=== PATIENT | female | born 1960 | race Caucasian/White ===

== ENCOUNTER → 2020-08-09 | Outpatient (CLI) | payer OTHER, SELFPAY ==
[2020-08-09 16:59] VITALS: BMI 39.0
[2020-08-09 22:14] LABS: Absolute Lymphocyte Count 2.55 X10^3/uL (0.83-4.51); Absolute Neutrophil Count 4.2 X10^3/uL (2.0-7.7); Basophil# 0.03 X10^3/uL; Basophil% 0.4 % (0-1); Eosinophil# 0.11 X10^3/uL; Eosinophils% 1.5 % (0-5); Hematocrit 41.3 % (37-47); Hemoglobin 13.3 g/dL (12.0-15.0); Lymphocyte # 2.55 X10^3/ul (0.83-4.51); Lymphocyte % 34.4 % (19-41); Mean Corp Hgb Conc 32.2 g/dL (32-36); Mean Corpuscular Hgb 30.4 pg (27.0-32.0); Mean Corpuscular Volume 94.5 fL (81-99); Mean Platelet Vol. 11.4 fl (6.2-12.0); Monocyte# 0.49 X10^3/uL; Monocyte% 6.6 % (0-10); NRBC Flagged by Analyzer 0 % (0-5); Neutrophil # 4.22 X10^3/uL (2.7-7.7); Neutrophil % 56.8 % (47-70); Platelet Count 290 K/mm3 (150-450); RBC Distribution Width CV 12.7 % (11.6-14.6); Red Blood Count 4.37 M/mm3 (4.2-5.4); White Blood Count 7.4 K/mm3 (4.4-11.0)
[2020-08-09 22:31] LABS: AST(SGOT) 18 U/L (15-37); Alanine Aminotransfer ALT/SGPT 32 U/L (13-56); Alkaline Phosphatase 65 U/L (45-117); Anion Gap 11 (5-15); BUN 22 mg/dL (7-18); BUN/Creat Ratio 20.8 RATIO (10-20); Calcium,Total 9.2 mg/dL (8.5-10.1); Chloride 106 mmol/L (98-107); Cholesterol 236 mg/dL (200); Creatinine, Serum 1.06 mg/dL (0.55-1.02); EST Glomerular Filtration Rate 56 mL/min (>60); Est Glom Filt Rate - Afr Amer 68 mL/min (>60); Globulin 4.1 g/dL (2.2-4.2); Glucose 115 mg/dL (74-106); High Density Lipoprotein 67 mg/dL; Potassium 3.8 mmol/L (3.5-5.1); Protein, Total 8.1 g/dL (6.4-8.2); Sodium Level 140 mmol/L (136-145); Triglycerides 244 mg/dL; Very Low Density Lipoprotein 49 mg/dL (5-40)
== END | disposition home or self-care (01) ==
PROVIDERS: PCP Nurse Practitioner; Referring Provider Nurse Practitioner; Visit Provider Nurse Practitioner
DX: R06.02 Shortness of breath (principal); R07.89 Other chest pain
CPT/HCPCS: 80053; 80061; 84484; 85025; 86141

== ENCOUNTER → 2022-09-27 | Outpatient (CLI) | payer OTHER, SELFPAY ==
[2022-09-27 22:03] LABS: Absolute Lymphocyte Count 2.55 X10^3/uL (0.83-4.51); Absolute Neutrophil Count 4.2 X10^3/uL (2.0-7.7); Basophil# 0.03 X10^3/uL; Basophil% 0.4 % (0-1); Eosinophil# 0.07 X10^3/uL; Eosinophils% 0.9 % (0-5); Hematocrit 43.1 % (37-47); Hemoglobin 14.3 g/dL (12.0-15.0); Lymphocyte # 2.55 X10^3/ul (0.83-4.51); Lymphocyte % 34.3 % (19-41); Mean Corp Hgb Conc 33.2 g/dL (32-36); Mean Corpuscular Hgb 31.4 pg (27.0-32.0); Mean Corpuscular Volume 94.7 fL (81-99); Mean Platelet Vol. 11.2 fl (6.2-12.0); Monocyte# 0.62 X10^3/uL; Monocyte% 8.3 % (0-10); NRBC Flagged by Analyzer 0 % (0-5); Neutrophil # 4.15 X10^3/uL (2.7-7.7); Neutrophil % 55.8 % (47-70); Platelet Count 274 K/mm3 (150-450); RBC Distribution Width CV 13.2 % (11.6-14.6); RBC Distribution Width SD 45.9 fl (35.1-43.9); Red Blood Count 4.55 M/mm3 (4.2-5.4); White Blood Count 7.4 K/mm3 (4.4-11.0)
[2022-09-27 22:21] LABS: Vitamin B12 604 pg/mL (211-911)
[2022-09-27 22:29] LABS: AST(SGOT) 20 U/L (15-37); Alanine Aminotransfer ALT/SGPT 29 U/L (13-56); Albumin, Serum 4.1 g/dL (3.2-5.0); Alkaline Phosphatase 70 U/L (45-117); Anion Gap 8 (5-15); BUN 15 mg/dL (7-18); BUN/Creat Ratio 17.4 RATIO (10-20); Calcium,Total 9.5 mg/dL (8.5-10.1); Chloride 106 mmol/L (98-107); Cholesterol 234 mg/dL (200); Creatinine, Serum 0.86 mg/dL (0.55-1.02); EST Glomerular Filtration Rate 71 mL/min (>60); Est Glom Filt Rate - Afr Amer 85 mL/min (>60); Globulin 4.2 g/dL (2.2-4.2); Glucose 93 mg/dL (74-106); High Density Lipoprotein 80 mg/dL; Potassium 4.1 mmol/L (3.5-5.1); Protein, Total 8.3 g/dL (6.4-8.2); Sodium Level 139 mmol/L (136-145); Thyroid Stim Hormone (TSH) 1.37 uIU/mL (0.358-3.74); Triglycerides 153 mg/dL; Very Low Density Lipoprotein 31 mg/dL (5-40)
== END | disposition home or self-care (01) ==
PROVIDERS: PCP Nurse Practitioner; Visit Provider Nurse Practitioner
DX: Z00.00 Encounter for general adult medical examination without abnormal findings (principal)
CPT/HCPCS: 80053; 80061; 82607; 84443; 85025

== ENCOUNTER → 2024-01-15 | Outpatient (CLI) | payer MEDICARE, SELFPAY | END | disposition home or self-care (01) | PROVIDERS: PCP Nurse Practitioner; Referring Provider Nurse Practitioner; Visit Provider Nurse Practitioner | DX: N30.90 Cystitis, unspecified without hematuria (principal) | CPT/HCPCS: 87086; 87088 ==

== ENCOUNTER → 2024-10-30 | Outpatient (CLI) | payer MEDICARE, SELFPAY ==
--- OUTSIDE RECORDS SUMMARY | 2024-10-30 22:44 | XMS RPT_ITS | CCD ---
Author Organization [facility] Care Team Providers Care Catheter Builder Name Role Phone Austin INSTRUCTIONAL SUPPORT ASSISTANT.MANAGER DATA CENTER, Margarita L Primary Care Provide r Nick Martinez MD Primary Care Provider NICK Ramos Primary Care Unavailable NICK MARTINEZ Primary Care Unavailable Austin INSTRUCTIONAL SUPPORT ASSISTANT.MANAGER DATA CENTER, Margarita L Primary Care Provide r Austin GIMP TACKER, Margarita Referring Unavailable Austin GIMP TACKER, Margarita Attending Unavailable Ausitn GIMP TACKER, Margarita Primary Care Unavailable NILTON GLASER Admitting Unavailable NILTON GLASER Attending Unavailable AVILA, MARGARITA L Primary Care Unavailable PROVIDER, UNKNOWN Referring Unavailable AVILA, MARGARITA L Primary Care Unavailable AVILA, MARGARITA L Primary Care Unavailable NILTON GLASER Referring Unavailable AVILA, MARGARITA L Primary Care Unavailable NILTON GLASER Referring Unavailable NILTON GLASER Attending Unavailable AVILA, MARGARITA L Primary Care Unavailable AVILA, MARGARITA L Primary Care Unavailable NILTON GLASER Attending Unavailable NILTON GLASER Referring Unavailable AVILA, MARGARITA L Primary Care Unavailable AVILA, MARGARITA L Primary Care Unavailable SELF Referring Unavailable NILTON GLASER Attending Unavailable AVILA, MARGARITA L Primary Care Unavailable NILTON GLASER Referring Unavailable NILTON GLASER Attending Unavailable GI MIRANDA Attending Unavaila ble AVILA, MARGARITA L Primary Care Unavailable SELF Referring Unavailable AVILA, MARGARITA L Primary Care Unavailable NILTON GLASER Attending Unavailable AVILA, MARGARITA L Primary Care Unavailable NILTON GLASER Attending Unavailable AVILA, MARGARITA L Primary Care Unavailable NILTON GLASER Referring Unavailable AVILA, MARGARITA L Primary Care Unavailable NILTON GLASER Referring Unavailable AVILA, MARGARITA L Primary Care Unavailable JAILYN NILTON Referring Unavailable AVILA, MARGARITA L Primary Care Unavailable NILTON GLASER Referring Unavailable AVILA, MARGARITA L Primary Care Unavailable JAILYN, NILTON Referring Unavailable AVILA, MARGARITA L Primary Care Unavailable NILTON GLASER Referring Unavailable AVILA, MARGARITA L Primary Care Unavailable JAILYN, NILTON Referring Unavailable AVILA, MARGARITA L Primary Care Unavailable JAILYN, NILTON Referring Unavailable AVILA, MARGARITA L Primary Care Unavailable JAILYN, NILTON Referring Unavailable AVILA, MARGARITA L Primary Care Unavailable JAILYN, NILTON Referring Unavailable AVILA, MARGARITA L Primary Care Unavailable JAILYN, NILTON Referring Unavailable AVILA, MARGARITA L Primary Care Unavailable NILTON GLASER Referring Unavailable AVILA, MARGARITA L Primary Care Unavailable JAILYN, NILTON Referring Unavailable AVILA, MARGARITA L Primary Care Unavailable JAILYN, NILTON Referring Unavailable AVILA, MARGARITA L Primary Care Unavailable JAILYN, NILTON Referring Unavailable AVILA, MARGARITA L Primary Care Unavailable JAILYN, NILTON Referring Unavailable AVILA, MARGARITA L Primary Care Unavailable JAILYN, NILTON Referring Unavailable AVILA, MARGARITA L Primary Care Unavailable JAILYN, NILTON Referring Unavailable AVILA, MARGARITA L Primary Care Unavailable JAILYN, NILTON Referring Unavailable AVILA, MARGARITA L Primary Care Unavailable NILTON GLASER Referring Unavailable TAISHA GUTIERREZ Attending Unavailable AVILA, MARGARITA L Primary Care Unavailable AVILA, MARGARITA L Primary Care Unavailable NILTON GLASER Referring Unavailable AVILA, MARGARITA L Primary Care Unavailable JAILYN, NILTON Referring Unavailable Allergies Allergy Classification Reported Allergen(s) Allergy Type Date of Onset Reaction(s) Facility Sulfonamides (antibiotic) (1 source) Sulfonamides (Antibiotic) Drug Allergy 6 [facility] (20 sources) Sulfonamides (Antibiotic); Translations: [SULFA (SULFONAMIDE ANTIBIOTICS)] Drug Allergy 6 [facility] (1 source) Sulfonamides (Antibiotic) Allergy to substance 9 [facility] (1 source) Sulfonamides (Antibiotic) Drug allergy (disorder) 9 [facility] Rep[facility] Medications Current Medications Medication Drug Class(es) Dates Sig (Normalized) Sig (Original) [id number] 200 actuat albuterol 0.09 mg/actuat metered dose inhaler (20 sources) beta2-Adrenergic Agonist Start: 10-25-2022 albuterol HFA (PROVENTIL HFA, VENTOLIN HFA) 90 mcg/actuation inhaler 10/25/2022 Active Start: 02-06-2019 End: 09-27-2022 take 1 puff(s) by inhalation every six hours Albuterol Sulfate (Proair Hfa) 90 mcg/actuation HFA aerosol inhaler Active 2 PUFF INHALATION EVERY 6 HOURS 20.1 September 27, 2022 3:44pm aspirin 81 mg delayed release oral tablet (20 sources) Platelet Aggregation Inhibitor, Nonsteroidal Anti-inflammatory Drug Start: 05-27-2024 take 1 tablet by mouth twice daily in the evening aspirin, enteric coated (ECOTRIN LOW STRENGTH) 81 mg EC tablet Take 1 tablet by mouth two times a day for 14 days. 28 tablet 05/27/2024 1:11 PM EDT 05/27/2024 Active azelaic acid 0.15 mg/mg topical gel (20 sources) Start: 10-24-2022 Azelaic Acid 15 % gel 10/24/2022 Active betamethasone 0.5 mg/ml / clotrimazole 10 mg/ml topical cream (2 sources) Azole Antifungal, Corticosteroid Start: 09-02-2018 End: 08-09-2020 Clotrimazole-Bet amethasone Active 1 APPLIC TOPICAL TWICE A DAY August 09, 2020 5:19pm calcium carbonate 800 mg / famotidine 10 mg / magnesium hydroxide 165 mg chewable tablet (1 source) Histamine-2 Receptor Antagonist Start: 09-02-2018 take 1 tablet by mouth once daily Famotidine-Ca Carb-Mag Hydrox (Pepcid Complete) 10-800-165 mg tablet,chewable Active 1 TABLET PO DAILY September 02, 2018 12:00am cetirizine hydrochloride 10 mg oral tablet (20 sources) Histamine-1 Receptor Antagonist Start: 09-02-2018 take 1 tablet by mouth once daily cetirizine (ZYRTEC) 10 mg tablet Take 1 tablet by mouth once daily. 09/17/2019 Active Comment on above: Take 1 tablet by daniella th once daily. collagen, bovine, 100 % pwpk (20 sources) collagen, bovine, 100 % pwpk Take 1 Package by mouth once daily. Puts in coffee Active esomeprazole 40 mg delayed release oral capsule (20 sources) Proton Pump Inhibitor Start: 09-17-2019 End: 09-22-2021 take 1 capsule by mouth once daily before breakfast esomeprazole (NEXIUM) 20 mg capsule Take 1 capsule by mouth daily before breakfast. 0 09/17/2019 09/22/2021 Discontinued (Patient chooses alternative therapy) Start: 09-02-2018 End: 09-27-2022 esomeprazole (NEXIUM) 40 mg capsule 09/27/2022 Active Comment on above: Take 1 capsule by mo uth daily before breakfast. Famotidine (20 sources) Histamine-2 Receptor Antagonist famotidine (PEPCID AC ORAL) Take by mouth. Active take 1 tablet by mouth once nik y famotidine (Pepcid) 20 MG tablet Take 20 mg by mouth daily. 0 Active fluticasone propionate 0.05 mg/actuat metered dose nasal spray (2 sources) Corticosteroid Start: 09-02-2018 End: 08-09-2020 take 1 spray(s) nasal route once daily Fluticasone Propionate Active 1 SPRAY INTRANASAL DAILY 47.4 August 09, 2020 5:19pm administer into each nostril GLUCOSAMINE-CONDROI TIN-[id number] ORAL (20 sources) GLUCOSAMINE-COND RO ITIN-[id number] ORAL Take by mouth. Active GLUCOSAMINE-COND ROITIN-SVFY365 ORAL Take by mouth. 0 Active Comment on above: Take by mouth. KRILL OIL ORAL (20 sources) KRILL OIL ORAL T geri by mouth. Active KRILL OIL ORAL T geri by mouth. 0 Active Comment on above: Take by mouth. metroNIDAZOLE 0.0075 mg/mg topical gel (20 sources) Nitroimidazole Antimicrobial Start: 10-02-2022 metroNIDAZOLE (METROGEL) 0.75 % Topical Gel 10/02/2022 Active MULTIVITAMIN ORAL (20 sources) MULTIVITAMIN ORA L Take by mouth. Active MULTIVITAMIN ORA L Take by mouth. 0 Active Comment on above: Take by mouth. MUSHROOM (20 sources) MUSHROOM Active OTC NUTRITIONAL SUPPLEMENT (20 sources) take 1 capsule by mouth once daily OTC NUTRITIONAL SUPPLEMENT Take 1 capsule by mouth once daily. Active Turmeric extract (20 sources) TURMERIC ORAL Ta ke by mouth. Active Completed/Discontinued Medications Medication Drug Class(es) Dates Sig (Normalized) Sig (Original) amoxicillin 875 mg / clavulanate 125 mg oral tablet (3 sources) Penicillin-class Antibacterial Start: 07-11-2021 End: 09-27-2022 take 1 tablet by mouth twice daily Amoxicillin-Pot Clavulanate Discontinued 1 TABLET PO TWICE A DAY December 19, 2021 7:38pm September 27, 2022 3:43pm Start: 12-02-2020 End: 02-11-2021 take 1 tablet by mouth twice daily Amoxicillin-Pot Clavulanate Discontinued 1 TABLET PO TWICE A DAY December 02, 2020 12:00am February 11, 2021 8:02pm benzonatate 200 mg oral capsule (3 sources) Non-narcotic Antitussive Start: 07-11-2021 End: 09-27-2022 take 200 mg by mouth three times daily Benzonatate Discontinued 200 MG PO THREE TIMES A DAY 60 December 19, 2021 7:38pm September 27, 2022 3:43pm Start: 02-06-2019 End: 08-09-2020 take 200 mg by mouth three times daily Benzonatate Discontinued 200 MG PO THREE TIMES A DAY 60 February 06, 2019 1:00am August 09, 2020 5:17pm calcium chloride 0.0014 meq/ml / potassium chloride 0.004 meq/ml / sodium chloride 0.103 meq/ml / sodium lactate 0.028 meq/ml injectable solution (1 source) Start: 01-31-2023 End: 02-01-2023 lactated Ringer's (LR) infusion ciprofloxacin 500 mg oral tablet (1 source) Quinolone Antimicrobial Start: 02-11-2021 End: 07-11-2021 take 1 tablet by mouth twice daily Ciprofloxacin Hcl (Cipro) 500 mg tablet Discontinued 500 MG PO TWICE A DAY February 11, 2021 1:00am July 11, 2021 4:28pm cyclopentolate hydrochloride 10 mg/ml ophthalmic solution (3 sources) Start: 01-31-2023 End: 02-01-2023 cyclopentolate (Cyclogyl) 1 % ophthalmic solution 1 drop Start: 01-10-2023 End: 01-10-2023 cyclopentolate (Cyclogyl) 1 % ophthalmic solution 1 drop 1 ml HYDROmorphone hydrochloride 2 mg/ml cartridge (1 source) Opioid Agonist Start: 01-10-2023 End: 01-10-2023 HYDROmorphone (Dilaudid) injection ketorolac tromethamine 5 mg/ml ophthalmic solution (3 sources) Nonsteroidal Anti-inflammatory Drug, Cyclooxygenase Inhibitor Start: 01-31-2023 End: 02-01-2023 ketorolac (Acular) 0.5 % ophthalmic solution 1 drop Start: 01-10-2023 End: 01-10-2023 ketorolac (Acular) 0.5 % oph thalmic solution 1 drop levoFLOXacin 500 mg oral tablet (1 source) Quinolone Antimicrobial Start: 02-06-2019 End: 08-09-2020 take 1 tablet by mouth once daily Levofloxacin (Levaquin) 500 mg tablet Discontinued 500 MG PO DAILY February 06, 2019 1:00am August 09, 2020 5:18pm 2 ml midazolam 1 mg/ml injection (1 source) Benzodiazepine Start: 01-10-2023 End: 01-10-2023 midazolam (Versed) injection ofloxacin 3 mg/ml ophthalmic solution (2 sources) Quinolone Antimicrobial Start: 01-10-2023 End: 01-10-2023 ofloxacin (Ocuflox) 0.3 % ophthalmic solution 1 drop phenazopyridine hydrochloride 200 mg oral tablet (1 source) Start: 02-11-2021 End: 07-11-2021 take 1 tablet by mouth three times daily Phenazopyridine (Pyridium) 200 mg tablet Discontinued 200 MG PO THREE TIMES A DAY February 11, 2021 1:00am July 11, 2021 4:28pm phenylephrine hydrochloride 100 mg/ml ophthalmic solution (3 sources) alpha-1 Adrenergic Agonist Start: 01-31-2023 End: 02-01-2023 phenylephrine (Juvencio-Synephrine) 10 % ophthalmic solution 1 drop Start: 01-10-2023 End: 01-10-2023 phenylephrine (Juvencio-Synephrin e) 10 % ophthalmic solution 1 drop polymyxin b [id number] unt/ml / trimethoprim 1 mg/ml ophthalmic solution (1 source) Dihydrofolate Reductase Inhibitor Antibacterial, Polymyxin-class Antibacterial Start: 09-02-2018 End: 02-06-2019 Polymyxin B Sulf-Trimethoprim (Polytrim) 10,000 unit- 1 mg/mL drops Discontinued 2 DRP OPHTHALMIC Q4H September 02, 2018 12:00am February 06, 2019 6:28pm while awake R eye; do not exceed 6 doses in 24 hours prednisoLONE acetate 10 mg/ml ophthalmic suspension (3 sources) Corticosteroid Start: 01-31-2023 End: 02-01-2023 prednisoLONE acetate (Pred-Forte) 1 % ophthalmic suspension 1 drop Start: 01-10-2023 End: 01-10-2023 prednisoLONE acetate (Pred-F orte) 1 % ophthalmic suspension 1 drop predniSONE 20 mg oral tablet (2 sources) Start: 07-11-2021 End: 12-19-2021 take 40 mg by mouth once daily Prednisone Discontinued 40 MG PO DAILY July 11, 2021 12:00am December 19, 2021 7:38pm Start: 09-30-2018 End: 10-07-2018 take 30 mg by mouth once daily Prednisone Discontinued 30 MG PO DAILY 15 09September 30, 2018 12:00am October 07, 2018 12:07am proparacaine hydrochloride 5 mg/ml ophthalmic solution (3 sources) Local Anesthetic Start: 01-31-2023 End: 01-31-2023 proparacaine (Alcaine) 0.5 % ophthalmic solution 1 drop Start: 01-10-2023 End: 01-10-2023 proparacaine (Alcaine) 0.5 % ophthalmic solution 1 drop 20 ml propofol 10 mg/ml injection (1 source) General Anesthetic Start: 01-10-2023 End: 01-10-2023 Propofol (Diprivan) injection tropicamide 10 mg/ml ophthalmic solution (3 sources) Anticholinergic Start: 01-31-2023 End: 02-01-2023 tropicamide (Mydriacyl) 1 % ophthalmic solution 1 drop Start: 01-10-2023 End: 01-10-2023 tropicamide (Mydriacyl) 1 % ophthalmic solution 1 drop valACYclovir 1000 mg oral tablet (1 source) Herpesvirus Nucleoside Analog DNA Polymerase Inhibitor, Herpes Simplex Virus Nucleoside Analog DNA Polymerase Inhibitor, Herpes Zoster Virus Nucleoside Analog DNA Polymerase Inhibitor Start: 09-30-2018 End: 10-07-2018 take 1000 mg by mouth three times daily Valacyclovir Discontinued 1000 MG PO THREE TIMES A DAY 15 09September 30, 2018 12:00am October 07, 2018 12:07am Problems Active Problems Problem Classification Problem Date Documented Date Episodic/Chronic Abdominal pain (1 source) Flank pain; Translations: [Unspecified abdominal pain] 09-30-2018 Episodic Cataract (4 sources) Age-related nuclear cataract, left eye; Translations: [Age-related nuclear cataract, right eye] Onset: 01-10-2023 Chronic Chronic obstructive pulmonary disease and bronchiectasis (2 sources) Bronchitis; Translations: [Bronchitis, not specified as acute or chronic] 02-06-2019 Episodic Disorders of lipid metabolism (20 sources) Hyperlipidemia; Translations: [Hyperlipidemia, unspecified] Onset: 05-08-2024 05-08-2024 Chronic Esophageal disorders (20 sources) Gastroesophageal reflux disease; Translations: [Gastro-esophageal reflux disease without esophagitis] Onset: 05-08-2024 09-02-2018 Chronic Genitourinary symptoms and ill-defined conditions (1 source) Dysuria; Translations: [Dysuria] 02-11-2021 Episodic Malaise and fatigue (1 source) Fatigue; Translations: [Other fatigue] 12-02-2020 Episodic Nonmalignant breast conditions (2 sources) Mammographic calcification of left breast; Translations: [Mammographic calcification found on diagnostic imaging of breast] 10-27-2022 Episodic Nonspecific chest pain (1 source) Tight chest; Translations: [Other chest pain] 08-09-2020 Episodic Other and unspecified benign neoplasm (1 source) Polyp of colon; Translations: [Polyp of colon] 09-27-2022 Episodic Other connective tissue disease (20 sources) Shoulder girdle weakness; Translations: [Other symptoms and signs involving the musculoskeletal system] Onset: 07-28-2024 07-28-2024 Episodic Other connective tissue disease (1 source) Other symptoms and signs involving the musculoskeletal system; Translations: [Weakness of right shoulder] Onset: 07-28-2024 Episodic Other injuries and conditions due to external causes (6 sources) Injury of axillary nerve, right arm, subsequent encounter; Translations: [Other specified aftercare] Onset: 09-04-2024 05-06-2024 Episodic Other lower respiratory disease (1 source) Dyspnea; Translations: [Shortness of breath] 08-09-2020 Episodic Other non-traumatic joint disorders (1 source) Pain in right shoulder; Translations: [Right shoulder pain] 09-02-2018 Episodic Other non-traumatic joint disorders (20 sources) Decreased range of shoulder movement; Translations: [Stiffness of right shoulder, not elsewhere classified] Onset: 07-28-2024 07-07-2024 Episodic Other non-traumatic joint disorders (1 source) Stiffness of right shoulder, not elsewhere classified; Translations: [Decreased range of motion of right shoulder] Onset: 07-28-2024 Episodic Other nutritional; endocrine; and metabolic disorders (20 sources) Body mass index 30+ - obesity; Translations: [Obesity, unspecified] Onset: 05-08-2024 05-08-2024 Chronic Other screening for suspected conditions (not mental disorders or infectious disease) (8 sources) Patient encounter status; Translations: [Encounter for other screening for malignant neoplasm of breast] Onset: 07-17-2024 Episodic Other upper respiratory disease (1 source) Seasonal allergy; Translations: [Other seasonal allergic rhinitis] 09-02-2018 Chronic Other upper respiratory infections (1 source) Maxillary sinusitis; Translations: [Chronic maxillary sinusitis] 02-06-2019 Chronic Residual codes; unclassified (20 sources) Family history of malignant neoplasm of breast in first degree relative; Translations: [Family history of malignant neoplasm of breast] 09-11-2012 Episodic Residual codes; unclassified (2 sources) Family history of breast cancer; Translations: [Family history of malignant neoplasm of breast] 10-10-2022 Episodic Residual codes; unclassified (2 sources) Other specified postprocedural states; Translations: [S/P right rotator cuff repair] Onset: 07-28-2024 Episodic Spondylosis; intervertebral disc disorders; other back problems (1 source) Chronic low back pain; Translations: [Chronic low back pain] 09-02-2018 Episodic Urinary tract infections (2 sources) Cystitis; Translations: [Cystitis, unspecified without hematuria] Onset: 02-12-2024 02-11-2021 Episodic Viral infection (1 source) 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; 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] 09-30-2018 Episodic Past or Other Problems Problem Classification Problem Date Documented Date Episodic/Chronic E Codes: Fall (1 source) Unspecified fall, initial encounter; Translations: [Fall, initial encounter] Onset: 02-07-2024 Episodic Joint disorders and dislocations; trauma-related (1 source) Unspecified dislocation of right shoulder joint, initial encounter; Translations: [Shoulder dislocation, right, initial encounter] Onset: 02-07-2024 Episodic Other and unspecified benign neoplasm (20 sources) Leiomyoma; Translations: [Benign neoplasm of connective and other soft tissue, unspecified] Onset: 10-06-2010 02-21-2021 Episodic Other nutritional; endocrine; and metabolic disorders (20 sources) Obese class II; Translations: [Obesity, unspecified] Onset: 08-18-2020 Resolved: 05-08-2024 08-18-2020 Chronic Screening and history of mental health and substance abuse codes (20 sources) Ex-smoker; Translations: [Personal history of nicotine dependence] Onset: 05-08-2024 05-08-2024 Episodic Sprains and strains (7 sources) Strain of muscle(s) and tendon(s) of the rotator cuff of right shoulder, initial encounter; Translations: [Rotator cuff (capsule) sprain] Onset: 02-15-2024 02-14-2024 Episodic Superficial injury; contusion (2 sources) Abrasion of cornea of right eye; Translations: [Injury of conjunctiva and corneal abrasion without foreign body, right eye, initial encounter] Onset: 02-07-2024 09-02-2018 Episodic Unclassified (1 source) ORAL SURGERY BENIGN TUMOR 09-14-2021 Unclassified (1 source) Preprocedural examination done 05-08-2024 Unclassified (1 source) Injury of right axillary nerve, subsequent encounter 06-12-2024 Results Test Name Value Interpretation Reference Range Facility [facility] 10-21-2024 [facility] OT/PT/Speech Visit (LDPT) ADAM GUAJARDO ([id number]) 1960 F Date Time Provider Department 10/21/24 10:00 AM RAIMUNDO ACEVES Date Time Provider Department Center 10/21/2024 10:00 AM [id number] [facility] Reason for Visit: Physical Therapy [503] Primary Visit Diagnosis:S/P right rotator cuff repair [Z98.890] Allergies As of Date: 10/21/2024 Noted Allergy Reaction SULFA (SULFONAMIDE ANTIBIOTICS) 10/17/2005 2 - Rash Date Reviewed: 09/04/2024 Reviewed by: [place], Kraissa, MANAGER STRATEGIC DEVELOPMENT - Fully Assessed Prescriptions as of 10/21/2024 - aspirin, enteric coated (ECOTRIN LOW STRENGTH) 81 mg EC tablet Take 1 tablet by mouth two times a day for 14 days. - collagen, bovine, 100 % pwpk Take 1 Package by mouth once daily. Puts in coffee - MUSHROOM - OTC NUTRITIONAL SUPPLEMENT Take 1 capsule by mouth once daily. - famotidine (PEPCID AC ORAL) Take by mouth. - TURMERIC ORAL Take by mouth. - albuterol HFA (PROVENTIL HFA, VENTOLIN HFA) 90 mcg/actuation inhaler - Azelaic Acid 15 % gel - esomeprazole (NEXIUM) 40 mg capsule - metroNIDAZOLE (METROGEL) 0.75 % Topical Gel - MULTIVITAMIN ORAL Take by mouth. - KRILL OIL ORAL Take by mouth. - GLUCOSAMINE-CONDROITI [id number] ORAL Take by mouth. - cetirizine (ZYRTEC) 10 mg tablet Take 1 tablet by mouth once daily. [facility] 10-16-2024 CNTHERAPY OT/PT/Speech Visit (LDPT) ADAM GUAJARDO ([id number]) 1960 F Date Time Provider Department 10/16/24 1:30 PM KELSEA FAJARDO LDRANJANA Date Time Provider Department Center 10/16/2024 1:30 PM [id number], CARLA LDPT [facility] Reason for Visit: Physical Therapy [503] Primary Visit Diagnosis:S/P right rotator cuff repair [Z98.890] Other Visit Diagnoses:Decreased range of motion of right shoulder [M25.611] Weakness of right shoulder [R29.898] Allergies As of Date: 10/16/2024 Noted Allergy Reaction SULFA (SULFONAMIDE ANTIBIOTICS) 10/17/2005 2 - Rash Date Reviewed: 09/04/2024 Reviewed by: Elias Seo LPN - Fully Assessed Prescriptions as of 10/16/2024 - aspirin, enteric coated (ECOTRIN LOW STRENGTH) 81 mg EC tablet Take 1 tablet by mouth two times a day for 14 days. - collagen, bovine, 100 % pwpk Take 1 Package by mouth once daily. Puts in coffee - MUSHROOM - OTC NUTRITIONAL SUPPLEMENT Take 1 capsule by mouth once daily. - famotidine (PEPCID AC ORAL) Take by mouth. - TURMERIC ORAL Take by mouth. - albuterol HFA (PROVENTIL HFA, VENTOLIN HFA) 90 mcg/actuation inhaler - Azelaic Acid 15 % gel - esomeprazole (NEXIUM) 40 mg capsule - metroNIDAZOLE (METROGEL) 0.75 % Topical Gel - MULTIVITAMIN ORAL Take by mouth. - KRILL OIL ORAL Take by mouth. - GLUCOSAMINE-CONDROITI [id number] ORAL Take by mouth. - cetirizine (ZYRTEC) 10 mg tablet Take 1 tablet by mouth once daily. [facility] [id number] 10-14-2024 [id number] HNO ID: [id number] Author: KELSEA FAJARDO PT Service: ? Author Type: Physical Therapist Type: [id number] Filed: 10/14/2024 15:39 Note Text: [facility] Physical Therapy Plan of Care Certification Patient Name: Adam Guajardo : 1960 CC #: [id number] Date: 10/14/2024 To: Nilton Glaser MD From Therapist: Kelsea Fajardo PT RE: Patient Certification/ Recertification Your review, approval and electronic signature are required in order to comply with Payor: [employer] / Plan: [employer] PPO / Product Type: PPO / regulations. The identified Physical Therapy PLAN OF CARE for the patient is as follows: Z98.890 S/P right rotator cuff repair (primary encounter diagnosis) M25.611 Decreased range of motion of right shoulder R29.898 Weakness of right shoulder PLAN OF CARE UPDATE: Assessment: Adam Guajardo demonstrates improvements in lifting, physical activities, reaching behind back, reaching overhead, use hand with arm at shoulder level, and grooming. The patient has progressed toward goals. Patient continues to present with impairments in ADL's, joint mobility, overall function, range of motion, and strength that interfere with reaching overhead, reaching behind back, lifting, recreational activities . Current prognosis is Good due to: current objective clinical presentation, good overall health status, acuteness of condition, within-session changes, good support system/ coping skills Fair due to: clinical presentation, chronic nature of impairments . She presents 4 months s/p R RCR doing well with minimal pain but remains limited by weakness AND tightness. The patient will benefit from continued skilled therapy services to meet the updated goals for this plan of care as noted below. Goals for Episode of Care: established 07/07/24 Patient reported outcome of physical function and self-efficacy will increase T-score by a minimum 5 points. [place] in home exercise program. Patient will decrease pain to 0/10 with functional activities to allow patient to improve ADLs. Patient will increase active ROM of R shoulder to wnl, symmetrical AND painfree to allow pt to to improve postural alignment and to improve performance of ADLs. Patient will demonstrate increase in R UE/shoulder strength to 5/5 during manual muscle testing in order to improve function for basic self-care tasks, home management tasks, leisure / recreation skills, and prior functional tasks. Patient Goals: full use of R UE Time Frame for Goals and Treatment : 12/13/24 Planned Interventions, Frequency, and Duration: 1x/week, 8 weeks Patient to be seen for Therapeutic exercise (32148), Manual therapy (46920), Self-half-way management (54696), Therapeutic activities (78525), Patient/Family/Caregi froilan Education PLAN FOR NEXT VISIT: continue to progress R shoulder ROM AND strength For further details regarding this patient refer to the Physical Therapy electronically documented visit dated 10/14/2024. Provider Attestation I have reviewed the treatment plan for Adam Hunter Casandra, [facility]# [id number] for the period of 10/14/24 -- 12/13/24, established on 10/14/2024. Signature certifies the need for therapy services. [facility] CNTHERAPYon 10-14-2024 CNTHERAPY OT/PT/Speech Visit (LDPT) ADAM GUAJARDO ([id number]) 1960 F Date Time Provider Department 10/14/24 1:30 PM KELSEA FAJARDO Date Time Provider Department Center 10/14/2024 1:30 PM [id number], CARLA LDPT [facility] Reason for Visit: PT Progress Note [2336] Primary Visit Diagnosis:S/P right rotator cuff repair [Z98.890] Other Visit Diagnoses:Decreased range of motion of right shoulder [M25.611] Weakness of right shoulder [R29.898] Allergies As of Date: 10/14/2024 Noted Allergy Reaction SULFA (SULFONAMIDE ANTIBIOTICS) 10/17/2005 2 - Rash Date Reviewed: 09/04/2024 Reviewed by: Elias Seo LPN - Fully Assessed Prescriptions as of 10/14/2024 - aspirin, enteric coated (ECOTRIN LOW STRENGTH) 81 mg EC tablet Take 1 tablet by mouth two times a day for 14 days. - collagen, bovine, 100 % pwpk Take 1 Package by mouth once daily. Puts in coffee - MUSHROOM - OTC NUTRITIONAL SUPPLEMENT Take 1 capsule by mouth once daily. - famotidine (PEPCID AC ORAL) Take by mouth. - TURMERIC ORAL Take by mouth. - albuterol HFA (PROVENTIL HFA, VENTOLIN HFA) 90 mcg/actuation inhaler - Azelaic Acid 15 % gel - esomeprazole (NEXIUM) 40 mg capsule - metroNIDAZOLE (METROGEL) 0.75 % Topical Gel - MULTIVITAMIN ORAL Take by mouth. - KRILL OIL ORAL Take by mouth. - GLUCOSAMINE-CONDROITI [id number] ORAL Take by mouth. - cetirizine (ZYRTEC) 10 mg tablet Take 1 tablet by mouth once daily. [facility] CNTHERAPYon 10-09-2024 CNTHERAPY OT/PT/Speech Visit (LDPT) ADAM GUAJARDO ([id number]) 1960 F Date Time Provider Department 10/09/24 10:45 AM RAIMUNDO ACEVES Date Time Provider Department Center 10/09/2024 10:45 AM [id number] ACEVES [facility] Reason for Visit: Physical Therapy [503] Primary Visit Diagnosis:S/P right rotator cuff repair [Z98.890] Allergies As of Date: 10/09/2024 Noted Allergy Reaction SULFA (SULFONAMIDE ANTIBIOTICS) 10/17/2005 2 - Rash Date Reviewed: 09/04/2024 Reviewed by: Elias Seo LPN - Fully Assessed Prescriptions as of 10/09/2024 - aspirin, enteric coated (ECOTRIN LOW STRENGTH) 81 mg EC tablet Take 1 tablet by mouth two times a day for 14 days. - collagen, bovine, 100 % pwpk Take 1 Package by mouth once daily. Puts in coffee - MUSHROOM - OTC NUTRITIONAL SUPPLEMENT Take 1 capsule by mouth once daily. - famotidine (PEPCID AC ORAL) Take by mouth. - TURMERIC ORAL Take by mouth. - albuterol HFA (PROVENTIL HFA, VENTOLIN HFA) 90 mcg/actuation inhaler - Azelaic Acid 15 % gel - esomeprazole (NEXIUM) 40 mg capsule - metroNIDAZOLE (METROGEL) 0.75 % Topical Gel - MULTIVITAMIN ORAL Take by mouth. - KRILL OIL ORAL Take by mouth. - GLUCOSAMINE-CONDROITI [id number] ORAL Take by mouth. - cetirizine (ZYRTEC) 10 mg tablet Take 1 tablet by mouth once daily. [facility] CNTHERAPYon 09-25-2024 CNTHERAPY OT/PT/Speech Visit (LDPT) ADAM GUAJARDO ([id number]) 1960 F Date Time Provider Department 09/25/24 10:00 AM KELSEA FAJARDO Date Time Provider Department Center 09/25/2024 10:00 AM [id number] FAJARDO [facility] Reason for Visit: Physical Therapy [503] Primary Visit Diagnosis:S/P right rotator cuff repair [Z98.890] Other Visit Diagnoses:Decreased range of motion of right shoulder [M25.611] Weakness of right shoulder [R29.898] Allergies As of Date: 09/25/2024 Noted Allergy Reaction SULFA (SULFONAMIDE ANTIBIOTICS) 10/17/2005 2 - Rash Date Reviewed: 09/04/2024 Reviewed by: Elias Seo LPN - Fully Assessed Prescriptions as of 09/25/2024 - aspirin, enteric coated (ECOTRIN LOW STRENGTH) 81 mg EC tablet Take 1 tablet by mouth two times a day for 14 days. - collagen, bovine, 100 % pwpk Take 1 Package by mouth once daily. Puts in coffee - MUSHROOM - OTC NUTRITIONAL SUPPLEMENT Take 1 capsule by mouth once daily. - famotidine (PEPCID AC ORAL) Take by mouth. - TURMERIC ORAL Take by mouth. - albuterol HFA (PROVENTIL HFA, VENTOLIN HFA) 90 mcg/actuation inhaler - Azelaic Acid 15 % gel - esomeprazole (NEXIUM) 40 mg capsule - metroNIDAZOLE (METROGEL) 0.75 % Topical Gel - MULTIVITAMIN ORAL Take by mouth. - KRILL OIL ORAL Take by mouth. - GLUCOSAMINE-CONDROITI [id number] ORAL Take by mouth. - cetirizine (ZYRTEC) 10 mg tablet Take 1 tablet by mouth once daily. [facility] CNTHERAPYon 09-23-2024 CNTHERAPY OT/PT/Speech Visit (LDPT) ADAM GUAJARDO ([id number]) 1960 F Date Time Provider Department 09/23/24 9:15 AM RAIMUNDO ACEVES Date Time Provider Department Center 09/23/2024 9:15 AM [id number] ACEVES [facility] Reason for Visit: Physical Therapy [503] Primary Visit Diagnosis:S/P right rotator cuff repair [Z98.890] Allergies As of Date: 09/23/2024 Noted Allergy Reaction SULFA (SULFONAMIDE ANTIBIOTICS) 10/17/2005 2 - Rash Date Reviewed: 09/04/2024 Reviewed by: Elias Seo LPN - Fully Assessed Prescriptions as of 09/25/2024 - aspirin, enteric coated (ECOTRIN LOW STRENGTH) 81 mg EC tablet Take 1 tablet by mouth two times a day for 14 days. - collagen, bovine, 100 % pwpk Take 1 Package by mouth once daily. Puts in coffee - MUSHROOM - OTC NUTRITIONAL SUPPLEMENT Take 1 capsule by mouth once daily. - famotidine (PEPCID AC ORAL) Take by mouth. - TURMERIC ORAL Take by mouth. - albuterol HFA (PROVENTIL HFA, VENTOLIN HFA) 90 mcg/actuation inhaler - Azelaic Acid 15 % gel - esomeprazole (NEXIUM) 40 mg capsule - metroNIDAZOLE (METROGEL) 0.75 % Topical Gel - MULTIVITAMIN ORAL Take by mouth. - KRILL OIL ORAL Take by mouth. - GLUCOSAMINE-CONDROITI [id number] ORAL Take by mouth. - cetirizine (ZYRTEC) 10 mg tablet Take 1 tablet by mouth once daily. [facility] CNTHERAPYon 09-16-2024 CNTHERAPY OT/PT/Speech Visit (LDPT) ADAM GUAJARDO ([id number]) 1960 F Date Time Provider Department 09/16/24 9:15 AM RAIMUNDO ACEVES Date Time Provider Department Center 09/16/2024 9:15 AM [id number] ACEVES [facility] Reason for Visit: Physical Therapy [503] Primary Visit Diagnosis:S/P right rotator cuff repair [Z98.890] Allergies As of Date: 09/16/2024 Noted Allergy Reaction SULFA (SULFONAMIDE ANTIBIOTICS) 10/17/2005 2 - Rash Date Reviewed: 09/04/2024 Reviewed by: Elias Seo LPN - Fully Assessed Prescriptions as of 09/16/2024 - aspirin, enteric coated (ECOTRIN LOW STRENGTH) 81 mg EC tablet Take 1 tablet by mouth two times a day for 14 days. - collagen, bovine, 100 % pwpk Take 1 Package by mouth once daily. Puts in coffee - MUSHROOM - OTC NUTRITIONAL SUPPLEMENT Take 1 capsule by mouth once daily. - famotidine (PEPCID AC ORAL) Take by mouth. - TURMERIC ORAL Take by mouth. - albuterol HFA (PROVENTIL HFA, VENTOLIN HFA) 90 mcg/actuation inhaler - Azelaic Acid 15 % gel - esomeprazole (NEXIUM) 40 mg capsule - metroNIDAZOLE (METROGEL) 0.75 % Topical Gel - MULTIVITAMIN ORAL Take by mouth. - KRILL OIL ORAL Take by mouth. - GLUCOSAMINE-CONDROITI [id number] ORAL Take by mouth. - cetirizine (ZYRTEC) 10 mg tablet Take 1 tablet by mouth once daily. [facility] CNTHERAPYon 09-11-2024 CNTHERAPY OT/PT/Speech Visit (LDPT) ADAM GUAJARDO ([id number]) 1960 F Date Time Provider Department 09/11/24 10:00 AM RENU CLINE LDPT Date Time Provider Department Center 09/11/2024 10:00 AM [id number], SARAH LDPT [facility] Reason for Visit: Physical Therapy [503] Primary Visit Diagnosis:S/P right rotator cuff repair [Z98.890] Other Visit Diagnoses:Decreased range of motion of right shoulder [M25.611] Weakness of right shoulder [R29.898] Allergies As of Date: 09/11/2024 Noted Allergy Reaction SULFA (SULFONAMIDE ANTIBIOTICS) 10/17/2005 2 - Rash Date Reviewed: 09/04/2024 Reviewed by: Elias Seo LPN - Fully Assessed Prescriptions as of 09/11/2024 - aspirin, enteric coated (ECOTRIN LOW STRENGTH) 81 mg EC tablet Take 1 tablet by mouth two times a day for 14 days. - collagen, bovine, 100 % pwpk Take 1 Package by mouth once daily. Puts in coffee - MUSHROOM - OTC NUTRITIONAL SUPPLEMENT Take 1 capsule by mouth once daily. - famotidine (PEPCID AC ORAL) Take by mouth. - TURMERIC ORAL Take by mouth. - albuterol HFA (PROVENTIL HFA, VENTOLIN HFA) 90 mcg/actuation inhaler - Azelaic Acid 15 % gel - esomeprazole (NEXIUM) 40 mg capsule - metroNIDAZOLE (METROGEL) 0.75 % Topical Gel - MULTIVITAMIN ORAL Take by mouth. - KRILL OIL ORAL Take by mouth. - GLUCOSAMINE-CONDROITI [id number] ORAL Take by mouth. - cetirizine (ZYRTEC) 10 mg tablet Take 1 tablet by mouth once daily. [facility] CNTHERAPYon 09-09-2024 CNTHERAPY OT/PT/Speech Visit (LDPT) ADAM GUAJARDO ([id number]) 1960 F Date Time Provider Department 09/09/24 10:45 AM KELSEA FAJARDO LDPT Date Time Provider Department Center 09/09/2024 10:45 AM [id number] [facility] Reason for Visit: PT Progress Note [2466] Primary Visit Diagnosis:S/P right rotator cuff repair [Z98.890] Other Visit Diagnoses:Decreased range of motion of right shoulder [M25.611] Weakness of right shoulder [R29.898] Allergies As of Date: 09/09/2024 Noted Allergy Reaction SULFA (SULFONAMIDE ANTIBIOTICS) 10/17/2005 2 - Rash Date Reviewed: 09/04/2024 Reviewed by: Elias Seo LPN - Fully Assessed Prescriptions as of 09/09/2024 - aspirin, enteric coated (ECOTRIN LOW STRENGTH) 81 mg EC tablet Take 1 tablet by mouth two times a day for 14 days. - collagen, bovine, 100 % pwpk Take 1 Package by mouth once daily. Puts in coffee - MUSHROOM - OTC NUTRITIONAL SUPPLEMENT Take 1 capsule by mouth once daily. - famotidine (PEPCID AC ORAL) Take by mouth. - TURMERIC ORAL Take by mouth. - albuterol HFA (PROVENTIL HFA, VENTOLIN HFA) 90 mcg/actuation inhaler - Azelaic Acid 15 % gel - esomeprazole (NEXIUM) 40 mg capsule - metroNIDAZOLE (METROGEL) 0.75 % Topical Gel - MULTIVITAMIN ORAL Take by mouth. - KRILL OIL ORAL Take by mouth. - GLUCOSAMINE-CONDROITI [id number] ORAL Take by mouth. - cetirizine (ZYRTEC) 10 mg tablet Take 1 tablet by mouth once daily. [facility] CNOVon 09-04-2024 CNOV Office Visit (EVA ) ADAM GUAJARDO ([id number]) 1960 F Date Time Provider Department 09/04/24 10:45 AM NILTON GLASER During your visit today, we recorded the following information about you: Nilton Glaser MD 09/04/2024 11:40 AM Signed [facility] NOTE Department of Orthopaedics NAME: Adam Guajardo CLINIC NO.: [id number] DATE: 09/04/2024 SURGERY/PROCEDURE(S): * Right arthroscopic rotator cuff repair Right anterior labral debridement Date: 05/27/2024 Interval Hx: Adam Guajardo is back for 3 months follow up after above mentioned procedure. 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 she denies any new injury or trauma. she is not using pain medication. she is doing physical therapy and improving, particularly in regard to her axillary nerve function. she is satisfied with her results so far. Does still have some pain at mid flexion PHYSICAL EXAMINATION: Incision appears well-healed. Forward elevation is passively to 150 ? and actively to 90 ? External rotation is passively to 45 ? and actively to 45 ? Abduction is actively to 90 ? Internal rotation is actively to sacrum IR strength 5/5 ER strength 5/5 Abduction strength 4+/5 Firing deltoid, all three No axillary neuropraxia Belly press test is negative Fires m/r/uln/ax SILT m/r/uln/ax RADIOGRAPHIC STUDIES: no new imaging ASSESSMENT: Encounter Diagnosis ICD-10-CM 1. 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 S/P right rotator cuff repair Z98.890 PLAN: I told Adam Guajardo that she is doing well for her post-operative status. We should continue stretching exercises and now start phase 1 strengthening, with an introduction into phase 2 strengthening as appropriate. As long as symptoms are well controlled and rehab is going well, follow up with my clinic will be in 3 months. If any questions or concerns arise, she should not hesitate to call. Her axillary nerve is recovering well. Do not need to get EMG We talked about pain management around the time of rehab. We discussed the pros and cons of prescription NSAIDs and the avoidance of opioids. Adam is doing well and at this time she prefers to continue with OTC NSAIDs PRN Regular rehab 0-6 weeks: ultrasling, elbow/wrist/ hand exercises, no passive or active use of the arm 6-12 weeks: sling off, pendulum, supine passive assisted exercises until ROM gets normal (Phase 1 stretching; okay to start phase 2 stretching once full ROM with phase 1), lift < 2lb, ok to drive after 6 weeks 3-6 months: continue stretching, resistance bands, isometric exercises (phase 1 strengthening, followed by phase 2 strengthening), lift < 10lb 6+ months: no restrictions Return to work with limited duty at 2-6 months, full duty 6 months, Contact sports >4 months Nilton Glaser MD Shoulder and Elbow Surgeon Orthopaedic Surgery Department Referring Provider: NILTON GLASER [[id number]] Allergies As of Date: 09/04/2024 Noted Allergy Reaction SULFA (SULFONAMIDE ANTIBIOTICS) 10/17/2005 2 - Rash Date Reviewed: 09/04/2024 Reviewed by: Elias Seo LPN - Fully Assessed Reason for Visit: Follow Up [171] Primary Visit Diagnosis:Injury of right axillary nerve, subsequent encounter [S44.31XD] Other Visit Diagnosis:S/P right rotator cuff repair [Z98.890] Prescriptions as of 09/04/2024 - aspirin, enteric coated (ECOTRIN LOW STRENGTH) 81 mg EC tablet Take 1 tablet by mouth two times a day for 14 days. - collagen, bovine, 100 % pwpk Take 1 Package by mouth once daily. Puts in coffee - MUSHROOM - OTC NUTRITIONAL SUPPLEMENT Take 1 capsule by mouth once daily. - famotidine (PEPCID AC ORAL) Take by mouth. - TURMERIC ORAL Take by mouth. - albuterol HFA (PROVENTIL HFA, VENTOLIN HFA) 90 mcg/actuation inhaler - Azelaic Acid 15 % gel - esomeprazole (NEXIUM) 40 mg capsule - metroNIDAZOLE (METROGEL) 0.75 % Topical Gel - MULTIVITAMIN ORAL Take by mouth. - KRILL OIL ORAL Take by mouth. - GLUCOSAMINE-CONDROITI [id number] ORAL Take by mouth. - cetirizine (ZYRTEC) 10 mg tablet Take 1 tablet by mouth once daily. Problem List As Of Date 09/04/2024 Noted Resolved Fibroid [D21.9] 10/06/2010 Family history of breast cancer in mother [Z80.* Obesity, Class II, BMI 35-39.9 [E66.812] 08/18/2020 05/08/2024 GERD (gastroesophageal reflux disease) [K21.9] 05/08/2024 Former smoker [Z87.891] 05/08/2024 Obesity (BMI 30-39.9) [E66.9] 05/08/2024 HLD (hyperlipidemia) [E78.5] 05/08/2024 S/P right rotator cuff repair [Z98.890] 07/28/2024 Decreased range of motion of right shoulder [M2*07/28/2024 Weakness of right shoulder [R29.898] 07/28/2024 Level of Service: OFFICE/OUTPATIENT ESTABLISHED LOW [facility] 20 MIN [12467] Additional E/M codes: VISIT CPLX INHERENT EANDM ASSO (more content not included)... [facility] CNTHERAPYon 09-04-2024 CNTHERAPY OT/PT/Speech Visit (LDPT) ADAM GUAJARDO ([id number]) 1960 F Date Time Provider Department 09/04/24 8:30 AM RAIMUNDO ACEVES LDPT Date Time Provider Department Center 09/04/2024 8:30 AM [id number], PATRICK LDPT [facility] Reason for Visit: Physical Therapy [503] Primary Visit Diagnosis:S/P right rotator cuff repair [Z98.890] Allergies As of Date: 09/04/2024 Noted Allergy Reaction SULFA (SULFONAMIDE ANTIBIOTICS) 10/17/2005 2 - Rash Date Reviewed: 09/04/2024 Reviewed by: Elias Seo LPN - Fully Assessed Prescriptions as of 09/04/2024 - aspirin, enteric coated (ECOTRIN LOW STRENGTH) 81 mg EC tablet Take 1 tablet by mouth two times a day for 14 days. - collagen, bovine, 100 % pwpk Take 1 Package by mouth once daily. Puts in coffee - MUSHROOM - OTC NUTRITIONAL SUPPLEMENT Take 1 capsule by mouth once daily. - famotidine (PEPCID AC ORAL) Take by mouth. - TURMERIC ORAL Take by mouth. - albuterol HFA (PROVENTIL HFA, VENTOLIN HFA) 90 mcg/actuation inhaler - Azelaic Acid 15 % gel - esomeprazole (NEXIUM) 40 mg capsule - metroNIDAZOLE (METROGEL) 0.75 % Topical Gel - MULTIVITAMIN ORAL Take by mouth. - KRILL OIL ORAL Take by mouth. - GLUCOSAMINE-CONDROITI [id number] ORAL Take by mouth. - cetirizine (ZYRTEC) 10 mg tablet Take 1 tablet by mouth once daily. [facility] [id number] 08-26-2024 [id number] HNO ID: [id number] Author: KELSEA FAJARDO PT Service: ? Author Type: Physical Therapist Type: [id number] Filed: 08/26/2024 07:23 Note Text: [facility] Physical Therapy Plan of Care Certification Patient Name: Adam Guajardo : 1960 [facility] #: [id number] Date: 07/07/2024 To: Nilton Glaser MD From Therapist: Kelsea Fajardo PT RE: Patient Certification/ Recertification Your review, approval and electronic signature are required in order to comply with Payor: [employer] / Plan: [employer] POS / Product Type: POS / regulations. The identified Physical Therapy PLAN OF CARE for the patient is as follows: M25.611 Decreased range of motion of right shoulder (primary encounter diagnosis) Z98.890 S/P right rotator cuff repair PLAN OF CARE: Assessment: Adam Guajardo presents with diagnosis of s/p R RCR with post-op deficits that interferes with lifting, physical activities, recreational activities, reaching behind back, reaching overhead, use hand with arm at shoulder level, dressing, grooming . The patient presents with impairments in ADL's, independence in exercise, joint mobility, overall function, range of motion, strength, and symptom management. PROMIS? (Patient-Reported Outcomes Measurement Information System) scores were reviewed and identified as a rehabilitation concern. Prognosis for therapy is Good due to: current objective clinical presentation, good overall health status, acuteness of condition, within-session changes, good support system/ coping skills . She presents 6 weeks s/p RCR doing well with minimal pain but limited by ROM deficits. The patient will benefit from skilled therapy services to meet the goals established for this plan of care as noted below. Goals for Episode of Care: established 07/07/24 Patient reported outcome of physical function and self-efficacy will increase T-score by a minimum 5 points. [place] in home exercise program. Patient will decrease pain to 0/10 with functional activities to allow patient to improve ADLs. Patient will increase active ROM of R shoulder to wnl, symmetrical AND painfree to allow pt to to improve postural alignment and to improve performance of ADLs. Patient will demonstrate increase in R UE/shoulder strength to 5/5 during manual muscle testing in order to improve function for basic self-care tasks, home management tasks, leisure / recreation skills, and prior functional tasks. Patient Goals: full use of R UE Time Frame for Goals and Treatment : 10/05/24 Planned Interventions, Frequency, and Duration: Current Frequency: 2x/week (1-2x/wk) Duration: 12 weeks Total Number of Visits Planned: 20 Planned Treatment Interventions: Therapeutic exercise (78909), Manual therapy (00127), Self-half-way management (92177), Therapeutic activities (93930), Patient/Family/Caregi froilan Education PLAN FOR NEXT VISIT: progress R shoulder PROM/AAROM. address neck ROM/tightness prn Patient demonstrates good understanding of plan of care and treatment. The above goals and plan of care were discussed and agreed upon by patient/family. For further details regarding this patient refer to the Physical Therapy electronically documented visit dated 07/07/2024. Provider Attestation I have reviewed the treatment plan for Adam Guajardo, [facility]# [id number] for the period of 07/07/24 -- 10/05/24, established on 07/07/2024. Signature certifies the need for therapy services. [facility] CNTHERAPYon 08-26-2024 CNTHERAPY OT/PT/Speech Visit (LDPT) ADAM GUAJARDO ([id number]) 1960 F Date Time Provider Department 08/26/24 1:30 PM RAIMUNDO ACEVES Date Time Provider Department Center 08/26/2024 1:30 PM [id number] ACEVES [facility] Reason for Visit: Physical Therapy [503] Primary Visit Diagnosis:S/P right rotator cuff repair [Z98.890] Allergies As of Date: 08/26/2024 Noted Allergy Reaction SULFA (SULFONAMIDE ANTIBIOTICS) 10/17/2005 2 - Rash Date Reviewed: 07/17/2024 Reviewed by: Kristina Thomas MA - Fully Assessed Prescriptions as of 08/26/2024 - aspirin, enteric coated (ECOTRIN LOW STRENGTH) 81 mg EC tablet Take 1 tablet by mouth two times a day for 14 days. - collagen, bovine, 100 % pwpk Take 1 Package by mouth once daily. Puts in coffee - MUSHROOM - OTC NUTRITIONAL SUPPLEMENT Take 1 capsule by mouth once daily. - famotidine (PEPCID AC ORAL) Take by mouth. - TURMERIC ORAL Take by mouth. - albuterol HFA (PROVENTIL HFA, VENTOLIN HFA) 90 mcg/actuation inhaler - Azelaic Acid 15 % gel - esomeprazole (NEXIUM) 40 mg capsule - metroNIDAZOLE (METROGEL) 0.75 % Topical Gel - MULTIVITAMIN ORAL Take by mouth. - KRILL OIL ORAL Take by mouth. - GLUCOSAMINE-CONDROITI [id number] ORAL Take by mouth. - cetirizine (ZYRTEC) 10 mg tablet Take 1 tablet by mouth once daily. [facility] CNTHERAPYon 08-19-2024 CNTHERAPY OT/PT/Speech Visit (LDPT) ADAM GUAJARDO ([id number]) 1960 F Date Time Provider Department 08/19/24 9:15 AM RAIMUNDO ACEVES Date Time Provider Department Center 08/19/2024 9:15 AM [id number] ACEVES [facility] Reason for Visit: Physical Therapy [503] Primary Visit Diagnosis:S/P right rotator cuff repair [Z98.890] Allergies As of Date: 08/19/2024 Noted Allergy Reaction SULFA (SULFONAMIDE ANTIBIOTICS) 10/17/2005 2 - Rash Date Reviewed: 07/17/2024 Reviewed by: Kristina Thomas MA - Fully Assessed Prescriptions as of 08/19/2024 - aspirin, enteric coated (ECOTRIN LOW STRENGTH) 81 mg EC tablet Take 1 tablet by mouth two times a day for 14 days. - collagen, bovine, 100 % pwpk Take 1 Package by mouth once daily. Puts in coffee - MUSHROOM - OTC NUTRITIONAL SUPPLEMENT Take 1 capsule by mouth once daily. - famotidine (PEPCID AC ORAL) Take by mouth. - TURMERIC ORAL Take by mouth. - albuterol HFA (PROVENTIL HFA, VENTOLIN HFA) 90 mcg/actuation inhaler - Azelaic Acid 15 % gel - esomeprazole (NEXIUM) 40 mg capsule - metroNIDAZOLE (METROGEL) 0.75 % Topical Gel - MULTIVITAMIN ORAL Take by mouth. - KRILL OIL ORAL Take by mouth. - GLUCOSAMINE-CONDROITI [id number] ORAL Take by mouth. - cetirizine (ZYRTEC) 10 mg tablet Take 1 tablet by mouth once daily. [facility] CNTHERAPYon 08-14-2024 CNTHERAPY OT/PT/Speech Visit (LDPT) ADAM GUAJARDO ([id number]) 1960 F Date Time Provider Department 08/14/24 9:15 AM RAIMUNDO ACEVES Date Time Provider Department Center 08/14/2024 9:15 AM [id number], RAIMUNDO LDPT [facility] Reason for Visit: Physical Therapy [503] Primary Visit Diagnosis:S/P right rotator cuff repair [Z98.890] Allergies As of Date: 08/14/2024 Noted Allergy Reaction SULFA (SULFONAMIDE ANTIBIOTICS) 10/17/2005 2 - Rash Date Reviewed: 07/17/2024 Reviewed by: Kristina Thomas MA - Fully Assessed Prescriptions as of 08/14/2024 - aspirin, enteric coated (ECOTRIN LOW STRENGTH) 81 mg EC tablet Take 1 tablet by mouth two times a day for 14 days. - collagen, bovine, 100 % pwpk Take 1 Package by mouth once daily. Puts in coffee - MUSHROOM - OTC NUTRITIONAL SUPPLEMENT Take 1 capsule by mouth once daily. - famotidine (PEPCID AC ORAL) Take by mouth. - TURMERIC ORAL Take by mouth. - albuterol HFA (PROVENTIL HFA, VENTOLIN HFA) 90 mcg/actuation inhaler - Azelaic Acid 15 % gel - esomeprazole (NEXIUM) 40 mg capsule - metroNIDAZOLE (METROGEL) 0.75 % Topical Gel - MULTIVITAMIN ORAL Take by mouth. - KRILL OIL ORAL Take by mouth. - GLUCOSAMINE-CONDROITI [id number] ORAL Take by mouth. - cetirizine (ZYRTEC) 10 mg tablet Take 1 tablet by mouth once daily. [facility] CNTHERAPYon 08-12-2024 CNTHERAPY OT/PT/Speech Visit (LDPT) ADAM GUAJARDO ([id number]) 1960 F Date Time Provider Department 08/12/24 2:15 PM KELSEA FAJARDO LDPT Date Time Provider Department Center 08/12/2024 2:15 PM [id number], CARLA LDPT [facility] Reason for Visit: PT Progress Note [1596] Primary Visit Diagnosis:S/P right rotator cuff repair [Z98.890] Other Visit Diagnoses:Decreased range of motion of right shoulder [M25.611] Weakness of right shoulder [R29.898] Allergies As of Date: 08/12/2024 Noted Allergy Reaction SULFA (SULFONAMIDE ANTIBIOTICS) 10/17/2005 2 - Rash Date Reviewed: 07/17/2024 Reviewed by: Kristina Thomas MA - Fully Assessed Prescriptions as of 08/12/2024 - aspirin, enteric coated (ECOTRIN LOW STRENGTH) 81 mg EC tablet Take 1 tablet by mouth two times a day for 14 days. - collagen, bovine, 100 % pwpk Take 1 Package by mouth once daily. Puts in coffee - MUSHROOM - OTC NUTRITIONAL SUPPLEMENT Take 1 capsule by mouth once daily. - famotidine (PEPCID AC ORAL) Take by mouth. - TURMERIC ORAL Take by mouth. - albuterol HFA (PROVENTIL HFA, VENTOLIN HFA) 90 mcg/actuation inhaler - Azelaic Acid 15 % gel - esomeprazole (NEXIUM) 40 mg capsule - metroNIDAZOLE (METROGEL) 0.75 % Topical Gel - MULTIVITAMIN ORAL Take by mouth. - KRILL OIL ORAL Take by mouth. - GLUCOSAMINE-CONDROITI [id number] ORAL Take by mouth. - cetirizine (ZYRTEC) 10 mg tablet Take 1 tablet by mouth once daily. [facility] CNTHERAPYon 08-05-2024 CNTHERAPY OT/PT/Speech Visit (LDPT) ADAM GUAJARDO ([id number]) 1960 F Date Time Provider Department 08/05/24 9:15 AM RAIMUNDO ACEVES LDPT Date Time Provider Department Center 08/05/2024 9:15 AM [id number], PATRICK LDPT [facility] Reason for Visit: Physical Therapy [503] Primary Visit Diagnosis:S/P right rotator cuff repair [Z98.890] Allergies As of Date: 08/05/2024 Noted Allergy Reaction SULFA (SULFONAMIDE ANTIBIOTICS) 10/17/2005 2 - Rash Date Reviewed: 07/17/2024 Reviewed by: Kristina Thomas MA - Fully Assessed Prescriptions as of 08/05/2024 - aspirin, enteric coated (ECOTRIN LOW STRENGTH) 81 mg EC tablet Take 1 tablet by mouth two times a day for 14 days. - collagen, bovine, 100 % pwpk Take 1 Package by mouth once daily. Puts in coffee - MUSHROOM - OTC NUTRITIONAL SUPPLEMENT Take 1 capsule by mouth once daily. - famotidine (PEPCID AC ORAL) Take by mouth. - TURMERIC ORAL Take by mouth. - albuterol HFA (PROVENTIL HFA, VENTOLIN HFA) 90 mcg/actuation inhaler - Azelaic Acid 15 % gel - esomeprazole (NEXIUM) 40 mg capsule - metroNIDAZOLE (METROGEL) 0.75 % Topical Gel - MULTIVITAMIN ORAL Take by mouth. - KRILL OIL ORAL Take by mouth. - GLUCOSAMINE-CONDROITI [id number] ORAL Take by mouth. - cetirizine (ZYRTEC) 10 mg tablet Take 1 tablet by mouth once daily. Supervisory It Specialist: Addendum Therapy (PT/OT/Speech/Resp) ID: [id number] 08/05/2024 10:02 AM Author: RAIMUNDO ACEVES Signed by RAIMUNDO ACEVES TRAVEL PTA on 08/05/2024 at 10:02 AM * * * This document replaces document [id number] * * * Document text: Program_ID:[id number] Access Code: [email or web address] URL: [email or web address] Date: 08-05-2024 Prepared By: Tayler Aceves Program Notes Exercises - Standing shoulder flexion wall slides - 1-2 x daily - 5 x weekly - 2-3 sets - 10 reps - Standing Bicep Curls Supinated with Dumbbells - 1-2 x daily - 5 x weekly - 2-3 sets - 10 reps - Scapular Retraction with Resistance - 1-2 x daily - 5 x weekly - 2-3 sets - 10 reps - Shoulder extension with resistance - Neutral - 1-2 x daily - 5 x weekly - 2-3 sets - 10 reps - Standing Isometric Shoulder Flexion with Doorway - Arm Bent - 1-2 x daily - 5 x weekly - 2-3 sets - 10 reps - Standing Isometric Shoulder Abduction with Doorway - Arm Bent - 1-2 x daily - 5 x weekly - 2-3 sets - 10 reps - Isometric Shoulder External Rotation with Ball at Wall - 1-2 x daily - 5 x weekly - 2-3 sets - 10 reps ----- [facility] THERAPY NTon 08-05-2024 THERAPY NT HNO ID: [id number] Author: RAIMUNDO ACEVES PTA Service: ? Author Type: Napkin Machine Operator Type: Therapy (PT/OT/Speech/Resp) Filed: 08/05/2024 10:02 Note Text: Program_ID:[id number] Access Code: [email or web address] URL: [email or web address]/ Date: 08-05-2024 Prepared By: Tayler Aceves Program Notes Exercises - Standing shoulder flexion wall slides - 1-2 x daily - 5 x weekly - 2-3 sets - 10 reps - Standing Bicep Curls Supinated with Dumbbells - 1-2 x daily - 5 x weekly - 2-3 sets - 10 reps - Scapular Retraction with Resistance - 1-2 x daily - 5 x weekly - 2-3 sets - 10 reps - Shoulder extension with resistance - Neutral - 1-2 x daily - 5 x weekly - 2-3 sets - 10 reps - Standing Isometric Shoulder Flexion with Doorway - Arm Bent - 1-2 x daily - 5 x weekly - 2-3 sets - 10 reps - Standing Isometric Shoulder Abduction with Doorway - Arm Bent - 1-2 x daily - 5 x weekly - 2-3 sets - 10 reps - Isometric Shoulder External Rotation with Ball at Wall - 1-2 x daily - 5 x weekly - 2-3 sets - 10 reps [facility] CNTHERAPYon 07-30-2024 CNTHERAPY OT/PT/Speech Visit (LDPT) ADAM GUAJARDO ([id number]) 1960 F Date Time Provider Department 07/30/24 9:15 AM RAIMUNDO ACEVES LDPT Date Time Provider Department Center 07/30/2024 9:15 AM [id number], PATRICK LDPT [facility] Reason for Visit: Physical Therapy [503] Primary Visit Diagnosis:S/P right rotator cuff repair [Z98.890] Allergies As of Date: 07/30/2024 Noted Allergy Reaction SULFA (SULFONAMIDE ANTIBIOTICS) 10/17/2005 2 - Rash Date Reviewed: 07/17/2024 Reviewed by: Kristina Thomas MA - Fully Assessed Prescriptions as of 07/30/2024 - aspirin, enteric coated (ECOTRIN LOW STRENGTH) 81 mg EC tablet Take 1 tablet by mouth two times a day for 14 days. - collagen, bovine, 100 % pwpk Take 1 Package by mouth once daily. Puts in coffee - MUSHROOM - OTC NUTRITIONAL SUPPLEMENT Take 1 capsule by mouth once daily. - famotidine (PEPCID AC ORAL) Take by mouth. - TURMERIC ORAL Take by mouth. - albuterol HFA (PROVENTIL HFA, VENTOLIN HFA) 90 mcg/actuation inhaler - Azelaic Acid 15 % gel - esomeprazole (NEXIUM) 40 mg capsule - metroNIDAZOLE (METROGEL) 0.75 % Topical Gel - MULTIVITAMIN ORAL Take by mouth. - KRILL OIL ORAL Take by mouth. - GLUCOSAMINE-CONDROITI [id number] ORAL Take by mouth. - cetirizine (ZYRTEC) 10 mg tablet Take 1 tablet by mouth once daily. [facility] CNTHERAPYon 07-28-2024 CNTHERAPY OT/PT/Speech Visit (LDPT) ADAM GUAJARDO ([id number]) 1960 F Date Time Provider Department 07/28/24 8:30 AM KELSEA FAJARDO LDPT Date Time Provider Department Center 07/28/2024 8:30 AM [id number], CARLA LDPT [facility] Reason for Visit: Physical Therapy [503] Primary Visit Diagnosis:S/P right rotator cuff repair [Z98.890] Other Visit Diagnoses:Decreased range of motion of right shoulder [M25.611] Weakness of right shoulder [R29.898] Allergies As of Date: 07/28/2024 Noted Allergy Reaction SULFA (SULFONAMIDE ANTIBIOTICS) 10/17/2005 2 - Rash Date Reviewed: 07/17/2024 Reviewed by: Kristina Thomas MA - Fully Assessed Prescriptions as of 07/28/2024 - aspirin, enteric coated (ECOTRIN LOW STRENGTH) 81 mg EC tablet Take 1 tablet by mouth two times a day for 14 days. - collagen, bovine, 100 % pwpk Take 1 Package by mouth once daily. Puts in coffee - MUSHROOM - OTC NUTRITIONAL SUPPLEMENT Take 1 capsule by mouth once daily. - famotidine (PEPCID AC ORAL) Take by mouth. - TURMERIC ORAL Take by mouth. - albuterol HFA (PROVENTIL HFA, VENTOLIN HFA) 90 mcg/actuation inhaler - Azelaic Acid 15 % gel - esomeprazole (NEXIUM) 40 mg capsule - metroNIDAZOLE (METROGEL) 0.75 % Topical Gel - MULTIVITAMIN ORAL Take by mouth. - KRILL OIL ORAL Take by mouth. - GLUCOSAMINE-CONDROITI [id number] ORAL Take by mouth. - cetirizine (ZYRTEC) 10 mg tablet Take 1 tablet by mouth once daily. [facility] CNTHERAPYon 07-22-2024 CNTHERAPY OT/PT/Speech Visit (LDPT) ADAM GUAJARDO ([id number]) 1960 F Date Time Provider Department 07/22/24 9:15 AM RAIMUNDO ACEVES LDPT Date Time Provider Department [place] 07/22/2024 9:15 AM [id number], PATRICK LDPT [facility] Reason for Visit: Physical Therapy [503] Primary Visit Diagnosis:S/P right rotator cuff repair [Z98.890] Allergies As of Date: 07/22/2024 Noted Allergy Reaction SULFA (SULFONAMIDE ANTIBIOTICS) 10/17/2005 2 - Rash Date Reviewed: 07/17/2024 Reviewed by: Kristina Thomas MA - Fully Assessed Prescriptions as of 07/22/2024 - aspirin, enteric coated (ECOTRIN LOW STRENGTH) 81 mg EC tablet Take 1 tablet by mouth two times a day for 14 days. - collagen, bovine, 100 % pwpk Take 1 Package by mouth once daily. Puts in coffee - MUSHROOM - OTC NUTRITIONAL SUPPLEMENT Take 1 capsule by mouth once daily. - famotidine (PEPCID AC ORAL) Take by mouth. - TURMERIC ORAL Take by mouth. - albuterol HFA (PROVENTIL HFA, VENTOLIN HFA) 90 mcg/actuation inhaler - Azelaic Acid 15 % gel - esomeprazole (NEXIUM) 40 mg capsule - metroNIDAZOLE (METROGEL) 0.75 % Topical Gel - MULTIVITAMIN ORAL Take by mouth. - KRILL OIL ORAL Take by mouth. - GLUCOSAMINE-CONDROITI [id number] ORAL Take by mouth. - cetirizine (ZYRTEC) 10 mg tablet Take 1 tablet by mouth once daily. Supervisory It Specialist: Therapy (PT/OT/Speech/Resp) ID: [id number] 07/22/2024 9:58 AM Author: RAIMUNDO ACEVES Signed by RAIMUNDO ACEVES TRAVEL PTA on 07/22/2024 at 9:58 AM Document text: Program_ID:[id number] Access Code: [email or web address] URL: [email or web address] Date: 07-22-2024 Prepared By: Tayler Aceves Program Notes Exercises - Standing shoulder flexion wall slides - 1-2 x daily - 5 x weekly - 2-3 sets - 10 reps - Standing Bicep Curls Supinated with Dumbbells - 1-2 x daily - 5 x weekly - 2-3 sets - 10 reps ----- [facility] THERAPY NTon 07-22-2024 THERAPY NT HNO ID: [id number] Author: RAIMUNDO ACEVES PTA Service: ? Author Type: Napkin Machine Operator Type: Therapy (PT/OT/Speech/Resp) Filed: 07/22/2024 09:58 Note Text: Program_ID:[id number] Access Code: [email or web address] URL: [email or web address] Date: 07-22-2024 Prepared By: Tayler Aceves Program Notes Exercises - Standing shoulder flexion wall slides - 1-2 x daily - 5 x weekly - 2-3 sets - 10 reps - Standing Bicep Curls Supinated with Dumbbells - 1-2 x daily - 5 x weekly - 2-3 sets - 10 reps [facility] CNOVon 07-17-2024 CNOV Office Visit (OBGMEM ) ADAM GUAJARDO ([id number]) 1960 F Date Time Provider Department 07/17/24 11:00 AM GI MIRANDA OBJORGE During your visit today, we recorded the following information about you: Blood pressure Weight 126/82 98.2 kg Gi Miranda MD 07/17/2024 11:34 AM Signed Adam is a 63 year old who presents for an annual gynecologic exam without complaints. Postmenopausal: Yes since age 51 HRT use: No. Still get period: No Last pap smear: 2020 - discussed that this may be her last pap as she will be 64 in July and if normal/neg today she will have had two with negative HPV in the prior 10 yrs to exiting screening History of abnormal pap: No, all prior PAP smears have been normal Bothersome pelvic pain: No Last mammogram: today History of abnormal mammogram: Yes - prior benign biopsy Patient concerns for STD exposure: No. 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 History LMP: 12/13/2011, Postmenopausal Age at Menarche: 12 Age at First : Age at Menopause: Scrap Shear Operator History Comments: Sexual Activity: Not Currently; Male; not interested in sex with currently Contraception: Vasectomy PAST MEDICAL HISTORY Diagnosis Date Acute medial meniscus tear 08/17/2021 Arthritis Family history of breast cancer in mother sister also Uterine fibroid 2010 U/S notede multiple, largest ~3.3cm PAST SURGICAL HISTORY Procedure Laterality Date KNEE SURGERY HX Left 2021 SHOULDER RT Right rotator cuff repair FAMILY HISTORY Problem Relation Age of Onset Arthritis Mother Asthma Mother Breast Cancer Mother diagnosed age 52 Diabetes Mother Heart disease Mother age 83 Stroke Father Heart Father age 82 DVT Father Breast Cancer Sister 66 DVT Sister Cancer Maternal Grandfather brain Diabetes Paternal Grandfather Hypertension Daughter Cervical Cancer Maternal Aunt Colon Cancer No Family History Ovarian cancer No Family History Prostate Cancer No Family History No Family History No Family History Pancreatic CA Uterine Cancer No Family History SOCIAL HISTORY Social History Tobacco Use Smoking status: Former Current packs/day: 0.00 Average packs/day: 0.5 packs/day for 10.0 years (5.0 ttl pk-yrs) Types: Cigarettes Start date: 10/25/1979 Quit date: 10/24/1989 Years since quittin.7 Smokeless tobacco: Never Vaping Use Vaping status: Never Used Substance Use Topics Alcohol use: Yes Comment: 1/month Drug use: Not Currently REVIEW OF SYSTEMS Abdomen: No abdominal pain, nausea, vomiting, diarrhea, or constipation. No bloating, early satiety, indigestion, or increased flatulence. Bladder: No dysuria, gross hematuria, urinary frequency, urinary urgency, or incontinence Breast: No breast lumps, nipple d/c, overlying skin changes, redness or skin retraction Allergies and current medication updated:Yes SENSITIVE EXAM: The sensitive examination was discussed with the Patient or Patient's Authorized Learning Technologist. As applicable, any other physician, advance practice provider, medical student, or other health professional student that will be observing or involved in the sensitive examination for educational or training purposes was discussed with the Patient or Authorized Learning Technologist. The Patient or Authorized Learning Technologist has agreed to proceed with the sensitive examination. (Sensitive examination includes inspection and/or palpation of the breasts, pelvis, prostate and anorectal regions). Warehouse Lead offered: Patient declines. EXAM: BP 126/82 Wt 216 lb 7.9 oz (98.2kg) LMP 12/13/2011 GENERAL: pleasant, female in no apparent distress HEENT: Normocephalic, atraumatic, mucus membranes moist, and no lesions NECK: Supple, full range of motion, no adenopathy, and thyroid normal DERMATOLOGY: Normal, without lesions, non-icteric, and non-hirsute BREAST: soft, non-tender, symmetric, no dominant mass, normal nipple-areolar complex, no lymphadenopathy, and no nipple discharge CHEST: Normal inspiratory effort ABDOMEN: soft, non-tender, and no masses PELVIC: external genitalia normal, normal Bartholin's glands, urethra, [place]'s glands, no vulvar lesions, no cervical lesions, good vaginal support, physiologic discharge present, normal appearing perineal body and perianal region BIMANUAL: uterus normal size, shape and consistency, no adnexal masses, non-tender, and limited exam due to body habitus RECTOVAGINAL: deferred. NEURO: alert and oriented x3,exam grossly non-focal EXTREMITIES: normal ASSESSMENT/PLAN: 1) Health maintenance: Pap done with HPV. Mammogram ordered Colon cancer screening: up to date with screening DXA - ordered 2) Follow up one year or sooner as needed Gi Miranda MD (more content not included)... [facility] CNTHERAPYon 07-17-2024 CNTHERAPY OT/PT/Speech Visit (LDPT) ADAM GUAJARDO ([id number]) 1960 F Date Time Provider Department 07/17/24 3:45 PM RAIMUNDO ACEVES LDRANJANA Date Time Provider Department Center 07/17/2024 3:45 PM [id number], PATRICK LDPT [facility] Reason for Visit: Physical Therapy [503] Primary Visit Diagnosis:S/P right rotator cuff repair [Z98.890] Allergies As of Date: 07/17/2024 Noted Allergy Reaction SULFA (SULFONAMIDE ANTIBIOTICS) 10/17/2005 2 - Rash Date Reviewed: 07/17/2024 Reviewed by: Kristina Thomas MA - Fully Assessed Prescriptions as of 07/17/2024 - aspirin, enteric coated (ECOTRIN LOW STRENGTH) 81 mg EC tablet Take 1 tablet by mouth two times a day for 14 days. - collagen, bovine, 100 % pwpk Take 1 Package by mouth once daily. Puts in coffee - MUSHROOM - OTC NUTRITIONAL SUPPLEMENT Take 1 capsule by mouth once daily. - famotidine (PEPCID AC ORAL) Take by mouth. - TURMERIC ORAL Take by mouth. - albuterol HFA (PROVENTIL HFA, VENTOLIN HFA) 90 mcg/actuation inhaler - Azelaic Acid 15 % gel - esomeprazole (NEXIUM) 40 mg capsule - metroNIDAZOLE (METROGEL) 0.75 % Topical Gel - MULTIVITAMIN ORAL Take by mouth. - KRILL OIL ORAL Take by mouth. - GLUCOSAMINE-CONDROITI [id number] ORAL Take by mouth. - cetirizine (ZYRTEC) 10 mg tablet Take 1 tablet by mouth once daily. [facility] HIGH RISK HUMAN PAPILLOMA BARBARA (HPV), PCR FOR DETECTION AND GENOTYPINGon 07-17-2024 HPV 16 Ag Ql (Unsp spec) Not detected Normal Not detected [facility] Comment on above: Order Comment: Speci men Type: FLUID SPECIMENOrdering Facility: [facility] Address: [address] [place] [address] Performed By: #### H PVHRT ####[facility] LABCLIA [id number] [place] [address] [place] HPV 18 Ag Ql (Unsp spec) Not detected Normal Not detected [facility] Comment on above: Order Comment: Speci men Type: FLUID SPECIMENOrdering Facility: [facility] Address: [address] [place] [address] Performed By: #### H PVHRT ####[facility] LABIA [id number] [place] [address] [place] HPV 31+33+35+39+45+51+52+56 +58+59+66+68 DNA NICHOLAS+probe Ql (Cvx) Not detected Normal Not detected [facility] Comment on above: Order Comment: Speci men Type: FLUID SPECIMENOrdering Facility: [facility] Address: [address] [place] [address] Result Comment: High Risk HPV Other Type includes HPV types 31, 33, 35, 39, 45, 51, 52, 56, 58, 59, 66 and 68. Performed By: #### H PVHRT ####[facility] LABIA [id number] [place] [address] [place] ЮЛИЯ SCREENING W TOMOon 07-17 ЮЛИЯ SCREENING W ROMEO * * *Final Report* * * DATE OF EXAM: Jul 17 2024 10:15AM DAVID [id number] - ЮЛИЯ SCREENING W ROMEO / PROCEDURE REASON: Z12.39-Breast screening * * * * Physician Interpretation * * * * [facility] [address] [place] [address] #[id number] - ЮЛИЯ SCREENING W ROMEO HISTORY: 63 year-old patient seen for screening. No current complaints. Patient states no personal history of breast cancer. The patient has a family history of breast cancer. COMPARISON STUDIES: The present examination has been compared to prior imaging studies dated 08/18/2020 (mammogram), 09/22/2021 (mammogram), 10/10/2022 (mammogram), 10/25/2022 (mammogram) and 07/11/2023 (mammogram). MAMMOGRAM TECHNIQUE: The study was acquired using full field digital technology and interpreted from soft copy. Digital Breast Tomosynthesis (DBT) images were obtained and used to assist in the interpretation of this examination. MAMMOGRAM FINDINGS: The breasts are heterogeneously dense, which may obscure small masses. There is a biopsy marker in the left breast. There are no significant interval changes. No suspicious masses, calcifications or other abnormalities are seen in either breast. IMPRESSION: There is no mammographic evidence of malignancy. Routine screening mammogram is recommended. Annual mammogram will be due in 1 year. BI-RADS Category 2: Benign RISK: Based on the Tyrer-Cuzick (TC) risk assessment model, this patient has a 19.1% lifetime risk of developing breast cancer, meaning they are at average risk for developing breast cancer. However, this is only an estimate based on available history provided on the patient's questionnaire. We encourage all patients to talk with their providers about these results, further recommendations for managing breast health, and appropriate supplemental screening options if the patient has dense breast tissue. Interpreting Radiologist: Tiffany Ling M.D. Electronically signed on: 07/17/2024 Cement Finisher Helper: EVANGELIST Transcribe Date/Time: Jul 17 2024 10:01A Dictated by : TIFFANY LING MD This examination was interpreted and the report reviewed and electronically signed by: TIFFANY LING MD on Jul 17 2024 6:51PM EST [id number] Normal [facility] PAP TESTon 07-17-2024 ADEQUACY Normal [facility] Comment on above: Order Comment: Speci men Type: FLUID SPECIMENOrdering Facility: [facility] Address: [address] [place] [address] Result Comment: Sati sfactory for interpretation. Transformation zone present Performed By: #### L [id number] ####[facility] LABCLIA [id number] [place] [address] [place] CASE REPORT Normal [facility] Comment on above: Order Comment: Speci men Type: FLUID SPECIMENOrdering Facility: [facility] Address: [address] [place] [address] Result Comment: Gyne cologic Cytology Report Case: [id number] Authorizing Provider: Gi Miranda, Collected: 07/17/2024 11:48 AM Ordering Location: Obstetrics/Gynecology Received: 07/18/2024 07:47 AM First Screen: Zhorova, [place], CT, ASCP Specimen: Pap Test, ThinPrep, Cervix Performed By: #### L [id number] ####[facility] LABCLIA [id number] [place] [address] [place] CLINICAL HISTORY, CYTOLOGY, ARC TRIMMER Routine Exam Normal [facility] Comment on above: Order Comment: Speci men Type: FLUID SPECIMENOrdering Facility: [facility] Address: [address] [place] [address] Performed By: #### L [id number] ####[facility] LABCLIA [id number] [place] [address] [place] FINAL PERFORMING LAB Normal [facility] Comment on above: Order Comment: Speci men Type: FLUID SPECIMENOrdering Facility: [facility] Address: [address] [place] [address] Result Comment: Tech nical component, aircraft structural fitter screening performed at: [facility], [address] [place] [address] [place] [address] CLIA: [id number] Diagnostic interpretation performed at: [facility], [address] [place] [address] CLIA# [id number] Chorus Dancer: Rayray Dutton MD Performed By: #### L [id number] ####[facility] LABCLIA [id number] [address] [address] [place] INTERPRETATION, CYTOLOGY, ARC TRIMMER Normal [facility] Comment on above: Order Comment: Speci men Type: FLUID SPECIMENOrdering Facility: [facility] Address: [address] [place] [address] Result Comment: Nega tive for intraepithelial lesion or malignancy. at 1355 EDT Performed By: #### L [id number] ####[facility] LABCLIA [id number] [address] [place] [address] [place] LMP 03/27/2019 Normal [facility] Comment on above: Order Comment: Speci men Type: FLUID SPECIMENOrdering Facility: [facility] Address: [address] [place] [address] Performed By: #### L [id number] ####[facility] LABCLIA [id number] [address], [facility] [place] PAP DISCLAIMER COMMENT The Pap Smear is a screening test for cervical cancer. False negative results occur with all screening tests, emphasizing the need for rescreening at recommended intervals, and clinical correlation. Normal [facility] Comment on above: Order Comment: Speci men Type: FLUID SPECIMENOrdering Facility: [facility] Address: [address] [place] [address] Performed By: #### L [id number] ####[facility] LABCLIA [id number] [address] [address] [place] PAP CERTIFICATION TECHNICIAN COMMENT This specimen has been analyzed by the FDA-approved [employer] System, which uses digital imaging and an enhanced artificial intelligence image analysis algorithm to identify milton of interest on the microscopic slide, to assist the service electrician and pathologist in evaluating cells on ThinPrep Pap tests. Following analysis, milton of interest on the microscopic slide selected by the algorithm are reviewed by a service electrician. If a sample requires hierarchical review, the pathologist will review the same milton of interest selected by the algorithm prior to final interpretation. [facility] Comment on above: Order Comment: Speci men Type: FLUID SPECIMENOrdering Facility: [facility] Address: [address] [place] [address] Performed By: #### L [id number] ####[facility] LABCLIA [id number] JOSEPH [address]ON [id number] [place] [address] [place] CNTHERAPYon 07-14-2024 CNTHERAPY OT/PT/Speech Visit (LDPT) ADAM GUAJARDO ([id number]) 1960 F Date Time Provider Department 07/14/24 9:15 AM BO SOLIS LDRANJANA Date Time Provider Department Center 07/14/2024 9:15 AM [id number] SOLISLDRANJANA [facility] Reason for Visit: Physical Therapy [503] Primary Visit Diagnosis:S/P right rotator cuff repair [Z98.890] Other Visit Diagnosis:Decreased range of motion of right shoulder [M25.611] Allergies As of Date: 07/14/2024 Noted Allergy Reaction SULFA (SULFONAMIDE ANTIBIOTICS) 10/17/2005 2 - Rash Date Reviewed: 07/10/2024 Reviewed by: Ct Stapleton MA - Fully Assessed Prescriptions as of 07/14/2024 - aspirin, enteric coated (ECOTRIN LOW STRENGTH) 81 mg EC tablet Take 1 tablet by mouth two times a day for 14 days. - collagen, bovine, 100 % pwpk Take 1 Package by mouth once daily. Puts in coffee - MUSHROOM - OTC NUTRITIONAL SUPPLEMENT Take 1 capsule by mouth once daily. - famotidine (PEPCID AC ORAL) Take by mouth. - TURMERIC ORAL Take by mouth. - albuterol HFA (PROVENTIL HFA, VENTOLIN HFA) 90 mcg/actuation inhaler - Azelaic Acid 15 % gel - esomeprazole (NEXIUM) 40 mg capsule - metroNIDAZOLE (METROGEL) 0.75 % Topical Gel - MULTIVITAMIN ORAL Take by mouth. - KRILL OIL ORAL Take by mouth. - GLUCOSAMINE-CONDROITI [id number] ORAL Take by mouth. - cetirizine (ZYRTEC) 10 mg tablet Take 1 tablet by mouth once daily. [facility] CNOVon 07-10-2024 CNOV Office Visit (ORTHST ) ADAM GUAJARDO ([id number]) 1960 F Date Time Provider Department 07/10/24 10:15 AM NILTON GLASER During your visit today, we recorded the following information about you: Nilton Glaser MD 07/10/2024 10:25 AM Signed [facility] NOTE Department of Orthopaedics NAME: Adam Guajardo CLINIC NO.: [id number] DATE: 07/10/2024 Surgery: SURGERY/PROCEDURE(S): * Right arthroscopic rotator cuff repair Right anterior labral debridement Date: 05/27/2024 Interval Hx:Adam Guajardo is back for 6 weeks follow up after above mentioned procedure. 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 she is not using pain medication. she has just started doing physical therapy, too soon to notice any major improvements. She does notice that her pain feels better and she is having less numbness over the lateral shoulder PHYSICAL EXAMINATION: Incision appears well-healed. Forward elevation is passively to 90 ? and actively to 30 ?. Firing anterior deltoid External rotation is passively to 20 ? and actively to 20 ? Abduction is actively to 30 ?. Middle and posterior deltoid firing Internal rotation is actively to belt line IR strength 5/5 ER strength 5/5 Abduction strength 4/5 Belly press test is negative Fires m/r/uln/ax, good deltoid tone SILT m/r/uln/ax, some decreased RADIOGRAPHIC STUDIES: no new imaging ASSESSMENT: Encounter Diagnosis ICD-10-CM 1. S/P right rotator cuff repair Z98.890 2. 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 Her active motion is less than most given her axillary nerve injury from the initial dislocation, but she is making recovery. Less numbness and increasing deltoid tone and strength today compared to last visit. We should start phase 1 stretching exercises and add phase 2 stretching as tolerated. She is already in PT and should continue. I'd like to see her in 6 weeks. If any questions or concerns arise, she should not hesitate to call. Regular rehab 0-6 weeks: ultrasling, elbow/wrist/ hand exercises, no passive or active use of the arm 6-12 weeks: sling off, pendulum, supine passive assisted exercises until ROM gets normal (Phase 1 stretching; okay to start phase 2 stretching once full ROM with phase 1), lift < 2lb, ok to drive after 6 weeks 3-6 months: continue stretching, resistance bands, isometric exercises (phase 1 strengthening, followed by phase 2 strengthening), lift < 10lb 6+ months: no restrictions Return to work with limited duty at 2-6 months, full duty 6 months, Contact sports >4 months Nilton Glaser MD Shoulder and Elbow Surgeon Orthopaedic Surgery Department Allergies As of Date: 07/10/2024 Noted Allergy Reaction SULFA (SULFONAMIDE ANTIBIOTICS) 10/17/2005 2 - Rash Date Reviewed: 07/10/2024 Reviewed by: Ct Stapleton MA - Fully Assessed Reason for Visit: Post Op [174] Primary Visit Diagnosis:S/P right rotator cuff repair [Z98.890] Other Visit Diagnosis:Injury of right axillary nerve, subsequent encounter [S44.31XD] Prescriptions as of 07/10/2024 - aspirin, enteric coated (ECOTRIN LOW STRENGTH) 81 mg EC tablet Take 1 tablet by mouth two times a day for 14 days. - collagen, bovine, 100 % pwpk Take 1 Package by mouth once daily. Puts in coffee - MUSHROOM - OTC NUTRITIONAL SUPPLEMENT Take 1 capsule by mouth once daily. - famotidine (PEPCID AC ORAL) Take by mouth. - TURMERIC ORAL Take by mouth. - albuterol HFA (PROVENTIL HFA, VENTOLIN HFA) 90 mcg/actuation inhaler - Azelaic Acid 15 % gel - esomeprazole (NEXIUM) 40 mg capsule - metroNIDAZOLE (METROGEL) 0.75 % Topical Gel - MULTIVITAMIN ORAL Take by mouth. - KRILL OIL ORAL Take by mouth. - GLUCOSAMINE-CONDROITI [id number] ORAL Take by mouth. - cetirizine (ZYRTEC) 10 mg tablet Take 1 tablet by mouth once daily. Problem List As Of Date 07/10/2024 Noted Resolved Fibroid [D21.9] 10/06/2010 Family history of breast cancer in mother [Z80.* Obesity, Class II, BMI 35-39.9 [E66.812] 08/18/2020 05/08/2024 GERD (gastroesophageal reflux disease) [K21.9] 05/08/2024 Former smoker [Z87.891] 05/08/2024 Obesity (BMI 30-39.9) [E66.9] 05/08/2024 HLD (hyperlipidemia) [E78.5] 05/08/2024 Level of Service: POSTOP FOLLOW UP VISIT RELATED TO ORIGINAL PX [94908] Encounter Status:Closed by NILTON GLASER on 07/10/[address] [facility] CNTHERAPYon 07-09-2024 CNTHERAPY OT/PT/Speech Visit (LDPT) ADAM GUAJARDO ([id number]) 1960 F Date Time Provider Department 07/09/24 10:45 AM BO SOLIS LDPT Date Time Provider Department Center 07/09/2024 10:45 AM [id number] [facility]PT [facility] Reason for Visit: Physical Therapy [503] Primary Visit Diagnosis:S/P right rotator cuff repair [Z98.890] Other Visit Diagnosis:Decreased range of motion of right shoulder [M25.611] Allergies As of Date: 07/09/2024 Noted Allergy Reaction SULFA (SULFONAMIDE ANTIBIOTICS) 10/17/2005 2 - Rash Date Reviewed: 06/12/2024 Reviewed by: Ct Stapleton MA - Fully Assessed Prescriptions as of 07/09/2024 - aspirin, enteric coated (ECOTRIN LOW STRENGTH) 81 mg EC tablet Take 1 tablet by mouth two times a day for 14 days. - collagen, bovine, 100 % pwpk Take 1 Package by mouth once daily. Puts in coffee - MUSHROOM - OTC NUTRITIONAL SUPPLEMENT Take 1 capsule by mouth once daily. - famotidine (PEPCID AC ORAL) Take by mouth. - TURMERIC ORAL Take by mouth. - albuterol HFA (PROVENTIL HFA, VENTOLIN HFA) 90 mcg/actuation inhaler - Azelaic Acid 15 % gel - esomeprazole (NEXIUM) 40 mg capsule - metroNIDAZOLE (METROGEL) 0.75 % Topical Gel - MULTIVITAMIN ORAL Take by mouth. - KRILL OIL ORAL Take by mouth. - GLUCOSAMINE-CONDROITI [id number] ORAL Take by mouth. - cetirizine (ZYRTEC) 10 mg tablet Take 1 tablet by mouth once daily. [facility] CNTHERAPYon 07-07-2024 CNTHERAPY OT/PT/Speech Visit (LDPT) ADAM GUAJARDO ([id number]) 1960 F Date Time Provider Department 07/07/24 4:30 PM KELSEA FAJARDO LDPT Date Time Provider Department Center 07/07/2024 4:30 PM [id number], CARLA LDPT [facility] Reason for Visit: PT Eval [747] Primary Visit Diagnosis:Decreased range of motion of right shoulder [M25.611] Other Visit Diagnosis:S/P right rotator cuff repair [Z98.890] Allergies As of Date: 07/07/2024 Noted Allergy Reaction SULFA (SULFONAMIDE ANTIBIOTICS) 10/17/2005 2 - Rash Date Reviewed: 06/12/2024 Reviewed by: Ct Stapleton MA - Fully Assessed Prescriptions as of 08/26/2024 - aspirin, enteric coated (ECOTRIN LOW STRENGTH) 81 mg EC tablet Take 1 tablet by mouth two times a day for 14 days. - collagen, bovine, 100 % pwpk Take 1 Package by mouth once daily. Puts in coffee - MUSHROOM - OTC NUTRITIONAL SUPPLEMENT Take 1 capsule by mouth once daily. - famotidine (PEPCID AC ORAL) Take by mouth. - TURMERIC ORAL Take by mouth. - albuterol HFA (PROVENTIL HFA, VENTOLIN HFA) 90 mcg/actuation inhaler - Azelaic Acid 15 % gel - esomeprazole (NEXIUM) 40 mg capsule - metroNIDAZOLE (METROGEL) 0.75 % Topical Gel - MULTIVITAMIN ORAL Take by mouth. - KRILL OIL ORAL Take by mouth. - GLUCOSAMINE-CONDROITI [id number] ORAL Take by mouth. - cetirizine (ZYRTEC) 10 mg tablet Take 1 tablet by mouth once daily. [facility] CNOVon 06-12-2024 CNOV Office Visit (EVA ) ADAM GUAJARDO ([id number]) 1960 F Date Time Provider Department 06/12/24 11:45 AM NILTON GLASER During your visit today, we recorded the following information about you: Nilton Glaser MD 06/12/2024 1:44 PM Signed [facility] NOTE Department of Orthopaedics NAME: Adam Guajardo CLINIC NO.: [id number] DATE: 06/12/2024 Surgery: Right arthroscopic rotator cuff repair Date: 05/27/2024 Interval Hx: Adam Guajardo is back for 2 weeks follow up after above mentioned procedure. she denies any fever, chills, N/V, SP or SOB or drainage from the incision. she is using prescribed meds for pain control. she is wearing her sling. PHYSICAL EXAMINATION: Incision appears well-healed. Dressing is off and we removed sutures today. There is no erythema, warmth or drainage from the incision. There is no swelling in the upper arm. Patient has passive forward elevation of 60 ? and passive external rotation of 0 ?. Upper extremity has intact sensory and motor function and has good perfusion distally. Axilary nerve distribution still decreased sensation Firing the three heads of the deltoid weakly RADIOGRAPHIC STUDIES: no new imaging ASSESSMENT: Encounter Diagnosis ICD-10-CM 1. 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 S/P right rotator cuff repair Z98.890 PLAN: I told Adam Guajardo that she is doing well for her post-operative status. We will continue hand/wrist/elbow exercises but no overhead motion or stretching at this time. I'd like to see her in 4 weeks. We will plan to start physical therapy at 6 weeks if progressing well. If any questions or concerns arise, she should not hesitate to call. 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 I educated her that this will slow her rehab and recovery but I hope the function will still come back over time. Encouraged that she does have motor function, though minimal. Regular rehab 0-6 weeks: ultrasling, elbow/wrist/ hand exercises, no passive or active use of the arm 6-12 weeks: sling off, pendulum, supine passive assisted exercises until ROM gets normal (Phase 1 stretching; okay to start phase 2 stretching once full ROM with phase 1), lift < 2lb, ok to drive after 6 weeks 3-6 months: continue stretching, resistance bands, isometric exercises (phase 1 strengthening, followed by phase 2 strengthening), lift < 10lb 6+ months: no restrictions Return to work with limited duty at 2-6 months, full duty 6 months, Contact sports >4 months Nilton Glaser MD Shoulder and Elbow Surgeon Orthopaedic Surgery Department Allergies As of Date: 06/12/2024 Noted Allergy Reaction SULFA (SULFONAMIDE ANTIBIOTICS) 10/17/2005 2 - Rash Date Reviewed: 06/12/2024 Reviewed by: Ct Stapleton MA - Fully Assessed Reason for Visit: Post Op [174] Primary Visit Diagnosis:Injury of right axillary nerve, subsequent encounter [S44.31XD] Other Visit Diagnosis:S/P right rotator cuff repair [Z98.890] Order(s):CONSULT TO PHYSICAL THERAPY [9093] Order #: [id number]: 1 FUTURE Prescriptions as of 06/12/2024 - aspirin, enteric coated (ECOTRIN LOW STRENGTH) 81 mg EC tablet Take 1 tablet by mouth two times a day for 14 days. - collagen, bovine, 100 % pwpk Take 1 Package by mouth once daily. Puts in coffee - MUSHROOM - OTC NUTRITIONAL SUPPLEMENT Take 1 capsule by mouth once daily. - famotidine (PEPCID AC ORAL) Take by mouth. - TURMERIC ORAL Take by mouth. - albuterol HFA (PROVENTIL HFA, VENTOLIN HFA) 90 mcg/actuation inhaler - Azelaic Acid 15 % gel - esomeprazole (NEXIUM) 40 mg capsule - metroNIDAZOLE (METROGEL) 0.75 % Topical Gel - MULTIVITAMIN ORAL Take by mouth. - KRILL OIL ORAL Take by mouth. - GLUCOSAMINE-CONDROITI [id number] ORAL Take by mouth. - cetirizine (ZYRTEC) 10 mg tablet Take 1 tablet by mouth once daily. Problem List As Of Date 06/12/2024 Noted Resolved Fibroid [D21.9] 10/06/2010 Family history of breast cancer in mother [Z80.* Obesity, Class II, BMI 35-39.9 [E66.812] 08/18/2020 05/08/2024 GERD (gastroesophageal reflux disease) [K21.9] 05/08/2024 Former smoker [Z87.891] 05/08/2024 Obesity (BMI 30-39.9) [E66.9] 05/08/2024 HLD (hyperlipidemia) [E78.5] 05/08/2024 Level of Service: POSTOP FOLLOW UP VISIT RELATED TO ORIGINAL PX [39137] Encounter Status:Closed by NILTON GLASER on 06/12/[address] [facility] ANES POSTPROC EVALon 025 ANES POSTPROC EVAL HNO ID: [id number] Author: MARIN TORO MD Service: Anesthesiology Author Type: Anesthesiologist Type: Anesthesia Postprocedure Evaluation Filed: 05/27/2024 11:10 Note Text: POST ANESTHESIA EVALUATION NOTE : 1960 Procedure Summary Date: 05/27/24 Room / Location: [place] [address] / OR Anesthesia Start: 732 Anesthesia Stop: 100 Procedure: Right arthroscopic rotator cuff repair, subacromial decompression, possible biceps tenodesis, possible graft augmentation (Right: Shoulder) Diagnosis: Traumatic tear of right rotator cuff, subsequent encounter (Traumatic tear of right rotator cuff, subsequent encounter [S46.011D]) Surgeons: Nilton Glaser MD Responsible Provider: Marin Toro MD Anesthesia Type: general, regional ASA Status: 3 Anesthesia Type: general, regional Airway Type: ETT Last Vitals Vitals Value Taken Time BP 137/71 05/27/24 1100 Temp 36.8 ?C (98.3 ?F) 05/27/24 1000 Pulse 65 05/27/24 1109 Resp 15 05/27/24 1000 SpO2 99 % 05/27/24 1109 Vitals shown include unfiled device data. Post Anesthesia Patient Status Patient Evaluation: PACU. PACU/ICU Patient Condition: stable. Anticipated Disposition: phase 2 then home. Neurological Status: aware and responsive. Pulmonary Status: breathing comfortably on room air Airway Control: returned to baseline unsupported. Cardiovascular Status: stable. Pain Management: clinically adequate - multimodal analgesia pain management approach Postoperative Hydration: acceptable. Intraoperative Events: no significant anesthesia events Recommendation: continue current plan of care. Anesthesia Observations No Documentation SIGNATURE: Marin Toro MD PATIENT NAME: Adam Guajardo DATE: May 27, 2024 TIME: 11:10 AM CSN: [id number] [facility] ANES PRE-OPon 05-27-2024 ANES PRE-OP HNO ID: [id number] Author: MARIN TORO MD Service: Anesthesiology Author Type: Anesthesiologist Type: Anesthesia Preprocedure Evaluation Filed: 05/27/2024 07:13 Note Text: ANESTHESIOLOGY DAY OF SURGERY NOTE : 1960 Procedure Information Date/Time: 05/27/2430 Procedure: Right arthroscopic rotator cuff repair, subacromial decompression, possible biceps tenodesis, possible graft augmentation (Right: Shoulder) - Heller, Arthrosocpy tower Arthrex - Biocorkscrew, SwivelLock, Loop N Geremias Mitek - Espressew *Pain Catheter Location: MM OR01 / MM OR Surgeons: Nilton Glaser MD Estimated body mass index is 36.05 kg/m? as calculated from the following: Height as of 05/08/24: 166.3 cm (5' 5.47). Weight as of 05/08/24: 99.7 kg (219 lb 12.8 oz). Most recent hematocrit and potassium results: Hematocrit 39.3 05/08/2024 Potassium 4.8 05/08/2024 Relevant Problems GI (+) GERD (gastroesophageal reflux disease) I - PHYSICAL EVALUATION AIRWAY Patient intubated: No. Tracheostomy tube not present Mallampati: II. TM distance: >3 FB. Neck ROM: full ROM without neurological symptoms. Mouth opening: adequate. Short neck: no. Thick neck: no DENTAL Dental findings: teeth intact. Additional exam findings: no II - ANESTHESIA PLAN ASA Score: 3 Anesthetic Plan: general and regional Airway type: ETT NPO Status: adequate Beta Krystina Monitoring Plan Monitoring plan: Standard ASA. Post Procedure Analgesic Plan Postoperative analgesic plan: parenteral or oral opioids, peripheral nerve block and multimodal analgesia. Informed Consent Anesthetic risks, benefits, alternatives, personnel and consent discussed: yes. Patient / Responsible Green Party agrees to proceed: yes Patient / Surrogate agrees to blood products: yes DNR status not reviewed with patient and/or family prior to surgery. Significant changes in the patient condition since the History and Physical, not otherwise documented in primary service progress note: no. Potential Anesthesia issues that may suggest increased risk of complications or contraindication to planned procedure: none. Vitals Value Taken Time BP 132/75 05/27/24 0631 Pulse 70 05/27/24 0631 Resp 24 05/27/24 0631 Temp 36.2 ?C (97.1 ?F) 05/27/24 0631 SpO2 100 % 05/27/24630 Facility-Administered Medications as of 05/27/2024 Medication Dose Route Frequency lidocaine (PF) 10 mg/mL (1 %) 1-2 mg injection (XYLOCAINE) 0.1-0.2 mL INTRADERMAL PRN lactated ringers iv infusion 75 mL/hr INTRAVENOUS CONTINUOUS NaCl 0.9% iv flush bag 20 mL INTRAVENOUS PRN ceFAZolin iv piggyback 2 g in D5W (iso-osmotic) 100 mL (ANCEF) 2 g INTRAVENOUS Pre-Op Once midazolam (PF) 4 mg injection (VERSED) 4 mg INTRAVENOUS ONCE Outpatient Medications as of 05/27/2024 Medication Sig albuterol HFA (PROVENTIL HFA, VENTOLIN HFA) 90 mcg/actuation inhaler Azelaic Acid 15 % gel esomeprazole (NEXIUM) 40 mg capsule metroNIDAZOLE (METROGEL) 0.75 % Topical Gel MULTIVITAMIN ORAL Take by mouth. KRILL OIL ORAL Take by mouth. GLUCOSAMINE-CONDROITI [id number] ORAL Take by mouth. cetirizine (ZYRTEC) 10 mg tablet Take 1 tablet by mouth once daily. I have interviewed and examined the patient. I have reviewed the medical record and/or the pre-anesthesia evaluation, pertinent labs, and test results. This contains updated information obtained within 48 hours of Surgery/Procedure. SIGNATURE: Marin Toro MD PATIENT NAME: Adam Guajardo DATE: May 27, 2024 TIME: 7:13 AM CSN: [id number] [facility] BRIEF OP NOTon 05-27-2024 BRIEF OP NOT HNO ID: [id number] Author: NILTON GLASER MD Service: ? Author Type: Physician Type: Brief Op Note Filed: 05/27/2024 09:44 Note Text: BRIEF OP NOTE LOG ID: [id number] Surgery/Procedure Date: 05/27/2024 Incision/Procedure Start Time: 8:03 AM Incision Close/Procedure End Time: Surgeon(s)/Procedural ist(s) and Technical Product Manager(s): Surgeons and Role: * Nilton Glaser MD - Primary Procedure(s): Procedure(s) (LRB): Right arthroscopic rotator cuff repair, subacromial decompression, possible biceps tenodesis, possible graft augmentation (Right) Anesthesia: General Estimated Blood Loss: 5 mls Specimens: * No specimens in log * Complications: None Pre-Op/Pre-Procedure Diagnosis: Right shoulder dislocation with rotator cuff tear Post-Op/Post-Procedur e Diagnosis: Same Post-op Plan: - PACU Imaging: none - Antibiotics: none - DVT prophylaxis: ASA 81mg BID x 2 weeks - Weight Bearing/Activity: NWB operative extremity - Precautions: sling Plan of care discussed with: Provider, RN, Patient. Patient was accompanied to the next level of care by a licensed practitioner from the surgical team pending completion of this brief op note (or operative note) SIGNATURE: Nilton Glaser MD PATIENT NAME: Adam Guajardo DATE: May 27, 2024 TIME: 9:43 AM PAGER/CONTACT #: [phone] [facility] OPERATIVE NOon 05-27-2024 OPERATIVE NO HNO ID: [id number] Author: NILTON GLASER MD Service: ? Author Type: Physician Type: Operative Report Filed: 05/27/2024 14:57 Note Text: OPERATIVE/PROCEDURE REPORT [place] [address] Patient Name: Adam Guajardo : 1960 Surgery/Procedure Date: 05/27/2024 Incision/Procedure Start Time: 8:03 AM Incision Close/Procedure End Time: 9:45 AM SURGEON(S)/PROCEDURAL IST(S) AND RADIO FREQUENCY DESIGN ENGINEER(S): Surgeons and Role: * Nilton Glaser MD - Primary Physician Technical Product Manager: Guy Piedra APRN.CNP I performed the procedure with assistance. I was present during all critical portions and performed the procedure with assistance. Test Facility Engineer, Guy Piedra APRN.CNP, assisted with positioning the patient, draping and prepping, and the closure. There were no qualified residents available to assist with the case. PRE-OP/PRE-PROCEDURE DIAGNOSIS: * Right full-thickness rotator cuff tear supraspinatus with delamination Right partial thickness upper border subscapularis tear Right anterior labral tear Right shoulder dislocation Preoperative right axillary nerve injury POST-OP/POST-PROCEDUR E DIAGNOSIS: * Right full-thickness rotator cuff tear supraspinatus with delamination Right partial thickness upper border subscapularis tear Right anterior labral tear Right shoulder dislocation Preoperative right axillary nerve injury SURGERY/PROCEDURE(S): * Right arthroscopic rotator cuff repair Right anterior labral debridement SURGICAL FINDING(S): There were no degenerative changes in the long head of the biceps tendon. There was a full thickness tear of supraspinatus with retraction to the humeral head and delamination. Subjective tendon quality was good. Subjective bone quality was fair. Overall quality of the repair was good. There were no arthritic changes in the glenoid and no arthritic changes in the humeral head. SURGICAL IMPLANT(S): Medial row anchors: Arthrex BioComposite SwiveLock x1, Arthrex Fibertak RC x1 Lateral row anchors: Arthrex PEEK self-punching SwiveLock x2 OPERATIVE INDICATIONS: Adam Guajardo is a 63 year old year old female who had an acute shoulder dislocation on 02/07/24. When I initially saw her, workup with MRI showed full-thickness rotator cuff tear of the supraspinatus and infraspinatus muscles. She also had an axillary nerve injury from that dislocation. Initially we discussed both operative and nonoperative treatment options and she opted for nonoperative treatment. She returned, however, a few months later to see me in April, and she had continued disability in the arm. Again, we discussed treatment options, and this time she opted for surgery. Discussed management including continuing/ non-operative treatment versus arthroscopic rotator cuff repair. Discussed risks AND benefit of each proced/ure including but not limited to bleeding, infection, DVT, PE, pain, stiffness, dislocation, neurovascular injury, anesthesia complications, and recurrent tear of the rotator cuff. Recurrent tear, in particular, was discussed at length. sheexpressed understanding and wished to proceed with surgical repair of the rotator cuff. We also spent a lot of time discussing her preoperative axillary nerve injury and how this could make her recovery less predictable. Fortunately she has been getting some sensory and motor function back over time. Preoperative optimization including pain control, resuscitation and cardiac clearance was obtained, and she was deemed acceptable risk for a cardiac event. Informed consent was obtained. SURGERY/PROCEDURE DETAILS: The patient was identified and brought into the Operating Room by the anesthesia and nursing team. General was successfully performed. Intravenous antibiotic prophylaxis dosing was confirmed. The patient was then positioned in a beach chair position and all pressure points were checked and padded. The operative limb was then examined and range of motion and restrictions noted. The operative extremity was then prepped and draped in the usual sterile fashion. A surgical time-out was performed immediately preceding the incision with all personnel in the operating room; the patient identity was again confirmed, the surgical site and extremity were identified and confirmed, X-rays were reviewed, and availability of the appropriate surgical equipment was established. Diagnostic Arthroscopy A standard posterior arthroscopic portal was initially established in the Right shoulder. On entering the glenohumeral joint, the long head of the biceps tendon showed evidence of no degenerative changes. The labrum showed evidence of tearing anteriorly, consistent with her dislocation. The humeral head was also inferiorly subluxated in the joint relative to normal. A full thickness tear of the supraspinatus tendon was seen. There was no evidence of significant degenerative changes (more content not included)... Normal [facility] Basic metabolic 2000 panelon 05-08-2024 Anion gap [Moles/Vol] 9 mmol/L Normal 8-15 [facility] Comment on above: Order Comment: Speci men Type: BLOOD SPECIMENOrdering Facility: [facility] Address: [address] [place] [address] Performed By: #### 2 4321-2 ####[facility] LABCLIA [id number] [place] [address] [place] Calcium [Mass/Vol] 9.8 mg/dL Normal 8.5-10.2 [facility] Comment on above: Order Comment: Speci men Type: BLOOD SPECIMENOrdering Facility: [facility] Address: [address] [place] [address] Performed By: #### 2 4321-2 ####[facility] LABCLIA [id number] [place] [address] [place] Chloride [Moles/Vol] 105 mmol/L Normal 98-107 [facility] Comment on above: Order Comment: Speci men Type: BLOOD SPECIMENOrdering Facility: [facility] Address: [address] [place] [address] Performed By: #### 2 4321-2 ####[facility] LABCLIA [id number] [place] [id number] [place] CO2 [Moles/Vol] 25 mmol/L Normal 22-30 [facility] Comment on above: Order Comment: Speci men Type: BLOOD SPECIMENOrdering Facility: [facility] Address: [address] [place] [address] Performed By: #### 2 4321-2 ####[facility] LABCLIA [id number] [place] [address] [place] Creatinine [Mass/Vol] 0.64 mg/dL Normal 0.58-0.96 [facility] Comment on above: Order Comment: Bryan sanders Type: BLOOD SPECIMENOrdering Facility: [facility] Address: [address] [place] [address] Performed By: #### 2 4321-2 ####[facility] LABCLIA [id number] [place] [id number] [place] [facility] [place] Creatinine and Glomerular filtration rate.predicted panel (S/P/Bld) 99 mL/min/1.73m??? Normal >=60 [facility] Comment on above: Order Comment: Bryan sanders Type: BLOOD SPECIMENOrdering Facility: [facility] Address: [address] [place] [address] Result Comment: Irene mated Glomerular Filtration Rate (eGFR) is calculated using the 2020 CKD-EPI creatinine equation. This equation utilizes serum creatinine, sex, and age as parameters. The creatinine assay has traceable calibration to isotope dilution-mass spectrometry. Refer to KDIGO guidelines for clinical interpretation. In patients with unstable renal function, e.g. those with acute kidney injury, the eGFR may not accurately reflect actual GFR. Performed By: #### 2 4321-2 ####[facility] LABCLIA [id number] [place] [id number] [place] Glucose [Mass/Vol] 102 mg/dL High 74-99 [facility] Comment on above: Order Comment: Bryan sanders Type: BLOOD SPECIMENOrdering Facility: [facility] Address: [address] [place] [address] Result Comment: The [place] Diabetes Association (ADA) provides guidance for cutoff values for fasting glucose and random glucose. The ADA defines fasting as no caloric intake for at least 8 hours. Fasting plasma glucose results between 100 to 125 mg/dL indicate increased risk for diabetes (prediabetes). Fasting plasma glucose results greater than or equal to 126 mg/dL meet the criteria for diagnosis of diabetes. In the absence of unequivocal hyperglycemia, results should be confirmed by repeat testing. In a patient with classic symptoms of hyperglycemia or hyperglycemic crisis, random plasma glucose results greater than or equal to 200 mg/dL meet the criteria for diagnosis of diabetes. Reference: Standards of Medical Care in Diabetes 2016, [place] Diabetes Association. Diabetes Care. 2016.39(Suppl 1). Performed By: #### 2 4321-2 ####[facility] LABCLIA [id number] [place] [address] [place] Potassium [Moles/Vol] 4.8 mmol/L Normal 3.7-5.1 [facility] Comment on above: Order Comment: Speci men Type: BLOOD SPECIMENOrdering Facility: [facility] Address: [address] [place] [address] Performed By: #### 2 4321-2 ####[facility] LABCLIA [id number] [place] [address] [place] Sodium [Moles/Vol] 139 mmol/L Normal 136-144 [facility] Comment on above: Order Comment: Speci men Type: BLOOD SPECIMENOrdering Facility: [facility] Address: [address] [place] [address] Performed By: #### 2 4321-2 ####[facility] LABIA [id number] [place] [id number] [place] Urea nitrogen [Mass/Vol] 15 mg/dL Normal 7-21 [facility] Comment on above: Order Comment: Speci men Type: BLOOD SPECIMENOrdering Facility: [facility] Address: [address] [place] [address] Performed By: #### 2 4321-2 ####[facility] LABCLIA [id number] [place] [id number] [place] CBC panel Auto (Bld)on 05-08 Erythrocyte distribution width (RBC) [Ratio] 13.2 % Normal 11.5-15.0 [facility] Comment on above: Order Comment: Speci men Type: BLOOD SPECIMENOrdering Facility: [facility] Address: [address] [place] [address] Performed By: #### 5 8410-2 ####[facility] LABCLIA [id number] [address] [place] Hematocrit (Bld) [Volume fraction] 39.3 % Normal 36.0-46.0 [facility] Comment on above: Order Comment: Speci men Type: BLOOD SPECIMENOrdering Facility: [facility] Address: [address] [place] [address] Performed By: #### 5 8410-2 ####[facility] LABCLIA [id number] [address] [place] Hemoglobin (Bld) [Mass/Vol] 12.8 g/dL Normal 11.5-15.5 [facility] Comment on above: Order Comment: Speci men Type: BLOOD SPECIMENOrdering Facility: [facility] Address: [address] [place] [address] Performed By: #### 5 8410-2 ####[facility] LABIA [id number] [address] MCH (RBC) [Entitic mass] 30.5 pg Normal 26.0-34.0 [facility] Comment on above: Order Comment: Speci men Type: BLOOD SPECIMENOrdering Facility: [facility] Address: [address] [place] [address] Performed By: #### 5 8410-2 ####[facility] LABIA [id number] [place] [address] [place] MCHC (RBC) [Mass/Vol] 32.6 g/dL Normal 30.5-36.0 [facility] Comment on above: Order Comment: Speci men Type: BLOOD SPECIMENOrdering Facility: [facility] Address: [address] [place] [address] Performed By: #### 5 8410-2 ####[facility] LABCLIA [id number] [address] [place] MCV (RBC) [Entitic vol] 93.8 fL Normal 80.0-100.0 [facility] Comment on above: Order Comment: Speci men Type: BLOOD SPECIMENOrdering Facility: [facility] Address: [address] [place] [address] Performed By: #### 5 8410-2 ####[facility] LABCLIA [id number] [place] [address] [place] Nucleated RBC (Bld) [#/Vol] 10*3/uL Normal <0.01 [facility] Comment on above: Order Comment: Speci men Type: BLOOD SPECIMENOrdering Facility: [facility] Address: [address] [place] [address] Performed By: #### 5 8410-2 ####[facility] LABCLIA [id number] [place] [address] [place] Platelet mean volume (Bld) [Entitic vol] 10.3 fL Normal 9.0-12.7 [facility] Comment on above: Order Comment: Speci men Type: BLOOD SPECIMENOrdering Facility: [facility] Address: [address] [place] [address] Performed By: #### 5 8410-2 ####[facility] LABCLIA [id number] [place] [address] [place] Platelets (Bld) [#/Vol] 267 10*3/uL Normal 150-400 [facility] Comment on above: Order Comment: Speci men Type: BLOOD SPECIMENOrdering Facility: [facility] Address: [address] [place] [address] Performed By: #### 5 8410-2 ####[facility] LABCLIA [id number] [place] [address] [place] RBC (Bld) [#/Vol] 4.19 10*6/uL Normal 3.90-5.20 [facility] Comment on above: Order Comment: Speci men Type: BLOOD SPECIMENOrdering Facility: [facility] Address: [address] [place] [address] Performed By: #### 5 8410-2 ####[facility] LABCLIA [id number] [place] [id number] [place] WBC (Bld) [#/Vol] 5.36 10*3/uL Normal 3.70-11.00 [facility] Comment on above: Order Comment: Speci men Type: BLOOD SPECIMENOrdering Facility: [facility] Address: [address] [place] [address] Performed By: #### 5 8410-2 ####[facility] LABCLIA [id number] [place] [id number] [facility] ECG COMPLETEon 05-08-2024 Atrial Rate 50 BPM [facility] Calculated [place] 68 degrees [facility] Calculated [place] 67 degrees [facility] Calculated [place] 68 degrees [facility] P-R Interval 154 ms [facility] QRS Duration 92 ms [facility] QT Interval 420 ms [facility] QTC Calculation (Bazett) 382 ms [facility] Ventricular Rate [address] [facility] SINUS BRADYCARDIA OTHERWISE NORMAL ECG Confirmed by PAULETTE QUINTERO MD ([id number]) on 05/08/2024 9:53:01 [facility] NAME : ADAM GUAJARDO PID : [id number] : 1960 Gender : Female Race : ORD : [id number] Procedure Date : May 08 2024 08:09:06 Edit Date : May 08 2024 09:53:05 Diagnosis: SINUS BRADYCARDIA OTHERWISE NORMAL ECG Confirmed by PAULETTE QUINTERO MD ([id number]) on 05/08/2024 9:53:01 AM Test Reason : Location : 135 : [facility] Overread By : PAULETTE QUINTERO MD Edited By : PAULETTE QUINTERO MD Referred By : NILTON GLASER Acquired by : [facility] ECG COMPLETE Ventricular Rate : 5 0 BPM Atrial Rate : 50 BPM P-R Interval : 154 ms QRS Duration : 92 ms Q-T Interval : 420 ms QTC Calculation(Bazett) : 382 ms Calculated P [place] : 68 degrees Calculated R Tryon : 67 degrees Calculated T Try[place] : 68 degrees SINUS BRADYCARDIA OTHERWISE NORMAL ECG Confirmed by PAULETTE QUINTERO MD ([id number]) on 05/08/2024 9:53:01 AM NAME : ADAM GUAJARDO PID : [id number] : 1960 Gender : Female Race : ORD : [id number] Procedure Date : May 08 2024 08:09:06 Edit Date : May 08 2024 09:53:05 Diagnosis: SINUS BRADYCARDIA OTHERWISE NORMAL ECG Confirmed by PAULETTE QUINTERO MD ([id number]) on 05/08/2024 9:53:01 AM Test Reason : Location : 135 : [facility] Overread By : PAULETTE QUINTERO MD Edited By : PAULETTE QUINTERO MD Referred By : NILTON GLASER Acquired by : Jose GELLER [facility] HISTORY PHYSICALon HISTORY PHYSICAL HNO ID: [id number] Author: SRI PRITCHETT PA-C Service: ? Author Type: Physician Technical Product Manager Type: H&P Filed: 05/08/2024 09:21 Note Text: [facility] HISTORY AND PHYSICAL EXAMINATION SERVICE DATE: 05/08/2024 SERVICE TIME: 8:44 AM PRIMARY CARE PHYSICIAN: Margarita Avila APRN.[employer] REASON FOR VISIT: Adam Guajardo is a 63 year old female who is scheduled for Right - Right arthroscopic rotator cuff repair, subacromial decompression, possible biceps tenodesis, possible graft augmentation at the request of Dr. Nilton Glaser for consultation. My final recommendation will be communicated back to the requesting physician by way of shared medical record or letter. Assessment Patient has the following medical conditions which may affect gumaro-operative course: GERD (gastroesophageal reflux disease) Assessment: symptoms controlled on esomeprazole Former smoker Assessment: 1/2 ppd x 10 years. Quit in 1989 Obesity (BMI 30-39.9) Assessment: BMI 36 I - PHYSICAL EVALUATION AIRWAY Patient intubated: No. Tracheostomy tube not present Mallampati: II. TM distance: >3 FB. Neck ROM: full ROM without neurological symptoms. Mouth opening: adequate. Short neck: no. Thick neck: no Microretrognathia/Basil ronagthia/Recessed Chin: No DENTAL Dental findings: teeth intact. Additional comments: Caps/crowns. II - ANESTHESIA PLAN Anesthetic plan additional comments: *PACC/TCI - anesthesia choice. Beta Krystina Monitoring Plan Post Procedure Analgesic Plan ANESTHESIA FINDINGS: Intubation History: No history of difficult intubation Significant Anesthesia Considerations: none Airway History: No history of difficult airway Santos Activity Status Index: METS: Walk indoors, such as around the house (1.75 METs) Do light work around the house, such as dusting or washing dishes (2.70 METs) Take care of self; that is eating, dressing, bathing, using the toilet (2.75 METs) Walk a block or two on level ground (2.75 METs) Do moderate work around the house, such as vacuuming, sweeping floors, or carrying in groceries (3.50 METs) Climb a flight of stairs or walk up a hill (5.50 METs) DASI Score: 18.95 STOP-Bang Score: BMI greater than 35 kg/m2 Patient over 50 years old Denies snoring loudly Denies feeling tired, fatigued, or sleepy during the daytime Has not been observed to stop breathing or choking/gasping during sleep Denies having high blood pressure Does not have a large neck Non-male patient STOP-Bang Score: 2 [id number] Score: Age: <65 Sex: female CHF history: No Hypertension history: No Stroke/TIA/thromboemb olism history: No Vascular disease history: No Diabetes history: No [id number] Score: 1 Prepared for surgery: This patient is optimally prepared for surgery pending LABS and EKG. CONSULTS: Patient does not require consults for optimization at this time. The Following Tests/Procedures Have Been Initiated: CBC, BMP, EKG-surgeon's orders Planned Anesthetic: Per anesthesia choice Subjective CHIEF COMPLAINT: torn rotator cuff HPI: Adam is a 63 y/o female who dislocated her right shoulder when she tripped and fell on 02/06. She presented to the ED at which time the dislocation was reduced. She was recently evaluated by ortho for shoulder pain. MRI showed full thickness supraspinatus tendon tear. She is scheduled for surgery on 05/27. REVIEW OF SYSTEMS: PAIN ASSESSMENT: Pain Pain Level: 3 Pain Location: Shoulder-Right Description: Aching Duration Units: Months Frequency: Continuous General: No weight loss, malaise or fevers. Neuro: Negative for headaches, seizures, tremor or stroke Respiratory: Negative for cough, wheezing or shortness of breath. Negative for hemoptysis. Negative for sleep apnea. Cardiovascular: Negative for chest pain, orthopnea, PND, dizziness, lightheadedness or syncope. Negative for heart murmur. Negative for palpitations or arrhythmia. Negative for h/o DVT/PE. Negative for LE edema GI: Negative for abdominal pain, blood in the stool, black stools or change in bowel habits +GERD : No history of UTI in past 6 weeks. No history of renal failure. Not currently on or requiring dialysis. Negative for dysuria, hematuria, urgency, frequency or incontinence ARC TRIMMER: Negative for abnormal vaginal bleeding, abnormal vaginal discharge. : N/A, Patient's last menstrual period was 12/13/2011. Endocrine: Negative for polyuria, polydipsia, heat or cold intolerance. Negative for goiter Hematology: No history of bleeding or clotting disorder. Pt is not taking anti-coagulation or platelet medications. No history of hematological symptoms or problems. Oncology: No history of CA metastasis, chemo within 30 days, or radiotherapy within 90 days. Has not lost 10% of body wt in 6 months. No history of oncological symptoms or problems. Psych: No (more content not included)... Normal [facility] CNOVon 05-06-2024 CNOV Office Visit (EVA ) ADAM GUAJARDO ([id number]) 1960 F Date Time Provider Department 05/06/24 3:00 PM NILTON GLASER During your visit today, we recorded the following information about you: Nilton Glaser MD 05/06/2024 3:27 PM Signed [facility] NOTE Department of Orthopaedics NAME: Adam De Los Santosley CLINIC NO.: [id number] DATE: 05/06/24 Last visit: February 21, 2024 Interval Hx: Adam Hunter Guajardo is back for follow up since their last visit At the last visit we discussed her acute, traumatic rotator cuff tear from injury on 12/12/24. I recommended rotator cuff repair due to the acute, traumatic nature, but she decided to try PT first. She also had an axillary nerve injury from this dislocation, evidenced by weakness and decreased sensation. Today they report she has been doing PT and noticing some improvements, but still having pain and weakness. She is now interested in proceeding with surgery. She has also been noticing improvements in her strength and her sensation in the shoulder. PHYSICAL EXAMINATION: Right Shoulder Atrophy/asymmetry Right deltoid atrophy Scapular dyskinesia No AC tenderness No ROM (Passive/Active): FE (degree) 160/90 ER (degree) 50/50 ER Lag (degree) 10 IR (degree) Sacrum Strength (1-5) ABD in plane of scapula 4/5 ER 5/5 IR 5/5 Provocative tests: Job?s test Positive Neer and Murray test Negative Belly press test Negative O?Clifton?s test Negative Speed's test Negative Hornblower's sign Negative Cross Body Adduction Negative Apprehension Negative Sulcus Negative Load and Shift Negative Nerve deficit (motor/sensory) Radial n. Negative Median n. Negative Ulnar n. Negative Axillary n. Positive, decreased sensation and motor function Firing all three heads of deltoid, but weak Vascular Distal perfusion normal RADIOGRAPHIC STUDIES: No new imaging ASSESSMENT: Encounter Diagnosis ICD-10-CM 1. Traumatic tear of right rotator cuff, subsequent encounter S46.011D 2. 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 Regarding her axillary nerve injury she is starting to get motor and sensory function back, though there is still evidence of decreased function. This improvement in function suggests a neuropraxia that is improving, consistent with that of a dislocation related injury. I offered her the opportunity for EMG so we could better evaluate the condition of the nerve, but she does not want to proceed with that at this time, as she would rather focus on the rotator cuff and keep an eye on the nerve, as she feels like her sensation and function are improving. Her motion is improved today and her deltoid is firing so she does still have motor axons getting through. Regarding her rotator cuff tear, we discussed both operative and nonoperative treatment options for this problem. Nonoperative treatment options include continued physical therapy and steroid injections to treat the pain and weakness. Surgical treatment includes rotator cuff repair with the possibility of graft augmentation. We discussed the importance of not using the shoulder for any active motion during the first 6-8weeks of recovery in order to optimize healing because of the high risk for rotator cuff tears not to heal. We discussed the risk of retearing, nonhealing of the repair, infection, neurovascular injury, possible need for revision surgery, and complications related to anesthesia. 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 The deltoid atrophy and general shoulder weakness will make her recovery more difficult and we may need to consider a nerve decompression down the road if she is not getting further improvement by the 6 month nicko. After discussion of the risks and benefits the patient would like to proceed with left shoulder arthroscopic rotator cuff repair, decompression, possible biceps tenodesis, possible graft augmentation. Consent was signed in the office today Plan: Preop labs, PACC Plan for surgery. Outpatient Followup for surgery Nilton Glaser MD Shoulder and Elbow Surgeon Orthopaedic Surgery Department Allergies As of Date: 05/06/2024 Noted Allergy Reaction SULFA (SULFONAMIDE ANTIBIOTICS) 10/17/2005 2 - Rash Date Reviewed: 05/06/2024 Reviewed by: Jennifer Styles MA - Fully Assessed Reason for Visit: Established Patient [175] Primary Visit Diagnosis:Traumatic tear of right rotator cuff, subsequent encounter [S46.011D] Other Visit Diagnosis:Injury of right axillary nerve, subsequent encounter [S44.31XD] Prescriptions as of 05/06/2024 - TURMERIC ORAL Take by mouth. - albuterol HFA (GA (more content not included)... Normal [facility] CNOVon 02-21-2024 CNOV Office Visit (EVA ) ADAM GUAJARDO ([id number]) 1960 F Date Time Provider Department 02/21/24 9:45 AM NILTON GLASER During your visit today, we recorded the following information about you: Nilton Glaser MD 02/21/2024 10:24 AM Signed [facility] NOTE Department of Orthopaedics NAME: Adam Guajardo CLINIC NO.: [id number] DATE: February 21, 2024 Last visit: 02/14/2024 Interval Hx: Adam Guajardo is back for follow up since their last visit with me on 02/14/2024. At the last visit we discussed getting an MRI to better evaluate her acute cuff tear Today they report that symptoms of pain have slightly improved, though she continues to have some weakness. She reports that she is not interested in having surgery until July because she does not want to pay for surgery and her insurance goes on Medicare in July. She is also going to the [facility] until April and does not want to have surgery before then. PHYSICAL EXAMINATION: Unchanged from prior Still pseudoparalytic RADIOGRAPHIC STUDIES: MRI of the right shoulder, completed on 02/15/24 does demonstrate an acute supraspinatus rotator cuff tear. The muscle belly looks healthy with no atrophy or fatty infiltration, so this is consistent with an acute tear. ASSESSMENT: Encounter Diagnosis ICD-10-CM 1. Traumatic tear of right rotator cuff, subsequent encounter S46.011D PLAN: Adam presents back and MRI confirms an acute rotator cuff tear. I discussed at length with Adam that with an acute tear her options are nonop (PT and CSI if pain is significant) or surgery (arthroscopic rotator cuff repair). Given her age, healthy muscle quality, and acute tear my recommendation is for surgery. Adam, however, adamantly prefers to avoid surgery until July because of health insurance matters. I discussed with her that waiting until July may jeopradize ability to repair the tendon, and she may not have as good of an outcome once it has become a chronic tear. I stressed this to her multiple times. She says she understands this but will still prefer to treat this without surgery. Therefore I will order PT. Her pain is improving so she does not want a CSI at this time. I would like to see her back if she changes her mind about surgery, and certainly I will see her back hanger to July to re-evaluate her shoulder. I informed her that we may need a new MRI at that time to assess the retraction/muscle quality to see if this tear is still repairable. Nilton Glaser MD Shoulder and Elbow Surgeon Orthopaedic Surgery Department Allergies As of Date: 02/21/2024 Noted Allergy Reaction SULFA (SULFONAMIDE ANTIBIOTICS) 10/17/2005 2 - Rash Date Reviewed: 02/21/2024 Reviewed by: Ct Stapleton MA - Fully Assessed Reason for Visit: Established Patient [175] Primary Visit Diagnosis:Traumatic tear of right rotator cuff, subsequent encounter [S46.011D] Order(s):CONSULT TO PHYSICAL THERAPY [9068] Order #: [id number]: 1 FUTURE Prescriptions as of 02/21/2024 - albuterol HFA (PROVENTIL HFA, VENTOLIN HFA) 90 mcg/actuation inhaler - Azelaic Acid 15 % gel - esomeprazole (NEXIUM) 40 mg capsule - metroNIDAZOLE (METROGEL) 0.75 % Topical Gel - MULTIVITAMIN ORAL Take by mouth. - KRILL OIL ORAL Take by mouth. - GLUCOSAMINE-CONDROITI [id number] ORAL Take by mouth. - cetirizine (ZYRTEC) 10 mg tablet Take 1 tablet by mouth once daily. Problem List As Of Date 02/21/2024 Noted Resolved Fibroid [D21.9] 10/06/2010 Family history of breast cancer in mother [Z80.* Obesity, Class II, BMI 35-39.9 [E66.812] 08/18/2020 Level of Service: OFFICE/OUTPATIENT ESTABLISHED [facility] MDM 30 MIN [54743] Additional E/M codes: VISIT CPLX INHERENT EANDM ASSOC WITH MED * LOS History for Encounter ----- Level of Service: OFFICE/OUTPATIENT ESTABLISHED LOW MDM 20 MIN[58548] Date AND Time: 02-21-2024 10:24 AM Recorded by User: NILTON GLASER Encounter Status:Closed by NILTON GLASER on 02/21/24 Normal [facility] MR Shoulder - right WO contr altagracia 02-15-2024 IMPRESSION: FULL-THICKNESS SUPRASPINATUS TENDON TEAR. SEQUELA OF ANTERIOR-INFERIOR SHOULDER DISLOCATION INCLUDING AN IMPACTION DEFORMITY OF THE SUPERIOR ASPECT OF THE HUMERAL HEAD AND AT LEAST PARTIAL TEAR OF THE HUMERAL ATTACHMENT OF THE GLENOHUMERAL LIGAMENTS. NO LABRAL TEAR SEEN. Cement Finisher Helper: PRIMO Transcribe Date/Time: Feb 15 2024 12:42P Dictated by : ASHLY HOFFMANN MD This examination was interpreted and the report reviewed and electronically signed by: ASHLY HOFFMANN MD on Feb 15 2024 12:47PM [facility] DIVISION OF RADIOLOGY * * *Final Report* * * DATE OF EXAM: Feb 15 2024 11:41AM [facility] 0240 - MRI SHOULDER WO IVCON RT / PROCEDURE REASON: Traumatic complete tear of right rotator cuff, initial encounter * * * * Physician Interpretation * * * * EXAMINATION: MRI SHOULDER WO IVCON RT HISTORY: Right shoulder dislocation. Pain. TECHNIQUE: Routine non-contrast MRI of the shoulder. MQ: MRS_1A COMPARISON: None RESULT: TENDONS: Rotator cuff tendons: -Supraspinatus: Full thickness tear involving the entire width of the tendon without 15 mm of medial retraction. -Infraspinatus: Intact tendon -Subscapularis: Intact tendon -Teres Minor: Intact tendon Biceps (Long head) Tendon: Intact , with normal course MUSCLES: Rotator cuff muscles: -Supraspinatus: Preserved bulk and no fatty changes. -Infraspinatus: Preserved bulk and no fatty changes. -Subscapularis: Preserved bulk and no fatty changes. -Teres Minor: Preserved bulk and no fatty changes. Other muscles: Preserved signal and bulk in the deltoid. JOINTS: Glenohumeral Joint: -Labrum: Glenoid labrum appears to be intact. Normal variant sublabral foramen in the anterior superior quadrant.Partial tearing of the humeral attachment of the glenohumeral ligaments. -Cartilage: Normal -Joint Fluid: Small effusion . No synovitis. Acromioclavicular Joint: Normal BONES AND MARROW: Impaction deformity along the superior margin of the humeral head just medial to the rotator cuff footprint with mild edema compatible with an atypical Hill-Sachs deformity. This measures about 15 x 9 mm in cross-section with a depth of about 4 mm. OTHER: Subdeltoid/Subacromia l Bursa: Moderate bursal distention Other: No other significant findings. Localizer images: DIVISION OF RADIOLOGY Provider, [facility] - 02/15/2024 * * *Final Report* * * DATE OF EXAM: Feb 15 2024 11:41AM [facility] 0240 - MRI SHOULDER WO IVCON RT / PROCEDURE REASON: Traumatic complete tear of right rotator cuff, initial encounter * * * * Physician Interpretation * * * * EXAMINATION: MRI SHOULDER WO IVCON RT HISTORY: Right shoulder dislocation. Pain. TECHNIQUE: Routine non-contrast MRI of the shoulder. MQ: MRS_1A COMPARISON: None RESULT: TENDONS: Rotator cuff tendons: -Supraspinatus: Full thickness tear involving the entire width of the tendon without 15 mm of medial retraction. -Infraspinatus: Intact tendon -Subscapularis: Intact tendon -Teres Minor: Intact tendon Biceps (Long head) Tendon: Intact , with normal course MUSCLES: Rotator cuff muscles: -Supraspinatus: Preserved bulk and no fatty changes. -Infraspinatus: Preserved bulk and no fatty changes. -Subscapularis: Preserved bulk and no fatty changes. -Teres Minor: Preserved bulk and no fatty changes. Other muscles: Preserved signal and bulk in the deltoid. JOINTS: Glenohumeral Joint: -Labrum: Glenoid labrum appears to be intact. Normal variant sublabral foramen in the anterior superior quadrant.Partial tearing of the humeral attachment of the glenohumeral ligaments. -Cartilage: Normal -Joint Fluid: Small effusion . No synovitis. Acromioclavicular Joint: Normal BONES AND MARROW: Impaction deformity along the superior margin of the humeral head just medial to the rotator cuff footprint with mild edema compatible with an atypical Hill-Sachs deformity. This measures about 15 x 9 mm in cross-section with a depth of about 4 mm. OTHER: Subdeltoid/Subacromia l Bursa: Moderate bursal distention Other: No other significant findings. Localizer images: IMPRESSION IMPRESSION: FULL-THICKNESS SUPRASPINATUS TENDON TEAR. SEQUELA OF ANTERIOR-INFERIOR SHOULDER DISLOCATION INCLUDING AN IMPACTION DEFORMITY OF THE SUPERIOR ASPECT OF THE HUMERAL HEAD AND AT LEAST PARTIAL TEAR OF THE HUMERAL ATTACHMENT OF THE GLENOHUMERAL LIGAMENTS. NO LABRAL TEAR SEEN. Cement Finisher Helper: PRIMO Transcribe Date/Time: Feb 15 2024 12:42P Dictated by : ASHLY HOFFMANN MD This examination was interpreted and the report reviewed and electronically signed by: ASHLY HOFFMANN MD on Feb 15 2024 12:47PM EST [facility] Radiology Study observation (narrative) Marie man [facility] MR Shoulder - right WO contr astOrdered By: Ccf Provider on 02-15-2024 [facility] MRI SHOULDER WO IVCON RTon 1 04-17-2023 MRI SHOULDER WO IVCON RT * * *Final Report* * * DATE OF EXAM: Feb 15 2024 11:41AM [facility] 0240 - MRI SHOULDER WO IVCON RT / PROCEDURE REASON: Traumatic complete tear of right rotator cuff, initial encounter * * * * Physician Interpretation * * * * EXAMINATION: MRI SHOULDER WO IVCON RT HISTORY: Right shoulder dislocation. Pain. TECHNIQUE: Routine non-contrast MRI of the shoulder. MQ: MRS_1A COMPARISON: None RESULT: TENDONS: Rotator cuff tendons: -Supraspinatus: Full thickness tear involving the entire width of the tendon without 15 mm of medial retraction. -Infraspinatus: Intact tendon -Subscapularis: Intact tendon -Teres Minor: Intact tendon Biceps (Long head) Tendon: Intact , with normal course MUSCLES: Rotator cuff muscles: -Supraspinatus: Preserved bulk and no fatty changes. -Infraspinatus: Preserved bulk and no fatty changes. -Subscapularis: Preserved bulk and no fatty changes. -Teres Minor: Preserved bulk and no fatty changes. Other muscles: Preserved signal and bulk in the deltoid. JOINTS: Glenohumeral Joint: -Labrum: Glenoid labrum appears to be intact. Normal variant sublabral foramen in the anterior superior quadrant.Partial tearing of the humeral attachment of the glenohumeral ligaments. -Cartilage: Normal -Joint Fluid: Small effusion . No synovitis. Acromioclavicular Joint: Normal BONES AND MARROW: Impaction deformity along the superior margin of the humeral head just medial to the rotator cuff footprint with mild edema compatible with an atypical Hill-Sachs deformity. This measures about 15 x 9 mm in cross-section with a depth of about 4 mm. OTHER: Subdeltoid/Subacromia l Bursa: Moderate bursal distention Other: No other significant findings. Localizer images: IMPRESSION: FULL-THICKNESS SUPRASPINATUS TENDON TEAR. SEQUELA OF ANTERIOR-INFERIOR SHOULDER DISLOCATION INCLUDING AN IMPACTION DEFORMITY OF THE SUPERIOR ASPECT OF THE HUMERAL HEAD AND AT LEAST PARTIAL TEAR OF THE HUMERAL ATTACHMENT OF THE GLENOHUMERAL LIGAMENTS. NO LABRAL TEAR SEEN. Cement Finisher Helper: PSCB Transcribe Date/Time: Feb 15 2024 12:42P Dictated by : ASHLY HOFFMANN MD This examination was interpreted and the report reviewed and electronically signed by: ASHLY HOFFMANN MD on Feb 15 2024 12:47PM EST [id number] Normal [facility] CNOVon 02-14-2024 CNOV Office Visit (ORTHST ) ADAM GUAJARDO ([id number]) 1960 F Date Time Provider Department 02/14/24 9:30 AM NILTON GLASER During your visit today, we recorded the following information about you: Nilton Glaser MD 02/14/2024 10:25 AM Signed Nilton Galser MD Shoulder and Elbow Surgery Department of Orthopaedic Surgery, [facility] Office: Ph. [phone] ; INITIAL ENCOUNTER FOR A NEW SHOULDER PROBLEM Chief Complaint: Right shoulder pain HPI: Adam Guajardo is seen at the request of Self for consultation regarding the above problem. Findings and recommendations will be communicated back to the referring provider via availability in the shared electronic medical record. Adam Guajardo is a 63 year old female who presents with the above complaint. Hand dominance: Right. Adam comes in for initial evaluation of her right shoulder dislocation. Her injury was on 02/07/24. She had immediate pain and inability ot use the arm. Immediately had some numbness and pain in the shoulder. She called 911 and was brought to the ED. Diagnosed with a shoulder dislocation, which was reduced and she was given a sling upon discharge. Of note, she did have some underlying right shoulder pain, clicking, and popping that bothered her before this fall, but she could still raise her arm overhead. Previous treatment: Activity modification: Yes Sling use: yes Prescription NSAIDs: No OTC NSAIDs: No Percocet: yes PT: No Corticosteroid injection: No All available outside records have been reviewed. Occupation: Retired Plan to go to [place] february REVIEW OF SYSTEMS: Constitutional: patient denies any recent fever or significant change in weight Cardiovascular: patient denies any chest pain at rest Respiratory: patient denies any shortness of breath or cough Gastrointestinal: patient denies any current abdominal discomfort Integumentary: patient denies any recent skin changes Musculoskeletal: as noted in the HPI Neurologic: as noted in the HPI Endocrine: patient denies any changes Hematologic/Lymphatic : patient denies any easily bleeding, any recent infection and denies any recent observable lymph node enlargement Psychologic: denies any recent changes FAMILY HISTORY Problem Relation Age of Onset Arthritis Mother Asthma Mother Breast Cancer Mother diagnosed age 52 Diabetes Mother Heart disease Mother age 83 Stroke Father Heart Father age 82 DVT Father Breast Cancer Sister 66 DVT Sister Cancer Maternal Grandfather brain Diabetes Paternal Grandfather Hypertension Daughter Cervical Cancer Maternal Aunt Colon Cancer No Family History Ovarian cancer No Family History Prostate Cancer No Family History No Family History No Family History Pancreatic CA Uterine Cancer No Family History PAST MEDICAL HISTORY Diagnosis Date Acute medial meniscus tear 08/17/2021 Arthritis Family history of breast cancer in mother sister also Uterine fibroid 2010 U/S notede multiple, largest ~3.3cm PAST SURGICAL HISTORY Procedure Laterality Date KNEE SURGERY HX Left 2021 ALLERGIES Allergen Reactions Sulfa (Sulfonamide * Rash Problem List: reviewed and updated. Contributory Co-morbidities: Assessed as indicated; currently managed. Social History: Boating in [place] Social History Tobacco Use Smoking status: Former Current packs/day: 0.00 Average packs/day: 0.5 packs/day for 10.0 years (5.0 ttl pk-yrs) Types: Cigarettes Start date: 10/25/1979 Quit date: 10/24/1989 Years since quittin.3 Smokeless tobacco: Never Vaping Use Vaping status: Never Used Substance Use Topics Alcohol use: Yes Comment: 1/month Drug use: No Current Outpatient Medications Medication Sig albuterol HFA (PROVENTIL HFA, VENTOLIN HFA) 90 mcg/actuation inhaler Azelaic Acid 15 % gel esomeprazole (NEXIUM) 40 mg capsule metroNIDAZOLE (METROGEL) 0.75 % Topical Gel MULTIVITAMIN ORAL Take by mouth. KRILL OIL ORAL Take by mouth. GLUCOSAMINE-CONDROITI [id number] ORAL Take by mouth. cetirizine (ZYRTEC) 10 mg tablet Take 1 tablet by mouth once daily. No current facility-administered medications for this visit. Physical Exam: LMP 12/13/2011 Constitutional: Pleasant, well-appearing, no acute distress. Resp: breathing is unlabored without audible wheeze Vascular: Normal pedal and radial pulses, no cyanosis, no venous stasis changes Skin: No overlying skin change, ecchymosis, or erythema. Psychiatric: Pleasant, direct, appropriate mood and affect General Orthopaedic Examination: Neuro: Gross motor function intact Pulses: 2+ radial, ulnar; hands warm bilat, <2sec CR Compartments: soft and compressible Cervical Spine:Appropriate range of motion, negative midline and paraspinal muscle tenderness, negative stepoff, and nega (more content not included)... [facility] HNO ID: [id number] Author: KATHERINE RYAN RT(R) Service: ? Author Type: Technologist Type: Allied Health Filed: 02/07/2024 19:22 Note Text: Radiology Service Progress Note PATIENT NAME: Adam Guajardo DATE OF SERVICE: February 07, 2024 TIME: 7:22 PM PATIENT IDENTITY VERIFICATION COMPLETED USING TWO (2) IDENTIFIERS: Name and Date of confirmed by patient verbally. FALL SCREENING: Has the patient had 2 falls in the last year or 1 fall with injury or currently using an Ambulatory Assistive Device (Walker, Cane, Wheelchair, Crutches, etc.)? Emergency Room Patient: Screened in ED PATIENT GENDER DATA: Female. status: : No status: NO. PATIENT RELEVANT IMPLANT DATA REVIEWED: Not Applicable PATIENT PRESENTS WITH AN IMPLANTABLE OR ATTACHED ROLL FORMING MACHINE SET UP OPERATOR: No RADIOLOGY DEPARTMENT: General X-ray: Exam(s) Completed: Upper Extremity X-Ray(s): Shoulder, AP / TRUE AP right Y-view PERIPHERAL IV DATA: Not applicable SIGNED BY: RT Gabby(R) February 07, 2024 7:22 PM [facility] HNO ID: [id number] Author: KATHERINE RYAN RT(Kimmie) Service: ? Author Type: Technologist Type: Allied Health Filed: 02/07/2024 17:32 Note Text: Radiology Service Progress Note PATIENT NAME: Adam Guajardo DATE OF SERVICE: February 07, 2024 TIME: 5:30 PM PATIENT IDENTITY VERIFICATION COMPLETED USING TWO (2) IDENTIFIERS: Name and Date of confirmed by patient verbally. FALL SCREENING: Has the patient had 2 falls in the last year or 1 fall with injury or currently using an Ambulatory Assistive Device (Walker, Cane, Wheelchair, Crutches, etc.)? Emergency Room Patient: Screened in ED PATIENT GENDER DATA: Female. status: : No status: NO. PATIENT RELEVANT IMPLANT DATA REVIEWED: Not Applicable PATIENT PRESENTS WITH AN IMPLANTABLE OR ATTACHED ROLL FORMING MACHINE SET UP OPERATOR: No RADIOLOGY DEPARTMENT: General X-ray: Exam(s) Completed: Pelvis X-Ray: Pelvis with Hip Right Lower Extremity X-Ray(s): Knee, AP / LAT Right Upper Extremity X-Ray(s): Shoulder, AP / TRUE AP right , AP/Y-VIEW PERIPHERAL IV DATA: Not applicable SIGNED BY: Katherine Ryan RT(R) February 07, 2024 5:30 PM Normal [facility] CBC W Auto Differential pane l (Bld)on 02-07-2024 Basophils (Bld) [#/Vol] 0.03 10*3/uL Normal <0.11 [facility] Comment on above: Order Comment: Speci men Type: BLOOD SPECIMENOrdering Facility: [facility] Address: [address] [place] [address] Performed By: #### 5 7021-8 ####[facility] [place] LABCLIA [id number] [place] [id number] [place] Basophils/100 WBC (Bld) 0.3 % Normal [facility] Comment on above: Order Comment: Speci men Type: BLOOD SPECIMENOrdering Facility: [facility] Address: [address] [place] [address] Performed By: #### 5 7021-8 ####[facility] [place] LABCLIA [id number] [place] [id number] [place] Differential cell count method Nom (Bld) Auto Normal [facility] Comment on above: Order Comment: Speci men Type: BLOOD SPECIMENOrdering Facility: [facility] Address: [address] [place] [address] Performed By: #### 5 7021-8 ####[facility] [place] LABCLIA [id number] [place] [address] [place] Eosinophils (Bld) [#/Vol] 0.08 10*3/uL Normal <0.46 [facility] Comment on above: Order Comment: Speci men Type: BLOOD SPECIMENOrdering Facility: [facility] Address: [address] [place] [address] Performed By: #### 5 7021-8 ####[facility] [place] LABCLIA [id number] [place] [address] [facility] Eosinophils/100 WBC (Bld) 0.8 % Normal [facility] Comment on above: Order Comment: Speci men Type: BLOOD SPECIMENOrdering Facility: [facility] Address: [address] [place] [address] Performed By: #### 5 7021-8 ####[facility] [place] LABCLIA [id number] [place] [address] [facility] [place] Erythrocyte distribution width (RBC) [Ratio] 12.9 % Normal 11.5-15.0 [facility] Comment on above: Order Comment: Speci men Type: BLOOD SPECIMENOrdering Facility: [facility] Address: [address] [place] [address] Performed By: #### 5 7021-8 ####[facility] [place] LABCLIA [id number] [place] [address] [facility] [place] Hematocrit (Bld) [Volume fraction] 40.7 % Normal 36.0-46.0 [facility] Comment on above: Order Comment: Speci men Type: BLOOD SPECIMENOrdering Facility: [facility] Address: [address] [place] [address] Performed By: #### 5 7021-8 ####[facility] [place] LABCLIA [id number] [place] [address] [facility] [place] Hemoglobin (Bld) [Mass/Vol] 12.8 g/dL Normal 11.5-15.5 [facility] Comment on above: Order Comment: Speci men Type: BLOOD SPECIMENOrdering Facility: [facility] Address: [address] [place] [address] Performed By: #### 5 7021-8 ####[facility] [place] LABCLIA [id number] [place] [address] [place] Immature granulocytes (Bld) [#/Vol] 10*3/uL Normal <0.10 [facility] Comment on above: Order Comment: Speci men Type: BLOOD SPECIMENOrdering Facility: [facility] Address: [address] [place] [address] Performed By: #### 5 7021-8 ####[facility] [place] LABCLIA [id number] [address] [place] Immature granulocytes/100 WBC (Bld) 0.1 % Normal [facility] Comment on above: Order Comment: Speci men Type: BLOOD SPECIMENOrdering Facility: [facility] Address: [address] [place] [address] Performed By: #### 5 7021-8 ####[facility] [place] LABCLIA [id number] [address] [place] Lymphocytes (Bld) [#/Vol] 2.59 10*3/uL Normal 1.00-4.00 [facility] Comment on above: Order Comment: Speci men Type: BLOOD SPECIMENOrdering Facility: [facility] Address: [address] [place] [address] Performed By: #### 5 7021-8 ####[facility] [place] LABCLIA [id number] [address] [place] Lymphocytes/100 WBC (Bld) 25.3 % Normal [facility] Comment on above: Order Comment: Speci men Type: BLOOD SPECIMENOrdering Facility: [facility] Address: [address] [place] [address] Performed By: #### 5 7021-8 ####[facility] LABCLIA [id number] [place] [address] [facility] MCH (RBC) [Entitic mass] 30.4 pg Normal 26.0-34.0 [facility] Comment on above: Order Comment: Speci men Type: BLOOD SPECIMENOrdering Facility: [facility] Address: [address] [place] [address] Performed By: #### 5 7021-8 ####[facility] LABCLIA [id number] [place], [place] [id number] [place] [address] OF [facility] MCHC (RBC) [Mass/Vol] 31.4 g/dL Normal 30.5-36.0 [facility] Comment on above: Order Comment: Speci men Type: BLOOD SPECIMENOrdering Facility: [facility] Address: [address] [place] [address] Performed By: #### 5 7021-8 ####[facility] LABCLIA [id number] [address] MCV (RBC) [Entitic vol] 96.7 fL Normal 80.0-100.0 [facility] Comment on above: Order Comment: Speci men Type: BLOOD SPECIMENOrdering Facility: [facility] Address: [address] [place] [address] Performed By: #### 5 7021-8 ####[facility] LABCLIA [id number] [address] Monocytes (Bld) [#/Vol] 0.55 10*3/uL Normal <0.87 [facility] Comment on above: Order Comment: Speci men Type: BLOOD SPECIMENOrdering Facility: [facility] Address: [address] [place] [address] Performed By: #### 5 7021-8 ####[facility] LABCLIA [id number] [place] [id number] [facility] Monocytes/100 WBC (Bld) 5.4 % Normal [facility] Comment on above: Order Comment: Speci men Type: BLOOD SPECIMENOrdering Facility: [facility] Address: [address] [place] [id number] Performed By: #### 5 7021-8 ####[facility] [place] LABCLIA [id number] [place] [address] [place] Neutrophils (Bld) [#/Vol] 6.99 10*3/uL Normal 1.45-7.50 [facility] Comment on above: Order Comment: Speci men Type: BLOOD SPECIMENOrdering Facility: [facility] Address: [address] [place] [address] Performed By: #### 5 7021-8 ####[facility] [place] LABCLIA [id number] [place] [address] [place] Neutrophils/100 WBC (Bld) 68.1 % Normal [facility] Comment on above: Order Comment: Speci men Type: BLOOD SPECIMENOrdering Facility: [facility] Address: [address] [place] [address] Performed By: #### 5 7021-8 ####[facility] [place] LABCLIA [id number] [place] [address] [place] Nucleated RBC (Bld) [#/Vol] Normal [facility] Comment on above: Order Comment: Speci men Type: BLOOD SPECIMENOrdering Facility: [facility] Address: [address] [place] [address] Performed By: #### 5 7021-8 ####[facility] [place] LABCLIA [id number] [place] [address] [place] Nucleated RBC/100 WBC (Bld) [Ratio] Normal [facility] Comment on above: Order Comment: Speci men Type: BLOOD SPECIMENOrdering Facility: [facility] Address: [address] [place] [id number] Performed By: #### 5 7021-8 ####[facility] [place] LABCLIA [id number] [place] [address] [place] Platelet mean volume (Bld) [Entitic vol] 9.8 fL Normal 9.0-12.7 [facility] Comment on above: Order Comment: Speci men Type: BLOOD SPECIMENOrdering Facility: [facility] Address: [address] [place] [place] [address] Performed By: #### 5 7021-8 ####[facility] [place] LABCLIA [id number] [place] [address] [place] Platelets (Bld) [#/Vol] 248 10*3/uL Normal 150-400 [facility] Comment on above: Order Comment: Speci men Type: BLOOD SPECIMENOrdering Facility: [facility] Address: [address] [place] [address] Performed By: #### 5 7021-8 ####[facility] LABCLIA [id number] [place] [address] [facility] RBC (Bld) [#/Vol] 4.21 10*6/uL Normal 3.90-5.20 [facility] Comment on above: Order Comment: Speci men Type: BLOOD SPECIMENOrdering Facility: [facility] Address: [address] [place] [address] Performed By: #### 5 7021-8 ####[facility] LABCLIA [id number] [place] [address] [place] WBC (Bld) [#/Vol] 10.25 10*3/uL Normal 3.70-11.00 [facility] Comment on above: Order Comment: Speci men Type: BLOOD SPECIMENOrdering Facility: [facility] Address: [address] [place] [address] Performed By: #### 5 7021-8 ####[facility] LABCLIA [id number] [place] [address] [facility] Comprehensive metabolic 2000 panelon 02-07-2024 Albumin [Mass/Vol] 4.1 g/dL Normal 3.9-4.9 [facility] Comment on above: Order Comment: Speci men Type: BLOOD SPECIMENOrdering Facility: [facility] Address: [address] [place] [address] Performed By: #### 2 4323-8 ####[facility] [place] LABCLIA [id number] [place] [address] [place] ALP [Catalytic activity/Vol] 58 U/L Normal 34-123 [facility] Comment on above: Order Comment: Speci men Type: BLOOD SPECIMENOrdering Facility: [facility] Address: [facility] [place] [address] Performed By: #### 2 4323-8 ####[facility] [place] LABCLIA [id number] [place] [address] [place] [facility] ALT With P-5'-P [Catalytic activity/Vol] 17 U/L Normal 7-38 [facility] Comment on above: Order Comment: Speci men Type: BLOOD SPECIMENOrdering Facility: [facility] Address: [address] [place] [address] Performed By: #### 2 4323-8 ####[facility] [place] LABCLIA [id number] [place] [address] [facility] Anion gap [Moles/Vol] 12 mmol/L Normal 8-15 [facility] Comment on above: Order Comment: Speci men Type: BLOOD SPECIMENOrdering Facility: [facility] Address: [address] [place] [address] Performed By: #### 2 4323-8 ####[facility] [place] LABCLIA [id number] [place] [address] [place] AST With P-5'-P [Catalytic activity/Vol] 17 U/L Normal 13-35 [facility] Comment on above: Order Comment: Speci men Type: BLOOD SPECIMENOrdering Facility: [facility] Address: [address] [place] [address] Performed By: #### 2 4323-8 ####[facility] [place] LABCLIA [id number] [place] [address] [place] Bilirubin [Mass/Vol] 0.2 mg/dL Normal 0.2-1.3 [facility] Comment on above: Order Comment: Speci men Type: BLOOD SPECIMENOrdering Facility: [facility] Address: [address] [place] [address] Performed By: #### 2 4323-8 ####[facility] [place] LABCLIA [id number] [place] [address] [place] Calcium [Mass/Vol] 9.1 mg/dL Normal 8.5-10.2 [facility] Comment on above: Order Comment: Speci men Type: BLOOD SPECIMENOrdering Facility: [facility] Address: [address] [place] [address] Performed By: #### 2 4323-8 ####[facility] LABCLIA [id number] [place] [address] [place] Chloride [Moles/Vol] 106 mmol/L Normal 98-107 [facility] Comment on above: Order Comment: Speci men Type: BLOOD SPECIMENOrdering Facility: [facility] Address: [address] [place] [address] Performed By: #### 2 4323-8 ####[facility] [place] LABCLIA [id number] [place] [address] [place] CO2 [Moles/Vol] 21 mmol/L Low 22-30 [facility] Comment on above: Order Comment: Speci men Type: BLOOD SPECIMENOrdering Facility: [facility] Address: [address] [place] [address] Performed By: #### 2 4323-8 ####[facility] [place] LABCLIA [id number] [place] [address] [place] Creatinine [Mass/Vol] 0.71 mg/dL Normal 0.58-0.96 [facility] Comment on above: Order Comment: Speci men Type: BLOOD SPECIMENOrdering Facility: [facility] Address: [address] [place] [address] Performed By: #### 2 4323-8 ####[facility] [employer] LABCLIA [id number] [place] [address] [place] Creatinine and Glomerular filtration rate.predicted panel (S/P/Bld) 95 mL/min/1.73m??? Normal >=60 [facility] Comment on above: Order Comment: Bryan sanders Type: BLOOD SPECIMENOrdering Facility: [facility] Address: [address] [place] [address] Result Comment: Irene mated Glomerular Filtration Rate (eGFR) is calculated using the 2020 CKD-EPI creatinine equation. This equation utilizes serum creatinine, sex, and age as parameters. The creatinine assay has traceable calibration to isotope dilution-mass spectrometry. Refer to KDIGO guidelines for clinical interpretation. In patients with unstable renal function, e.g. those with acute kidney injury, the eGFR may not accurately reflect actual GFR. Performed By: #### 2 4323-8 ####[facility] [employer] LABIA [id number] [place] [id number] [place] Glucose [Mass/Vol] 113 mg/dL High 74-99 [facility] Comment on above: Order Comment: Bryan sanders Type: BLOOD SPECIMENOrdering Facility: [facility] Address: [address] [place] [address] Result Comment: The [place] Diabetes Association (ADA) provides guidance for cutoff values for fasting glucose and random glucose. The ADA defines fasting as no caloric intake for at least 8 hours. Fasting plasma glucose results between 100 to 125 mg/dL indicate increased risk for diabetes (prediabetes). Fasting plasma glucose results greater than or equal to 126 mg/dL meet the criteria for diagnosis of diabetes. In the absence of unequivocal hyperglycemia, results should be confirmed by repeat testing. In a patient with classic symptoms of hyperglycemia or hyperglycemic crisis, random plasma glucose results greater than or equal to 200 mg/dL meet the criteria for diagnosis of diabetes. Reference: Standards of Medical Care in Diabetes 2016, [place] Diabetes Association. Diabetes Care. 2016.39(Suppl 1). Performed By: #### 2 4323-8 ####[facility] [employer] LABCLIA [id number] [place] [address] [place] Potassium [Moles/Vol] 4.0 mmol/L Normal 3.7-5.1 [facility] Comment on above: Order Comment: Speci men Type: BLOOD SPECIMENOrdering Facility: [facility] Address: [address] [place] [address] Performed By: #### 2 4323-8 ####[facility] [place] LABCLIA [id number] [place] [address] [place] Protein [Mass/Vol] 7.0 g/dL Normal 6.3-8.0 [facility] Comment on above: Order Comment: Speci men Type: BLOOD SPECIMENOrdering Facility: [facility] Address: [address] [place] [address] Performed By: #### 2 4323-8 ####[facility] [place] LABCLIA [id number] [place] [address] [facility] Sodium [Moles/Vol] 139 mmol/L Normal 136-144 [facility] Comment on above: Order Comment: Speci men Type: BLOOD SPECIMENOrdering Facility: [facility] Address: [address] [place] [address] Performed By: #### 2 4323-8 ####[facility] [place] LABCLIA [id number] [place] [address] [place] [facility] Urea nitrogen [Mass/Vol] 24 mg/dL High 7-21 [facility] Comment on above: Order Comment: Speci men Type: BLOOD SPECIMENOrdering Facility: [facility] Address: [address] [place] [address] Performed By: #### 2 4323-8 ####[facility] [place] LABCLIA [id number] [place] [address] [facility] ED NOTEon 02-07-2024 ED NOTE HNO ID: [id number] Author: SHILPA COURTNEY, RN Service: Emergency Medicine Author Type: Registered Nurse Type: ED Notes Filed: 02/07/2024 21:04 Note Text: Patient ambulatory with steady gait and no complaints. Patient able to keep PO fluids down. Normal [facility] ED NOTE HNO ID: [id number] Author: DORIAN PRINGLE RN Service: Emergency Medicine Author Type: Registered Nurse Type: ED Notes Filed: 02/07/2024 19:13 Note Text: Portable x-ray completed Normal [facility] ED NOTE HNO ID: [id number] Author: DORIAN PRINGLE RN Service: Emergency Medicine Author Type: Registered Nurse Type: ED Notes Filed: 02/07/2024 18:06 Note Text: Pt resting in bed waiting test results, pt talking with at bedside, MSPs intact x4 [facility] ED PROV NOTEon 02-07-2024 ED PROV NOTE HNO ID: [id number] Author: TAISHA GUTIERREZ MD Service: ? Author Type: Physician Type: ED Provider Notes Filed: 02/07/2024 23:46 Note Text: ED Provider Note Patient Name: Adam Guajardo : 1960 SERVICE DATE: 02/07/24 History Patient presents with: Fall Back Pain Knee Injury Patient presents after mechanical fall. She was taking the [employer] to the basement. There was woodpile that she tripped over. With her arm outstretched on her right arm. Did not her knee. Head trauma or LOC. No chest pain or shortness of breath or other prodromal symptoms. She called for her , ultimately called EMS. Patient in significant pain in her shoulder, denies any other complaints. PAST MEDICAL HISTORY Diagnosis Date Acute medial meniscus tear 08/17/2021 Arthritis Family history of breast cancer in mother sister also Uterine fibroid 2010 U/S notede multiple, largest ~3.3cm PAST SURGICAL HISTORY Procedure Laterality Date KNEE SURGERY HX Left 2021 FAMILY HISTORY Problem Relation Age of Onset Arthritis Mother Asthma Mother Breast Cancer Mother diagnosed age 52 Diabetes Mother Heart disease Mother age 83 Stroke Father Heart Father age 82 DVT Father Breast Cancer Sister 66 DVT Sister Cancer Maternal Grandfather brain Diabetes Paternal Grandfather Hypertension Daughter Cervical Cancer Maternal Aunt Colon Cancer No Family History Ovarian cancer No Family History Prostate Cancer No Family History No Family History No Family History Pancreatic CA Uterine Cancer No Family History Social History Tobacco Use Smoking status: Former Current packs/day: 0.00 Average packs/day: 0.5 packs/day for 10.0 years (5.0 ttl pk-yrs) Types: Cigarettes Start date: 10/25/1979 Quit date: 10/24/1989 Years since quittin.3 Smokeless tobacco: Never Vaping Use Vaping status: Never Used Substance and Sexual Activity Alcohol use: Yes Comment: 1/month Drug use: No Sexual activity: Not Currently Partners: Male control/protection: Vasectomy Comment: not interested in sex with currently ALLERGIES Allergen Reactions Sulfa (Sulfonamide * Rash Review of Systems Constitutional: Negative. HENT: Negative. Eyes: Negative. Respiratory: Negative. Cardiovascular: Negative. Gastrointestinal: Negative. Endocrine: Negative. Genitourinary: Negative. Musculoskeletal: Positive for back pain and joint swelling. Skin: Negative. Allergic/Immunologic: Negative. Neurological: Negative. Hematological: Negative. Psychiatric/Behaviora l: Negative. Physical Exam Vitals [02/07/24 1620] BP Pulse Temp Temp src Resp SpO2 Weight Height 193/85 70 36 ?C (96.8 ?F) -- 20 98 % 99.8 kg (220 lb) 1.676 m (5' 6) Physical Exam Vitals and nursing note reviewed. Constitutional: Appearance: She is well-developed. HENT: Head: Atraumatic. Eyes: Extraocular Movements: Extraocular movements intact. Conjunctiva/sclera: Conjunctivae normal. Cardiovascular: Rate and Rhythm: Regular rhythm. Heart sounds: Normal heart sounds. Pulmonary: Effort: Pulmonary effort is normal. Breath sounds: Normal breath sounds. Abdominal: General: Bowel sounds are normal. There is no distension. Palpations: Abdomen is soft. Tenderness: There is no abdominal tenderness. There is no guarding or rebound. Musculoskeletal: General: Normal range of motion. Arms: Cervical back: Normal range of motion and neck supple. Legs: Comments: Negative logroll bilaterally. Back nontender. Cervical spine nontender. Full range of motion of the left upper and lower extremity without pain. Skin: General: Skin is warm and dry. Neurological: General: No focal deficit present. Mental Status: She is alert and oriented to person, place, and time. Diagnostic Testing ED Labs Ordered and Reviewed COMPREHENSIVE METABOLIC PANEL - Abnormal; Notable for the following components: Result Value Ref Range Glucose 113 (*) 74 - 99 mg/dL BUN 24 (*) 7 - 21 mg/dL CO2 21 (*) 22 - 30 mmol/L All other components within normal limits COMPLETE BLOOD COUNT AND DIFFERENTIAL URINALYSIS WITH MICROSCOPIC, REFLEX CULTURE Pre Procedural Sedation - Provider Assessment (all recorded) Pre Procedural Sedation Assessment Row Name 02/07/241917 Heart Exam Regular Rate and Rhythm -AW Lung Exam Lungs Clear on Auscultation -AW Other right shoulder reduction -AW Airway Visualization of Uvula Yes -AW Mouth opening greater than 2 fingerbreadths Yes -AW Neck Full Range of Motion Yes -AW ASA Class IE -AW NPO Liquid Date -- NPO Liquid Time -- NPO Solid Date -- NPO Solid Time -- NPO Status Clears Date: -- NPO Status Clears Time: -- Last Oral Intake Unknown Last Solid Intake Unknown -AW I have examined the patient, reviewed the History and Physical. There are no changes unless noted here. No changes -AW Pre-Procedure Patient Data (more content not included)... [facility] XR HIP 3V PELV+ AP/LAT RTon 02-07-2024 XR HIP 3V PELV+ AP/LAT RT * * *Final Report* * * DATE OF EXAM: Feb 07 2024 5:28PM LDX 5352 - XR HIP 3V PELV+ AP/LAT RT / PROCEDURE REASON: Hip pain, acute, fx suspected, initial exam * * * * Physician Interpretation * * * * EXAM TITLE: XR HIP 3V PELV+ AP/LAT RT DATE: 02/07/2024 INDICATION: Status post fall with right hip pain. COMPARISON: None. AP view the bony pelvis and AP and frog-leg lateral view of the right hip show no fracture. Normal alignment. AP view the bony pelvis shows no acute findings. Normal alignment at the level the left hip. Calcified fibroid noted centrally in the pelvis. IMPRESSION: No acute findings radiographically. Cement Finisher Helper: PSCB Transcribe Date/Time: Feb 07 2024 6:26P Dictated by : ANJEL LEIGH MD This examination was interpreted and the report reviewed and electronically signed by: ANJEL LEIGH MD on Feb 07 2024 6:28PM EST [id number] [facility] XR KNEE 4V AP/LAT/OBLS RTon 02-07-2024 XR KNEE 4V AP/LAT/OBLS RT * * *Final Report* * * DATE OF EXAM: Feb 07 2024 5:28PM LDX 5205 - XR KNEE 4V AP/LAT/OBLS RT / PROCEDURE REASON: Trauma * * * * Physician Interpretation * * * * EXAM TITLE: XR KNEE 4V AP/LAT/OBLS RT DATE: 02/07/2024 INDICATION: Status post fall. Pain. COMPARISON: None. AP, both oblique, and crossfire lateral view of the right knee show no fracture. Normal alignment. No joint effusion. IMPRESSION: No acute findings radiographically. Cement Finisher Helper: [facility] Transcribe Date/Time: Feb 07 2024 6:29P Dictated by : ANJEL LEIGH MD This examination was interpreted and the report reviewed and electronically signed by: ANJEL LEIGH MD on Feb 07 2024 6:30PM EST [id number] [facility] XR SHLDR >/=3V AP/SAHARA AP/OTH R RTon 02-07-2024 XR SHLDR >/=3V AP/SAHARA AP/OTHR RT * * *Final Report* * * DATE OF EXAM: Feb 07 2024 7:20PM LDX 5253 - XR SHLDR >/=3V AP/SAHARA AP/OTHR RT / PROCEDURE REASON: Other * * * * Physician Interpretation * * * * EXAMINATION: XR SHLDR >/=3V AP/SAHARA AP/OTHR RT HISTORY: Post reduction right shoulder Other . TECHNIQUE: XR SHLDR >/=3V AP/SAHARA AP/OTHR RT Laterality: RIGHT Number of different views (projections): 3 M: XB_1 COMPARISON: X-ray examination of the right shoulder performed earlier today. RESULT: Interval reduction of right glenohumeral dislocation. The right glenohumeral and acromioclavicular joint spaces appear to be maintained. No discrete fracture. No suspicious osseous lesions. Visualized portions of the right chest and mediastinum are unremarkable. No other significant abnormality. IMPRESSION: Interval reduction of right shoulder dislocation. No discrete fracture. Cement Finisher Helper: [facility] Transcribe Date/Time: Feb 07 2024 8:20P Dictated by : MANUEL GONZALEZ MD This examination was interpreted and the report reviewed and electronically signed by: MANUEL GONZALEZ MD on Feb 07 2024 8:24PM EST [id number] [facility] XR SHLDR >/=3V AP/SAHARA AP/OTHR RT * * *Final Report* * * DATE OF EXAM: Feb 07 2024 5:28PM LDX 5253 - XR SHLDR >/=3V AP/SAHARA AP/OTHR RT / PROCEDURE REASON: Trauma * * * * Physician Interpretation * * * * EXAM TITLE: XR SHLDR >/=3V AP/SAHARA AP/OTHR RT DATE: 02/07/2024 INDICATION: Status post fall with right shoulder pain. COMPARISON: None. AP and scapular Y views of the right shoulder show anterior inferior dislocation of the right humerus with reference to the glenoid. No obvious fracture on these views. No other acute bony abnormality. IMPRESSION: Status post right shoulder anterior dislocation. Cement Finisher Helper: [facility] Transcribe Date/Time: Feb 07 2024 6:28P Dictated by : ANJEL LEIGH MD This examination was interpreted and the report reviewed and electronically signed by: ANJEL LEIGH MD on Feb 07 2024 6:29PM EST [id number] [facility] Urine Cultureon 01-18-2024 [facility] Mixed Gram Pos Gram Neg Org Bono Count 1000-10,000 MIXC Mixed contaminants. Submit a new specimen if indicated. Normal [facility] Comment on above: Performed By: #### M 100.220 #### [facility]. [place], [place], [address] DBT Breast - bilateral scree maryfranko 07-11-2023 IMPRESSION: NEGATIVE There is no mammographic evidence of malignancy. A 1 year screening mammogram is recommended. Xi avila/rangel:07/11/2023 10:27:51 Sql Ssrs Developer(s): RT Blanquita(R)(M), [facility] letter sent: Normal over 40 Mammogram BI-RADS: 1 Negative Multiple national specialty organizations have released breast cancer screening guidelines for women at average risk for developing breast cancer - guidelines that are based on both evidence and opinion, yet differ on when to start and how often to screen for breast cancer. With representation from Breast Imaging, Internal Medicine, Women's Health, Family Medicine, and Medical/Surgical Oncology, the [facility] has carefully reviewed the data and reached the following consensus: 1) All women should engage in shared decision-making with their providers to decide when to start and how often to screen; 2) All women should have the opportunity to start screening mammography at age 40; 3) For women ages 45-55, we recommend annual screening mammograms; 4) For women ages 55 and over, we support both the transition from an annual to a biennial interval if this aligns more with patient's values and preferences, or continuation with annual screening; 5) All women should discuss with their providers when to stop screening mammograms. Cement Finisher Helper: Rangel Transcribe Date/Time: Jul 11 2023 9:13A Dictated by: XI NORMAN MD This examination was interpreted and the report reviewed and electronically signed by: XI NORMAN MD on Jul 11 2023 10:27AM [facility] DIVISION OF RADIOLOGY * * *Final Report* * * DATE OF EXAM: Jul 11 2023 9:39AM W 0582 - ЮЛИ[facility] SCREENING W ROMEO / PROCEDURE REASON: Encounter for screening mammogram for malignant neoplasm of breast * * * * Physician Interpretation * * * * RESULT: #[id number] - ЮЛИ[facility] SCREENING W ROMEO BILATERAL DIGITAL SCREENING MAMMOGRAM TOMOSYNTHESIS WITH CAD: 07/11/2023 HISTORY: Encounter For Screening Mammogram For Malignant Neoplasm Of Breast /Screening Mammogram with ROMEO - patient reports NO breast symptoms /priors available for comparison. RESULT: TECHNIQUE: The study was acquired using full field digital technology and interpreted from soft copy. Digital Breast Tomosynthesis (DBT) images were obtained and used to assist in the interpretation of this examination. Current study was also evaluated with a Computer Aided Detection (CAD). Comparison is made to exams dated: 10/10/2022 mammogram - [facility], 10/25/2022 mammogram - [facility], 09/22/2021 mammogram, and 08/18/2020 mammogram - [facility]. The breasts are heterogeneously dense, which may obscure small masses. There is a biopsy clip in the left breast. No significant masses, calcifications, or other findings are seen in either breast. There has been no significant interval change. DIVISION OF RADIOLOGY Provider, [facility] Tariq [place] - 07/11/2023 * * *Final Report* * * DATE OF EXAM: Jul 11 2023 9:39AM WRW 0582 - [facility] SCREENING W ROMOE / PROCEDURE REASON: Encounter for screening mammogram for malignant neoplasm of breast * * * * Physician Interpretation * * * * RESULT: #[id number] - [facility] SCREENING W ROMEO BILATERAL DIGITAL SCREENING MAMMOGRAM TOMOSYNTHESIS WITH CAD: 07/11/2023 HISTORY: Encounter For Screening Mammogram For Malignant Neoplasm Of Breast /Screening Mammogram with ROMEO - patient reports NO breast symptoms /priors available for comparison. RESULT: TECHNIQUE: The study was acquired using full field digital technology and interpreted from soft copy. Digital Breast Tomosynthesis (DBT) images were obtained and used to assist in the interpretation of this examination. Current study was also evaluated with a Computer Aided Detection (CAD). Comparison is made to exams dated: 10/10/2022 mammogram - [facility], 10/25/2022 mammogram - [facility], 09/22/2021 mammogram, and 08/18/2020 mammogram - [facility]. The breasts are heterogeneously dense, which may obscure small masses. There is a biopsy clip in the left breast. No significant masses, calcifications, or other findings are seen in either breast. There has been no significant interval change. IMPRESSION IMPRESSION: NEGATIVE There is no mammographic evidence of malignancy. A 1 year screening mammogram is recommended. Xi avila/rangel:07/11/2023 10:27:51 Sql Ssrs Developer(s): RT Blanquita(R)(M), [facility] letter sent: Normal over 40 Mammogram BI-RADS: 1 Negative Multiple national specialty organizations have released breast cancer screening guidelines for women at average risk for developing breast cancer - guidelines that are based on both evidence and opinion, yet differ on when to start and how often to screen for breast cancer. With representation from Breast Imaging, Internal Medicine, Women's Health, Family Medicine, and Medical/Surgical Oncology, the [facility] has carefully reviewed the data and reached the following consensus: 1) All women should engage in shared decision-making with their providers to decide when to start and how often to screen; 2) All women should have the opportunity to start screening mammography at age 40; 3) For women ages 45-55, we recommend annual screening mammograms; 4) For women ages 55 and over, we support both the transition from an annual to a biennial interval if this aligns more with patient's values and preferences, or continuation with annual screening; 5) All women should discuss with their providers when to stop screening mammograms. Cement Finisher Helper: Rangel Transcribe Date/Time: Jul 11 2023 9:13A Dictated by: XI NORMAN MD This examination was interpreted and the report reviewed and electronically signed by: XI NORMAN MD on Jul 11 2023 10:27AM EST [facility] Radiology Study observation (narrative) [facility] magda [facility] DBT Breast - bilateral scree ningOrdered By: Dipak Provider on 07-11-2023 [facility] Op Noteon 01-31-2023 Op Note Date: 01/31/2023 Location: [facility] OR Name: dAam Guajardo, : 1960, Diagnosis Pre-op Diagnosis * Nuclear sclerotic cataract of left eye [H25.12] Post-op Diagnosis * Nuclear sclerotic cataract of left eye [H25.12] Procedures PHACOEMULSIFICATION WITH INTRAOCULAR LENS INSERTION - CRYSTALENS 44066 - GA XCAPSL CTRC RMVL INSJ IO LENS PROSTH W/O ECP Surgeons * Nick Martinez - Primary Procedure Summary Anesthesia: * No anesthesia type entered * ASA: II Estimated Blood Loss: None Drains: * None in log * Implants Type Name Action Serial No. Lens trulign toric Implanted [id number] Staff: Courseware Developer: Valentina Morse RN Relief Courseware Developer: Diana Marsh RN Scrub Person: Otis Engel PREOPERATIVE DIAGNOSIS:NSC, PSC,left eye POSTOPERATIVE DIAGNOSIS:NSC, PSC,left eye PROCEDURE PERFORMED:Cataract surgery of the left eye SURGEON:Nick Martinez MD PROCEDURE: Risks, benefits and alternatives had been discussed with patient. Patient understood and wished to proceed with procedure. Patient was seen in the preoperative holding area. Operative eye was verified by both the patient, as well as prior clinic chart note. Patient was brought back to the operative suite with the help of Anesthesiology and the eye was prepped and draped in the usual sterile ophthalmic fashion. A paracentesis site was then created at approximately the 1 o'clock position. This was followed by instillation of preservative-free lidocaine and Viscoat. A temporal corneal wound was then created using a 2.7 microkeratome blade and this was followed by creation of a continuous curvilinear capsulorrhexis using a cystotome needle and Utrata forceps. Careful hydrodissection was then performed using sterile BSS and phacoemulsification was then used to remove the cataract. Upon completion irrigation and aspiration was used to remove the remaining cortex and Trulign toric [id number], cylinder power 1.25 diopters in the axis of 61 degrees was then injected into the bag. This was rotated into position and careful removal of the Healon was then performed. The temporal corneal wound and paracentesis site were then rehydrated using sterile BSS. The eye was checked and noted to be Joelle negative. A single drop of Pred Forte, siloxane, Nevanac and Timolol were given to the patient's eye and a surgical shield was placed over the eye. Patient was brought back to the preoperative holding area in stable condition. There were no complications, no blood, no specimens. Nick Martinez MD [facility] Op Note Date: 01/31/2023 Location: [facility] OR Name: Adam Guajardo, : 1960, Diagnosis Pre-op Diagnosis * Nuclear sclerotic cataract of left eye [H25.12] Post-op Diagnosis * Nuclear sclerotic cataract of left eye [H25.12] Procedures PHACOEMULSIFICATION WITH INTRAOCULAR LENS INSERTION - CRYSTAL 11036 - GA XCAPSL CTRC RMVL INSJ IO LENS PROSTH W/O ECP Surgeons * Nick Martinez - Primary Procedure Summary Anesthesia: * No anesthesia type entered * ASA: II Estimated Blood Loss: None Drains: * None in log * Implants Type Name Action Serial No. Lens trulign toric Implanted [id number] Staff: Courseware Developer: Valentina Morse RN Relief Courseware Developer: Diana Marsh RN Scrub Person: Otis Engel Findings: none Complications: None; patient tolerated the procedure well. Specimens Collected: No specimens collected during this procedure. Wound Class: Class I: Clean Blood Products: None Prophylactic Antibiotics: Procedure appropriate prophylactic antibiotic(s) given within 1 hour of surgical incision (two hours if receiving Vancomycin or flouroquinolone) [facility] Op Noteon 01-10-2023 Op Note Date: 01/10/2023 Location: [facility] OR Name: Adam Guajardo, : 1960, Diagnosis Pre-op Diagnosis * Age-related nuclear cataract, right eye [H25.11] Post-op Diagnosis * Age-related nuclear cataract, right eye [H25.11] Procedures PHACOEMULSIFICATION WITH INTRAOCULAR LENS INSERTION 60531 - GA XCAPSL CTRC RMVL INSJ IO LENS PROSTH W/O ECP Surgeons * Nick Martinez - Primary Procedure Summary Anesthesia: Monitor Anesthesia Care ASA: II Estimated Blood Loss: None Drains: * None in log * Implants Type Name Action Serial No. Lens Trulign Toric posterior chamber IOL Implanted [id number] Staff: Courseware Developer: Valentina Morse RN Scrub Person: Otis Engel Findings: none Complications: None; patient tolerated the procedure well. Specimens Collected: No specimens collected during this procedure. Wound Class: Class I: Clean Blood Products: None Prophylactic Antibiotics: Procedure appropriate prophylactic antibiotic(s) given within 1 hour of surgical incision (two hours if receiving Vancomycin or flouroquinolone) [facility] Op Note Date: 01/10/2023 Location: [facility] OR Name: Adam Guajardo, : 1960, Diagnosis Pre-op Diagnosis * Age-related nuclear cataract, right eye [H25.11] Post-op Diagnosis * Age-related nuclear cataract, right eye [H25.11] Procedures PHACOEMULSIFICATION WITH INTRAOCULAR LENS INSERTION 69365 - GA XCAPSL CTRC RMVL INSJ IO LENS PROSTH W/O ECP Surgeons * Nick Martinez - Primary Procedure Summary Anesthesia: Monitor Anesthesia Care ASA: II Estimated Blood Loss: None Drains: * None in log * Implants Type Name Action Serial No. Lens Trulign Toric posterior chamber IOL Implanted [id number] Staff: Courseware Developer: Valentina Morse RN Scrub Person: Otis Engel NOTE PREOPERATIVE DIAGNOSIS:NSC, PSC, right eye POSTOPERATIVE DIAGNOSIS:NSC, PSC, right eye PROCEDURE PERFORMED:Cataract surgery of the right eye SURGEON:Nick Martinez MD PROCEDURE: Risks, benefits and alternatives had been discussed with patient. Patient understood and wished to proceed with procedure. Patient was seen in the preoperative holding area. Operative eye was verified by both the patient, as well as prior clinic chart note. Patient was brought back to the operative suite with the help of Anesthesiology and the eye was prepped and draped in the usual sterile ophthalmic fashion. A paracentesis site was then created at approximately the 1 o'clock position. This was followed by instillation of preservative-free lidocaine and Viscoat. A temporal corneal wound was then created using a 2.7 microkeratome blade and this was followed by creation of a continuous curvilinear capsulorrhexis using a cystotome needle and Utrata forceps. Careful hydrodissection was then performed using sterile BSS and phacoemulsification was then used to remove the cataract. Upon completion irrigation and aspiration was used to remove the remaining cortex and trulign toric [id number] 1.25 axis 130 -diopter lens, was then injected into the bag. This was rotated into position and careful removal of the Healon was then performed. The temporal corneal wound and paracentesis site were then rehydrated using sterile BSS. The eye was checked and noted to be Joelle negative. A single drop of Pred Forte, siloxane, Nevanac and Timolol were given to the patient's eye and a surgical shield was placed over the eye. Patient was brought back to the preoperative holding area in stable condition. There were no complications, no blood, no specimens. Nick Martinez MD [facility] ЮЛИЯ STEREO BX BREAST LEFTon 11-14-2022 [facility] ЮЛИЯ SCREENING W TOMOon 10-10 [facility] Absolute lymphocyte countOrd ered By: Margarita Avila on 09-27-2022 Lymphocytes Auto (Unsp spec) [#/Vol] 2.55 10*3/uL 0.83-4.51 [facility] Basophil percentageOrdered B y: Margarita Avila on 09-27-2022 Basophils/100 WBC (Bld) 0.4 % 0-1 [facility] Bilirubin [Mass/Vol] 0.50 mg/dL 0.20-1.00 [facility] Comment on above: For patients on eltr ombopag therapy, use of Dimension [place] TBIL is not recommended. Chloride [Moles/Vol] 106 mmol/L 98-107 [facility] Cholesterol [Mass/Vol] 234 mg/dL <200 [facility] Comment on above: <200 mg/dL Desirable 200-240 mg/dL Borderline >240 mg/dL High Risk Eosinophils/100 WBC (Bld) 0.9 % 0-5 [facility] Glucose [Mass/Vol] 93 mg/dL 74-106 [facility] Neutrophils (Bld) [#/Vol] 4.2 10*3/uL 2.0-7.7 [facility] Neutrophils/100 WBC (Bld) 55.8 % 47-70 [facility] Potassium [Moles/Vol] 4.1 mmol/L 3.5-5.1 [facility] Protein [Mass/Vol] 8.3 g/dL 6.4-8.2 [facility] Sodium [Moles/Vol] 139 mmol/L 136-145 [facility] Triglyceride [Mass/Vol] 153 mg/dL <199 [facility] Comment on above: The drugs N-Acetylcy steine and Metamizole may falsely depress this assay.Serum Triglycerides Reference Interval Normal <150 mg/dL Borderline high 150 - 199 mg/dL High 200 - 499 mg/dL Very High > or = 500 mg/dL WBC (Bld) [#/Vol] 7.4 10*3/uL 4.4-11.0 [facility] Blood erythrocytes count (nu mber/volume)Ordered By: Margarita Avila on 09-27-2022 RBC (Bld) [#/Vol] 4.55 10*6/uL 4.2-5.4 [facility] Blood hemoglobin measurement (mass/volume)Ordered By: Margarita Avila on 09-27-2022 Hemoglobin (Bld) [Mass/Vol] 14.3 g/dL 12.0-15.0 [facility] Blood lymphocytes/100 leukoc ytesOrdered By: Margarita Avila on 09-27-2022 Lymphocytes/100 WBC (Bld) 34.3 % 19-41 [facility] Blood monocytes/100 leukocyt esOrdered By: Margarita Avila on 09-27-2022 Monocytes/100 WBC (Bld) 8.3 % 0-10 [facility] Blood platelet mean volumeOr dered By: Margarita Avila on 09-27-2022 Platelet mean volume (Bld) [Entitic vol] 11.2 fL 6.2-12.0 [facility] Determination of erythrocyte mean corpuscular volume (MCV)Ordered By: Margarita Avila on 09-27-2022 MCV (RBC) [Entitic vol] 94.7 fL 81-99 [facility] Hematocrit Auto (Bld) [Volum e fraction]Ordered By: Margarita Avila on 09-27-2022 Hematocrit (Bld) [Volume fraction] 43.1 % 37-47 [facility] - Chemistry and C hemistry - challengeOrdered By: Margarita Avila on 09-27-2022 ALP [Catalytic activity/Vol] 70 U/L 45-117 [facility] ALT [Catalytic activity/Vol] 29 U/L 13-56 [facility] CO2 [Moles/Vol] 25.0 mmol/L 21.0-32.0 [facility] Cobalamin (Vitamin B12) [Mass/Vol] 604 pg/mL 211-911 [facility] Globulin (S) [Mass/Vol] 4.2 g/dL 2.2-4.2 [facility] Urea nitrogen/Creatinine [Mass ratio] 17.4 mg/mg 10-20 [facility] - Hematology and Cell countsOrdered By: Margarita Avila on 09-27-2022 Erythrocyte distribution width (RBC) [Entitic vol] 45.9 fL 35.1-43.9 [facility] Erythrocyte distribution width (RBC) [Ratio] 13.2 % 11.6-14.6 [facility] Immature granulocytes/100 WBC (Bld) 0.300 % 0.0-0.9 [facility] Comment on above: IG% - Immature Granu locytes (promyelocytes, myelocytes and metamyelocytes) > 1% indicates that a LEFT SHIFT is Present. MCH (RBC) [Entitic mass] 31.4 pg 27.0-32.0 [facility] Nucleated RBC/100 WBC (Bld) [Ratio] 0 % 0-5 [facility] MCHC Auto (RBC) [Mass/Vol]Or dered By: Margarita Avila on 09-27-2022 MCHC (RBC) [Mass/Vol] 33.2 g/dL 32-36 [facility] No Panel InformationOrdered By: Margarita Avila on 09-27-2022 Estimated GFR (MDRD) Amer 85 mL/min >60 [facility] Comment on above: GFR Calc Estimated GFR (MDRD) Non-Af Amer 71 mL/min >60 [facility] Comment on above: Non- GFR Calc Thyroid Stimulating Hormone (TSH) 1.37 uIU/mL 0.358-3.74 [facility] Platelets bldOrdered By: Oscar Avila on 09-27-2022 Platelets (Bld) [#/Vol] 274 10*3/uL 150-450 [facility] Serum or plasma albumin kristen urement (mass/volume)Ordered By: Margarita Avila on 09-27-2022 Albumin [Mass/Vol] 4.1 g/dL 3.2-5.0 [facility] Serum or plasma albumin/glob ulin mass ratioOrdered By: Margarita Avila on 09-27-2022 Albumin/Globulin [Mass ratio] 1.0 {ratio} 0.9-2.4 [facility] Serum or plasma calcium kristen urement (mass/volume)Ordered By: Margarita Avila on 09-27-2022 Calcium [Mass/Vol] 9.5 mg/dL 8.5-10.1 [facility] Serum or plasma cholesterol in HDL measurement (mass/volume)Ordered By: Margarita Avila on 09-27-2022 Cholesterol in HDL [Mass/Vol] 80 mg/dL >40 [facility] Comment on above: The drugs N-Acetylcy steine and Metamizole may falsely depress this assay. Reference Range HDL <40 mg/dL Low HDL Cholesterol HDL >or= 60 mg/dL High HDL Cholesterol Serum or plasma cholesterol in VLDL measurement (mass/volume)Ordered By: Margarita Avila on 09-27-2022 Cholesterol in VLDL [Mass/Vol] 31 mg/dL 5-40 [facility] Serum or plasma creatinine m easurement (mass/volume)Ordered By: Margarita Avila on 09-27-2022 Creatinine [Mass/Vol] 0.86 mg/dL 0.55-1.02 [facility] Comment on above: The validity of the calculated GFR & GFRAA in patients over 70 years has not been determined. Clinical correlation is essential. Serum or plasma low density lipoprotein (LDL) cholesterol measurement (mass/volume)Ordered By: Margarita Avila on 09-27-2022 Cholesterol in LDL [Mass/Vol] 123 mg/dL 0-130 [facility] Serum or plasma urea nitroge n measurement (mass/volume)Ordered By: Margarita Avila on 09-27-2022 Urea nitrogen [Mass/Vol] 15 mg/dL 7-18 [facility] Thin prep Papanicolaou smear with manual screeningOrdered By: Margarita Avila on 09-27-2022 Thin prep Papanicolaou smear with manual screening 20 U/L 15-37 [facility] Thin prep Papanicolaou smear with manual screening 8 5-15 [facility] GLUCOSEon 10-20-2021 Glucose [Mass/Vol] 86 mg/dL Normal 74 - 99 [facility] Comment on above: Performed By: #### G CAMMY #### [address] [address] GLUCOSE,FASTINGon 10-20-2021 GLUCOSE,FASTING Canceled Normal [facility] Comment on above: Order Comment: TEST GLUCOSE,FASTING WAS CANCELLED, 10/20/2021 14:20 dupl. Result Comment: INCR EASED RISK FOR DIABETES 100-125 mg/dL DIAGNOSTIC OF DIABETES >=126 mg/dL Diagnosis of diabetes mellitus requires confirmation of an abnormal result by repeat testing. [place] [employer], Diabetes Care; 33(Supp 1), Feb 2009. Performed By: #### G LUCF #### [address] [address] LIPID PANEL (CORONARY RISK 2 )on 10-20-2021 Cholesterol [Mass/Vol] 224 mg/dL High 0 - 199 [facility] Comment on above: Result Comment: . AGE DESIRABLE BORDERLINE HIGH HIGH 0-19 Y 0 - 169 170 - 199 >/= 200 20-24 Y 0 - 189 190 - 224 >/= 225 >24 Y 0 - 199 200 - 239 >/= 240 All ranges are based on fasting samples. Specific therapeutic targets will vary based on patient-specific cardiac risk. . Pediatric guidelines reference:Pediatrics 2011, 128(S5). Adult guidelines reference: NCEP ATPIII Guidelines, DEEP 2001, 258:2486-97 . Venipuncture immediately after or during the administration of Metamizole may lead to falsely low results. Testing should be performed immediately prior to Metamizole dosing. Performed By: #### L IPID #### [address] [address] Cholesterol in HDL [Mass/Vol] 75.0 mg/dL Normal [facility] Comment on above: Result Comment: . AGE VERY LOW LOW NORMAL HIGH 0-19 Y < 35 < 40 40-45 ---- 20-24 Y ---- < 40 >45 ---- >24 Y ---- < 40 40-60 >60 . Performed By: #### L IPID #### [address] [address] Cholesterol in LDL [Mass/Vol] 117 mg/dL High 0 - 99 [facility] Comment on above: Result Comment: . NEAR BORD AGE DESIRABLE OPTIMAL HIGH HIGH VERY HIGH 0-19 Y 0 - 109 --- 110-129 >/= 130 ---- 20-24 Y 0 - 119 --- 120-159 >/= 160 ---- >24 Y 0 - 99 100-129 130-159 160-189 >/=190 . Performed By: #### L IPID #### [address] [address] Cholesterol in VLDL [Mass/Vol] 32 mg/dL Normal 0 - 40 [facility] Comment on above: Performed By: #### L IPID #### [address] [address] Cholesterol.total/Joan sterol in HDL [Mass ratio] 3.0 {ratio} Normal [facility] Comment on above: Result Comment: REF VALUES DESIRABLE < 3.4 HIGH RISK > 5.0 Performed By: #### L IPID #### [address] [address] Triglyceride [Mass/Vol] 162 mg/dL High 0 - 149 [facility] Comment on above: Result Comment: . AGE DESIRABLE BORDERLINE HIGH HIGH VERY HIGH 0 D-90 D 19 - 174 ---- ---- ---- 91 D- 9 Y 0 - 74 75 - 99 >/= 100 ---- 10-19 Y 0 - 89 90 - 129 >/= 130 ---- 20-24 Y 0 - 114 115 - 149 >/= 150 ---- >24 Y 0 - 149 150 - 199 200- 499 >/= 500 . Venipuncture immediately after or during the administration of Metamizole may lead to falsely low results. Testing should be performed immediately prior to Metamizole dosing. Performed By: #### L IPID #### [address] [address] [facility] SCREENINGon 09-22-2021 [facility] GLUCOSEon 10-24-2020 Glucose [Mass/Vol] 84 mg/dL Normal 74 - 99 [facility] Comment on above: Performed By: #### G CAMMY #### [address] [address] LIPID PANEL (CORONARY RISK 2 )on 10-21-2020 Cholesterol [Mass/Vol] 237 mg/dL High 0 - 199 [facility] Comment on above: Result Comment: . AGE DESIRABLE BORDERLINE HIGH HIGH 0-19 Y 0 - 169 170 - 199 >/= 200 20-24 Y 0 - 189 190 - 224 >/= 225 >24 Y 0 - 199 200 - 239 >/= 240 All ranges are based on fasting samples. Specific therapeutic targets will vary based on patient-specific cardiac risk. . Pediatric guidelines reference:Pediatrics 2011, 128(S5). Adult guidelines reference: NCEP ATPIII Guidelines, DEEP 2001, 258:2486-97 . Venipuncture immediately after or during the administration of Metamizole may lead to falsely low results. Testing should be performed immediately prior to Metamizole dosing. Performed By: #### L IPID #### [address] [address] Cholesterol in HDL [Mass/Vol] 62.0 mg/dL Normal [facility] Comment on above: Result Comment: . AGE VERY LOW LOW NORMAL HIGH 0-19 Y < 35 < 40 40-45 ---- 20-24 Y ---- < 40 >45 ---- >24 Y ---- < 40 40-60 >60 . Performed By: #### L IPID #### [address] [address] Cholesterol in LDL [Mass/Vol] 147 mg/dL High 0 - [address] [facility] Comment on above: Result Comment: . NEAR BORD AGE DESIRABLE OPTIMAL HIGH HIGH VERY HIGH 0-19 Y 0 - 109 --- 110-129 >/= 130 ---- 20-24 Y 0 - 119 --- 120-159 >/= 160 ---- >24 Y 0 - 99 100-129 130-159 160-189 >/=190 . Performed By: #### L IPID #### [address] [address] Cholesterol in VLDL [Mass/Vol] 28 mg/dL Normal 0 - [address] [facility] Comment on above: Performed By: #### L IPID #### [address] [address] Cholesterol.total/Joan sterol in HDL [Mass ratio] 3.8 {ratio} Normal [facility] Comment on above: Result Comment: REF VALUES DESIRABLE < 3.4 HIGH RISK > 5.0 Performed By: #### L IPID #### [address] [address] Triglyceride [Mass/Vol] 140 mg/dL Normal 0 - 149 [facility] Comment on above: Result Comment: . AGE DESIRABLE BORDERLINE HIGH HIGH VERY HIGH 0 D-90 D 19 - 174 ---- ---- ---- 91 D- 9 Y 0 - 74 75 - 99 >/= 100 ---- 10-19 Y 0 - 89 90 - 129 >/= 130 ---- 20-24 Y 0 - 114 115 - 149 >/= 150 ---- >24 Y 0 - 149 150 - 199 200- 499 >/= 500 . Venipuncture immediately after or during the administration of Metamizole may lead to falsely low results. Testing should be performed immediately prior to Metamizole dosing. Performed By: #### L IPID #### [facility] [address] [place] [address] Vital Signs Date Time Vital Sign Value Performing Clinician Saida gresham 05-08-2024 08:57-0400 Body height 166.3 cm [facility] [place] Work Phone: [facility] Comment on above: shoes off 05-08-2024 08:57-0400 Body mass index (BMI) [Ratio] 36.05 kg/m2 [facility] Work Phone: [facility] 05-08-2024 08:57-0400 Body temperature 98.91 [degF] [facility] Work Phone: [facility] 05-08-2024 08:57-0400 Body weight 99.[address] [facility] Work Phone: [facility] Comment on above: shoes off 05-08-2024 08:57-0400 Diastolic blood pressure 60 mm[Hg] [facility] Work Phone: [facility] 05-08-2024 08:57-0400 Heart rate 59 /min [facility] Work Phone: [facility] 05-08-2024 08:57-0400 Respiratory rate 16 /min [facility] Work Phone: [facility] 05-08-2024 08:57-0400 SaO2% (BldA) [Mass fraction] 99 % [facility] Work Phone: [facility] 05-08-2024 08:57-0400 Systolic blood pressure 126 mm[Hg] [facility] Work Phone: [facility] 09-05-2023 12:59-0400 Body mass index (BMI) [Ratio] 37.16 kg/m2 Gi Miranda MD Work Phone: [facility] 09-05-2023 12:59-0400 Body weight 101.3 kg Gi Miranda MD Work Phone: [facility] 09-05-2023 12:59-0400 Diastolic blood pressure 75 mm[Hg] Gi Miranda MD Work Phone: [facility] 09-05-2023 12:59-0400 Systolic blood pressure 112 mm[Hg] Gi Miranda MD Work Phone: [facility] 01-31-2023 14:10-0500 Diastolic blood pressure 88 mm[Hg] Nick Martinez MD [facility] 01-31-2023 14:10-0500 Heart rate 52 /min Nick Martinez MD [facility] 01-31-2023 14:10-0500 Respiratory rate 16 /min Nick Martinez MD [facility] 01-31-2023 14:10-0500 SaO2% (BldA) [Mass fraction] 99 % Nick Martinez MD [facility] 01-31-2023 14:10-0500 Systolic blood pressure 146 mm[Hg] Nick Martinez MD [facility] 01-31-2023 14:00-0500 Body temperature 97.7 [degF] Nick Martinez MD [facility] 01-10-2023 15:34-0500 Diastolic blood pressure 80 mm[Hg] Nick Martinez MD [facility] 01-10-2023 15:34-0500 Systolic blood pressure 125 mm[Hg] Nick Martinez MD [facility] 01-10-2023 15:24-0500 Heart rate 47 /min Nick Martinez MD [facility] 01-10-2023 15:18-0500 SaO2% (BldA) [Mass fraction] 98 % Nick Martinez MD [facility] 01-10-2023 15:17-0500 Body temperature 97.59 [degF] Nick Martinez MD [facility] 01-10-2023 15:17-0500 Respiratory rate 18 /min Nick Martinez MD [facility] 01-10-2023 13:02-0500 Body height 167.6 cm Nick Martinez MD [facility] 01-10-2023 13:02-0500 Body mass index (BMI) [Ratio] 36.32 kg/m2 Nick Martinez MD [facility] 01-10-2023 13:02-0500 Body weight 102.06 kg Nick Martinez MD [facility] 10-27-2022 16:20-0400 Diastolic blood pressure 84 mm[Hg] Katherine Pop MD Work Phone: [facility] 10-27-2022 16:20-0400 Systolic blood pressure 122 mm[Hg] Katherine Pop MD Work Phone: [facility] 10-10-2022 07:16-0400 Body height 165.1 cm Gi Miranda MD Work Phone: [facility] 10-10-2022 07:16-0400 Body weight 103.38 kg Gi Miranda MD Work Phone: [facility] 10-10-2022 07:16-0400 Diastolic blood pressure 76 mm[Hg] Gi Miranda MD Work Phone: [facility] 10-10-2022 07:16-0400 Heart rate 67 /min Gi Miranda MD Work Phone: [facility] 10-10-2022 07:16-0400 Systolic blood pressure 121 mm[Hg] Gi Miranda MD Work Phone: [facility] 09-27-2022 15:38-0400 Body height 167.64 cm [facility] 09-27-2022 15:38-0400 Body mass index (BMI) [Ratio] 36.4 kg/m2 [facility] 09-27-2022 15:38-0400 Body temperature 97.7 [degF] [facility] 09-27-2022 15:38-0400 Body weight 102.51 kg [facility] 09-27-2022 15:38-0400 Diastolic blood pressure 70 mm[Hg] [facility] 09-27-2022 15:38-0400 Heart rate 127 /min [facility] 09-27-2022 15:38-0400 Respiratory rate 18 /min [facility] 09-27-2022 15:38-0400 Systolic blood pressure 120 mm[Hg] [facility] 09-22-2021 10:51-0400 Body weight 103.56 kg Gi Miranda MD Work Phone: [facility] 09-22-2021 10:51-0400 Diastolic blood pressure 70 mm[Hg] Gi Miranda MD Work Phone: [facility] 09-22-2021 10:51-0400 Systolic blood pressure 116 mm[Hg] Gi Miranda MD Work Phone: [facility] Encounters Encounter Date Encounter Type Care Provider Facility Start: 10-30-2024 End: 10-30-2024 ambulatory Pramod Arceo PT Work Phone: [facility] Comment on above: S/P right rotator cu ff repair (Primary Dx); Decreased range of motion of right shoulder; Weakness of right shoulder Start: 10-21-2024 End: 10-21-2024 ambulatory Raimundo Aceves TRAVEL PTA Work Phone: [facility] Comment on above: S/P right rotator cu ff repair (Primary Dx) Start: 10-16-2024 End: 10-16-2024 ambulatory Kelsea Fajardo PT Work Phone: [facility] Comment on above: S/P right rotator cu ff repair (Primary Dx); Decreased range of motion of right shoulder; Weakness of right shoulder Start: 10-14-2024 End: 10-14-2024 ambulatory Kelsea Fajardo PT Work Phone: [facility] Comment on above: S/P right rotator cu ff repair (Primary Dx); Decreased range of motion of right shoulder; Weakness of right shoulder Start: 10-09-2024 End: 10-09-2024 ambulatory Raimundo Aceves TRAVEL PTA Work Phone: [facility] Comment on above: S/P right rotator cu ff repair (Primary Dx) Start: 09-25-2024 End: 09-25-2024 ambulatory Kelsea Fajardo PT Work Phone: [facility] Comment on above: S/P right rotator cu ff repair (Primary Dx); Decreased range of motion of right shoulder; Weakness of right shoulder Start: 09-23-2024 End: 09-23-2024 ambulatory Raimundo Aceves TRAVEL PTA Work Phone: [facility] Comment on above: S/P right rotator cu ff repair (Primary Dx) Start: 09-16-2024 End: 09-16-2024 ambulatory Raimundo Aceves TRAVEL PTA Work Phone: [facility] Comment on above: S/P right rotator cu ff repair (Primary Dx) Start: 09-11-2024 End: 09-11-2024 ambulatory Renu Cline PT [facility] Comment on above: S/P right rotator cu ff repair (Primary Dx); Decreased range of motion of right shoulder; Weakness of right shoulder Start: 09-09-2024 End: 09-09-2024 ambulatory Kelsea Fajardo PT Work Phone: [facility] Comment on above: S/P right rotator cu ff repair (Primary Dx); Decreased range of motion of right shoulder; Weakness of right shoulder Start: 09-04-2024 End: 09-04-2024 Office outpatient visit 15 minutes Nilton Glaser MD Work Phone: Orthopaedics Comment on above: Injury of right axil arely nerve, subsequent encounter (Primary Dx); S/P right rotator cuff repair Start: 09-04-2024 End: 09-04-2024 ambulatory MARGARITA AVILA Facility:[facility] Start: 09-04-2024 End: 09-04-2024 ambulatory Raimundo Aceves TRAVEL PTA Work Phone: [facility] Comment on above: S/P right rotator cu ff repair (Primary Dx) Start: 08-26-2024 End: 08-26-2024 ambulatory Raimundo Aceves TRAVEL PTA Work Phone: [facility] Comment on above: S/P right rotator cu ff repair (Primary Dx) Start: 08-19-2024 End: 08-19-2024 ambulatory Raimundo Aceves TRAVEL PTA Work Phone: [facility] Comment on above: S/P right rotator cu ff repair (Primary Dx) Start: 08-14-2024 End: 08-14-2024 ambulatory Raimundo Aceves TRAVEL PTA Work Phone: [facility] Comment on above: S/P right rotator cu ff repair (Primary Dx) Start: 08-12-2024 End: 08-12-2024 ambulatory Kelsea Fajardo PT Work Phone: [facility] Comment on above: S/P right rotator cu ff repair (Primary Dx); Decreased range of motion of right shoulder; Weakness of right shoulder Start: 08-05-2024 End: 08-05-2024 ambulatory Raimundo Aceves TRAVEL PTA Work Phone: [facility] Comment on above: S/P right rotator cu ff repair (Primary Dx) Start: 2024 End: 09-30-2024 Follow-up encounter Chel Mari MD Work Phone: Obstetrics/Gynecolog y Start: 07-30-2024 End: 07-30-2024 ambulatory Raimundo Aceves TRAVEL PTA Work Phone: [facility] Comment on above: S/P right rotator cu ff repair (Primary Dx) Start: 07-28-2024 End: 07-28-2024 ambulatory Kelsea Fajardo PT Work Phone: [facility] Comment on above: S/P right rotator cu ff repair (Primary Dx); Decreased range of motion of right shoulder; Weakness of right shoulder Start: 07-22-2024 End: 07-22-2024 ambulatory Raimundo Aceves TRAVEL PTA Work Phone: [facility] Comment on above: S/P right rotator cu ff repair (Primary Dx) Start: 07-17-2024 End: 07-17-2024 ambulatory MARGARITA AVILA Facility:[facility] Start: 07-17-2024 Patient encounter procedure GI ARNOLDANTONIO [facility] Start: 07-17-2024 End: 07-17-2024 ambulatory UNKNOWN PROVIDER Facility:[facility] Start: 07-14-2024 End: 07-14-2024 ambulatory [facility] Comment on above: S/P right rotator cu ff repair (Primary Dx); Decreased range of motion of right shoulder Start: 07-10-2024 End: 07-10-2024 Postop follow up visit related to original px Nilton Glaser MD Work Phone: Orthopaedics Comment on above: S/P right rotator cu ff repair (Primary Dx); Injury of right axillary nerve, subsequent encounter Start: 07-10-2024 End: 07-10-2024 ambulatory MARGARITA AVILA Facility:[facility] Start: 07-09-2024 End: 07-09-2024 ambulatory Bo Irma [facility] Comment on above: S/P right rotator cu ff repair (Primary Dx); Decreased range of motion of right shoulder Start: 07-07-2024 End: 07-07-2024 ambulatory Kelsea Fajardo PT Work Phone: [facility] Comment on above: Decreased range of m otion of right shoulder (Primary Dx); S/P right rotator cuff repair Start: 06-12-2024 End: 06-12-2024 Postop follow up visit related to original px Nilton Glaser MD Work Phone: Orthopaedics Comment on above: Injury of right axil arely nerve, subsequent encounter (Primary Dx); S/P right rotator cuff repair Start: 06-12-2024 End: 06-12-2024 ambulatory MARGARITA AVILA Facility:[facility] Start: 05-27-2024 End: 05-27-2024 ambulatory NILTON GLASER Facility:[facility] Start: 05-08-2024 Encounter for other preprocedural examination MARGARITA AVILA [facility] Start: 05-08-2024 End: 05-08-2024 Admission to [facility] Work Phone: Pre Anesthesia Start: 05-08-2024 End: 05-08-2024 ambulatory MARGARITA AVILA Facility:[facility] Start: 05-08-2024 End: 05-08-[address] [facility] Work Phone: Pre Anesthesia Comment on above: Preoperative examina tion (Primary Dx); Gastroesophageal reflux disease, unspecified whether esophagitis present; Former smoker; Obesity (BMI 30-39.9); Hyperlipidemia, unspecified hyperlipidemia type Start: 05-08-2024 End: 05-08-[address] [facility] Work Phone: [facility] Start: 05-06-2024 End: 05-06-2024 ambulatory NILTON GLASER Facility:[facility] Start: 05-06-2024 End: 05-06-2024 Office outpatient visit 40 minutes Nilton Glaser MD Work Phone: Orthopaedics Comment on above: Traumatic tear of ri ght rotator cuff, subsequent encounter (Primary Dx); Injury of right axillary nerve, subsequent encounter Start: 02-21-2024 End: 02-21-2024 ambulatory MARGARITA L AVILA Facility:[facility] Start: 02-21-2024 End: 02-21-2024 Office outpatient visit 25 minutes Nilton Glaser MD Work Phone: Orthopaedics Comment on above: Traumatic tear of ri ght rotator cuff, subsequent encounter (Primary Dx) Start: 02-15-2024 End: 02-15-2024 ambulatory NILTON GLASER Facility:[facility] Start: 02-15-2024 End: 02-15-2024 Subsequent hospital visit by physician Mri Radio [facility] (I-Stat/1.5t) Work Phone: Radiology Comment on above: Traumatic complete t ear of right rotator cuff, initial encounter [S46.011A] Start: 02-14-2024 End: 02-14-2024 ambulatory MARGARITA AVILA Facility:[facility] Start: 02-14-2024 End: 02-14-2024 Office outpatient new 45 minutes Nilton Glaser MD Work Phone: Orthopaedics Comment on above: Traumatic complete t ear of right rotator cuff, initial encounter (Primary Dx) Start: 02-07-2024 End: 02-07-2024 Emergency department patient visit TAISHA GUTIERREZ Facility:[facility] Start: 01-15-2024 End: 01-15-2024 ambulatory Margarita Avila NP Facility:[facility] Start: 09-05-2023 End: 09-05-2023 Patient encounter procedure Gi Miranda MD Work Phone: Obstetrics/Gynecolog y Comment on above: Breast screening (Pr imary Dx) Start: 07-11-2023 Documentation procedure Mammography Coordinator [facility] Start: 07-11-2023 Letter encounter Mammography Coordin ator [facility] Start: 07-11-2023 End: 07-11-2023 Subsequent hospital visit by physician Screen Mammo [facility] Mammogram Comment on above: Encounter for screen ing mammogram for malignant neoplasm of breast [Z12.31] Start: 01-31-2023 End: 02-01-2023 ambulatory [facility] Start: 01-31-2023 End: 01-31-2023 Subsequent hospital visit by physician Nick Martinez MD [facility] Start: 01-10-2023 End: 01-10-2023 Anesthesia consultation No Anesthesiologist - Robin/Chico VELOZ Work Phone: [facility] Start: 01-10-2023 End: 01-10-2023 ambulatory [facility] Start: 01-10-2023 End: 01-10-2023 Subsequent hospital visit by physician Nick Martinez MD [facility] [place] Start: 11-16-2022 Telephone encounter Katherine Patterson MD Work Phone: LD PROVIDER ADULT Start: 11-14-2022 End: 11-14-2022 Subsequent hospital visit by physician Stereo/Ultrasound Biopsy [facility] Comment on above: Calcification of lef t breast on mammography [R92.1] Start: 10-31-2022 ambulatory Corazon richardson MD Work Phone: [facility] Comment on above: Radiology Mammogram Start: 10-31-2022 Patient encounter procedure Corazon Miles MD Work Phone: [facility] Start: 10-27-2022 End: 10-27-2022 Patient encounter procedure Katherine Pop MD Work Phone: General Surgery Comment on above: Calcification of lef t breast on mammography (Primary Dx); Family history of breast cancer Start: 10-16-2022 Telephone encounter Tiffany Lopez MD Work Phone: Mammography Comment on above: Mammogram Result Stephan l Back Start: 10-11-2022 Documentation procedure Mammography Coordinator [facility] Start: 10-11-2022 Letter encounter Mammography Coordin [facility] Start: 10-10-2022 End: 10-10-2022 Patient encounter procedure Screen/Diagnostic Hosp Work Phone: [facility] Start: 10-10-2022 End: 10-10-2022 Subsequent hospital visit by physician Screen/Diagnostic Mammo [facility] Work Phone: Mammography Comment on above: Women's annual routi ne gynecological examination [Z01.419] Start: 10-10-2022 End: 10-10-2022 Patient encounter procedure Gi Miranda MD Work Phone: Gynecology Comment on above: Family history of br east cancer (Primary Dx); Women's annual routine gynecological examination [Z01.419] Start: 09-27-2022 End: 09-27-2022 ambulatory [facility] Work Phone: Start: 09-27-2022 End: 09-27-2022 Patient encounter procedure [facility], Specimen Work Phone: Start: 09-27-2022 Patient encounter status [facility] Start: 09-22-2021 Documentation procedure Mammography Coordinator [facility] Start: 09-22-2021 Letter encounter Mammography Coordin [facility] Start: 09-22-2021 End: 09-22-2021 Patient encounter procedure Gi Miranda MD Work Phone: Obstetrics/Gynecolog y Comment on above: Women's annual routi ne gynecological examination Start: 09-22-2021 End: 09-22-2021 Subsequent hospital visit by physician Screen/Diagnostic Mammo [facility] Work Phone: Mammography Comment on above: Breast screening [Z1 2.39] Start: 07-27-2021 Telephone encounter Gi bonds MD Work Phone: Obstetrics/Gynecolog y Comment on above: Orders Procedures Date Procedure Procedure Detail Performing Clinician Start: 07-28-2024 History of repair of musculotendinous cuff of shoulder S/P right rotator cuff repair Kelsea Fajardo PT Work Phone: Start: 05-08-2024 Ecg routine ecg w/least 12 lds i&r only Sri ESCOBEDO-C Work Phone: Start: 02-15-2024 Mri any jt upper extremity w/o contrast matrl Nilton Glaser MD Work Phone: Start: 07-11-2023 Screening digital breast tomosynthesis bi Chel Mari MD Work Phone: Start: 11-14-2022 Bx breast w/device 1st lesion stereotactic guid Katherine Pop MD Work Phone: Start: 10-10-2022 End: 10-10-2022 Screening digital breast tomosynthesis bi Gi Miranda MD Work Phone: Start: 10-20-2021 Lipid 1996 panel - Serum or Plasma Stereo/Ultrasound Hosp Start: 09-22-2021 End: 09-22-2021 Mammography Gi carson MD Work Phone: Start: 08-18-2020 Mammography Gi carson MD Work Phone: Start: 01-13-2019 Follow-up visit History of repair of musculotendinous cuff of shoulder S/P right rotator cuff repair Nilton Glaser MD Work Phone: History of repair of musculotendinous cuff of shoulder S/P right rotator cuff repair Kelsea Fajardo PT Work Phone: History of repair of musculotendinous cuff of shoulder S/P right rotator cuff repair Bo Solis TRAVEL PTA History of repair of musculotendinous cuff of shoulder S/P right rotator cuff repair Nilton Glaser MD Work Phone: History of repair of musculotendinous cuff of shoulder S/P right rotator cuff repair Raimundo Perusek TRAVEL PTA Work Phone: History of repair of musculotendinous cuff of shoulder S/P right rotator cuff repair Bo Solis TRAVEL PTA History of repair of musculotendinous cuff of shoulder S/P right rotator cuff repair Raimundo Perusek TRAVEL PTA Work Phone: History of repair of musculotendinous cuff of shoulder S/P right rotator cuff repair Raimundo Perusek TRAVEL PTA Work Phone: History of repair of musculotendinous cuff of shoulder S/P right rotator cuff repair Kelsea Fajardo PT Work Phone: History of repair of musculotendinous cuff of shoulder S/P right rotator cuff repair Raimundo Perusek TRAVEL PTA Work Phone: History of repair of musculotendinous cuff of shoulder S/P right rotator cuff repair Raimundo Perusek TRAVEL PTA Work Phone: History of repair of musculotendinous cuff of shoulder S/P right rotator cuff repair Raimundo Perusek TRAVEL PTA Work Phone: History of repair of musculotendinous cuff of shoulder S/P right rotator cuff repair Nilton Glaser MD Work Phone: History of repair of musculotendinous cuff of shoulder S/P right rotator cuff repair Raimundo Perusek TRAVEL PTA Work Phone: History of repair of musculotendinous cuff of shoulder S/P right rotator cuff repair Kelsea Fajardo PT Work Phone: History of repair of musculotendinous cuff of shoulder S/P right rotator cuff repair Renu Cline PT History of repair of musculotendinous cuff of shoulder S/P right rotator cuff repair Raimundo Perusek TRAVEL PTA Work Phone: History of repair of musculotendinous cuff of shoulder S/P right rotator cuff repair Raimundo Perusek TRAVEL PTA Work Phone: History of repair of musculotendinous cuff of shoulder S/P right rotator cuff repair Kelsea Tana PT Work Phone: History of repair of musculotendinous cuff of shoulder S/P right rotator cuff repair Raimundo Ritika TRAVEL PTA Work Phone: History of repair of musculotendinous cuff of shoulder S/P right rotator cuff repair Kelsea Tana PT Work Phone: History of repair of musculotendinous cuff of shoulder S/P right rotator cuff repair Kelsea Tana PT Work Phone: History of repair of musculotendinous cuff of shoulder S/P right rotator cuff repair Raimundo Ritika TRAVEL PTA Work Phone: History of repair of musculotendinous cuff of shoulder S/P right rotator cuff repair Pramod Adis PT Work Phone: Plan of Treatment Date Care Activity Detail Author Start: 05-09-2027 Diabetes Screening Diabetes Screening [facility] Start: 02-06-2027 Diabetes Screening Diabetes Screening [facility] Start: 10-20-2026 Lipid 1996 panel - Serum or Plasma Lipid Screening [facility] Start: 10-20-2026 Lipid panel Lipid Screening [facility] Start: 10-20-2026 LIPID SCREEN LIPID SCREEN [facility] Start: 08-18-2025 HPV TESTING HPV TESTING [facility] Start: 08-18-2025 PAP TESTING PAP TESTING [facility] Start: 08-18-2025 Screening for malignant neoplasm of cervix [facility] Start: 07-17-2025 Screening for malignant neoplasm of breast Mammogram Screening [facility] Start: 12-18-2024 End: 12-18-2024 Patient encounter procedure 12/18/2024 10:45 AM EDT Office Visit Orthopaedics [address] [place] [address] Nilton Glaser MD [address] [place] [address] 3mo follow up - rt shoulder Orthopaedics Comment on above: 3mo follow up - rt shoulder Start: 11-12-2024 End: 11-12-2024 ambulatory 11/12/2024 10:45 AM EDT OT/PT/Speech Visit [facility] [address] [place] [address] Raimundo Aceves, TRAVEL PTA [address] [place], [place] [id number] 2x wk S/P right rotator cuff repair [facility] Comment on above: 2x wk S/P right rotator cuff repair Start: 11-05-2024 End: 11-05-2024 ambulatory 11/05/2024 10:45 AM EDT OT/PT/Speech Visit [facility] [address] [place] [address] Raimundo Aceves, TRAVEL PTA [address] [place], [place] [phone] 2x wk S/P right rotator cuff repair [facility] Comment on above: 2x wk S/P right rotator cuff repair Start: 10-30-2024 End: 10-30-2024 ambulatory 10/30/2024 10:45 AM EDT OT/PT/Speech Visit [facility] [address] [place] [address] Pramod Arceo, PT [address] [place] [address] 2x wk S/P right rotator cuff repair [facility] Comment on above: 2x wk S/P right rotator cuff repair Start: 10-27-2024 Influenza vaccination [facility] Start: 10-23-2024 End: 10-23-2024 ambulatory 10/23/2024 10:00 AM EDT OT/PT/Speech Visit [facility] [address] [place] [address] Kelsea Fajardo, PT [address] [place], [place] [phone] 2x wk S/P right rotator cuff repair [facility] Comment on above: 2x wk S/P right rotator cuff repair Start: 10-21-2024 End: 10-21-2024 ambulatory 10/21/2024 10:00 AM EDT OT/PT/Speech Visit [facility] [address] [place] [address] Raimundo Aceves, TRAVEL PTA [address] [phone] 2x wk S/P right rotator cuff repair [facility] Comment on above: 2x wk S/P right rotator cuff repair Start: 10-20-2024 DIABETES SCREEN DIABETES SCREEN [facility] Start: 10-20-2024 Diabetes Screening Diabetes Screening [facility] Start: 10-16-2024 End: 10-16-2024 ambulatory 10/16/2024 1:30 PM EDT OT/PT/Speech Visit [facility] [address] [place] [address] Kelsea Fajardo, PT [address] [place], [place] [phone] 2x wk S/P right rotator cuff repair [facility] Comment on above: 2x wk S/P right rotator cuff repair Start: 10-14-2024 End: 10-14-2024 ambulatory 10/14/2024 1:30 PM EDT OT/PT/Speech Visit [facility] [address] [place] [address] Kelsea Fajardo, PT [address] [place], [place] [phone] 2x wk S/P right rotator cuff repair [facility] Comment on above: 2x wk S/P right rotator cuff repair Start: 10-09-2024 End: 10-09-2024 ambulatory 10/09/2024 10:45 AM EDT OT/PT/Speech Visit [facility] [address] [place] [address] Raimundo Aceves, TRAVEL PTA [address] [place], [place] [phone] 2x wk S/P right rotator cuff repair [facility] Comment on above: 2x wk S/P right rotator cuff repair Start: 09-25-2024 End: 09-25-2024 ambulatory 09/25/2024 10:00 AM EDT OT/PT/Speech Visit [facility] [address] [place] [address] Kelsea Fajardo, PT [address] [place] [address] 2x wk S/P right rotator cuff repair [facility] Comment on above: 2x wk S/P right rotator cuff repair Start: 09-23-2024 End: 09-23-2024 ambulatory 09/23/2024 9:15 AM EDT OT/PT/Speech Visit [facility] [address] [place] [address] Raimundo Aceves, HEBER [address] [place], [place] [phone] 2x wk S/P right rotator cuff repair [facility] Comment on above: 2x wk S/P right rotator cuff repair Start: 09-18-2024 End: 09-18-2024 ambulatory [facility] Comment on above: 2x wk S/P right rotator cuff repair Start: 09-16-2024 End: 09-16-2024 ambulatory 09/16/2024 9:15 AM EDT OT/PT/Speech Visit [facility] [address] [place] [address] Raimundo Aceves, TRAVEL PTA [address] [place], [place] [phone] 2x wk S/P right rotator cuff repair [facility] Comment on above: 2x wk S/P right rotator cuff repair Start: 09-11-2024 End: 09-11-2024 ambulatory [facility] Comment on above: 2x wk S/P right rotator cuff repair Start: 09-09-2024 End: 09-09-2024 ambulatory 09/09/2024 10:45 AM EDT OT/PT/Speech Visit [facility] [address] [place] [address] Kelsea Fajardo, PT [address] [place], [place] [phone] 2x wk S/P right rotator cuff repair [facility] Comment on above: 2x wk S/P right rotator cuff repair Start: 09-04-2024 End: 09-04-2024 Patient encounter procedure 09/04/2024 10:45 AM EDT Office Visit Orthopaedics [id number] [place] [address] Nilton Glaser MD [address] [place], [place] [phone] RIGHT RTC 6 - 8 WEEK FOLLOW UP Orthopaedics Comment on above: RIGHT RTC 6 - 8 WEEK FOLLOW UP Start: 09-04-2024 End: 09-04-2024 ambulatory 09/04/2024 8:30 AM EDT OT/PT/Speech Visit [facility] [address] [place] [address] Raimundo Aceves, TRAVEL PTA [address] [place] [phone] 2x wk S/P right rotator cuff repair [facility] Comment on above: 2x wk S/P right rotator cuff repair Start: 09-02-2024 End: 09-02-2024 ambulatory [facility] Comment on above: 2x wk S/P right rotator cuff repair Start: 08-26-2024 End: 08-26-2024 ambulatory 08/26/2024 1:30 PM EDT OT/PT/Speech Visit [facility] [address] [place] [address] Kelsea Fajardo, PT [address] [place], [place] [phone] 2x wk S/P right rotator cuff repair [facility] Comment on above: 2x wk S/P right rotator cuff repair Start: 08-21-2024 End: 08-21-2024 ambulatory [facility] Comment on above: 2x wk S/P right rotator cuff repair Start: 08-19-2024 End: 08-19-2024 ambulatory 08/19/2024 9:15 AM EDT OT/PT/Speech Visit [facility] [address] [place] [address] Raimundo Aceves, TRAVEL PTA [address] [place], [place] [phone] 2x wk S/P right rotator cuff repair [facility] Comment on above: 2x wk S/P right rotator cuff repair Start: 08-14-2024 End: 08-14-2024 ambulatory 08/14/2024 9:15 AM EDT OT/PT/Speech Visit [facility] [address] [place] [address] Raimundo Aceves, TRAVEL PTA 1 [place] [facility], [place] [id number] 2x wk S/P right rotator cuff repair [facility] Comment on above: 2x wk S/P right rotator cuff repair Start: 08-12-2024 End: 08-12-2024 ambulatory 08/12/2024 2:15 PM EDT OT/PT/Speech Visit [facility] [address] [place] [address] Kelsea Fajardo, PT [address] [place], [place] [phone] 2x wk S/P right rotator cuff repair [facility] Comment on above: 2x wk S/P right rotator cuff repair Start: 08-07-2024 End: 08-07-2024 ambulatory 08/07/2024 9:15 AM EDT OT/PT/Speech Visit [facility] [address] [place] [address] Raimundo Aceves, TRAVEL PTA 1 [facility] [place] [id number] 2x wk S/P right rotator cuff repair [facility] Comment on above: 2x wk S/P right rotator cuff repair Start: 08-05-2024 End: 08-05-2024 ambulatory 08/05/2024 9:15 AM EDT OT/PT/Speech Visit [facility] [address] [place] [address] Raimundo Aceves, TRAVEL PTA 1 [place] [facility], [place] [phone] 2x wk S/P right rotator cuff repair [facility] Comment on above: 2x wk S/P right rotator cuff repair Start: 07-30-2024 Advance Directive Discussion Advance Directive Discussion [facility] Start: 07-30-2024 Screening for osteoporosis Bone Density Screening [facility] Start: 07-30-2024 End: 07-30-2024 ambulatory 07/30/2024 9:15 AM EDT OT/PT/Speech Visit [facility] [address] [place] [address] Raimundo Aceves, TRAVEL PTA 1 [place], [place] [phone] 2x wk S/P right rotator cuff repair [facility] Comment on above: 2x wk S/P right rotator cuff repair Start: 07-28-2024 End: 07-28-2024 ambulatory 07/28/2024 8:30 AM EDT OT/PT/Speech Visit [facility] [address] [place] [address] Kelsea Fajardo, PT 1 [place], [place] [phone] 2x wk S/P right rotator cuff repair [facility] Comment on above: 2x wk S/P right rotator cuff repair Start: 07-28-2024 End: 07-28-2024 Patient encounter procedure 07/28/2024 8:30 AM EDT OT/PT/Speech Visit [facility] [address] [place] [address] Kelsea Fajardo, PT 1 [place], [place] [phone] 2x wk Consult/S/P right rotator cuff repair [facility] Comment on above: 2x wk Consult/S/P right rotator cuff rep air Start: 07-22-2024 End: 07-22-2024 Patient encounter procedure 07/22/2024 9:15 AM EDT OT/PT/Speech Visit [facility] [address] [place] [address] Raimundo Aceves, TRAVEL PTA 1 [place], [place] [phone] 2x wk Consult/S/P right rotator cuff repair [facility] Comment on above: 2x wk Consult/S/P right rotator cuff rep air Start: 07-17-2024 End: 07-17-2024 Patient encounter procedure Mammography Comment on above: Breast screening [Z12.39] AWARE INSTRUCT ION AWARE GARCIA ANNUAL PER PT CHECKE D WITH INS AWARE GARCIA follow up 2x wk Consult/S/P ri ght rotator cuff repair Start: 07-14-2024 End: 07-14-2024 Patient encounter procedure 07/14/2024 9:15 AM EDT OT/PT/Speech Visit [facility] [address] [place] [address] Bo Solis, TRAVEL PTA 2x wk Consult/S/P right rotator cuff repair [facility] Comment on above: 2x wk Consult/S/P right rotator cuff rep air Start: 07-10-2024 Screening for malignant neoplasm of breast Mammogram Screening [facility] Start: 07-10-2024 End: 07-10-2024 Patient encounter procedure 07/10/2024 10:15 AM EDT Office Visit Orthopaedics [id number] [place] [address] Nilton Glaser MD [address] [place] [address] 6 wk PO Right RTC Orthopaedics Comment on above: 6 wk PO Right RTC Start: 07-09-2024 End: 07-09-2024 Patient encounter procedure 07/09/2024 10:45 AM EDT OT/PT/Speech Visit [facility] [address] [place] [address] Bo Solis, TRAVEL PTA 2x wk Consult/S/P right rotator cuff repair [facility] Comment on above: 2x wk Consult/S/P right rotator cuff rep air Start: 06-12-2024 End: 06-12-2024 Patient encounter procedure 06/12/2024 11:45 AM EDT Office Visit Orthopaedics [id number] [place] [address] Nilton Glaser MD [address] [place] [address] 2 wk PO Right RTC Orthopaedics Comment on above: 2 wk PO Right RTC Start: 05-27-2024 End: 05-27-2024 Admission to same day surgery center 05/27/2024 7:30 AM EDT - 05/27/2024 10:35 AM EDT Surgery [facility] [address] [place] [address] Nilton Glaser MD [address] [place] [address] Right arthroscopic rotator cuff repair, subacromial decompression, possible biceps tenodesis, possible graft augmentation [facility] Comment on above: Right arthroscopic rotator cuff repair, subacromial decompression, possible biceps tenodesis, possible graft augmentation Start: 05-27-2024 End: 05-27-2024 Arthroscopy shoulder rotator cuff repair ARTHROSCOPY SHOULDER ROTATOR CUFF Traumatic tear of right rotator cuff, subsequent encounter 05/27/2024 7:30 AM EDT MM OR Start: 05-27-2024 Subsequent hospital visit by physician 05/27/2024 7:30 AM EDT Hospital Encounter [facility] [id number] [place] [address] Nilton Glaser MD [address] [place] [address] Traumatic tear of right rotator cuff, subsequent encounter [S46.011D] [facility] Comment on above: Traumatic tear of right rotator cuff, irizarry bsequent encounter [S46.011D] Start: 05-08-2024 End: 05-08-2024 ambulatory 05/08/2024 3:15 PM EDT Results Only [facility] [address] [place] [address] Pre-op testing [facility] Comment on above: Pre-op testing Start: 05-08-2024 End: 05-08-2024 Anesthesia consultation 05/08/2024 8:50 AM EDT PAT Pre Anesthesia [address] [place] [address] [facility] [address] [place] [address] DOS 4/ Pre Anesthesia Comment on above: DOS 4 Start: 02-27-2024 Medicare Advantage Annual Wellness Visit Medicare Advantage Annual Wellness Visit [facility] Start: 02-21-2024 End: 02-21-2024 Patient encounter procedure 02/21/2024 9:45 AM EST Office Visit Orthopaedics [address] [place] [address] Nilton Glaser MD [address] [place] [address] Follow up MRI right shoulder Orthopaedics Comment on above: Follow up MRI right shoulder Start: 02-15-2024 Subsequent hospital visit by physician 02/15/2024 10:40 AM EST Hospital Encounter Radiology [address] [place] [address] Traumatic complete tear of right rotator cuff, initial encounter [S46.011A] Radiology Comment on above: Traumatic complete tear of right rotator cuff, initial encounter [S46.011A] Start: 10-28-2023 Covid-19 Vaccine ( season) Covid-19 Vaccine () [facility] Start: 10-28-2023 Influenza vaccination [facility] Start: 10-11-2023 Mammography [facility] Start: 09-05-2023 End: 09-05-2023 Patient encounter procedure 09/05/2023 1:00 PM EDT Office Visit Obstetrics/Gynecology [address] [address] Gi Miranda MD [address] [address] Annual Obstetrics/Gynecolog y Comment on above: Annual Start: 02-26-2023 Behavioral Health Screening Behavioral Health Screening [facility] Start: 01-10-2023 End: 01-10-2023 Xcapsl ctrc rmvl insj io lens prosth w/o ecp PHACOEMULSIFICATION WITH INTRAOCULAR LENS INSERTION Age-related nuclear cataract, right eye 01/10/2023 2:36 PM EST [facility] Start: 10-27-2022 Covid-19 Vaccine ( season) Covid-19 Vaccine () [facility] Start: 10-27-2022 Influenza vaccination [facility] Start: 09-22-2022 Mammography MAMMOGRAM [facility] Start: 02-26-2022 DEPRESSION ASSESSMENT DEPRESSION ASSESSMENT [facility] Start: 10-27-2021 Influenza vaccination [facility] Start: 08-18-2021 Mammography MAMMOGRAM [facility] Start: 08-23-2020 LIPID SCREEN LIPID SCREEN [facility] Start: 2019 RSV Immunization aged 60 or older (1 - 1-dose 60+ series) RSV Immunization aged 60 or older (1 - 1-dose 60+ series) [facility] Start: 2019 RSV Vaccine (1 - 1-dose 60+ series) RSV Vaccine (1 - 1-dose 60+ series) [facility] Start: 2019 RSV Vaccine (1 - Risk 60-74 years 1-dose series) RSV Vaccine (1 - Risk 60-74 years 1-dose series) [facility] Start: 08-23-2018 DIABETES SCREEN DIABETES SCREEN [facility] Start: 07-30-2009 Pneumococcal Vaccine: 50+ (1 of 1 - PCV) Pneumococcal Vaccine: 50+ (1 of 1 - PCV) [facility] Start: 07-30-2009 SHINGRIX VACCINE (1 of 2) SHINGRIX VACCINE (1 of 2) [facility] Start: 07-30-2009 Zoster Vaccines (1 of 2) Zoster Vaccines (1 of 2) [facility] Start: 07-30-2004 COLOGUARD (FIT-DNA) COLOGUARD (FIT-DNA) [facility] Start: 07-30-2004 Colonoscopy COLONOSCOPY [facility] Start: 07-30-2004 COLORECTAL CANCER SCREENING COLORECTAL CANCER SCREENING [facility] Start: 07-30-[address] COLONOGRAPHY [facility] Start: 07-30-2004 FECAL OCCULT BLOOD FECAL OCCULT BLOOD [facility] Start: 07-30-2004 Screening for malignant neoplasm of colon [facility] Start: 07-30-2004 SIGMOIDOSCOPY SIGMOIDOSCOPY [facility] Start: 1999 Screening for malignant neoplasm of breast Mammogram [facility] Start: 07-30-1989 Screening for malignant neoplasm of cervix [facility] Start: 07-30-1980 Screening for malignant neoplasm of cervix Pap Smear [facility] Start: 07-30-1978 DTaP/Tdap/Td Vaccines (1 - Tdap) DTaP/Tdap/Td Vaccines (1 - Tdap) [facility] Start: 07-30-1978 Urine microalbumin profile [facility] Start: 07-30-1977 Anxiety Screening Anxiety Screening [facility] Start: 07-30-1977 Depression Screening Depression Screening [facility] Start: 07-30-1977 Diabetes mellitus screening Diabetes Screening [facility] Start: 07-30-1977 HEPATITIS C SCREENING HEPATITIS C SCREENING [facility] Start: 07-30-1977 Hepatitis C screening Hepatitis C Screening [facility] Start: 07-30-1977 HIV SCREENING HIV SCREENING [facility] Start: 07-30-1977 HIV screening HIV Screening [facility] Start: 1971 Adult depression screening assessment DEPRESSION SCREENING [facility] Start: 07-30-1964 COVID-19 VACCINE (#1) COVID-19 VACCINE (#1) [facility] Start: 07-30-1960 MMR Vaccines (1 of 1 - Standard series) MMR Vaccines (1 of 1 - Standard series) [facility] Start: 01-30-1960 COVID-19 VACCINE (#1) COVID-19 VACCINE (#1) [facility] Start: 1959 HIV screening HIV Screening [facility] Start: 1959 Screening for malignant neoplasm of colon [facility] End: 10-04-2024 DBT Breast - bilateral screening ЮЛИЯ SCREENING W ROMEO Radiology Routine Breast screening 1 Occurrences starting 09/05/2023 until 10/04/2024 [facility] Work Phone: Comment on above: 1 Occurrences starting 09/05/2023 until 10/04/2024 End: 11-26-2023 ЮЛИЯ STEREO BX BREAST LEFT ЮЛИЯ STEREO BX BREAST LEFT Radiology Routine Calcification of left breast on mammography 1 Occurrences starting 10/27/2022 until 11/26/2023 [facility] Work Phone: Comment on above: 1 Occurrences starting 10/27/2022 until 11/26/2023 End: 03-15-2025 MR Shoulder - right WO contrast MRI SHOULDER WO IVCON RIGHT Radiology Routine Traumatic complete tear of right rotator cuff, initial encounter 1 Occurrences starting 02/14/2024 until 03/15/2025 [facility] Work Phone: Comment on above: 1 Occurrences starting 02/14/2024 until 03/15/2025 End: 08-26-2022 Screening mammography bi 2-view breast inc cad ЮЛИЯ SCREENING Radiology Routine Breast screening 1 Occurrences starting 07/27/2021 until 08/26/2022 [facility] Work Phone: Comment on above: 1 Occurrences starting 07/27/2021 until 08/26/2022 End: 11-14-2022 SURGICAL PATHOLOGY SURGICAL PATHOLOGY Lab Routine ONCE for 1 Occurrences starting 11/14/2022 until 11/14/2022 [facility] Work Phone: Comment on above: ONCE for 1 Occurrences starting 11/15/19 until 11/14/2022 [facility] Immunizations Immunization Date Immunization Notes Care Provider Fa tamiko 10-18-2017 influenza virus vacc ine, unspecified formulation Stereo/Ultrasound Hosp [facility] Payers Date Payer Category Payer Medicare (Managed Care) [employer] [id number] 2024 Medicare [id number] 2024 Self-pay [id number] 2023 Private Health Insurance [id number] 2023 Private Health Insurance [id number] 2022 Unknown [id number] 2018 Unknown MMO MMO [employer] [id number] 2018-Present [phone] [address] [place] [address] PPO [id number] 2018 Unknown [id number] Unknown [facility] [id number] Unknown [id number] Social History Date Type Detail Facility Start: 09-11-2012 End: 05-08-2024 Tobacco smoking status NHIS Ex-smoker [facility] Start: 10-25-1979 End: 10-24-1989 History of tobacco use Current smoker [facility] Start: 10-25-1979 End: 10-24-1989 History of tobacco use Cigarette Smoker [facility] Start: 08-18-2020 End: 07-17-2024 Alcohol intake Current drinker of alcohol (finding) [facility] Start: 08-06-2018 History SDOH Alcohol Comment 7/wk [facility] Start: 1960 Sex Assigned At Not on file [facility] Start: 09-22-2021 History SDOH Alcohol Comment 1/month [facility] Start: 09-12-2021 End: 09-22-2021 Exposure to SARS-CoV-2 (event) Not sure [facility] Start: 02-07-2019 Tobacco smoking stat [facility] Unknown if ever smoked [facility] Start: 1960 Sex Assigned At Female W [facility] Start: 09-11-2012 End: 10-10-2022 Cigarettes smoked current (pack per day) - Reported 0.5 [facility] Start: 09-11-2012 End: 05-08-2024 Tobacco use and exposure Smokeless tobacco non-user [facility] Start: 10-10-2022 End: 09-02-2024 Tobacco use panel [facility] Start: 01-28-2012 National Score (1-10 0), lower number is lower risk 50 [facility] Start: 08-06-2018 Gender identity Identifies as female gender (finding) [facility] Work Phone: Start: 08-06-2018 Sexual orientation Heterosexual (alyssa barba) [facility] Work Phone: Start: 01-10-2023 Tobacco smoking stat [facility] Never smoked tobacco [facility] Start: 01-10-2023 Alcohol Comment rarely [facility] Medical Equipment Procedure Code Equipment Code Equipment Origin al Text Equipment Identifier Dates Trulign Toric Posterior Chamber Iol [id number] Start: 01-10-2023 Trulign Toric [id number] Start: 01-31-2023 Tendon Bone Fibe r Tac [place] [id number] Start: 05-27-2024 Swivelock Sp Bc 4.75mm [id number] Start: 05-27-2024 Swivelock Sp Bc 4.75mm [id number] Start: 05-27-2024 Suture [place] Bl ack Blue Fiber - [id number] Start: 05-27-2024 [place] Swivelock C 4.75mm Black White Biocomposite 19.1mm Suture Close - [id number] Start: 05-27-2024 Clinical Notes 07-27-2021 to 10-30-2024 Pramod Arceo, PT - 10/30/2024 11:43 AM Raimundo Garcia, TRAVEL PTA - 10/21/2024 12:00 PM Kelsea Storm, PT - 10/16/2024 3:16 PM Kelsea Storm, PT - 10/14/2024 3:35 PM EDTPatient Instructions Note Date & Type Note Facility 10-30-2024 History of Present illness Narrative Episode Visit Count: 23 Therapist That Will Accept/Oversee The Plan Of Care: Li Fajardo Start of Care Date: 07/07/24 Onset Date: 02/07/24 Plan of Care Certification Date: 10/14/24 Next Certification Due Date: 12/13/24 Patient Identified by Name and Date of : Yes REHABILITATION AND SPORTS THERAPY PHYSICAL THERAPY TREATMENT NOTE ASSESSMENT: Adam Guajardo tolerated the session with fatigue, increased symptoms, expected muscle soreness, and continued end range of motion limitations RIGHT shoulder in flexion abduction and internal rotation and external rotation. She demonstrated difficulty with end range of motion tightness and functional muscle weakness RIGHT shoulder at mid to end range of motion . The patient will continue to benefit from ongoing skilled physical therapy to progress toward set goals. PLAN FOR NEXT VISIT: Progress as indicated per evaluating PT and PT team at [facility] [place] SUBJECTIVE: pt states she is really stiff but is gaining rom and does not have much pain rated at 0.5 to 1/10 Pain: Pain Pain Level: 0 OBJECTIVE MEASURES WITH LEVEL OF FUNCTION: Limited end range of motion flexion and abduction and internal rotation external rotation with biomechanical compensation due to significant tightness in RIGHT shoulder capsule and lig and muscle soft tissue structure. TREATMENT: Sagittal Plane Frontal Plane Transverse Plane X = neutral X = neutral X = neutral R = staggered right W = wide base E = external rotation L = staggered left N = narrow base I = internal rotation 1st letter = sagittal, 2nd letter = frontal, 3rd letter = transverse Examples: XXX = neutral, neutral, neutral RXE = right staggered, neutral width, toes out Therapeutic Exercise: 1: nu step le 9 ue 9 x 3 min toe out x [address] x 3 min toe in x 9 min total for inc aarom prom arom stretch r shoulder and aarom arom l ue and r l le 2: amb 300 ft level with inc pace inc arm swing for inc functional recovery 3: functional pendullum swinsg with 3# free wt RXX LXX with r l lloyd flex ext swings with hip shift ant posy t spine flex ext x 15 ea position XWX XNX r l shoulder swinsg abd add r l lat with t spine r l lat flex and hips r l lat x 15 ea posituion XXE XXI rot r l r l shoulder swings with t spine rot r l hip rot r l and wt shift in direction of the rotation x 15 ea position. 4: amb 300 ft level with inc stride inc arm drive for inc functional recovery 5: 2# r l lloyd lift RXX LXX flex lift and reurn with wt shift in synch with lift movement x 10 ea position XWX XNX r l lloyd lift abd and return with t spine lat flex and hip shift in synch with lift movement x 10 ea position 6: 2# r l shoulder rrot r l ir er with t spine rot r l and hips rot r l with wt shift in direction of rotationx 15 ea position 7: door frame r lloyd prom flex stretch RXX LXX with hip drive posterior with r hand at max rom for flex mobilization stretch x 10 sec with 10 post hip mobs in ea RXX LXX 8: R shoulder door frame abd stretch with R hand elevated as adrian and hip mobs to l lat to provide r shoulder abd mobilization in XXX with 10 sec and 10 hip mobs x 2 sets 9: r hand on pole at chest ht hip t spine rot to r with end rom oscillation x 10 in ir and x 10 in er 10: amb 300 ft level Skilled Intervention: Patient was educated in proper exercise technique and purpose for exercises. Skilled judgment was used in selection of appropriate interventions. Correct performance of therapeutic exercises was facilitated with verbal, visual, and tactile cuing. Billing Therapeutic Exercise Treatment Minutes: 40 Skilled Treatment Time Minutes (timed and untimed codes): 45 Total Session Time (minutes): 50 Session Start Time : 1040 Session Stop Time : 1130 Pramod Arceo PT documented in this encounter [facility] 10-21-2024 Note HNO ID: [id number] Author: RAIMUNDO ACEVES PTA Service: ? Author Type: Napkin Machine Operator Type: Progress Notes Filed: 10/21/2024 12:02 Note Text: Episode Visit Count: 22 Therapist That Will Accept/Oversee The Plan Of Care: Li Fajardo Start of Care Date: 07/07/24 Onset Date: 02/07/24 Plan of Care Certification Date: 10/14/24 Next Certification Due Date: 12/13/24 Patient Identified by Name and Date of : Yes REHABILITATION AND SPORTS THERAPY PHYSICAL THERAPY TREATMENT NOTE ASSESSMENT: Adam Guajardo tolerated the session with expected muscle soreness. She demonstrated difficulty with AROM right shoulder flexion in gravity dependent position and improvements in eccentric control of right shoulder flexion with exercise. The patient will continue to benefit from ongoing skilled physical therapy to progress toward set goals. PLAN FOR NEXT VISIT: assess right shoulder flexion and exccentric flexioin with new HEP SUBJECTIVE: patient reports diligent with HEP for right shoulder strength, reports tightness with AROM right shoulder flexion in standing Pain: Pain Pain Level: 0 Pain Location: Shoulder - Right Post Treatment Pain Post Treatment Pain Level: No Change OBJECTIVE MEASURES WITH LEVEL OF FUNCTION: UE AROM R Shoulder Flex: 114 Degrees (with back to wall and no shoulder hike, AAROM 156 degrees) TREATMENT: Therapeutic Exercise: 1: UBE level 3 2 min forward , 2 min retro 2: hookying PROM right sholder flexion and ER pre and post manual techniques 3: seated right shoulder ER orange tb 10 x pink tb 10 x 4: sidelying left right shoulder abduction 2#, 3# 10 x each 5: standing back to wall AROM right shoulder flexion 5 x 2 , 6: *AAROM right sh;oulder flexion with golf club ten eccentric flexion AROM right shoulder return to neutral 10 x 2 7: right sidelying sleeper strettch 15 second hold x 3 8: standing right elbow flexion palm up , thum up 3#, 5# 10 x each 9: standing shoulder extension with thoracic and hip extension blue tb 10 x 2 Skilled Intervention: Patient was educated in proper exercise technique and purpose for exercises. Reviewed and educated patient on additions/changes for home exercise program as above (*). Skilled judgment was used in selection of appropriate interventions. Manual Therapy: 1: supine right shoulder capsular mobs all planes Skilled Intervention: Manual skills to improve joint mobility, ROM, and decrease pain. Utilized anatomy knowledge of the clinician, and assessment of patient's response to intervention. Billing Therapeutic Exercise Treatment Minutes: 40 Manual TherapyTreatment Minutes: 4 Skilled Treatment Time Minutes (timed and untimed codes): 44 Total Session Time (minutes): 44 Session Start Time : 955 Session Stop Time : 1040 Raimundo Aceves PTA [facility] 10-21-2024 History of Present illness Narrative Episode Visit Count: 22 Therapist That Will Accept/Oversee The Plan Of Care: Li Fajardo Start of Care Date: 07/07/24 Onset Date: 02/07/24 Plan of Care Certification Date: 10/14/24 Next Certification Due Date: 12/13/24 Patient Identified by Name and Date of : Yes REHABILITATION AND SPORTS THERAPY PHYSICAL THERAPY TREATMENT NOTE ASSESSMENT: Adam Guajardo tolerated the session with expected muscle soreness. She demonstrated difficulty with AROM right shoulder flexion in gravity dependent position and improvements in eccentric control of right shoulder flexion with exercise. The patient will continue to benefit from ongoing skilled physical therapy to progress toward set goals. PLAN FOR NEXT VISIT: assess right shoulder flexion and exccentric flexioin with new HEP SUBJECTIVE: patient reports diligent with HEP for right shoulder strength, reports tightness with AROM right shoulder flexion in standing Pain: Pain Pain Level: 0 Pain Location: Shoulder - Right Post Treatment Pain Post Treatment Pain Level: No Change OBJECTIVE MEASURES WITH LEVEL OF FUNCTION: UE AROM R Shoulder Flex: 114 Degrees (with back to wall and no shoulder hike, AAROM 156 degrees) TREATMENT: Therapeutic Exercise: 1: UBE level 3 2 min forward , 2 min retro 2: hookying PROM right sholder flexion and ER pre and post manual techniques 3: seated right shoulder ER orange tb 10 x pink tb 10 x 4: sidelying left right shoulder abduction 2#, 3# 10 x each 5: standing back to wall AROM right shoulder flexion 5 x 2 , 6: *AAROM right sh;oulder flexion with golf club ten eccentric flexion AROM right shoulder return to neutral 10 x 2 7: right sidelying sleeper strettch 15 second hold x 3 8: standing right elbow flexion palm up , thum up 3#, 5# 10 x each 9: standing shoulder extension with thoracic and hip extension blue tb 10 x 2 Skilled Intervention: Patient was educated in proper exercise technique and purpose for exercises. Reviewed and educated patient on additions/changes for home exercise program as above (*). Skilled judgment was used in selection of appropriate interventions. Manual Therapy: 1: supine right shoulder capsular mobs all planes Skilled Intervention: Manual skills to improve joint mobility, ROM, and decrease pain. Utilized anatomy knowledge of the clinician, and assessment of patient's response to intervention. Billing Therapeutic Exercise Treatment Minutes: 40 Manual TherapyTreatment Minutes: 4 Skilled Treatment Time Minutes (timed and untimed codes): 44 Total Session Time (minutes): 44 Session Start Time : 955 Session Stop Time : 1039 Raimundo Aceves PTA documented in this encounter [facility] 10-16-2024 Note HNO ID: [id number] Author: KELSEA FAJARDO, RANAJNA Service: ? Author Type: Physical Therapist Type: Progress Notes Filed: 10/16/2024 15:18 Note Text: Episode Visit Count: 21 Therapist That Will Accept/Oversee The Plan Of Care: Li Fajardo Start of Care Date: 07/07/24 Onset Date: 02/07/24 Plan of Care Certification Date: 10/14/24 Next Certification Due Date: 12/13/24 REHABILITATION AND SPORTS THERAPY PHYSICAL THERAPY TREATMENT NOTE ASSESSMENT: Adam Guajardo tolerated the session with expected muscle soreness. She demonstrated improvements in exercise tolerance and fxl use of R UE. The patient will continue to benefit from ongoing skilled physical therapy to progress toward set goals. PLAN FOR NEXT VISIT: continue to progress R shoulder ROM AND strength SUBJECTIVE: doing ok today. shoulder felt better after doing ER stretch with jose g (pvc pipe) last visit. she likes learning new exercises/stretches to do. Pain: OBJECTIVE MEASURES WITH LEVEL OF FUNCTION: TREATMENT: Therapeutic Exercise: 1: *doorway shoulder ER/pec stretch 2: seated shoulder AAROM with ghada FE AND Abd 3: seated bicep curls 10#R/L 20x 4: seated/standing shoulder AAROM with cane FE, ER AND Abd 5: quadrupred push-ups 20x 6: standing shoulder FE 2#R, 3#L 20x 7: standing shoulder scaption 2#R, 3#L 20x 8: standing shoulder Abd 2#R, 3#L 15x 9: *standing IR AAROM with cane, ghada 5-10xea Skilled Intervention: Patient was educated in proper exercise technique and purpose for exercises. Reviewed and educated patient on additions/changes for home exercise program as above (*). Skilled judgment was used in selection of appropriate interventions. Correct performance of therapeutic exercises was facilitated with verbal and visual cuing. Educated patient on rationale for performing exercises in regards to increase ease of ADL and ROM and function. Patient education as noted. Billing Therapeutic Exercise Treatment Minutes: 32 Skilled Treatment Time Minutes (timed and untimed codes): 32 Total Session Time (minutes): 32 Session Start Time : 1335 Session Stop Time : 1407 Kelsea Fajardo, PT [facility] 10-16-2024 History of Present illness Narrative Episode Visit Count: 21 Therapist That Will Accept/Oversee The Plan Of Care: Li Fajardo Start of Care Date: 07/07/24 Onset Date: 02/07/24 Plan of Care Certification Date: 10/14/24 Next Certification Due Date: 12/13/24 REHABILITATION AND SPORTS THERAPY PHYSICAL THERAPY TREATMENT NOTE ASSESSMENT: Adam Guajardo tolerated the session with expected muscle soreness. She demonstrated improvements in exercise tolerance and fxl use of R UE. The patient will continue to benefit from ongoing skilled physical therapy to progress toward set goals. PLAN FOR NEXT VISIT: continue to progress R shoulder ROM & strength SUBJECTIVE: doing ok today. shoulder felt better after doing ER stretch with jose g (pvc pipe) last visit. she likes learning new exercises/stretches to do. Pain: OBJECTIVE MEASURES WITH LEVEL OF FUNCTION: TREATMENT: Therapeutic Exercise: 1: *doorway shoulder ER/pec stretch 2: seated shoulder AAROM with ghada FE & Abd 3: seated bicep curls 10#R/L 20x 4: seated/standing shoulder AAROM with cane FE, ER & Abd 5: quadrupred push-ups 20x 6: standing shoulder FE 2#R, 3#L 20x 7: standing shoulder scaption 2#R, 3#L 20x 8: standing shoulder Abd 2#R, 3#L 15x 9: *standing IR AAROM with cane, ghada 5-10xea Skilled Intervention: Patient was educated in proper exercise technique and purpose for exercises. Reviewed and educated patient on additions/changes for home exercise program as above (*). Skilled judgment was used in selection of appropriate interventions. Correct performance of therapeutic exercises was facilitated with verbal and visual cuing. Educated patient on rationale for performing exercises in regards to increase ease of ADL and ROM and function. Patient education as noted. Billing Therapeutic Exercise Treatment Minutes: 32 Skilled Treatment Time Minutes (timed and untimed codes): 32 Total Session Time (minutes): 32 Session Start Time : 1335 Session Stop Time : 1407 Kelsea Fajardo PT documented in this encounter [facility] 10-14-2024 Note HNO ID: [id number] Author: KELSEA FAJARDO PT Service: ? Author Type: Physical Therapist Type: Progress Notes Filed: 10/14/2024 15:40 Note Text: Episode Visit Count: 20 Therapist That Will Accept/Oversee The Plan Of Care: Li Fajardo Start of Care Date: 07/07/24 Onset Date: 02/07/24 Plan of Care Certification Date: 10/14/24 Next Certification Due Date: 12/13/24 Rehab Precautions: Shoulder Precautions Precaution/Activity Restriction Comments: Phase 1 AND 2 strengthening as appropriate Current Surgical Procedure : R shoulder ARCR Current Surgical Procedure Date: 05/27/24 Mechanism of Injury: Fall REHABILITATION AND SPORTS THERAPY PHYSICAL THERAPY PROGRESS REPORT PLAN OF CARE UPDATE: Assessment: Adam Guajardo demonstrates improvements in lifting, physical activities, reaching behind back, reaching overhead, use hand with arm at shoulder level, and grooming. The patient has progressed toward goals. Patient continues to present with impairments in ADL's, joint mobility, overall function, range of motion, and strength that interfere with reaching overhead, reaching behind back, lifting, recreational activities . Current prognosis is Good due to: current objective clinical presentation, good overall health status, acuteness of condition, within-session changes, good support system/ coping skills Fair due to: clinical presentation, chronic nature of impairments . She presents 4 months s/p R RCR doing well with minimal pain but remains limited by weakness AND tightness. The patient will benefit from continued skilled therapy services to meet the updated goals for this plan of care as noted below. Goals for Episode of Care: established 07/07/24 Patient reported outcome of physical function and self-efficacy will increase T-score by a minimum 5 points. Rawlins in home exercise program. Patient will decrease pain to 0/10 with functional activities to allow patient to improve ADLs. Patient will increase active ROM of R shoulder to wnl, symmetrical AND painfree to allow pt to to improve postural alignment and to improve performance of ADLs. Patient will demonstrate increase in R UE/shoulder strength to 5/5 during manual muscle testing in order to improve function for basic self-care tasks, home management tasks, leisure / recreation skills, and prior functional tasks. Patient Goals: full use of R UE Time Frame for Goals and Treatment : 12/13/24 Planned Interventions, Frequency, and Duration: 1x/week, 8 weeks Patient to be seen for Therapeutic exercise (34337), Manual therapy (34407), Self-half-way management (29997), Therapeutic activities (19709), Patient/Family/Caregiver Education PLAN FOR NEXT VISIT: continue to progress R shoulder ROM AND strength SUBJECTIVE: doing pretty good. reports mild shoulder stiffness/soreness vs minimal to no pain. thinks her shoulder is slowly getting better. doing exercises at home, thinks she needs to do more. says PT is still helping AND would like to continue. Functional Limitations: reaching overhead, reaching behind back, lifting, recreational activities Pain: Pain Pain Level: 0 Pain Location: Shoulder - Right Description: Stiffness, Sore Worst Pain Level: 1 PROMIS Scales 10/02/2024 09/02/2024 08/12/2024 Higher is Better Phys Func - T Score 52 (within normal limits) 52 (within normal limits) 51 (within normal limits) Phys Func - Percentile 58 58 54 Self-Eff Symptom - T Score 54 (Average) 48 (Average) 54 (Average) Self-Eff Symptom - Percentile 66 42 66 T-Score and Percentile Interpretation T-scores: mean of general population = 50. 5 points is clinically meaningfully difference Percentiles provide an indication of how the patient's score ranks in relation to the general population. Higher percentile rankings indicate better function/quality of life. 50th percentile is the average of the general population and indicates half of respondents had a worse score. OBJECTIVE MEASURES WITH LEVEL OF FUNCTION: UE AROM R Shoulder Flex: 125 Degrees R Shoulder ABduction: 120 Degrees R Shoulder Internal Rotation (Functional): T11 R Shoulder External Rotation: 50 Degrees R Shoulder External Rotation (Functional): C6 UE PROM R Shoulder External Rotation: 60 Degrees UE and Cervical Strength R UE Strength: R shoulder weakness as noted below L UE Strength: L shoulder grossly 55 R Shoulder Flexion: 3+/5 R Shoulder Abduction (C5): 3+/5 R Shoulder Internal Rotation: 4+/5 R Shoulder External Rotation: 4/5 (within available range) R Middle Trapezius: 3+/5 TREATMENT: Therapeutic Exercise: 1: recheck - see objective for details, discussed progress AND deficits, 2: prone horiz ABd 3#L/R 20xea 3: s/l shoulder ABd 3#R 30x 4: s/l shoulder ER 3#R 30x 5: seated shoulder FE 2#R 3#L 6: seated shoulder Abd 2#R 3#L 7: standing UT stretch R/L 8: wall push-ups 10xB, unilat 10xR partial 9: modified push-up (more content not included)... [facility] 10-14-2024 History of Present illness Narrative Episode Visit Count: 20 Therapist That Will Accept/Oversee The Plan Of Care: Li Fajardo Start of Care Date: 07/07/24 Onset Date: 02/07/24 Plan of Care Certification Date: 10/14/24 Next Certification Due Date: 12/13/24 Rehab Precautions: Shoulder Precautions Precaution/Activity Restriction Comments: Phase 1 & 2 strengthening as appropriate Current Surgical Procedure : R shoulder ARCR Current Surgical Procedure Date: 05/27/24 Mechanism of Injury: Fall REHABILITATION AND SPORTS THERAPY PHYSICAL THERAPY PROGRESS REPORT PLAN OF CARE UPDATE: Assessment: Adam Guajardo demonstrates improvements in lifting, physical activities, reaching behind back, reaching overhead, use hand with arm at shoulder level, and grooming. The patient has progressed toward goals. Patient continues to present with impairments in ADL's, joint mobility, overall function, range of motion, and strength that interfere with reaching overhead, reaching behind back, lifting, recreational activities . Current prognosis is Good due to: current objective clinical presentation, good overall health status, acuteness of condition, within-session changes, good support system/ coping skills Fair due to: clinical presentation, chronic nature of impairments . She presents 4 months s/p R RCR doing well with minimal pain but remains limited by weakness & tightness. The patient will benefit from continued skilled therapy services to meet the updated goals for this plan of care as noted below. Goals for Episode of Care: established 07/07/24 Patient reported outcome of physical function and self-efficacy will increase T-score by a minimum 5 points. Rawlins in home exercise program. Patient will decrease pain to 0/10 with functional activities to allow patient to improve ADLs. Patient will increase active ROM of R shoulder to wnl, symmetrical & painfree to allow pt to to improve postural alignment and to improve performance of ADLs. Patient will demonstrate increase in R UE/shoulder strength to 5/5 during manual muscle testing in order to improve function for basic self-care tasks, home management tasks, leisure / recreation skills, and prior functional tasks. Patient Goals: full use of R UE Time Frame for Goals and Treatment : 12/13/24 Planned Interventions, Frequency, and Duration: 1x/week, 8 weeks Patient to be seen for Therapeutic exercise (34939), Manual therapy (52693), Self-half-way management (77782), Therapeutic activities (22454), Patient/Family/Caregiver Education PLAN FOR NEXT VISIT: continue to progress R shoulder ROM & strength SUBJECTIVE: doing pretty good. reports mild shoulder stiffness/soreness vs minimal to no pain. thinks her shoulder is slowly getting better. doing exercises at home, thinks she needs to do more. says PT is still helping & would like to continue. Functional Limitations: reaching overhead, reaching behind back, lifting, recreational activities Pain: Pain Pain Level: 0 Pain Location: Shoulder - Right Description: Stiffness, Sore Worst Pain Level: 1 PROMIS Scales 10/02/2024 09/02/2024 08/12/2024 Higher is Better Phys Func - T Score 52 (within normal limits) 52 (within normal limits) 51 (within normal limits) Phys Func - Percentile 58 58 54 Self-Eff Symptom - T Score 54 (Average) 48 (Average) 54 (Average) Self-Eff Symptom - Percentile 66 42 66 T-Score and Percentile Interpretation T-scores: mean of general population = 50. 5 points is clinically meaningfully difference Percentiles provide an indication of how the patient's score ranks in relation to the general population. Higher percentile rankings indicate better function/quality of life. 50th percentile is the average of the general population and indicates half of respondents had a worse score. OBJECTIVE MEASURES WITH LEVEL OF FUNCTION: UE AROM R Shoulder Flex: 125 Degrees R Shoulder ABduction: 120 Degrees R Shoulder Internal Rotation (Functional): T11 R Shoulder External Rotation: 50 Degrees R Shoulder External Rotation (Functional): C6 UE PROM R Shoulder External Rotation: 60 Degrees UE and Cervical Strength R UE Strength: R shoulder weakness as noted below L UE Strength: L shoulder grossly 55 R Shoulder Flexion: 3+/5 R Shoulder Abduction (C5): 3+/5 R Shoulder Internal Rotation: 4+/5 R Shoulder External Rotation: 4/5 (within available range) R Middle Trapezius: 3+/5 TREATMENT: Therapeutic Exercise: 1: recheck - see objective for details, discussed progress & deficits, 2: prone horiz ABd 3#L/R 20xea 3: s/l shoulder ABd 3#R 30x 4: s/l shoulder ER 3#R 30x 5: seated shoulder FE 2#R 3#L 6: seated shoulder Abd 2#R 3#L 7: standing UT stretch R/L 8: wall push-ups 10xB, unilat 10xR partial 9: modified push-ups on elevated mat table 10x 10: standing ER AAROM/stretch with cane 10x Skilled Intervention: Patient was educated in proper exercise technique and purpose for exercises. Skilled judgment was used in selection of appropriate interventions. Correct performance of therapeutic exercises was facilitated with verbal, visual, and tactile cuing. Educated patient on rationale for performing exercises in regards to increase ease of ADL and ROM and function. Patient education as noted. Billing Therapeutic Exercise Treatment Minutes: 43 Skilled Treatment Time Minutes (timed and untimed codes): 43 Total Session Time (minutes): 43 Session Start Time : 1325 Session Stop Time : 1408 Kelsea Fajardo PT documented in this encounter [facility] 10-09-2024 Note HNO ID: [id number] Author: RAIMUNDO ACEVES PTA Service: ? Author Type: Napkin Machine Operator Type: Progress Notes Filed: 10/09/2024 11:49 Note Text: Episode Visit Count: 19 Therapist That Will Accept/Oversee The Plan Of Care: Li Fajardo Start of Care Date: 07/07/24 Onset Date: 02/07/24 Plan of Care Certification Date: 07/07/24 Next Certification Due Date: 10/05/24 Patient Identified by Name and Date of : Yes REHABILITATION AND SPORTS THERAPY PHYSICAL THERAPY TREATMENT NOTE ASSESSMENT: Adam Guajardo tolerated the session with expected muscle soreness. She demonstrated difficulty with right shoulder hike with AROM right shoulder elevation in gravity dependent positions and improvements in scapular stability . The patient will continue to benefit from ongoing skilled physical therapy to progress toward set goals. PLAN FOR NEXT VISIT: progress right shoulder complex strength , scapular stability , and AROM right shoulder all planes SUBJECTIVE: patient reports right shoulder tightness initially with motion and tingling in right shoulder to right elbow tih right shouldre flexion, reports jsoeph imrpvement in reaching up Pain: Pain Pain Level: 0 Pain Location: Shoulder - Right Description: Stiffness Post Treatment Pain Post Treatment Pain Level: No Change OBJECTIVE MEASURES WITH LEVEL OF FUNCTION: UE and Cervical Strength R Shoulder Flexion: 3+/5 TREATMENT: Therapeutic Exercise: 1: standing AROM right shoulder flexion , wall slide with assist fromlegs with forward lunge , 10 x , 10 x with decreased compression into wall with eccentric return from flexion 2: hooklying wit right shoulder at 90 degrees flexion scpular stability 20 seconds x 3 3: hooklying right SA punch 2# 10 z at 90 degrees , 10 x at ~105 degrees 4: hooklying horizontal abduction pink tb 10 x , blue tb 10 x 5: seated bilateral sholulder ER with scaplar retraction 10 x 2 pink tb 6: sidelying left righ tshoulder abduction 3# 10 x 2 7: seated with right shoulder at 90 / 90 degrees flexion and abduction right shoulder IR green tb 10 x 2 8: seated AROM right shoulder elevation 5 x 2 within range of not hiking right shoulder Skilled Intervention: Patient was educated in proper exercise technique and purpose for exercises. Skilled judgment was used in selection of appropriate interventions. Billing Therapeutic Exercise Treatment Minutes: 46 Skilled Treatment Time Minutes (timed and untimed codes): 46 Total Session Time (minutes): 46 Session Start Time : 1046 Session Stop Time : 1132 Raimundo Aceves PTA [facility] 10-09-2024 History of Present illness Narrative Episode Visit Count: 19 Therapist That Will Accept/Oversee The Plan Of Care: Li Fajardo Start of Care Date: 07/07/24 Onset Date: 02/07/24 Plan of Care Certification Date: 07/07/24 Next Certification Due Date: 10/05/24 Patient Identified by Name and Date of : Yes REHABILITATION AND SPORTS THERAPY PHYSICAL THERAPY TREATMENT NOTE ASSESSMENT: Adam Guajardo tolerated the session with expected muscle soreness. She demonstrated difficulty with right shoulder hike with AROM right shoulder elevation in gravity dependent positions and improvements in scapular stability . The patient will continue to benefit from ongoing skilled physical therapy to progress toward set goals. PLAN FOR NEXT VISIT: progress right shoulder complex strength , scapular stability , and AROM right shoulder all planes SUBJECTIVE: patient reports right shoulder tightness initially with motion and tingling in right shoulder to right elbow tih right shouldre flexion, reports joseph imrpvement in reaching up Pain: Pain Pain Level: 0 Pain Location: Shoulder - Right Description: Stiffness Post Treatment Pain Post Treatment Pain Level: No Change OBJECTIVE MEASURES WITH LEVEL OF FUNCTION: UE and Cervical Strength R Shoulder Flexion: 3+/5 TREATMENT: Therapeutic Exercise: 1: standing AROM right shoulder flexion , wall slide with assist fromlegs with forward lunge , 10 x , 10 x with decreased compression into wall with eccentric return from flexion 2: hooklying wit right shoulder at 90 degrees flexion scpular stability 20 seconds x 3 3: hooklying right SA punch 2# 10 z at 90 degrees , 10 x at ~105 degrees 4: hooklying horizontal abduction pink tb 10 x , blue tb 10 x 5: seated bilateral sholulder ER with scaplar retraction 10 x 2 pink tb 6: sidelying left righ tshoulder abduction 3# 10 x 2 7: seated with right shoulder at 90 / 90 degrees flexion and abduction right shoulder IR green tb 10 x 2 8: seated AROM right shoulder elevation 5 x 2 within range of not hiking right shoulder Skilled Intervention: Patient was educated in proper exercise technique and purpose for exercises. Skilled judgment was used in selection of appropriate interventions. Billing Therapeutic Exercise Treatment Minutes: 46 Skilled Treatment Time Minutes (timed and untimed codes): 46 Total Session Time (minutes): 46 Session Start Time : 1046 Session Stop Time : 1132 Raimundo Aceves PTA documented in this encounter [facility] 09-25-2024 Note HNO ID: [id number] Author: KELSEA FAJARDO, RANJANA Service: ? Author Type: Physical Therapist Type: Progress Notes Filed: 09/25/2024 11:46 Note Text: Episode Visit Count: 18 Therapist That Will Accept/Oversee The Plan Of Care: Li Fajardo Start of Care Date: 07/07/24 Onset Date: 02/07/24 Plan of Care Certification Date: 07/07/24 Next Certification Due Date: 10/05/24 REHABILITATION AND SPORTS THERAPY PHYSICAL THERAPY TREATMENT NOTE ASSESSMENT: Adam Guajardo tolerated the session with expected muscle soreness. She demonstrated difficulty with continued R shoulder weakness but slight improvements in AROM. The patient will continue to benefit from ongoing skilled physical therapy to progress toward set goals and to continue with post-operative protocol. PLAN FOR NEXT VISIT: continue to progress R shoulder AROM AND strength SUBJECTIVE: doing pretty good, thinks shoulder is doing a little better. reports minimal to no pain, more just stiffness AND occasional soreness Pain: Pain Pain Level: 1 (maybe a half) Pain Location: Shoulder - Right Description: Stiffness, Sore Worst Pain Level: 2 OBJECTIVE MEASURES WITH LEVEL OF FUNCTION: UE AROM R UE AROM: R shoulder limited by weakness AND faulty scap-humeral rhythm with compensatory shoulder shrug R Shoulder Flex: 125 Degrees UE and Cervical Strength R UE Strength: R shoulder FE AND Abd grossly 3- to 3/5, lacks anti-gravity AROM R Shoulder Flexion: 3-/5 (3- to 3/5) R Shoulder Abduction (C5): 3-/5 (3- to 3/5) TREATMENT: Therapeutic Exercise: 1: seated pulleys, flexion scaption abduction 15 x each 2: wall push-ups 10xB, unilat R/L 10xea 3: standing AAROM with cane FE, ER AND ABD 10x 4: standing prone horiz Abd 2#R 10x2 5: standing at mirror: shoulder FE, scaption AND ABd 1#R, 2#L 10x2 6: standing UT stretch 7: standing bicep curls 5#R/L 30x 8: supine tricep/elbow ext 5#R/L 15x 9: s/l shoulder Abd 3#R 30x 10: s/l shoulder ER 2#R 30x Skilled Intervention: Patient was educated in proper exercise technique and purpose for exercises. Skilled judgment was used in selection of appropriate interventions. Correct performance of therapeutic exercises was facilitated with verbal and visual cuing. Educated patient on rationale for performing exercises in regards to increase ease of ADL and ROM and function. Patient education as noted. Billing Therapeutic Exercise Treatment Minutes: 43 Skilled Treatment Time Minutes (timed and untimed codes): 43 Total Session Time (minutes): 43 Session Start Time : 1004 Session Stop Time : 1047 Kelsea Fajardo, PT [facility] 09-25-2024 History of Present illness Narrative Episode Visit Count: 18 Therapist That Will Accept/Oversee The Plan Of Care: Li Fajardo Start of Care Date: 07/07/24 Onset Date: 02/07/24 Plan of Care Certification Date: 07/07/24 Next Certification Due Date: 10/05/24 REHABILITATION AND SPORTS THERAPY PHYSICAL THERAPY TREATMENT NOTE ASSESSMENT: Adam Guajardo tolerated the session with expected muscle soreness. She demonstrated difficulty with continued R shoulder weakness but slight improvements in AROM. The patient will continue to benefit from ongoing skilled physical therapy to progress toward set goals and to continue with post-operative protocol. PLAN FOR NEXT VISIT: continue to progress R shoulder AROM & strength SUBJECTIVE: doing pretty good, thinks shoulder is doing a little better. reports minimal to no pain, more just stiffness & occasional soreness Pain: Pain Pain Level: 1 (maybe a half) Pain Location: Shoulder - Right Description: Stiffness, Sore Worst Pain Level: 2 OBJECTIVE MEASURES WITH LEVEL OF FUNCTION: UE AROM R UE AROM: R shoulder limited by weakness & faulty scap-humeral rhythm with compensatory shoulder shrug R Shoulder Flex: 125 Degrees UE and Cervical Strength R UE Strength: R shoulder FE & Abd grossly 3- to 3/5, lacks anti-gravity AROM R Shoulder Flexion: 3-/5 (3- to 3/5) R Shoulder Abduction (C5): 3-/5 (3- to 3/5) TREATMENT: Therapeutic Exercise: 1: seated pulleys, flexion scaption abduction 15 x each 2: wall push-ups 10xB, unilat R/L 10xea 3: standing AAROM with cane FE, ER & ABD 10x 4: standing prone horiz Abd 2#R 10x2 5: standing at mirror: shoulder FE, scaption & ABd 1#R, 2#L 10x2 6: standing UT stretch 7: standing bicep curls 5#R/L 30x 8: supine tricep/elbow ext 5#R/L 15x 9: s/l shoulder Abd 3#R 30x 10: s/l shoulder ER 2#R 30x Skilled Intervention: Patient was educated in proper exercise technique and purpose for exercises. Skilled judgment was used in selection of appropriate interventions. Correct performance of therapeutic exercises was facilitated with verbal and visual cuing. Educated patient on rationale for performing exercises in regards to increase ease of ADL and ROM and function. Patient education as noted. Billing Therapeutic Exercise Treatment Minutes: 43 Skilled Treatment Time Minutes (timed and untimed codes): 43 Total Session Time (minutes): 43 Session Start Time : 1004 Session Stop Time : 1047 Kelsea Fajardo PT documented in this encounter [facility] 09-23-2024 Note HNO ID: [id number] Author: RAIMUNDO ACEVES PTA Service: ? Author Type: Napkin Machine Operator Type: Progress Notes Filed: 09/25/2024 11:48 Note Text: Episode Visit Count: 17 Therapist That Will Accept/Oversee The Plan Of Care: Li Fajardo Start of Care Date: 07/07/24 Onset Date: 02/07/24 Plan of Care Certification Date: 07/07/24 Next Certification Due Date: 10/05/24 Patient Identified by Name and Date of : Yes REHABILITATION AND SPORTS THERAPY PHYSICAL THERAPY TREATMENT NOTE ASSESSMENT: Adam Guajardo tolerated the session with decreased symptoms and expected muscle soreness. She demonstrated difficulty with gravity dependent right shoulder flexion AROM and improvements in MMT rotator cuff strength. The patient will continue to benefit from ongoing skilled physical therapy to progress toward set goals. PLAN FOR NEXT VISIT: ccontinue to address functional right shoulder strength in gravity dependent positions as able SUBJECTIVE: patient reports stiffness around whole right shoulder , reports improvement in nreaching over head Pain: Pain Pain Level: 2 Pain Location: Shoulder - Right Description: Stiffness Frequency: Intermittent Post Treatment Pain Post Treatment Pain Level: Better OBJECTIVE MEASURES WITH LEVEL OF FUNCTION: UE AROM R Shoulder Flex: 94 Degrees (standing back tonwall 151 degrees aarom) UE and Cervical Strength R Shoulder Flexion: 4-/5 R Shoulder Abduction (C5): 4-/5 R Shoulder Internal Rotation: 5/5 R Shoulder External Rotation: 4/5 TREATMENT: Therapeutic Exercise: 1: seated pulleys, flexion scaption abduction 15 x each 2: standing AAROM right shoulde IR with cane behand back , seated right anterior capsule stretch 15 seconds x 3 3: hooklying right shoulder AROM flexio 2.5 # 10 x 2 4: hooklying horizotal abduction green tb 10 x 2 5: hooklying D2 flexion right ue orange tb 5 x 2 6: standing right shoulder ER pink tb 10 x 2 7: standing back to wall right shoulder flexion 5 x , to 94 degrees flexio withut right shoulder hike Skilled Intervention: Patient was educated in proper exercise technique and purpose for exercises. Skilled judgment was used in selection of appropriate interventions. Manual Therapy: 1: prone p/a mobs of right humerus in g-h joint Skilled Intervention: Manual skills to improve joint mobility, ROM, and decrease pain. Utilized anatomy knowledge of the clinician, and assessment of patient's response to intervention. Billing Therapeutic Exercise Treatment Minutes: 40 Manual TherapyTreatment Minutes: 5 Skilled Treatment Time Minutes (timed and untimed codes): 45 Total Session Time (minutes): 45 Session Start Time : 919 Session Stop Time : 100 Raimundo Aceves PTA [facility] 09-23-2024 History of Present illness Narrative Episode Visit Count: 17 Therapist That Will Accept/Oversee The Plan Of Care: Li Fajardo Start of Care Date: 07/07/24 Onset Date: 02/07/24 Plan of Care Certification Date: 07/07/24 Next Certification Due Date: 10/05/24 Patient Identified by Name and Date of : Yes REHABILITATION AND SPORTS THERAPY PHYSICAL THERAPY TREATMENT NOTE ASSESSMENT: Adam Guajardo tolerated the session with decreased symptoms and expected muscle soreness. She demonstrated difficulty with gravity dependent right shoulder flexion AROM and improvements in MMT rotator cuff strength. The patient will continue to benefit from ongoing skilled physical therapy to progress toward set goals. PLAN FOR NEXT VISIT: ccontinue to address functional right shoulder strength in gravity dependent positions as able SUBJECTIVE: patient reports stiffness around whole right shoulder , reports improvement in nreaching over head Pain: Pain Pain Level: 2 Pain Location: Shoulder - Right Description: Stiffness Frequency: Intermittent Post Treatment Pain Post Treatment Pain Level: Better OBJECTIVE MEASURES WITH LEVEL OF FUNCTION: UE AROM R Shoulder Flex: 94 Degrees (standing back tonwall 1515 degrees aarom) UE and Cervical Strength R Shoulder Flexion: 4-/5 R Shoulder Abduction (C5): 4-/5 R Shoulder Internal Rotation: 5/5 R Shoulder External Rotation: 4/5 TREATMENT: Therapeutic Exercise: 1: seated pulleys, flexion scaption abduction 15 x each 2: standing AAROM right shoulde IR with cane behand back , seated right anterior capsule stretch 15 seconds x 3 3: hooklying right shoulder AROM flexio 2.5 # 10 x 2 4: hooklying horizotal abduction green tb 10 x 2 5: hooklying D2 flexion right ue orange tb 5 x 2 6: standing right shoulder ER pink tb 10 x 2 7: standing back to wall right shoulder flexion 5 x , to 94 degrees flexio withut right shoulder hike Skilled Intervention: Patient was educated in proper exercise technique and purpose for exercises. Skilled judgment was used in selection of appropriate interventions. Manual Therapy: 1: prone p/a mobs of right humerus in g-h joint Skilled Intervention: Manual skills to improve joint mobility, ROM, and decrease pain. Utilized anatomy knowledge of the clinician, and assessment of patient's response to intervention. Billing Therapeutic Exercise Treatment Minutes: 40 Manual TherapyTreatment Minutes: 5 Skilled Treatment Time Minutes (timed and untimed codes): 45 Total Session Time (minutes): 45 Session Start Time : 919 Session Stop Time : 1004 Raimundo Aceves PTA documented in this encounter [facility] 09-16-2024 History of Present illness Narrative Episode Visit Count: 16 Therapist That Will Accept/Oversee The Plan Of Care: Li Fajardo Start of Care Date: 07/07/24 Onset Date: 02/07/24 Plan of Care Certification Date: 07/07/24 Next Certification Due Date: 10/05/24 Patient Identified by Name and Date of : Yes REHABILITATION AND SPORTS THERAPY PHYSICAL THERAPY TREATMENT NOTE ASSESSMENT: Adam Guajardo tolerated the session with decreased symptoms and expected muscle soreness. She demonstrated difficulty with continue right shoulder hike with AROM right shoulder flexion in gravity dependent position, also weakness in bilateral lower traps and improvements in right scapular mobility . The patient will continue to benefit from ongoing skilled physical therapy to progress toward set goals. PLAN FOR NEXT VISIT: progress right scapular stability and right RTC strength SUBJECTIVE: patient reports some tightness in right shoulder but impoving Pain: Pain Pain Level: 1 Pain Location: Scapula - Right, Shoulder - Right Description: Tightness Frequency: Intermittent Post Treatment Pain Post Treatment Pain Level: Better Post Treatment Pain Location: Shoulder - Right, Scapula - Right OBJECTIVE MEASURES WITH LEVEL OF FUNCTION: UE and Cervical Strength R Lower Trapezius: 3-/5 TREATMENT: Therapeutic Exercise: 1: UBE level 2 2 min forward /retro 2: hooklying horizontal abduction pin 3: prone Ts 5 x 2, unable to do prone Ys 4: standing shoulder extension with scapular depression 10 x 2 5: left sidelying right shoulder abduction 1 # , 2# 10 x each 6: sidelying left right shoulder ER 1 # 10 x 2 7: standing right elbow flexion5 # 10 x 2 thumb up /palm up 8: standing AAROM righshoulder flexion with AROM eccentric flexion 5 x 2 9: sidelying right right shoulder sleepern stretch 15 second hold x 3 Skilled Intervention: Patient was educated in proper exercise technique and purpose for exercises. Skilled judgment was used in selection of appropriate interventions. Manual Therapy: 1: supine to left sidelying right upper quadrant stretch through available ROM 2: sidlelying left soft tissue mobs around boarder od right scapula followed by scapular mbility Skilled Intervention: Manual skills to improve joint mobility, ROM, and decrease pain. Utilized anatomy knowledge of the clinician, and assessment of patient's response to intervention. Billing Therapeutic Exercise Treatment Minutes: 30 Manual TherapyTreatment Minutes: 12 Skilled Treatment Time Minutes (timed and untimed codes): 42 Total Session Time (minutes): 42 Session Start Time : 928 Session Stop Time : 1010 Raimundo Aceves PTA documented in this encounter [facility] 09-16-2024 Note HNO ID: [id number] Author: RAIMUNDO ACEVES PTA Service: ? Author Type: Napkin Machine Operator Type: Progress Notes Filed: 09/16/2024 12:00 Note Text: Episode Visit Count: 16 Therapist That Will Accept/Oversee The Plan Of Care: Li Fajardo Start of Care Date: 07/07/24 Onset Date: 02/07/24 Plan of Care Certification Date: 07/07/24 Next Certification Due Date: 10/05/24 Patient Identified by Name and Date of : Yes REHABILITATION AND SPORTS THERAPY PHYSICAL THERAPY TREATMENT NOTE ASSESSMENT: Adam Guajardo tolerated the session with decreased symptoms and expected muscle soreness. She demonstrated difficulty with continue right shoulder hike with AROM right shoulder flexion in gravity dependent position, also weakness in bilateral lower traps and improvements in right scapular mobility . The patient will continue to benefit from ongoing skilled physical therapy to progress toward set goals. PLAN FOR NEXT VISIT: progress right scapular stability and right RTC strength SUBJECTIVE: patient reports some tightness in right shoulder but impoving Pain: Pain Pain Level: 1 Pain Location: Scapula - Right, Shoulder - Right Description: Tightness Frequency: Intermittent Post Treatment Pain Post Treatment Pain Level: Better Post Treatment Pain Location: Shoulder - Right, Scapula - Right OBJECTIVE MEASURES WITH LEVEL OF FUNCTION: UE and Cervical Strength R Lower Trapezius: 3-/5 TREATMENT: Therapeutic Exercise: 1: UBE level 2 2 min forward /retro 2: hooklying horizontal abduction pin 3: prone Ts 5 x 2, unable to do prone Ys 4: standing shoulder extension with scapular depression 10 x 2 5: left sidelying right shoulder abduction 1 # , 2# 10 x each 6: sidelying left right shoulder ER 1 # 10 x 2 7: standing right elbow flexion5 # 10 x 2 thumb up /palm up 8: standing AAROM righshoulder flexion with AROM eccentric flexion 5 x 2 9: sidelying right right shoulder sleepern stretch 15 second hold x 3 Skilled Intervention: Patient was educated in proper exercise technique and purpose for exercises. Skilled judgment was used in selection of appropriate interventions. Manual Therapy: 1: supine to left sidelying right upper quadrant stretch through available ROM 2: sidlelying left soft tissue mobs around boarder od right scapula followed by scapular mbility Skilled Intervention: Manual skills to improve joint mobility, ROM, and decrease pain. Utilized anatomy knowledge of the clinician, and assessment of patient's response to intervention. Billing Therapeutic Exercise Treatment Minutes: 30 Manual TherapyTreatment Minutes: 12 Skilled Treatment Time Minutes (timed and untimed codes): 42 Total Session Time (minutes): 42 Session Start Time : 928 Session Stop Time : 1010 Raimundo Aceves PTA [facility] 09-11-2024 Note HNO ID: [id number] Author: RENU CLINE PT Service: ? Author Type: Physical Therapist Type: Progress Notes Filed: 09/11/2024 10:47 Note Text: Episode Visit Count: 15 Therapist That Will Accept/Oversee The Plan Of Care: Li Fajardo Start of Care Date: 07/07/24 Onset Date: 02/07/24 Plan of Care Certification Date: 07/07/24 Next Certification Due Date: 10/05/24 Patient Identified by Name and Date of : Yes REHABILITATION AND SPORTS THERAPY PHYSICAL THERAPY TREATMENT NOTE ASSESSMENT: Adam Guajardo tolerated the session with expected muscle soreness and no issues. She demonstrated Improvement with scapular movement in conjunction with GH joint when breaking down movements in prone exercises. Improvements in ROM when measured pre and post manual. The patient will continue to benefit from ongoing skilled physical therapy to continue with post-operative protocol. PLAN FOR NEXT VISIT: continue to progress R shoulder ROM AND strength, improve scap-humeral rhythm SUBJECTIVE: Pt has no new issues. Shoulder is feeling good. HEP that was updated last session have been able to do at home without issues. Pain: Pain Pain Level: 1 Pain Location: Shoulder - Right Description: Aching, Sore Frequency: Intermittent Post Treatment Pain Post Treatment Pain Level: Better Post Treatment Pain Location: Shoulder - Right OBJECTIVE MEASURES WITH LEVEL OF FUNCTION: UE PROM R Shoulder Flex: 155 Degrees R Shoulder External Rotation: 62 Degrees TREATMENT: Therapeutic Exercise: 1: Pulleys flexion 2 min 2: Pulleys abduction 2 min 3: Supine shoulder flexion to 90 1lb, 20x 4: S/l shoulder abduction 1 lb 30x 5: S/l ER with towel 1 lb 30x 6: Prone R shoulder scap retractions 30x 7: Prone horiz abd 1 lb 30x (Initiate scap retraction prior) 8: Prone shoulder ext 1 lb 30x (initiate scap retraction prior) Skilled Intervention: Patient was educated in proper exercise technique and purpose for exercises. Skilled judgment was used in selection of appropriate interventions. Correct performance of therapeutic exercises was facilitated with verbal and tactile cuing. Manual Therapy: 1: supine shoulder PROM ER, FE AND Abd hold at point of resistance 10-20'' 2: Suboccipital release 3 x 1 min, L UT stretching 2 x 30' 3: AAROM flexion in seated with PT GH stabilization to assist with biomechanics 30x Skilled Intervention: Manual skills to improve joint mobility, ROM, and decrease pain. Utilized anatomy knowledge of the clinician, and assessment of patient's response to intervention. Billing Therapeutic Exercise Treatment Minutes: 30 Manual TherapyTreatment Minutes: 15 Skilled Treatment Time Minutes (timed and untimed codes): 45 Total Session Time (minutes): 45 Session Start Time : 1001 Session Stop Time : 1046 Renu Cline, RANJANA [facility] 09-11-2024 History of Present illness Narrative Episode Visit Count: 15 Therapist That Will Accept/Oversee The Plan Of Care: Li Fajardo Start of Care Date: 07/07/24 Onset Date: 02/07/24 Plan of Care Certification Date: 07/07/24 Next Certification Due Date: 10/05/24 Patient Identified by Name and Date of : Yes REHABILITATION AND SPORTS THERAPY PHYSICAL THERAPY TREATMENT NOTE ASSESSMENT: Adam Guajardo tolerated the session with expected muscle soreness and no issues. She demonstrated Improvement with scapular movement in conjunction with GH joint when breaking down movements in prone exercises. Improvements in ROM when measured pre and post manual. The patient will continue to benefit from ongoing skilled physical therapy to continue with post-operative protocol. PLAN FOR NEXT VISIT: continue to progress R shoulder ROM & strength, improve scap-humeral rhythm SUBJECTIVE: Pt has no new issues. Shoulder is feeling good. HEP that was updated last session have been able to do at home without issues. Pain: Pain Pain Level: 1 Pain Location: Shoulder - Right Description: Aching, Sore Frequency: Intermittent Post Treatment Pain Post Treatment Pain Level: Better Post Treatment Pain Location: Shoulder - Right OBJECTIVE MEASURES WITH LEVEL OF FUNCTION: UE PROM R Shoulder Flex: 155 Degrees R Shoulder External Rotation: 62 Degrees TREATMENT: Therapeutic Exercise: 1: Pulleys flexion 2 min 2: Pulleys abduction 2 min 3: Supine shoulder flexion to 90 1lb, 20x 4: S/l shoulder abduction 1 lb 30x 5: S/l ER with towel 1 lb 30x 6: Prone R shoulder scap retractions 30x 7: Prone horiz abd 1 lb 30x (Initiate scap retraction prior) 8: Prone shoulder ext 1 lb 30x (initiate scap retraction prior) Skilled Intervention: Patient was educated in proper exercise technique and purpose for exercises. Skilled judgment was used in selection of appropriate interventions. Correct performance of therapeutic exercises was facilitated with verbal and tactile cuing. Manual Therapy: 1: supine shoulder PROM ER, FE & Abd hold at point of resistance 10-20'' 2: Suboccipital release 3 x 1 min, L UT stretching 2 x 30' 3: AAROM flexion in seated with PT GH stabilization to assist with biomechanics 30x Skilled Intervention: Manual skills to improve joint mobility, ROM, and decrease pain. Utilized anatomy knowledge of the clinician, and assessment of patient's response to intervention. Billing Therapeutic Exercise Treatment Minutes: 30 Manual TherapyTreatment Minutes: 15 Skilled Treatment Time Minutes (timed and untimed codes): 45 Total Session Time (minutes): 45 Session Start Time : 1001 Session Stop Time : 1046 Renu Cline PT documented in this encounter [facility] 09-09-2024 History of Present illness Narrative Episode Visit Count: 14 Therapist That Will Accept/Oversee The Plan Of Care: Li Fajardo Start of Care Date: 07/07/24 Onset Date: 02/07/24 Plan of Care Certification Date: 07/07/24 Next Certification Due Date: 10/05/24 Rehab Precautions: Shoulder Precautions Precaution/Activity Restriction Comments: Phase 1 & 2 strengthening as appropriate (per recent f/u with surgeon) Current Surgical Procedure : R shoulder ARCR Current Surgical Procedure Date: 05/27/24 Mechanism of Injury: Fall REHABILITATION AND SPORTS THERAPY PHYSICAL THERAPY PROGRESS REPORT PLAN OF CARE UPDATE: Assessment: Adam Guajardo demonstrates improvements in lifting, physical activities, reaching behind back, use hand with arm at shoulder level, dressing, and grooming. The patient has progressed toward goals. Patient continues to present with impairments in ADL's, independence in exercise, joint mobility, overall function, range of motion, strength, and symptom management that interfere with reaching overhead, reaching behind back, lifting, recreational activities, grooming . Current prognosis is Good due to: current objective clinical presentation, good overall health status, acuteness of condition, within-session changes, good support system/ coping skills Fair due to: clinical presentation, chronic nature of impairments . She presents over 3 months s/p R RCR doing well with minimal pain but remains limited by significant weakness along with tightness thus with faulty scap-humeral rhythm (mostly d/t weakness & compensatory shoulder shrug) and impaired/limited use of R UE. The patient will benefit from continued skilled therapy services to meet the updated goals for this plan of care as noted below. Goals for Episode of Care: established 07/07/24 Patient reported outcome of physical function and self-efficacy will increase T-score by a minimum 5 points. [place] in home exercise program. Patient will decrease pain to 0/10 with functional activities to allow patient to improve ADLs. Patient will increase active ROM of R shoulder to wnl, symmetrical & painfree to allow pt to to improve postural alignment and to improve performance of ADLs. Patient will demonstrate increase in R UE/shoulder strength to 5/5 during manual muscle testing in order to improve function for basic self-care tasks, home management tasks, leisure / recreation skills, and prior functional tasks. Patient Goals: full use of R UE Planned Interventions, Frequency, and Duration: (1-2x/wk), Patient to be seen for Therapeutic exercise (78171), Manual therapy (30153), Self-half-way management (15828), Therapeutic activities (03918), Patient/Family/Caregiver Education PLAN FOR NEXT VISIT: continue to progress R shoulder ROM & strength, improve scap-humeral rhythm SUBJECTIVE: doing pretty good. reports minimal to no shoulder pain although she's sore & tired from helping a friend clean out her garage yesterday. still limited by tightness & weakness but notes gradual improvement and she's pleased with where she's at. had f/u with surgeon last week which went well, next f/u in November. Functional Limitations: reaching overhead, reaching behind back, lifting, recreational activities, grooming Pain: Pain Pain Level: 1 Pain Location: Shoulder - Right Description: Aching, Sore Worst Pain Level: 2 PROMIS Scales 09/02/2024 08/12/2024 07/22/2024 Higher is Better Phys Func - T Score 52 (within normal limits) 51 (within normal limits) 47 (within normal limits) Phys Func - Percentile 58 54 38 Self-Eff Symptom - T Score 48 (Average) 54 (Average) 39 (Low) Self-Eff Symptom - Percentile 42 66 14 T-scores: mean of general population = 50. 5 points is clinically meaningfully difference Percentiles provide an indication of how the patient's score ranks in relation to the general population. Higher percentile rankings indicate better function/quality of life. 50th percentile is the average of the general population and indicates half of respondents had a worse score. OBJECTIVE MEASURES WITH LEVEL OF FUNCTION: UE AROM R UE AROM: R shoulder limitations as noted below, limited by weakness > tightness with faulty scap-humeral rhythm L UE AROM: L shoulder wnl & painfree R Shoulder Flex: 95 Degrees (seated, 160AA) R Shoulder ABduction: 90 Degrees (seated, 150AA) R Shoulder Internal Rotation (Functional): T11 R Shoulder External Rotation: 50 Degrees R Shoulder External Rotation (Functional): C6 UE PROM R UE PROM: R shoulder limited by tightness as noted below R Shoulder Flex: 155 Degrees R Shoulder ABduction: 160 Degrees R Shoulder External Rotation: 60 Degrees UE and Cervical Strength R UE Strength: R shoulder weakness as noted below L UE Strength: L shoulder grossly 5/5 R Shoulder Flexion: 3-/5 R Shoulder Abduction (C5): 3-/5 R Shoulder Internal Rotation: 4+/5 R Shoulder External Rotation: 4/5 (within available range) R Middle Trapezius: 3/5 (vs 4+ to 5/5 on L) R Elbow Flexion (C6): 5/5 TREATMENT: Therapeutic Exercise: 1: recheck - see objective for details, discussed progress & deficits, plans for PT 2: seated shoulder AAROM, reviewed shoulder AAROM/stretches with cane wall wash etc 3: *prone horiz Abd 1#R 30x 4: s/l shoulder ER 2#R 20x 5: s/l shoulder ABd 2#R 30x 6: *doorway ER stretch 7: reveiwed/performed standing UT stretch 8: seated/standing shoulder FE & ABd 1#R 5-10xea partial range with empahasis on scap stability Skilled Intervention: Patient was educated in proper exercise technique and purpose for exercises. Reviewed and educated patient on additions/changes for home exercise program as above (*). Skilled judgment was used in selection of appropriate interventions. Correct performance of therapeutic exercises was facilitated with verbal, visual, and tactile cuing. Educated patient on rationale for performing exercises in regards to increase ease of ADL and ROM and function. Patient education as noted. Manual Therapy: 1: supine shoulder PROM ER, FE & Abd Skilled Intervention: Manual skills to improve joint mobility, ROM, and decrease pain. Utilized anatomy knowledge of the clinician, and assessment of patient's response to intervention. Billing Therapeutic Exercise Treatment Minutes: 33 Manual TherapyTreatment Minutes: 5 Skilled Treatment Time Minutes (timed and untimed codes): 38 Total Session Time (minutes): 38 Session Start Time : 1053 Session Stop Time : 1131 Kelsea Faajrdo PT documented in this encounter [facility] 09-09-2024 Note HNO ID: [id number] Author: KELSEA FAJARDO PT Service: ? Author Type: Physical Therapist Type: Progress Notes Filed: 09/09/2024 12:00 Note Text: Episode Visit Count: 14 Therapist That Will Accept/Oversee The Plan Of Care: Li Fajardo Start of Care Date: 07/07/24 Onset Date: 02/07/24 Plan of Care Certification Date: 07/07/24 Next Certification Due Date: 10/05/24 Rehab Precautions: Shoulder Precautions Precaution/Activity Restriction Comments: Phase 1 AND 2 strengthening as appropriate (per recent f/u with surgeon) Current Surgical Procedure : R shoulder ARCR Current Surgical Procedure Date: 05/27/24 Mechanism of Injury: Fall REHABILITATION AND SPORTS THERAPY PHYSICAL THERAPY PROGRESS REPORT PLAN OF CARE UPDATE: Assessment: Adam Guajardo demonstrates improvements in lifting, physical activities, reaching behind back, use hand with arm at shoulder level, dressing, and grooming. The patient has progressed toward goals. Patient continues to present with impairments in ADL's, independence in exercise, joint mobility, overall function, range of motion, strength, and symptom management that interfere with reaching overhead, reaching behind back, lifting, recreational activities, grooming . Current prognosis is Good due to: current objective clinical presentation, good overall health status, acuteness of condition, within-session changes, good support system/ coping skills Fair due to: clinical presentation, chronic nature of impairments . She presents over 3 months s/p R RCR doing well with minimal pain but remains limited by significant weakness along with tightness thus with faulty scap-humeral rhythm (mostly d/t weakness AND compensatory shoulder shrug) and impaired/limited use of R UE. The patient will benefit from continued skilled therapy services to meet the updated goals for this plan of care as noted below. Goals for Episode of Care: established 07/07/24 Patient reported outcome of physical function and self-efficacy will increase T-score by a minimum 5 points. [place] in home exercise program. Patient will decrease pain to 0/10 with functional activities to allow patient to improve ADLs. Patient will increase active ROM of R shoulder to wnl, symmetrical AND painfree to allow pt to to improve postural alignment and to improve performance of ADLs. Patient will demonstrate increase in R UE/shoulder strength to 5/5 during manual muscle testing in order to improve function for basic self-care tasks, home management tasks, leisure / recreation skills, and prior functional tasks. Patient Goals: full use of R UE Planned Interventions, Frequency, and Duration: (1-2x/wk), Patient to be seen for Therapeutic exercise (98338), Manual therapy (16122), Self-half-way management (33777), Therapeutic activities (43638), Patient/Family/Caregiver Education PLAN FOR NEXT VISIT: continue to progress R shoulder ROM AND strength, improve scap-humeral rhythm SUBJECTIVE: doing pretty good. reports minimal to no shoulder pain although she's sore AND tired from helping a friend clean out her garage yesterday. still limited by tightness AND weakness but notes gradual improvement and she's pleased with where she's at. had f/u with surgeon last week which went well, next f/u in November. Functional Limitations: reaching overhead, reaching behind back, lifting, recreational activities, grooming Pain: Pain Pain Level: 1 Pain Location: Shoulder - Right Description: Aching, Sore Worst Pain Level: 2 PROMIS Scales 09/02/2024 08/12/2024 07/22/2024 Higher is Better Phys Func - T Score 52 (within normal limits) 51 (within normal limits) 47 (within normal limits) Phys Func - Percentile 58 54 38 Self-Eff Symptom - T Score 48 (Average) 54 (Average) 39 (Low) Self-Eff Symptom - Percentile 42 66 14 T-scores: mean of general population = 50. 5 points is clinically meaningfully difference Percentiles provide an indication of how the patient's score ranks in relation to the general population. Higher percentile rankings indicate better function/quality of life. 50th percentile is the average of the general population and indicates half of respondents had a worse score. OBJECTIVE MEASURES WITH LEVEL OF FUNCTION: UE AROM R UE AROM: R shoulder limitations as noted below, limited by weakness > tightness with faulty scap-humeral rhythm L UE AROM: L shoulder wnl AND painfree R Shoulder Flex: 95 Degrees (seated, 160AA) R Shoulder ABduction: 90 Degrees (seated, 150AA) R Shoulder Internal Rotation (Functional): T11 R Shoulder External Rotation: 50 Degrees R Shoulder External Rotation (Functional): C6 UE PROM R UE PROM: R shoulder limited by tightness as noted below R Shoulder Flex: 155 Degrees R Shoulder ABduction: 160 Degrees R Shoulder External Rotation: 60 Degrees UE and Cervical Strength R UE Strength: R shoulder weakness as noted below L UE Strength: L (more content not included)... [facility] 09-04-2024 Note HNO ID: [id number] Author: RAIMUNDO ACEVES PTA Service: ? Author Type: Napkin Machine Operator Type: Progress Notes Filed: 09/04/2024 12:23 Note Text: Episode Visit Count: 13 Therapist That Will Accept/Oversee The Plan Of Care: Li Fajardo Start of Care Date: 07/07/24 Onset Date: 02/07/24 Plan of Care Certification Date: 07/07/24 Next Certification Due Date: 10/05/24 Patient Identified by Name and Date of : Yes REHABILITATION AND SPORTS THERAPY PHYSICAL THERAPY TREATMENT NOTE ASSESSMENT: Adam Guajardo tolerated the session with decreased symptoms and expected muscle soreness. She demonstrated difficulty with mid range right shoulder stability with right shoulder elevation , and with continued right shoulder hike at ~ 90 degrees right shoulder elevation. The patient will continue to benefit from ongoing skilled physical therapy to progress toward set goals. PLAN FOR NEXT VISIT: progress right shoulder RTC and scapular strength , address any new orders form follow up visit with Dr Glaser SUBJECTIVE: patient reports pulling on her neck made her right shoudler feel really good after last PT appointment patient reports stiffness in right shoulder with A/AAROM, right shoulder flexion reports and demonstrates mid range right shoulder flexion pain , reports swimming more which she thinks is helping Pain: Pain Pain Level: 1 Pain Location: Shoulder - Right Description: Tightness, Sore Frequency: Intermittent Post Treatment Pain Post Treatment Pain Level: Better Post Treatment Pain Location: Shoulder - Right Post Treatment Pain Description: (looser) OBJECTIVE MEASURES WITH LEVEL OF FUNCTION: TREATMENT: Therapeutic Exercise: 1: seated pulleys AAROM right shoulde flexion , scaption, abduction , standing right shoulder ER AAROM 15 x each 2: hooklying AROM righ tshoulder ER pink tb 10 x 2 on diagnol fro left hi to right hand 3: left sidelying AROM right shoulder abduction 10 x , 10 x 1 # 4: seated left shoulder IR blue tb 10 x 2 5: hoolying AROM right shoulder flesxion 1# 10 x 5 x with manualstability of right humerus into right g-h joint , this relieved mid range flexion right shoulder pain 6: standing AROM bilateral shoulder fleion patient continues to hike right shoulder at ~ 90 degrees of tight shoulder flexion Skilled Intervention: Patient was educated in proper exercise technique and purpose for exercises. Skilled judgment was used in selection of appropriate interventions. Manual Therapy: 1: hooklying manual cervical traction intermittent 15 second hold 5 second relax x 6 min 2: hooklyingsuperior glide right humerus , inferior lateral glide right humerus Skilled Intervention: Manual skills to improve joint mobility, ROM, and decrease pain. Utilized anatomy knowledge of the clinician, and assessment of patient's response to intervention. Billing Therapeutic Exercise Treatment Minutes: 35 Manual TherapyTreatment Minutes: 9 Skilled Treatment Time Minutes (timed and untimed codes): 44 Total Session Time (minutes): 45 Session Start Time : 840 Session Stop Time : 925 Raimundo Aceves, TRAVEL PTA [facility] 09-04-2024 History of Present illness Narrative Episode Visit Count: 13 Therapist That Will Accept/Oversee The Plan Of Care: Li Fajardo Start of Care Date: 07/07/24 Onset Date: 02/07/24 Plan of Care Certification Date: 07/07/24 Next Certification Due Date: 10/05/24 Patient Identified by Name and Date of : Yes REHABILITATION AND SPORTS THERAPY PHYSICAL THERAPY TREATMENT NOTE ASSESSMENT: Adam Guajardo tolerated the session with decreased symptoms and expected muscle soreness. She demonstrated difficulty with mid range right shoulder stability with right shoulder elevation , and with continued right shoulder hike at ~ 90 degrees right shoulder elevation. The patient will continue to benefit from ongoing skilled physical therapy to progress toward set goals. PLAN FOR NEXT VISIT: progress right shoulder RTC and scapular strength , address any new orders form follow up visit with Dr Glaser SUBJECTIVE: patient reports pulling on her neck made her right shoudler feel really good after last PT appointment patient reports stiffness in right shoulder with A/AAROM, right shoulder flexion reports and demonstrates mid range right shoulder flexion pain , reports swimming more which she thinks is helping Pain: Pain Pain Level: 1 Pain Location: Shoulder - Right Description: Tightness, Sore Frequency: Intermittent Post Treatment Pain Post Treatment Pain Level: Better Post Treatment Pain Location: Shoulder - Right Post Treatment Pain Description: (looser) OBJECTIVE MEASURES WITH LEVEL OF FUNCTION: TREATMENT: Therapeutic Exercise: 1: seated pulleys AAROM right shoulde flexion , scaption, abduction , standing right shoulder ER AAROM 15 x each 2: hooklying AROM righ tshoulder ER pink tb 10 x 2 on diagnol fro left hi to right hand 3: left sidelying AROM right shoulder abduction 10 x , 10 x 1 # 4: seated left shoulder IR blue tb 10 x 2 5: hoolying AROM right shoulder flesxion 1# 10 x 5 x with manualstability of right humerus into right g-h joint , this relieved mid range flexion right shoulder pain 6: standing AROM bilateral shoulder fleion patient continues to hike right shoulder at ~ 90 degrees of tight shoulder flexion Skilled Intervention: Patient was educated in proper exercise technique and purpose for exercises. Skilled judgment was used in selection of appropriate interventions. Manual Therapy: 1: hooklying manual cervical traction intermittent 15 second hold 5 second relax x 6 min 2: hooklyingsuperior glide right humerus , inferior lateral glide right humerus Skilled Intervention: Manual skills to improve joint mobility, ROM, and decrease pain. Utilized anatomy knowledge of the clinician, and assessment of patient's response to intervention. Billing Therapeutic Exercise Treatment Minutes: 35 Manual TherapyTreatment Minutes: 9 Skilled Treatment Time Minutes (timed and untimed codes): 44 Total Session Time (minutes): 45 Session Start Time : 840 Session Stop Time : 925 Raimundo Acevse PTA documented in this encounter [facility] 09-04-2024 History of Present illness Narrative [facility] NOTE Department of Orthopaedics NAME: Adam Guajardo CLINIC NO.: [id number] DATE: 09/04/2024 SURGERY/PROCEDURE(S): * Right arthroscopic rotator cuff repair Right anterior labral debridement Date: 05/27/2024 Interval Hx: Adam Guajardo is back for 3 months follow up after above mentioned procedure. 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 she denies any new injury or trauma. she is not using pain medication. she is doing physical therapy and improving, particularly in regard to her axillary nerve function. she is satisfied with her results so far. Does still have some pain at mid flexion PHYSICAL EXAMINATION: Incision appears well-healed. Forward elevation is passively to 150 and actively to 90 External rotation is passively to 45 and actively to 45 Abduction is actively to 90 Internal rotation is actively to sacrum IR strength 5/5 ER strength 5/5 Abduction strength 4+/5 Firing deltoid, all three No axillary neuropraxia Belly press test is negative Fires m/r/uln/ax SILT m/r/uln/ax RADIOGRAPHIC STUDIES: no new imaging ASSESSMENT: Encounter Diagnosis ICD-10-CM 1. 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 S/P right rotator cuff repair Z98.890 PLAN: I told Adam Guajardo that she is doing well for her post-operative status. We should continue stretching exercises and now start phase 1 strengthening, with an introduction into phase 2 strengthening as appropriate. As long as symptoms are well controlled and rehab is going well, follow up with my clinic will be in 3 months. If any questions or concerns arise, she should not hesitate to call. Her axillary nerve is recovering well. Do not need to get EMG We talked about pain management around the time of rehab. We discussed the pros and cons of prescription NSAIDs and the avoidance of opioids. Adam is doing well and at this time she prefers to continue with OTC NSAIDs PRN Regular rehab 0-6 weeks: ultrasling, elbow/wrist/ hand exercises, no passive or active use of the arm 6-12 weeks: sling off, pendulum, supine passive assisted exercises until ROM gets normal (Phase 1 stretching; okay to start phase 2 stretching once full ROM with phase 1), lift < 2lb, ok to drive after 6 weeks 3-6 months: continue stretching, resistance bands, isometric exercises (phase 1 strengthening, followed by phase 2 strengthening), lift < 10lb 6+ months: no restrictions Return to work with limited duty at 2-6 months, full duty 6 months, Contact sports >4 months Nilton Glaser MD Shoulder and Elbow Surgeon Orthopaedic Surgery Department documented in this encounter [facility] 09-04-2024 Note HNO ID: [id number] Author: NILTON GLASER MD Service: ? Author Type: Physician Type: Progress Notes Filed: 09/04/2024 11:40 Note Text: [facility] NOTE Department of Orthopaedics NAME: Adam Guajardo CLINIC NO.: [id number] DATE: 09/04/2024 SURGERY/PROCEDURE(S): * Right arthroscopic rotator cuff repair Right anterior labral debridement Date: 05/27/2024 Interval Hx: Adam Guajardo is back for 3 months follow up after above mentioned procedure. 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 she denies any new injury or trauma. she is not using pain medication. she is doing physical therapy and improving, particularly in regard to her axillary nerve function. she is satisfied with her results so far. Does still have some pain at mid flexion PHYSICAL EXAMINATION: Incision appears well-healed. Forward elevation is passively to 150 ? and actively to 90 ? External rotation is passively to 45 ? and actively to 45 ? Abduction is actively to 90 ? Internal rotation is actively to sacrum IR strength 5/5 ER strength 5/5 Abduction strength 4+/5 Firing deltoid, all three No axillary neuropraxia Belly press test is negative Fires m/r/uln/ax SILT m/r/uln/ax RADIOGRAPHIC STUDIES: no new imaging ASSESSMENT: Encounter Diagnosis ICD-10-CM 1. 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 S/P right rotator cuff repair Z98.890 PLAN: I told Adam Guajardo that she is doing well for her post-operative status. We should continue stretching exercises and now start phase 1 strengthening, with an introduction into phase 2 strengthening as appropriate. As long as symptoms are well controlled and rehab is going well, follow up with my clinic will be in 3 months. If any questions or concerns arise, she should not hesitate to call. Her axillary nerve is recovering well. Do not need to get EMG We talked about pain management around the time of rehab. We discussed the pros and cons of prescription NSAIDs and the avoidance of opioids. Adam is doing well and at this time she prefers to continue with OTC NSAIDs PRN Regular rehab 0-6 weeks: ultrasling, elbow/wrist/ hand exercises, no passive or active use of the arm 6-12 weeks: sling off, pendulum, supine passive assisted exercises until ROM gets normal (Phase 1 stretching; okay to start phase 2 stretching once full ROM with phase 1), lift < 2lb, ok to drive after 6 weeks 3-6 months: continue stretching, resistance bands, isometric exercises (phase 1 strengthening, followed by phase 2 strengthening), lift < 10lb 6+ months: no restrictions Return to work with limited duty at 2-6 months, full duty 6 months, Contact sports >4 months Nilton Glaser MD Shoulder and Elbow Surgeon Orthopaedic Surgery Department [facility] 08-26-2024 Note HNO ID: [id number] Author: RAIMUNDO ACEVES PTA Service: ? Author Type: Napkin Machine Operator Type: Progress Notes Filed: 08/26/2024 14:35 Note Text: Episode Visit Count: 12 Therapist That Will Accept/Oversee The Plan Of Care: Li Fajardo Start of Care Date: 07/07/24 Onset Date: 02/07/24 Plan of Care Certification Date: 07/07/24 Next Certification Due Date: 10/05/24 Patient Identified by Name and Date of : Yes REHABILITATION AND SPORTS THERAPY PHYSICAL THERAPY TREATMENT NOTE ASSESSMENT: Adam Guajardo tolerated the session with decreased symptoms and expected muscle soreness. She demonstrated difficulty with poor scapular humeral rhythm with gravity dependent right shoulder flexion and improvements in AAROM right shoulder flexion post manual cervical traction. The patient will continue to benefit from ongoing skilled physical therapy to progress toward set goals. PLAN FOR NEXT VISIT: assess manual cervical traction with right shoulder flexion ROM , continue to strengthen mid and low traps , and address right shoulder complex strength SUBJECTIVE: patient reports tightness in posterior right shoulder , worse with right shoulder flexion , reports able to raise arm and throw tree limb away Pain: Pain Pain Level: 1 Pain Location: Shoulder - Right Description: Tightness Post Treatment Pain Post Treatment Pain Level: No Change Post Treatment Pain Location: Shoulder - Right Post Treatment Pain Description: (looser) OBJECTIVE MEASURES WITH LEVEL OF FUNCTION: UE AROM R Shoulder Flex: 88 Degrees (AROM seated , hooklying AAR)OM 145 degrees, post manual cervical traction AAROM 160 degrees) TREATMENT: Therapeutic Exercise: 1: seated AROM right shoulder flexion 5 x , verbal and tactile cues for decreasing right shoulder hike 2: supine P/AAROM right shoulder flexion pre and post manual techniques , patient AAROM increased from 147 degrees to 160 degrees with and post manual cervical traction 3: hooklyhing AROM right shoulder flexion 1# 10 x , 2# 5 x 4: standing right shoulder elbow flexion 3# 10 x thumb up , 10 x palm up 5: hooklying AROM right shoulder ER orange tb 10 x 2 6: standing wall slide A/AAROM right shoulder flexionwith le assist 10 x , scaption 10 x Skilled Intervention: Patient was educated in proper exercise technique and purpose for exercises. Skilled judgment was used in selection of appropriate interventions. Manual Therapy: 1: seated thoracic p/a mobs , 5 min 2: hooklying, posterior lateral and inferior lateral glides of right humerus in g-h joint 5 min 3: hooklying manual cervical traction intermittent 15 second hold 5 second relax x 6 min Skilled Intervention: Manual skills to improve joint mobility, ROM, and decrease pain. Utilized anatomy knowledge of the clinician, and assessment of patient's response to intervention. Billing Therapeutic Exercise Treatment Minutes: 30 Manual TherapyTreatment Minutes: 16 Skilled Treatment Time Minutes (timed and untimed codes): 46 Total Session Time (minutes): 49 Session Start Time : 1314 Session Stop Time : 1403 Raimundo HEBER Aceves [facility] 08-26-2024 History of Present illness Narrative Episode Visit Count: 12 Therapist That Will Accept/Oversee The Plan Of Care: Li Fajardo Start of Care Date: 07/07/24 Onset Date: 02/07/24 Plan of Care Certification Date: 07/07/24 Next Certification Due Date: 10/05/24 Patient Identified by Name and Date of : Yes REHABILITATION AND SPORTS THERAPY PHYSICAL THERAPY TREATMENT NOTE ASSESSMENT: Adam Guajardo tolerated the session with decreased symptoms and expected muscle soreness. She demonstrated difficulty with poor scapular humeral rhythm with gravity dependent right shoulder flexion and improvements in AAROM right shoulder flexion post manual cervical traction. The patient will continue to benefit from ongoing skilled physical therapy to progress toward set goals. PLAN FOR NEXT VISIT: assess manual cervical traction with right shoulder flexion ROM , continue to strengthen mid and low traps , and address right shoulder complex strength SUBJECTIVE: patient reports tightness in posterior right shoulder , worse with right shoulder flexion , reports able to raise arm and throw tree limb away Pain: Pain Pain Level: 1 Pain Location: Shoulder - Right Description: Tightness Post Treatment Pain Post Treatment Pain Level: No Change Post Treatment Pain Location: Shoulder - Right Post Treatment Pain Description: (looser) OBJECTIVE MEASURES WITH LEVEL OF FUNCTION: UE AROM R Shoulder Flex: 88 Degrees (AROM seated , hooklying AAR)OM 145 degrees, post manual cervical traction AAROM 160 degrees) TREATMENT: Therapeutic Exercise: 1: seated AROM right shoulder flexion 5 x , verbal and tactile cues for decreasing right shoulder hike 2: supine P/AAROM right shoulder flexion pre and post manual techniques , patient AAROM increased from 147 degrees to 160 degrees with and post manual cervical traction 3: hooklyhing AROM right shoulder flexion 1# 10 x , 2# 5 x 4: standing right shoulder elbow flexion 3# 10 x thumb up , 10 x palm up 5: hooklying AROM right shoulder ER orange tb 10 x 2 6: standing wall slide A/AAROM right shoulder flexionwith le assist 10 x , scaption 10 x Skilled Intervention: Patient was educated in proper exercise technique and purpose for exercises. Skilled judgment was used in selection of appropriate interventions. Manual Therapy: 1: seated thoracic p/a mobs , 5 min 2: hooklying, posterior lateral and inferior lateral glides of right humerus in g-h joint 5 min 3: hooklying manual cervical traction intermittent 15 second hold 5 second relax x 6 min Skilled Intervention: Manual skills to improve joint mobility, ROM, and decrease pain. Utilized anatomy knowledge of the clinician, and assessment of patient's response to intervention. Billing Therapeutic Exercise Treatment Minutes: 30 Manual TherapyTreatment Minutes: 16 Skilled Treatment Time Minutes (timed and untimed codes): 46 Total Session Time (minutes): 49 Session Start Time : 1314 Session Stop Time : 1403 Raimundo Aceves PTA documented in this encounter [facility] 08-19-2024 Note HNO ID: [id number] Author: RAIMUNDO ACEVES PTA Service: ? Author Type: Napkin Machine Operator Type: Progress Notes Filed: 08/19/2024 13:31 Note Text: Episode Visit Count: 11 Therapist That Will Accept/Oversee The Plan Of Care: Li Fajardo Start of Care Date: 07/07/24 Onset Date: 02/07/24 Patient Identified by Name and Date of : Yes REHABILITATION AND SPORTS THERAPY PHYSICAL THERAPY TREATMENT NOTE ASSESSMENT: Adam Guajardo tolerated the session with expected muscle soreness. She demonstrated difficulty with maintaining neutral cervical posture with right shoulder elevation. The patient will continue to benefit from ongoing skilled physical therapy to progress toward set goals. PLAN FOR NEXT VISIT: continue with postural and scapular stability, ROM right shoulder , and right rtc strength SUBJECTIVE: patient reports tightness anterior right shoulder , reports improvement arom right shuolder flexion, Pain: Pain Pain Level: 1 Pain Location: Shoulder - Right Description: Tightness, Dull Post Treatment Pain Post Treatment Pain Level: No Change OBJECTIVE MEASURES WITH LEVEL OF FUNCTION: TREATMENT: Therapeutic Exercise: 1: seated pulleys aarom flexion ebow flexed , elbow extended , scaption abduction 15 x each verbal cues to decreased forward head posture 2: hooklying manual cervical retraction 10 x 2 3: hhoklying cervical retraction 10 x 4: seated isoetric chin retraction turner tb 15 x 5 second hold 5: standing shoulder extension with scapular depression green tb 10 x 2 6: standing A/AAROM right shoulder flexion to scaption verbal cues to decrease forward head 7: left sidelying right shoulder abduction 1#, 2#, 10 x each 8: left sidelying right shoulder ER 10 x 2 9: hooklying right shoulder ER orange tb 10 x 2 10: seated arom right shoulder IR green tb 10 x 2 11: *standing pressing posterior chain into wall 5 seconds x 10 12: educated patient on how cervical posture affects shoulder motion Skilled Intervention: Patient was educated in proper exercise technique and purpose for exercises. Reviewed and educated patient on additions/changes for home exercise program as above (*). Skilled judgment was used in selection of appropriate interventions. Patient education as noted. Billing Therapeutic Exercise Treatment Minutes: 48 Skilled Treatment Time Minutes (timed and untimed codes): 48 Total Session Time (minutes): 48 Session Start Time : 922 Session Stop Time : 1010 Raimundo Aceves PTA [facility] 08-19-2024 History of Present illness Narrative Episode Visit Count: 11 Therapist That Will Accept/Oversee The Plan Of Care: Li Fajardo Start of Care Date: 07/07/24 Onset Date: 02/07/24 Patient Identified by Name and Date of : Yes REHABILITATION AND SPORTS THERAPY PHYSICAL THERAPY TREATMENT NOTE ASSESSMENT: Adam Guajardo tolerated the session with expected muscle soreness. She demonstrated difficulty with maintaining neutral cervical posture with right shoulder elevation. The patient will continue to benefit from ongoing skilled physical therapy to progress toward set goals. PLAN FOR NEXT VISIT: continue with postural and scapular stability, ROM right shoulder , and right rtc strength SUBJECTIVE: patient reports tightness anterior right shoulder , reports improvement arom right shuolder flexion, Pain: Pain Pain Level: 1 Pain Location: Shoulder - Right Description: Tightness, Dull Post Treatment Pain Post Treatment Pain Level: No Change OBJECTIVE MEASURES WITH LEVEL OF FUNCTION: TREATMENT: Therapeutic Exercise: 1: seated pulleys aarom flexion ebow flexed , elbow extended , scaption abduction 15 x each verbal cues to decreased forward head posture 2: hooklying manual cervical retraction 10 x 2 3: hhoklying cervical retraction 10 x 4: seated isoetric chin retraction turner tb 15 x 5 second hold 5: standing shoulder extension with scapular depression green tb 10 x 2 6: standing A/AAROM right shoulder flexion to scaption verbal cues to decrease forward head 7: left sidelying right shoulder abduction 1#, 2#, 10 x each 8: left sidelying right shoulder ER 10 x 2 9: hooklying right shoulder ER orange tb 10 x 2 10: seated arom right shoulder IR green tb 10 x 2 11: *standing pressing posterior chain into wall 5 seconds x 10 12: educated patient on how cervical posture affects shoulder motion Skilled Intervention: Patient was educated in proper exercise technique and purpose for exercises. Reviewed and educated patient on additions/changes for home exercise program as above (*). Skilled judgment was used in selection of appropriate interventions. Patient education as noted. Billing Therapeutic Exercise Treatment Minutes: 48 Skilled Treatment Time Minutes (timed and untimed codes): 48 Total Session Time (minutes): 48 Session Start Time : 922 Session Stop Time : 1010 Raimundo Aceves PTA documented in this encounter [facility] 08-14-2024 Note HNO ID: [id number] Author: RAIMUNDO ACEVES PTA Service: ? Author Type: Napkin Machine Operator Type: Progress Notes Filed: 08/14/2024 12:11 Note Text: Episode Visit Count: 10 Therapist That Will Accept/Oversee The Plan Of Care: Li Fajardo Start of Care Date: 07/07/24 Onset Date: 02/07/24 Patient Identified by Name and Date of : Yes REHABILITATION AND SPORTS THERAPY PHYSICAL THERAPY TREATMENT NOTE ASSESSMENT: Adam Guajardo tolerated the session with expected muscle soreness. She demonstrated difficulty with fatigue and instability with standing scapular stability exercise and improvements in tolerance to progressing strength with right shoulder complex. The patient will continue to benefit from ongoing skilled physical therapy to progress toward set goals. PLAN FOR NEXT VISIT: continue to progress right slhoulder complex strength, mob right shoulder as needed and address right scapular stabiity SUBJECTIVE: patient reports improvement with reaching up to micro wave , tries not to hike right shoulder with right shoulder flexion, Pain: Pain Pain Level: 1 Pain Location: Shoulder - Right Description: Tightness Post Treatment Pain Post Treatment Pain Level: No Change OBJECTIVE MEASURES WITH LEVEL OF FUNCTION: TREATMENT: Therapeutic Exercise: 1: UBE level 2 2 min forward / backward 2: standing wall slide 3: supine shoulder FE AROM , 1#10x 2 4: supine rightn shoulder ER orange tb 10 x 5: s/l shoulder ER AROM 10x, 1#10 6: standing right elbow flexion 3 # 10 x 2 thumb up , palm up 7: supine with right shoulder at 90 degrees rhythmic scapula stability 30 second 8: standing attempted scapular stability with right shoulder holding 1 # ball at 90 degrees flexion , patient reports right shoulder fatigue with activity Skilled Intervention: Patient was educated in proper exercise technique and purpose for exercises. Skilled judgment was used in selection of appropriate interventions. Manual Therapy: 1: supine gentle posterior lateral, inferior lateral right humerus in g-h joint Skilled Intervention: Manual skills to improve joint mobility, ROM, and decrease pain. Utilized anatomy knowledge of the clinician, and assessment of patient's response to intervention. Billing Therapeutic Exercise Treatment Minutes: 35 Manual TherapyTreatment Minutes: 4 Skilled Treatment Time Minutes (timed and untimed codes): 39 Total Session Time (minutes): 39 Session Start Time : 921 Session Stop Time : 100 Raimundo Aceves PTA [facility] 08-14-2024 History of Present illness Narrative Episode Visit Count: 10 Therapist That Will Accept/Oversee The Plan Of Care: Li Fajardo Start of Care Date: 07/07/24 Onset Date: 02/07/24 Patient Identified by Name and Date of : Yes REHABILITATION AND SPORTS THERAPY PHYSICAL THERAPY TREATMENT NOTE ASSESSMENT: Adam Guajardo tolerated the session with expected muscle soreness. She demonstrated difficulty with fatigue and instability with standing scapular stability exercise and improvements in tolerance to progressing strength with right shoulder complex. The patient will continue to benefit from ongoing skilled physical therapy to progress toward set goals. PLAN FOR NEXT VISIT: continue to progress right slhoulder complex strength, mob right shoulder as needed and address right scapular stabiity SUBJECTIVE: patient reports improvement with reaching up to micro wave , tries not to hike right shoulder with right shoulder flexion, Pain: Pain Pain Level: 1 Pain Location: Shoulder - Right Description: Tightness Post Treatment Pain Post Treatment Pain Level: No Change OBJECTIVE MEASURES WITH LEVEL OF FUNCTION: TREATMENT: Therapeutic Exercise: 1: UBE level 2 2 min forward / backward 2: standing wall slide 3: supine shoulder FE AROM , 1#10x 2 4: supine rightn shoulder ER orange tb 10 x 5: s/l shoulder ER AROM 10x, 1#10 6: standing right elbow flexion 3 # 10 x 2 thumb up , palm up 7: supine with right shoulder at 90 degrees rhythmic scapula stability 30 second 8: standing attempted scapular stability with right shoulder holding 1 # ball at 90 degrees flexion , patient reports right shoulder fatigue with activity Skilled Intervention: Patient was educated in proper exercise technique and purpose for exercises. Skilled judgment was used in selection of appropriate interventions. Manual Therapy: 1: supine gentle posterior lateral, inferior lateral right humerus in g-h joint Skilled Intervention: Manual skills to improve joint mobility, ROM, and decrease pain. Utilized anatomy knowledge of the clinician, and assessment of patient's response to intervention. Billing Therapeutic Exercise Treatment Minutes: 35 Manual TherapyTreatment Minutes: 4 Skilled Treatment Time Minutes (timed and untimed codes): 39 Total Session Time (minutes): 39 Session Start Time : 921 Session Stop Time : 1000 Raimundo Aceves PTA documented in this encounter [facility] 08-12-2024 Note HNO ID: [id number] Author: KELSEA FAJARDO PT Service: ? Author Type: Physical Therapist Type: Progress Notes Filed: 08/12/2024 15:29 Note Text: Episode Visit Count: 9 Therapist That Will Accept/Oversee The Plan Of Care: Li Fajardo Start of Care Date: 07/07/24 Onset Date: 02/07/24 Rehab Precautions: Shoulder Precautions Precaution/Activity Restriction Comments: 6-12 weeks: sling off, pendulum, supine passive assisted exercises until ROM gets normal (Phase 1 stretching, ok to start phase 2 stretching once full ROM with phase 1), lift < 2 lb. See order for full protocol Current Surgical Procedure : R shoulder ARCR Current Surgical Procedure Date: 05/27/24 Mechanism of Injury: Fall REHABILITATION AND SPORTS THERAPY PHYSICAL THERAPY PROGRESS REPORT PLAN OF CARE UPDATE: Assessment: Adam Guajardo demonstrates improvements in physical activities, reaching behind back, dressing, and grooming. The patient has progressed toward goals. Patient continues to present with impairments in ADL's, independence in exercise, joint mobility, overall function, range of motion, strength, and symptom management that interfere with lifting, physical activities, recreational activities, reaching behind back, reaching overhead, use hand with arm at shoulder level, dressing, grooming . Current prognosis is Good due to: current objective clinical presentation, good overall health status, acuteness of condition, within-session changes, good support system/ coping skills . She has made progress with improved ROM but remains limited by ROM AND strength deficits with impaired fxl use of R UE. The patient will benefit from continued skilled therapy services to meet the updated goals for this plan of care as noted below. Goals for Episode of Care: established 07/07/24 Patient reported outcome of physical function and self-efficacy will increase T-score by a minimum 5 points. [place] in home exercise program. Patient will decrease pain to 0/10 with functional activities to allow patient to improve ADLs. Patient will increase active ROM of R shoulder to wnl, symmetrical AND painfree to allow pt to to improve postural alignment and to improve performance of ADLs. Patient will demonstrate increase in R UE/shoulder strength to 5/5 during manual muscle testing in order to improve function for basic self-care tasks, home management tasks, leisure / recreation skills, and prior functional tasks. Patient Goals: full use of R UE Planned Interventions, Frequency, and Duration: 2x/week (1-2x/wk), Patient to be seen for Therapeutic exercise (30529), Manual therapy (14978), Self-half-way management (99465), Therapeutic activities (95091), Patient/Family/Caregiver Education PLAN FOR NEXT VISIT: continue to progress R shoulder ROM AND strength SUBJECTIVE: reports minimal to no shoulder pain. has been doing stretches/exercises at home. was in her pool swimming on Sunday which felt good. has f/u with surgeon next month. Functional Limitations: lifting, physical activities, recreational activities, reaching behind back, reaching overhead, use hand with arm at shoulder level, dressing, grooming Pain: Pain Pain Level: 1 Pain Location: Shoulder - Right Description: Sore Frequency: Intermittent, With movement Worst Pain Level: 2 PROMIS Scales 07/22/2024 06/30/2024 06/09/2024 Higher is Better Phys Func - T Score 47 (within normal limits) 40 (mild dysfunction) 47 (within normal limits) Phys Func - Percentile 38 16 38 Self-Eff Symptom - T Score 39 (Low) 39 (Low) Self-Eff Symptom - Percentile 14 14 T-scores: mean of general population = 50. 5 points is clinically meaningfully difference Percentiles provide an indication of how the patient's score ranks in relation to the general population. Higher percentile rankings indicate better function/quality of life. 50th percentile is the average of the general population and indicates half of respondents had a worse score. OBJECTIVE MEASURES WITH LEVEL OF FUNCTION: UE AROM R UE AROM: R shoulder limited by weakness > tightness as noted below L UE AROM: L shoulder wnl AND painfree R Shoulder Flex: 75 Degrees (140AA) R Shoulder ABduction: 55 Degrees (135 AA) R Shoulder Internal Rotation (Functional): L5 R Shoulder External Rotation: 30 Degrees R Shoulder External Rotation (Functional): C2 UE PROM R UE PROM: R shoulder limited by pain AND tightness as fnoted below R Shoulder Flex: 150 Degrees R Shoulder ABduction: 130 Degrees R Shoulder External Rotation: 60 Degrees (after manual tx) UE and Cervical Strength R UE Strength: R shoulder weakness grossly 3-/5 R Shoulder Flexion: 3-/5 R Shoulder Abduction (C5): 3-/5 TREATMENT: Therapeutic Exercise: 1: recheck- see objective for details, discussed progress AND deficits, plans/options for PT 2: supine AAROM with cane FE AND ER 10x 3: *supine shoulder FE AROM 10x, 1#10x 4 (more content not included)... [facility] 08-12-2024 History of Present illness Narrative Images from the original note were not included. Episode Visit Count: 9 Therapist That Will Accept/Oversee The Plan Of Care: Li Fajardo Start of Care Date: 07/07/24 Onset Date: 02/07/24 Rehab Precautions: Shoulder Precautions Precaution/Activity Restriction Comments: 6-12 weeks: sling off, pendulum, supine passive assisted exercises until ROM gets normal (Phase 1 stretching, ok to start phase 2 stretching once full ROM with phase 1), lift < 2 lb. See order for full protocol Current Surgical Procedure : R shoulder ARCR Current Surgical Procedure Date: 05/27/24 Mechanism of Injury: Fall REHABILITATION AND SPORTS THERAPY PHYSICAL THERAPY PROGRESS REPORT PLAN OF CARE UPDATE: Assessment: Adam Guajardo demonstrates improvements in physical activities, reaching behind back, dressing, and grooming. The patient has progressed toward goals. Patient continues to present with impairments in ADL's, independence in exercise, joint mobility, overall function, range of motion, strength, and symptom management that interfere with lifting, physical activities, recreational activities, reaching behind back, reaching overhead, use hand with arm at shoulder level, dressing, grooming . Current prognosis is Good due to: current objective clinical presentation, good overall health status, acuteness of condition, within-session changes, good support system/ coping skills . She has made progress with improved ROM but remains limited by ROM & strength deficits with impaired fxl use of R UE. The patient will benefit from continued skilled therapy services to meet the updated goals for this plan of care as noted below. Goals for Episode of Care: established 07/07/24 Patient reported outcome of physical function and self-efficacy will increase T-score by a minimum 5 points. [place] in home exercise program. Patient will decrease pain to 0/10 with functional activities to allow patient to improve ADLs. Patient will increase active ROM of R shoulder to wnl, symmetrical & painfree to allow pt to to improve postural alignment and to improve performance of ADLs. Patient will demonstrate increase in R UE/shoulder strength to 5/5 during manual muscle testing in order to improve function for basic self-care tasks, home management tasks, leisure / recreation skills, and prior functional tasks. Patient Goals: full use of R UE Planned Interventions, Frequency, and Duration: 2x/week (1-2x/wk), Patient to be seen for Therapeutic exercise (04792), Manual therapy (81368), Self-half-way management (36886), Therapeutic activities (43078), Patient/Family/Caregiver Education PLAN FOR NEXT VISIT: continue to progress R shoulder ROM & strength SUBJECTIVE: reports minimal to no shoulder pain. has been doing stretches/exercises at home. was in her pool swimming on Sunday which felt good. has f/u with surgeon next month. Functional Limitations: lifting, physical activities, recreational activities, reaching behind back, reaching overhead, use hand with arm at shoulder level, dressing, grooming Pain: Pain Pain Level: 1 Pain Location: Shoulder - Right Description: Sore Frequency: Intermittent, With movement Worst Pain Level: 2 PROMIS Scales 07/22/2024 06/30/2024 06/09/2024 Higher is Better Phys Func - T Score 47 (within normal limits) 40 (mild dysfunction) 47 (within normal limits) Phys Func - Percentile 38 16 38 Self-Eff Symptom - T Score 39 (Low) 39 (Low) Self-Eff Symptom - Percentile 14 14 T-scores: mean of general population = 50. 5 points is clinically meaningfully difference Percentiles provide an indication of how the patient's score ranks in relation to the general population. Higher percentile rankings indicate better function/quality of life. 50th percentile is the average of the general population and indicates half of respondents had a worse score. OBJECTIVE MEASURES WITH LEVEL OF FUNCTION: UE AROM R UE AROM: R shoulder limited by weakness > tightness as noted below L UE AROM: L shoulder wnl & painfree R Shoulder Flex: 75 Degrees (140AA) R Shoulder ABduction: 55 Degrees (135 AA) R Shoulder Internal Rotation (Functional): L5 R Shoulder External Rotation: 30 Degrees R Shoulder External Rotation (Functional): C2 UE PROM R UE PROM: R shoulder limited by pain & tightness as fnoted below R Shoulder Flex: 150 Degrees R Shoulder ABduction: 130 Degrees R Shoulder External Rotation: 60 Degrees (after manual tx) UE and Cervical Strength R UE Strength: R shoulder weakness grossly 3-/5 R Shoulder Flexion: 3-/5 R Shoulder Abduction (C5): 3-/5 TREATMENT: Therapeutic Exercise: 1: recheck- see objective for details, discussed progress & deficits, plans/options for PT 2: supine AAROM with cane FE & ER 10x 3: *supine shoulder FE AROM 10x, 1#10x 4: *s/l shoulder Abd AROM 10x, 1#10x, 2#10x 5: *s/l shoulder ER AROM 10x, 1#10x, 2#10x 6: discussed gradual progression to strengthening to improve R UE strength & fxn Skilled Intervention: Patient was educated in proper exercise technique and purpose for exercises. Reviewed and educated patient on additions/changes for home exercise program as above (*). Skilled judgment was used in selection of appropriate interventions. Correct performance of therapeutic exercises was facilitated with verbal, visual, and tactile cuing. Educated patient on rationale for performing exercises in regards to increase ease of ADL and ROM and function. Patient education as noted. Manual Therapy: 1: R shoulder GH distraction & mobilization 2: supine shoulder PROM ER & FE 3: STM/DTM to R UT seated Skilled Intervention: Manual skills to improve joint mobility, ROM, and decrease pain. Utilized anatomy knowledge of the clinician, and assessment of patient's response to intervention. Billing Therapeutic Exercise Treatment Minutes: 30 Manual TherapyTreatment Minutes: 10 Skilled Treatment Time Minutes (timed and untimed codes): 40 Total Session Time (minutes): 41 Session Start Time : 1426 Session Stop Time : 1507 Kelsea Fajardo PT documented in this encounter [facility] 08-05-2024 Note HNO ID: [id number] Author: RAIMUNDO ACEVES PTA Service: ? Author Type: Napkin Machine Operator Type: Progress Notes Filed: 08/05/2024 13:01 Note Text: Episode Visit Count: 8 Therapist That Will Accept/Oversee The Plan Of Care: Li Fajardo Start of Care Date: 07/07/24 Onset Date: 02/07/24 Patient Identified by Name and Date of : Yes REHABILITATION AND SPORTS THERAPY PHYSICAL THERAPY TREATMENT NOTE ASSESSMENT: Adam Guajardo tolerated the session with expected muscle soreness. She demonstrated difficulty with ROM right shoulder ER and wallslide AAROM flexion ,scaption and improvements in scapular stability. The patient will continue to benefit from ongoing skilled physical therapy to progress toward set goals. PLAN FOR NEXT VISIT: progress strength with right scapula assess use of isometric strengthening right rtc continue rom right shoulder ER/IR SUBJECTIVE: patient reports crepetus right shoulder , patient able to groom hair but cant put right hand to pull hair into pony tail Pain: Pain Pain Level: 1 Pain Location: Shoulder - Right Description: Aching Frequency: Intermittent Post Treatment Pain Post Treatment Pain Level: 2 Post Treatment Pain Location: Shoulder - Right Post Treatment Pain Description: Aching OBJECTIVE MEASURES WITH LEVEL OF FUNCTION: UE AROM R Shoulder Flex: 107 Degrees (supine, aarom supine 147 degrees) R Shoulder External Rotation: 42 Degrees (supine AAROM 52 degrees) R Shoulder External Rotation (Functional): able to reach beahind head but right elbow away from pillow TREATMENT: Therapeutic Exercise: 1: UBE 2 min forward /retro 2: hooklying P/AAROM right shoulder flexion /ER 3: post stm AA/AROM right shoulder flexion /er supine 4: supine functional right shoulder ER with hand behind back of head 5: *standing mid trap/low trap rows , with elbows flexed 10 x 2 each green tb 6: *standing bilateral shoulder extension green tb 70 degrees to 0 degrees 10 x 2 7: wall slide right shoulder flexion 5 x , attempted wall slide scaption unable 8: *standing isometric shoulder flexion , ER, abduction 5 second hold x 5 each 9: standing bilateral elbow flexion thumb up , palm up 3# 10 x 2 each Skilled Intervention: Patient was educated in proper exercise technique and purpose for exercises. Reviewed and educated patient on additions/changes for home exercise program as above (*). Skilled judgment was used in selection of appropriate interventions. Provided written instruction for home exercise program to facilitate proper performance and compliance. Manual Therapy: 1: supine gentle posterior lateral, inferior lateral right humerus in g-h joint 2: hooklying AAROM right shoulder flexion with manual stability of lateral boarder of right scapula Skilled Intervention: Manual skills to improve joint mobility, ROM, and decrease pain. Utilized anatomy knowledge of the clinician, and assessment of patient's response to intervention. Billing Therapeutic Exercise Treatment Minutes: 40 Manual TherapyTreatment Minutes: 10 Skilled Treatment Time Minutes (timed and untimed codes): 50 Total Session Time (minutes): 50 Session Start Time : 911 Session Stop Time : 1002 Raimundo Aceevs PTA [facility] 08-05-2024 History of Present illness Narrative Episode Visit Count: 8 Therapist That Will Accept/Oversee The Plan Of Care: Li Fajardo Start of Care Date: 07/07/24 Onset Date: 02/07/24 Patient Identified by Name and Date of : Yes REHABILITATION AND SPORTS THERAPY PHYSICAL THERAPY TREATMENT NOTE ASSESSMENT: Adam Guajardo tolerated the session with expected muscle soreness. She demonstrated difficulty with ROM right shoulder ER and wallslide AAROM flexion ,scaption and improvements in scapular stability. The patient will continue to benefit from ongoing skilled physical therapy to progress toward set goals. PLAN FOR NEXT VISIT: progress strength with right scapula assess use of isometric strengthening right rtc continue rom right shoulder ER/IR SUBJECTIVE: patient reports crepetus right shoulder , patient able to groom hair but cant put right hand to pull hair into pony tail Pain: Pain Pain Level: 1 Pain Location: Shoulder - Right Description: Aching Frequency: Intermittent Post Treatment Pain Post Treatment Pain Level: 2 Post Treatment Pain Location: Shoulder - Right Post Treatment Pain Description: Aching OBJECTIVE MEASURES WITH LEVEL OF FUNCTION: UE AROM R Shoulder Flex: 107 Degrees (supine, aarom supine 147 degrees) R Shoulder External Rotation: 42 Degrees (supine AAROM 52 degrees) R Shoulder External Rotation (Functional): able to reach beahind head but right elbow away from pillow TREATMENT: Therapeutic Exercise: 1: UBE 2 min forward /retro 2: hooklying P/AAROM right shoulder flexion /ER 3: post stm AA/AROM right shoulder flexion /er supine 4: supine functional right shoulder ER with hand behind back of head 5: *standing mid trap/low trap rows , with elbows flexed 10 x 2 each green tb 6: *standing bilateral shoulder extension green tb 70 degrees to 0 degrees 10 x 2 7: wall slide right shoulder flexion 5 x , attempted wall slide scaption unable 8: *standing isometric shoulder flexion , ER, abduction 5 second hold x 5 each 9: standing bilateral elbow flexion thumb up , palm up 3# 10 x 2 each Skilled Intervention: Patient was educated in proper exercise technique and purpose for exercises. Reviewed and educated patient on additions/changes for home exercise program as above (*). Skilled judgment was used in selection of appropriate interventions. Provided written instruction for home exercise program to facilitate proper performance and compliance. Manual Therapy: 1: supine gentle posterior lateral, inferior lateral right humerus in g-h joint 2: hooklying AAROM right shoulder flexion with manual stability of lateral boarder of right scapula Skilled Intervention: Manual skills to improve joint mobility, ROM, and decrease pain. Utilized anatomy knowledge of the clinician, and assessment of patient's response to intervention. Billing Therapeutic Exercise Treatment Minutes: 40 Manual TherapyTreatment Minutes: 10 Skilled Treatment Time Minutes (timed and untimed codes): 50 Total Session Time (minutes): 50 Session Start Time : 911 Session Stop Time : 1002 Raimundo Aceves PTA Program_ID:[id number] Access Code: [email or web address] URL: [email or web address] Date: 08-05-2024 Prepared By: Tayler Aceves Program Notes Exercises - Standing shoulder flexion wall slides - 1-2 x daily - 5 x weekly - 2-3 sets - 10 reps - Standing Bicep Curls Supinated with Dumbbells - 1-2 x daily - 5 x weekly - 2-3 sets - 10 reps - Scapular Retraction with Resistance - 1-2 x daily - 5 x weekly - 2-3 sets - 10 reps - Shoulder extension with resistance - Neutral - 1-2 x daily - 5 x weekly - 2-3 sets - 10 reps - Standing Isometric Shoulder Flexion with Doorway - Arm Bent - 1-2 x daily - 5 x weekly - 2-3 sets - 10 reps - Standing Isometric Shoulder Abduction with Doorway - Arm Bent - 1-2 x daily - 5 x weekly - 2-3 sets - 10 reps - Isometric Shoulder External Rotation with Ball at Wall - 1-2 x daily - 5 x weekly - 2-3 sets - 10 reps documented in this encounter [facility] 07-30-2024 Note HNO ID: [id number] Author: RAIMUNDO ACEVES PTA Service: ? Author Type: Napkin Machine Operator Type: Progress Notes Filed: 07/30/2024 10:06 Note Text: Episode Visit Count: 7 Therapist That Will Accept/Oversee The Plan Of Care: Li Fajardo Start of Care Date: 07/07/24 Onset Date: 02/07/24 Patient Identified by Name and Date of : Yes REHABILITATION AND SPORTS THERAPY PHYSICAL THERAPY TREATMENT NOTE ASSESSMENT: Adam Guajardo tolerated the session with expected muscle soreness. She demonstrated improvements in standing posture with exercise . The patient will continue to benefit from ongoing skilled physical therapy to progress toward set goals. PLAN FOR NEXT VISIT: continue to progress right shoulder complex strength and ROM SUBJECTIVE: patient reports right shoulder doing well , her shoulder felt much better post last PT session Pain: Pain Pain Level: 1 Pain Location: Shoulder - Right (lateral) Description: Aching Frequency: Intermittent Post Treatment Pain Post Treatment Pain Level: No Change OBJECTIVE MEASURES WITH LEVEL OF FUNCTION: TREATMENT: Therapeutic Exercise: 1: pulleys AAROM flexion , scaption , standing ER 2: sidelying left right shoulder abduction elbow extended 10 x 2 3: sidelying left right shouldewr er 10 4: hooklying right shoulder ER 10 x 2 orange tb 5: * standing mid trap rows green tb 10 x 2 6: standing sholder extension 10 x 2 7: standing right elbow flexion 3# 10 x 2 palm up /thumb up 10 x 2 8: standing AAROM wall wash flexion/ scaption 5 x each 9: educated patient on progression of strengthening right shoulder Skilled Intervention: Patient was educated in proper exercise technique and purpose for exercises. Reviewed and educated patient on additions/changes for home exercise program as above (*). Skilled judgment was used in selection of appropriate interventions. Manual Therapy: Skilled Intervention: Manual skills to improve joint mobility, ROM, and decrease pain. Utilized anatomy knowledge of the clinician, and assessment of patient's response to intervention. Billing Therapeutic Exercise Treatment Minutes: 35 Manual TherapyTreatment Minutes: 5 Skilled Treatment Time Minutes (timed and untimed codes): 40 Total Session Time (minutes): 40 Session Start Time : 0920 Session Stop Time : 1000 Raimundo Aceves PTA [facility] 07-30-2024 History of Present illness Narrative Episode Visit Count: 7 Therapist That Will Accept/Oversee The Plan Of Care: Li Fajardo Start of Care Date: 07/07/24 Onset Date: 02/07/24 Patient Identified by Name and Date of : Yes REHABILITATION AND SPORTS THERAPY PHYSICAL THERAPY TREATMENT NOTE ASSESSMENT: Adam Guajardo tolerated the session with expected muscle soreness. She demonstrated improvements in standing posture with exercise . The patient will continue to benefit from ongoing skilled physical therapy to progress toward set goals. PLAN FOR NEXT VISIT: continue to progress right shoulder complex strength and ROM SUBJECTIVE: patient reports right shoulder doing well , her shoulder felt much better post last PT session Pain: Pain Pain Level: 1 Pain Location: Shoulder - Right (lateral) Description: Aching Frequency: Intermittent Post Treatment Pain Post Treatment Pain Level: No Change OBJECTIVE MEASURES WITH LEVEL OF FUNCTION: TREATMENT: Therapeutic Exercise: 1: pulleys AAROM flexion , scaption , standing ER 2: sidelying left right shoulder abduction elbow extended 10 x 2 3: sidelying left right shouldewr er 10 4: hooklying right shoulder ER 10 x 2 orange tb 5: * standing mid trap rows green tb 10 x 2 6: standing sholder extension 10 x 2 7: standing right elbow flexion 3# 10 x 2 palm up /thumb up 10 x 2 8: standing AAROM wall wash flexion/ scaption 5 x each 9: educated patient on progression of strengthening right shoulder Skilled Intervention: Patient was educated in proper exercise technique and purpose for exercises. Reviewed and educated patient on additions/changes for home exercise program as above (*). Skilled judgment was used in selection of appropriate interventions. Manual Therapy: Skilled Intervention: Manual skills to improve joint mobility, ROM, and decrease pain. Utilized anatomy knowledge of the clinician, and assessment of patient's response to intervention. Billing Therapeutic Exercise Treatment Minutes: 35 Manual TherapyTreatment Minutes: 5 Skilled Treatment Time Minutes (timed and untimed codes): 40 Total Session Time (minutes): 40 Session Start Time : 09 Session Stop Time : 1000 Raimundo Aceves PTA documented in this encounter [facility] 07-28-2024 Note HNO ID: [id number] Author: KELSEA FAJARDO PT Service: ? Author Type: Physical Therapist Type: Progress Notes Filed: 07/28/2024 09:28 Note Text: Episode Visit Count: 6 Therapist That Will Accept/Oversee The Plan Of Care: Li Fajardo Start of Care Date: 07/07/24 Onset Date: 02/07/24 REHABILITATION AND SPORTS THERAPY PHYSICAL THERAPY TREATMENT NOTE ASSESSMENT: Adam Guajardo tolerated the session with expected muscle soreness. She demonstrated difficulty with shoulder AROM d/t weakness and PROM limited by tightness but noted improvements in ROM. The patient will continue to benefit from ongoing skilled physical therapy to progress toward set goals and to continue with post-operative protocol. PLAN FOR NEXT VISIT: progress R shoulder PROM/AAROM/AROM. try isometrics SUBJECTIVE: reports minimal shoulder pain. doing exercises at home, likes the pulleys Pain: Pain Pain Level: 1 Pain Location: Shoulder - Right Description: Aching, Sore Frequency: Intermittent Detailed Pain Score: Yes Worst Pain Level: 3 OBJECTIVE MEASURES WITH LEVEL OF FUNCTION: UE AROM R UE AROM: R shoulder limited by weakness R Shoulder Flex: 60 Degrees R Shoulder ABduction: 55 Degrees UE PROM R UE PROM: R shoulder limited by tightness/stiffness R Shoulder Flex: 145 Degrees R Shoulder External Rotation: 40 Degrees UE and Cervical Strength R UE Strength: R shoulder NT, grossly 3-/5 TREATMENT: Therapeutic Exercise: 1: UBE standing L1x3' B UE, 3' R UE only 2: seated overhead ghada FE AND Abd 10xea 3: wall wash FE AND Abd 5xea 4: standing AAROM with cane FE, ABD AND ER 10-15xea 5: supine shoulder FE AROM 10x 6: s/l shoulder Abd AROM 10x 7: s/l shoulder ER AROM 10x 8: standing R UT stretch 9: supine AND s/l rhythmic stabilization Skilled Intervention: Patient was educated in proper exercise technique and purpose for exercises. Skilled judgment was used in selection of appropriate interventions. Correct performance of therapeutic exercises was facilitated with verbal, visual, and tactile cuing. Educated patient on rationale for performing exercises in regards to increase ease of ADL and ROM and function. Patient education as noted. Manual Therapy: 1: supine R UT stretch 2: R shoulder GH distraction AND inf/post mobilizations Skilled Intervention: Manual skills to improve joint mobility, ROM, and decrease pain. Utilized anatomy knowledge of the clinician, and assessment of patient's response to intervention. Billing Therapeutic Exercise Treatment Minutes: 40 Manual TherapyTreatment Minutes: 6 Skilled Treatment Time Minutes (timed and untimed codes): 46 Total Session Time (minutes): 46 Session Start Time : 830 Session Stop Time : 916 Kelsea Fajardo, PT [facility] 07-28-2024 History of Present illness Narrative Episode Visit Count: 6 Therapist That Will Accept/Oversee The Plan Of Care: Li Fajardo Start of Care Date: 07/07/24 Onset Date: 02/07/24 REHABILITATION AND SPORTS THERAPY PHYSICAL THERAPY TREATMENT NOTE ASSESSMENT: Adam Guajardo tolerated the session with expected muscle soreness. She demonstrated difficulty with shoulder AROM d/t weakness and PROM limited by tightness but noted improvements in ROM. The patient will continue to benefit from ongoing skilled physical therapy to progress toward set goals and to continue with post-operative protocol. PLAN FOR NEXT VISIT: progress R shoulder PROM/AAROM/AROM. try isometrics SUBJECTIVE: reports minimal shoulder pain. doing exercises at home, likes the pulleys Pain: Pain Pain Level: 1 Pain Location: Shoulder - Right Description: Aching, Sore Frequency: Intermittent Detailed Pain Score: Yes Worst Pain Level: 3 OBJECTIVE MEASURES WITH LEVEL OF FUNCTION: UE AROM R UE AROM: R shoulder limited by weakness R Shoulder Flex: 60 Degrees R Shoulder ABduction: 55 Degrees UE PROM R UE PROM: R shoulder limited by tightness/stiffness R Shoulder Flex: 145 Degrees R Shoulder External Rotation: 40 Degrees UE and Cervical Strength R UE Strength: R shoulder NT, grossly 3-/5 TREATMENT: Therapeutic Exercise: 1: UBE standing L1x3' B UE, 3' R UE only 2: seated overhead ghada FE & Abd 10xea 3: wall wash FE & Abd 5xea 4: standing AAROM with cane FE, ABD & ER 10-15xea 5: supine shoulder FE AROM 10x 6: s/l shoulder Abd AROM 10x 7: s/l shoulder ER AROM 10x 8: standing R UT stretch 9: supine & s/l rhythmic stabilization Skilled Intervention: Patient was educated in proper exercise technique and purpose for exercises. Skilled judgment was used in selection of appropriate interventions. Correct performance of therapeutic exercises was facilitated with verbal, visual, and tactile cuing. Educated patient on rationale for performing exercises in regards to increase ease of ADL and ROM and function. Patient education as noted. Manual Therapy: 1: supine R UT stretch 2: R shoulder GH distraction & inf/post mobilizations Skilled Intervention: Manual skills to improve joint mobility, ROM, and decrease pain. Utilized anatomy knowledge of the clinician, and assessment of patient's response to intervention. Billing Therapeutic Exercise Treatment Minutes: 40 Manual TherapyTreatment Minutes: 6 Skilled Treatment Time Minutes (timed and untimed codes): 46 Total Session Time (minutes): 46 Session Start Time : 830 Session Stop Time : 916 Kelsea Fajardo PT documented in this encounter [facility] 07-22-2024 Note HNO ID: [id number] Author: RAIMUNDO ACEVES PTA Service: ? Author Type: Napkin Machine Operator Type: Progress Notes Filed: 07/22/2024 12:31 Note Text: Episode Visit Count: 5 Therapist That Will Accept/Oversee The Plan Of Care: Li Fajardo Start of Care Date: 07/07/24 Onset Date: 02/07/24 Patient Identified by Name and Date of : Yes REHABILITATION AND SPORTS THERAPY PHYSICAL THERAPY TREATMENT NOTE ASSESSMENT: Adam Guajardo tolerated the session with expected muscle soreness. She demonstrated improvements in scapular ,thoracic and cervical stability . The patient will continue to benefit from ongoing skilled physical therapy to progress toward set goals. PLAN FOR NEXT VISIT: assess progressing to gravity dependent AAROM flexion and resistive elbow flexion on right shoulder motion SUBJECTIVE: patient reports did HEP earlier this morning and feels pretty loose patient reports improvement in chin retactions and scapular retractions with correct form and improvement in those segments of her spine Pain: Pain Pain Level: 1 Pain Location: Shoulder - Right Description: Tightness Frequency: Intermittent Post Treatment Pain Post Treatment Pain Level: No Change OBJECTIVE MEASURES WITH LEVEL OF FUNCTION: TREATMENT: Therapeutic Exercise: 1: right shoulder gear shifting 1 min x 2 2: seated cervical retraction and scapular retraction pre and post p/a mobs of upper thoracic spin 3: seated pulleysright shoulder AAROM flexion , scaption 15 x each ,stqandingpulleys AAROM right shoulder ER 10 x 2 4: standing with palms facicing back brice with cane in hands AAROM right shoulder IR 10 x 2 ,then towel IR AAROM 5 x 2 5: *standing AAROM right shoulder flexion wall slide 10 x 2 with le assist walking toward wall 6: *standing elbow flexion palm up , thumb up 1 #, 2# 10 x each , 2# given for HEP Skilled Intervention: Patient was educated in proper exercise technique and purpose for exercises. Reviewed and educated patient on additions/changes for home exercise program as above (*). Skilled judgment was used in selection of appropriate interventions. Provided written instruction for home exercise program to facilitate proper performance and compliance. Manual Therapy: 1: prone p/a mobs of upper thoracic spine Skilled Intervention: Manual skills to improve joint mobility, ROM, and decrease pain. Utilized anatomy knowledge of the clinician, and assessment of patient's response to intervention. Billing Therapeutic Exercise Treatment Minutes: 35 Manual TherapyTreatment Minutes: 5 Skilled Treatment Time Minutes (timed and untimed codes): 40 Total Session Time (minutes): 40 Session Start Time : 925 Session Stop Time : 100 Raimundo Aceves PTA [facility] 07-22-2024 History of Present illness Narrative Episode Visit Count: 5 Therapist That Will Accept/Oversee The Plan Of Care: Li Fajardo Start of Care Date: 07/07/24 Onset Date: 02/07/24 Patient Identified by Name and Date of : Yes REHABILITATION AND SPORTS THERAPY PHYSICAL THERAPY TREATMENT NOTE ASSESSMENT: Adam Guajardo tolerated the session with expected muscle soreness. She demonstrated improvements in scapular ,thoracic and cervical stability . The patient will continue to benefit from ongoing skilled physical therapy to progress toward set goals. PLAN FOR NEXT VISIT: assess progressing to gravity dependent AAROM flexion and resistive elbow flexion on right shoulder motion SUBJECTIVE: patient reports did HEP earlier this morning and feels pretty loose patient reports improvement in chin retactions and scapular retractions with correct form and improvement in those segments of her spine Pain: Pain Pain Level: 1 Pain Location: Shoulder - Right Description: Tightness Frequency: Intermittent Post Treatment Pain Post Treatment Pain Level: No Change OBJECTIVE MEASURES WITH LEVEL OF FUNCTION: TREATMENT: Therapeutic Exercise: 1: right shoulder gear shifting 1 min x 2 2: seated cervical retraction and scapular retraction pre and post p/a mobs of upper thoracic spin 3: seated pulleysright shoulder AAROM flexion , scaption 15 x each ,stqandingpulleys AAROM right shoulder ER 10 x 2 4: standing with palms facicing back brice with cane in hands AAROM right shoulder IR 10 x 2 ,then towel IR AAROM 5 x 2 5: *standing AAROM right shoulder flexion wall slide 10 x 2 with le assist walking toward wall 6: *standing elbow flexion palm up , thumb up 1 #, 2# 10 x each , 2# given for HEP Skilled Intervention: Patient was educated in proper exercise technique and purpose for exercises. Reviewed and educated patient on additions/changes for home exercise program as above (*). Skilled judgment was used in selection of appropriate interventions. Provided written instruction for home exercise program to facilitate proper performance and compliance. Manual Therapy: 1: prone p/a mobs of upper thoracic spine Skilled Intervention: Manual skills to improve joint mobility, ROM, and decrease pain. Utilized anatomy knowledge of the clinician, and assessment of patient's response to intervention. Billing Therapeutic Exercise Treatment Minutes: 35 Manual TherapyTreatment Minutes: 5 Skilled Treatment Time Minutes (timed and untimed codes): 40 Total Session Time (minutes): 40 Session Start Time : 925 Session Stop Time : 1005 Raimundo Aceves PTA Program_ID:[id number] Access Code: [email or web address] URL: [email or web address] Date: 07-22-2024 Prepared By: Tayler Aceves Program Notes Exercises - Standing shoulder flexion wall slides - 1-2 x daily - 5 x weekly - 2-3 sets - 10 reps - Standing Bicep Curls Supinated with Dumbbells - 1-2 x daily - 5 x weekly - 2-3 sets - 10 reps documented in this encounter [facility] 07-17-2024 Note HNO ID: [id number] Author: RAIMUNDO ACEVES PTA Service: ? Author Type: Napkin Machine Operator Type: Progress Notes Filed: 07/17/2024 17:49 Note Text: Episode Visit Count: 4 Therapist That Will Accept/Oversee The Plan Of Care: Li Fajardo Start of Care Date: 07/07/24 Onset Date: 02/07/24 Patient Identified by Name and Date of : Yes REHABILITATION AND SPORTS THERAPY PHYSICAL THERAPY TREATMENT NOTE ASSESSMENT: Adam Guajardo tolerated the session with expected muscle soreness. She demonstrated difficulty with overuse of upper traps with scapular retractions and improvements in AAROM right shoulder ER. The patient will continue to benefit from ongoing skilled physical therapy to progress toward set goals. PLAN FOR NEXT VISIT: continue to progress right shoulder AAROM , all planes check IR ROM as well, continue to address correct scapular retraction, and cevical retraction , SUBJECTIVE: patient reports slight right shoulder due to mammagram, patient reports difficulty with donning shirts Pain: Pain Pain Level: 2 Pain Location: Shoulder - Right Description: Tightness Frequency: Intermittent, With movement Post Treatment Pain Post Treatment Pain Level: 1 Post Treatment Pain Location: Shoulder - Right Post Treatment Pain Description: (looser) OBJECTIVE MEASURES WITH LEVEL OF FUNCTION: UE PROM R Shoulder External Rotation: 43 Degrees (hooklying AAROM) TREATMENT: Therapeutic Exercise: 1: hooklying PROM right shoulder flexion , ER 10 x 2 each 2: hooklying AAROM right shoulder flexion and ER with cane 10 x 3: seated AAROM right shoulder , flexion, , scaption , abduction 10 x each , 4: *standing pulleys right shoulder ER 10 x 5: seated scap;ular retraction with depression tactile cues to decrease use pf upper traps 10 x 2 6: seated cervical retraction 10 x 2 Skilled Intervention: Patient was educated in proper exercise technique and purpose for exercises. Reviewed and educated patient on additions/changes for home exercise program as above (*). Skilled judgment was used in selection of appropriate interventions. Manual Therapy: 1: left sidelying righ scap; mobs 2: hooklying , posterior lateral mobs ovf humerus Skilled Intervention: Manual skills to improve joint mobility, ROM, and decrease pain. Utilized anatomy knowledge of the clinician, and assessment of patient's response to intervention. Billing Therapeutic Exercise Treatment Minutes: 35 Manual TherapyTreatment Minutes: 9 Skilled Treatment Time Minutes (timed and untimed codes): 44 Total Session Time (minutes): 44 Session Start Time : 1536 Session Stop Time : 1620 Raimundo Aceves [place] 07-17-2024 Note HNO ID: [id number] Author: GI MIRANDA MD Service: ? Author Type: Physician Type: Progress Notes Filed: 07/17/2024 11:34 Note Text: Adam is a 63 year old who presents for an annual gynecologic exam without complaints. Postmenopausal: Yes since age 51 HRT use: No. Still get period: No Last pap smear: 2020 - discussed that this may be her last pap as she will be 64 in July and if normal/neg today she will have had two with negative HPV in the prior 10 yrs to exiting screening History of abnormal pap: No, all prior PAP smears have been normal Bothersome pelvic pain: No Last mammogram: today History of abnormal mammogram: Yes - prior benign biopsy Patient concerns for STD exposure: No. 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 History LMP: 12/13/2011, Postmenopausal Age at Menarche: 12 Age at First : Age at Menopause: Scrap Shear Operator History Comments: Sexual Activity: Not Currently; Male; not interested in sex with currently Contraception: Vasectomy PAST MEDICAL HISTORY Diagnosis Date Acute medial meniscus tear 08/17/2021 Arthritis Family history of breast cancer in mother sister also Uterine fibroid 2010 U/S notede multiple, largest ~3.3cm PAST SURGICAL HISTORY Procedure Laterality Date KNEE SURGERY HX Left 2021 SHOULDER RT Right rotator cuff repair FAMILY HISTORY Problem Relation Age of Onset Arthritis Mother Asthma Mother Breast Cancer Mother diagnosed age 52 Diabetes Mother Heart disease Mother age 83 Stroke Father Heart Father age 82 DVT Father Breast Cancer Sister 66 DVT Sister Cancer Maternal Grandfather brain Diabetes Paternal Grandfather Hypertension Daughter Cervical Cancer Maternal Aunt Colon Cancer No Family History Ovarian cancer No Family History Prostate Cancer No Family History No Family History No Family History Pancreatic CA Uterine Cancer No Family History SOCIAL HISTORY Social History Tobacco Use Smoking status: Former Current packs/day: 0.00 Average packs/day: 0.5 packs/day for 10.0 years (5.0 ttl pk-yrs) Types: Cigarettes Start date: 10/25/1979 Quit date: 10/24/1989 Years since quittin.7 Smokeless tobacco: Never Vaping Use Vaping status: Never Used Substance Use Topics Alcohol use: Yes Comment: 1/month Drug use: Not Currently REVIEW OF SYSTEMS Abdomen: No abdominal pain, nausea, vomiting, diarrhea, or constipation. No bloating, early satiety, indigestion, or increased flatulence. Bladder: No dysuria, gross hematuria, urinary frequency, urinary urgency, or incontinence Breast: No breast lumps, nipple d/c, overlying skin changes, redness or skin retraction Allergies and current medication updated:Yes SENSITIVE EXAM: The sensitive examination was discussed with the Patient or Patient's Authorized Learning Technologist. As applicable, any other physician, advance practice provider, medical student, or other health professional student that will be observing or involved in the sensitive examination for educational or training purposes was discussed with the Patient or Authorized Learning Technologist. The Patient or Authorized Learning Technologist has agreed to proceed with the sensitive examination. (Sensitive examination includes inspection and/or palpation of the breasts, pelvis, prostate and anorectal regions). Warehouse Lead offered: Patient declines. EXAM: BP 126/82 Wt 216 lb 7.9 oz (98.2kg) LMP 12/13/2011 GENERAL: pleasant, female in no apparent distress HEENT: Normocephalic, atraumatic, mucus membranes moist, and no lesions NECK: Supple, full range of motion, no adenopathy, and thyroid normal DERMATOLOGY: Normal, without lesions, non-icteric, and non-hirsute BREAST: soft, non-tender, symmetric, no dominant mass, normal nipple-areolar complex, no lymphadenopathy, and no nipple discharge CHEST: Normal inspiratory effort ABDOMEN: soft, non-tender, and no masses PELVIC: external genitalia normal, normal Bartholin's glands, urethra, [place]'s glands, no vulvar lesions, no cervical lesions, good vaginal support, physiologic discharge present, normal appearing perineal body and perianal region BIMANUAL: uterus normal size, shape and consistency, no adnexal masses, non-tender, and limited exam due to body habitus RECTOVAGINAL: deferred. NEURO: alert and oriented x3,exam grossly non-focal EXTREMITIES: normal ASSESSMENT/PLAN: 1) Health maintenance: Pap done with HPV. Mammogram ordered Colon cancer screening: up to date with screening DXA - ordered 2) Follow up one year or sooner as needed Gi Miranda MD [facility] 07-17-2024 Note HNO ID: [id number] Author: PUSHPA SOFIA RT(R) Service: Radiology Author Type: Technologist Type: Progress Notes Filed: 07/17/2024 10:17 Note Text: Radiology Service Progress Note PATIENT NAME: Adam Guajardo DATE OF SERVICE: July 17, 2024 TIME: 10:17 AM PATIENT IDENTITY VERIFICATION COMPLETED USING TWO (2) IDENTIFIERS: Name and Date of confirmed by patient verbally. FALL SCREENING: Has the patient had 2 falls in the last year or 1 fall with injury or currently using an Ambulatory Assistive Device (Walker, Cane, Wheelchair, Crutches, etc.)? No PATIENT GENDER DATA: Assigned female at . status: : No status: NO. PATIENT RELEVANT IMPLANT DATA REVIEWED: Not Applicable PATIENT PRESENTS WITH AN IMPLANTABLE OR ATTACHED ROLL FORMING MACHINE SET UP OPERATOR: No RADIOLOGY DEPARTMENT: Mammography PERIPHERAL IV DATA: Not applicable SIGNED BY: RT Carter(R) July 17, 2024 10:17 AM [facility] 07-14-2024 Note HNO ID: [id number] Author: BO SOLIS PTA Service: ? Author Type: Napkin Machine Operator Type: Progress Notes Filed: 07/14/2024 09:43 Note Text: Episode Visit Count: 3 Therapist That Will Accept/Oversee The Plan Of Care: Li Fajardo Start of Care Date: 07/07/24 Onset Date: 02/07/24 Patient Identified by Name and Date of : Yes REHABILITATION AND SPORTS THERAPY PHYSICAL THERAPY TREATMENT NOTE ASSESSMENT: Adam Guajardo tolerated the session with expected muscle soreness. She demonstrated difficulty with performing R shoulder external rotation without substitutions, however patient notes improvements in right shoulder flexion and activity tolerance. The patient will continue to benefit from ongoing skilled physical therapy to progress toward set goals. PLAN FOR NEXT VISIT: assess additions to HEP; continue to progress R shoulder ROM SUBJECTIVE: Pt states that she continues to have some right shoulder pain however she has been doing more stuff around the house and notices some improvementgs Pain: Pain Pain Level: 1 Pain Location: Shoulder - Right Description: Tightness Frequency: Intermittent Post Treatment Pain Post Treatment Pain Level: No Change OBJECTIVE MEASURES WITH LEVEL OF FUNCTION: TREATMENT: Therapeutic Exercise: 1: standing pendulems FWD/ BWD, CW/CCW, side to side x10 ea 2: supine PROM R shoulder flexion/ER x10 ea 3: supine AAROM with cane flexion/ ER x10 ea 4: *Seated pulleys Flexion x10, sacption x10, ER x10 5: seated cervical retraction 10 x 2 6: seated scap sets 10 x 2 7: seated UT stretch 8: seated bicep curl 2# 10 x 2 Skilled Intervention: Patient was educated in proper exercise technique and purpose for exercises. Reviewed and educated patient on additions/changes for home exercise program as above (*). Skilled judgment was used in selection of appropriate interventions. Provided written instruction for home exercise program to facilitate proper performance and compliance. Correct performance of therapeutic exercises was facilitated with verbal and visual cuing. Billing Therapeutic Exercise Treatment Minutes: 30 Skilled Treatment Time Minutes (timed and untimed codes): 30 Total Session Time (minutes): 30 Session Start Time : 906 Session Stop Time : 936 Bo Solis PTA [facility] 07-14-2024 History of Present illness Narrative Episode Visit Count: 3 Therapist That Will Accept/Oversee The Plan Of Care: Li Fajardo Start of Care Date: 07/07/24 Onset Date: 02/07/24 Patient Identified by Name and Date of : Yes REHABILITATION AND SPORTS THERAPY PHYSICAL THERAPY TREATMENT NOTE ASSESSMENT: Adam Guajardo tolerated the session with expected muscle soreness. She demonstrated difficulty with performing R shoulder external rotation without substitutions, however patient notes improvements in right shoulder flexion and activity tolerance. The patient will continue to benefit from ongoing skilled physical therapy to progress toward set goals. PLAN FOR NEXT VISIT: assess additions to HEP; continue to progress R shoulder ROM SUBJECTIVE: Pt states that she continues to have some right shoulder pain however she has been doing more stuff around the house and notices some improvementgs Pain: Pain Pain Level: 1 Pain Location: Shoulder - Right Description: Tightness Frequency: Intermittent Post Treatment Pain Post Treatment Pain Level: No Change OBJECTIVE MEASURES WITH LEVEL OF FUNCTION: TREATMENT: Therapeutic Exercise: 1: standing pendulems FWD/ BWD, CW/CCW, side to side x10 ea 2: supine PROM R shoulder flexion/ER x10 ea 3: supine AAROM with cane flexion/ ER x10 ea 4: *Seated pulleys Flexion x10, sacption x10, ER x10 5: seated cervical retraction 10 x 2 6: seated scap sets 10 x 2 7: seated UT stretch 8: seated bicep curl 2# 10 x 2 Skilled Intervention: Patient was educated in proper exercise technique and purpose for exercises. Reviewed and educated patient on additions/changes for home exercise program as above (*). Skilled judgment was used in selection of appropriate interventions. Provided written instruction for home exercise program to facilitate proper performance and compliance. Correct performance of therapeutic exercises was facilitated with verbal and visual cuing. Billing Therapeutic Exercise Treatment Minutes: 30 Skilled Treatment Time Minutes (timed and untimed codes): 30 Total Session Time (minutes): 30 Session Start Time : 906 Session Stop Time : 936 Bo Solis PTA documented in this encounter [facility] 07-10-2024 Note HNO ID: [id number] Author: NILTON GLASER MD Service: ? Author Type: Physician Type: Progress Notes Filed: 07/10/2024 10:25 Note Text: [facility] NOTE Department of Orthopaedics NAME: Adam Guajardo CLINIC NO.: [id number] DATE: 07/10/2024 Surgery: SURGERY/PROCEDURE(S): * Right arthroscopic rotator cuff repair Right anterior labral debridement Date: 05/27/2024 Interval Hx:Adam Guajardo is back for 6 weeks follow up after above mentioned procedure. 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 she is not using pain medication. she has just started doing physical therapy, too soon to notice any major improvements. She does notice that her pain feels better and she is having less numbness over the lateral shoulder PHYSICAL EXAMINATION: Incision appears well-healed. Forward elevation is passively to 90 ? and actively to 30 ?. Firing anterior deltoid External rotation is passively to 20 ? and actively to 20 ? Abduction is actively to 30 ?. Middle and posterior deltoid firing Internal rotation is actively to belt line IR strength 5/5 ER strength 5/5 Abduction strength 4/5 Belly press test is negative Fires m/r/uln/ax, good deltoid tone SILT m/r/uln/ax, some decreased RADIOGRAPHIC STUDIES: no new imaging ASSESSMENT: Encounter Diagnosis ICD-10-CM 1. S/P right rotator cuff repair Z98.890 2. 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 Her active motion is less than most given her axillary nerve injury from the initial dislocation, but she is making recovery. Less numbness and increasing deltoid tone and strength today compared to last visit. We should start phase 1 stretching exercises and add phase 2 stretching as tolerated. She is already in PT and should continue. I'd like to see her in 6 weeks. If any questions or concerns arise, she should not hesitate to call. Regular rehab 0-6 weeks: ultrasling, elbow/wrist/ hand exercises, no passive or active use of the arm 6-12 weeks: sling off, pendulum, supine passive assisted exercises until ROM gets normal (Phase 1 stretching; okay to start phase 2 stretching once full ROM with phase 1), lift < 2lb, ok to drive after 6 weeks 3-6 months: continue stretching, resistance bands, isometric exercises (phase 1 strengthening, followed by phase 2 strengthening), lift < 10lb 6+ months: no restrictions Return to work with limited duty at 2-6 months, full duty 6 months, Contact sports >4 months Nilton Glaser MD Shoulder and Elbow Surgeon Orthopaedic Surgery Department [facility] 07-10-2024 History of Present illness Narrative [facility] NOTE Department of Orthopaedics NAME: Adam Guajardo [facility] NO.: [id number] DATE: 07/10/2024 Surgery: SURGERY/PROCEDURE(S): * Right arthroscopic rotator cuff repair Right anterior labral debridement Date: 05/27/2024 Interval Hx:Adam Guajardo is back for 6 weeks follow up after above mentioned procedure. 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 she is not using pain medication. she has just started doing physical therapy, too soon to notice any major improvements. She does notice that her pain feels better and she is having less numbness over the lateral shoulder PHYSICAL EXAMINATION: Incision appears well-healed. Forward elevation is passively to 90 and actively to 30 . Firing anterior deltoid External rotation is passively to 20 and actively to 20 Abduction is actively to 30 . Middle and posterior deltoid firing Internal rotation is actively to belt line IR strength 5/5 ER strength 5/5 Abduction strength 4/5 Belly press test is negative Fires m/r/uln/ax, good deltoid tone SILT m/r/uln/ax, some decreased RADIOGRAPHIC STUDIES: no new imaging ASSESSMENT: Encounter Diagnosis ICD-10-CM 1. S/P right rotator cuff repair Z98.890 2. 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 Her active motion is less than most given her axillary nerve injury from the initial dislocation, but she is making recovery. Less numbness and increasing deltoid tone and strength today compared to last visit. We should start phase 1 stretching exercises and add phase 2 stretching as tolerated. She is already in PT and should continue. I'd like to see her in 6 weeks. If any questions or concerns arise, she should not hesitate to call. Regular rehab 0-6 weeks: ultrasling, elbow/wrist/ hand exercises, no passive or active use of the arm 6-12 weeks: sling off, pendulum, supine passive assisted exercises until ROM gets normal (Phase 1 stretching; okay to start phase 2 stretching once full ROM with phase 1), lift < 2lb, ok to drive after 6 weeks 3-6 months: continue stretching, resistance bands, isometric exercises (phase 1 strengthening, followed by phase 2 strengthening), lift < 10lb 6+ months: no restrictions Return to work with limited duty at 2-6 months, full duty 6 months, Contact sports >4 months Nilton Glaser MD Shoulder and Elbow Surgeon Orthopaedic Surgery Department documented in this encounter [facility] 07-09-2024 Note HNO ID: [id number] Author: BO SOLIS PTA Service: ? Author Type: Napkin Machine Operator Type: Progress Notes Filed: 07/09/2024 11:34 Note Text: Episode Visit Count: 2 Therapist That Will Accept/Oversee The Plan Of Care: Li Fajardo Start of Care Date: 07/07/24 Onset Date: 02/07/24 Patient Identified by Name and Date of : Yes REHABILITATION AND SPORTS THERAPY PHYSICAL THERAPY TREATMENT NOTE ASSESSMENT: Adam Guajardo tolerated the session with decreased symptoms. She demonstrated difficulty with technique of AAROM ER with cane in supine however patient displayed improvements with technique in seated. The patient will continue to benefit from ongoing skilled physical therapy to progress toward set goals. PLAN FOR NEXT VISIT: continue to progress R shoulder PROM/AAROM SUBJECTIVE: Pt reports some right shoulder soreness and tightness stating that it woke her up last night and she is not sure if it's from her exercises or not Pain: Pain Pain Level: 2 Pain Location: Shoulder - Right Description: Sore, Tightness Frequency: Intermittent Post Treatment Pain Post Treatment Pain Level: 1 Post Treatment Pain Location: Shoulder - Right Post Treatment Pain Description: Sore OBJECTIVE MEASURES WITH LEVEL OF FUNCTION: TREATMENT: Therapeutic Exercise: 1: seated UT stretch 2 x 30 seconds 2: seated neck retraction x15 3: seated bicep curl 2# 10 x 2 4: *seated scap sets 10 x 2 5: supine PROM R shoulder flexion/ER x10 ea 6: supine AAROM with cane FE/ER x10 ea; seated ER AAROM x10 7: standing RUE pendelums CW /CCW; FWD; BWD Skilled Intervention: Patient was educated in proper exercise technique and purpose for exercises. Reviewed and educated patient on additions/changes for home exercise program as above (*). Provided written instruction for home exercise program to facilitate proper performance and compliance. Correct performance of therapeutic exercises was facilitated with verbal, visual, and tactile cuing. Billing Therapeutic Exercise Treatment Minutes: 33 Skilled Treatment Time Minutes (timed and untimed codes): 33 Total Session Time (minutes): 33 Session Start Time : 1054 Session Stop Time : 1127 Bo Solis PTA [facility] 07-09-2024 History of Present illness Narrative Episode Visit Count: 2 Therapist That Will Accept/Oversee The Plan Of Care: Li Fajardo Start of Care Date: 07/07/24 Onset Date: 02/07/24 Patient Identified by Name and Date of : Yes REHABILITATION AND SPORTS THERAPY PHYSICAL THERAPY TREATMENT NOTE ASSESSMENT: Adam Guajardo tolerated the session with decreased symptoms. She demonstrated difficulty with technique of AAROM ER with cane in supine however patient displayed improvements with technique in seated. The patient will continue to benefit from ongoing skilled physical therapy to progress toward set goals. PLAN FOR NEXT VISIT: continue to progress R shoulder PROM/AAROM SUBJECTIVE: Pt reports some right shoulder soreness and tightness stating that it woke her up last night and she is not sure if it's from her exercises or not Pain: Pain Pain Level: 2 Pain Location: Shoulder - Right Description: Sore, Tightness Frequency: Intermittent Post Treatment Pain Post Treatment Pain Level: 1 Post Treatment Pain Location: Shoulder - Right Post Treatment Pain Description: Sore OBJECTIVE MEASURES WITH LEVEL OF FUNCTION: TREATMENT: Therapeutic Exercise: 1: seated UT stretch 2 x 30 seconds 2: seated neck retraction x15 3: seated bicep curl 2# 10 x 2 4: *seated scap sets 10 x 2 5: supine PROM R shoulder flexion/ER x10 ea 6: supine AAROM with cane FE/ER x10 ea; seated ER AAROM x10 7: standing RUE pendelums CW /CCW; FWD; BWD Skilled Intervention: Patient was educated in proper exercise technique and purpose for exercises. Reviewed and educated patient on additions/changes for home exercise program as above (*). Provided written instruction for home exercise program to facilitate proper performance and compliance. Correct performance of therapeutic exercises was facilitated with verbal, visual, and tactile cuing. Billing Therapeutic Exercise Treatment Minutes: 33 Skilled Treatment Time Minutes (timed and untimed codes): 33 Total Session Time (minutes): 33 Session Start Time : 1054 Session Stop Time : 112 Bo Solis PTA documented in this encounter [facility] 07-07-2024 Note HNO ID: [id number] Author: KELSEA FAJARDO, PT Service: ? Author Type: Physical Therapist Type: Progress Notes Filed: 08/26/2024 07:23 Note Text: Episode Visit Count: 1 Therapist That Will Accept/Oversee The Plan Of Care: Li Fajardo Start of Care Date: 07/07/24 Onset Date: 02/07/24 Plan of Care Certification Date: 07/07/24 Next Certification Due Date: 10/05/24 Patient Identified by Name and Date of : Yes Rehab Precautions: Shoulder Precautions Precaution/Activity Restriction Comments: 6-12 weeks: sling off, pendulum, supine passive assisted exercises until ROM gets normal (Phase 1 stretching, ok to start phase 2 stretching once full ROM with phase 1), lift < 2 lb. See order for full protocol Current Surgical Procedure : R shoulder ARCR Current Surgical Procedure Date: 05/27/24 Mechanism of Injury: Fall REHABILITATION AND SPORTS THERAPY PHYSICAL THERAPY EVALUATION PLAN OF CARE: Assessment: Adam Guajardo presents with diagnosis of s/p R RCR with post-op deficits that interferes with lifting, physical activities, recreational activities, reaching behind back, reaching overhead, use hand with arm at shoulder level, dressing, grooming . The patient presents with impairments in ADL's, independence in exercise, joint mobility, overall function, range of motion, strength, and symptom management. PROMIS? (Patient-Reported Outcomes Measurement Information System) scores were reviewed and identified as a rehabilitation concern. Prognosis for therapy is Good due to: current objective clinical presentation, good overall health status, acuteness of condition, within-session changes, good support system/ coping skills . She presents 6 weeks s/p RCR doing well with minimal pain but limited by ROM deficits. The patient will benefit from skilled therapy services to meet the goals established for this plan of care as noted below. Goals for Episode of Care: established 07/07/24 Patient reported outcome of physical function and self-efficacy will increase T-score by a minimum 5 points. [place] in home exercise program. Patient will decrease pain to 0/10 with functional activities to allow patient to improve ADLs. Patient will increase active ROM of R shoulder to wnl, symmetrical AND painfree to allow pt to to improve postural alignment and to improve performance of ADLs. Patient will demonstrate increase in R UE/shoulder strength to 5/5 during manual muscle testing in order to improve function for basic self-care tasks, home management tasks, leisure / recreation skills, and prior functional tasks. Patient Goals: full use of R UE Time Frame for Goals and Treatment : 10/05/24 Planned Interventions, Frequency, and Duration: Current Frequency: 2x/week (1-2x/wk) Duration: 12 weeks Total Number of Visits Planned: 20 Planned Treatment Interventions: Therapeutic exercise (71170), Manual therapy (04822), Self-half-way management (06219), Therapeutic activities (13010), Patient/Family/Caregiver Education PLAN FOR NEXT VISIT: progress R shoulder PROM/AAROM. address neck ROM/tightness prn Patient demonstrates good understanding of plan of care and treatment. The above goals and plan of care were discussed and agreed upon by patient/family. SUBJECTIVE: pt reports minimal R shoulder pain s/p RCR surgery last month, feels better than it did before surgery. had significant pain AND difficulty lifting her arm for several months after a fall in January when she dislocated her shoulder, waited to have surgery b/c she was going to [place] for several weeks over the winter. takes tylenol prn Patient Goals: full use of R UE Functional Limitations: lifting, physical activities, recreational activities, reaching behind back, reaching overhead, use hand with arm at shoulder level, dressing, grooming Prior Level of Function: Independent without limitations Relevant History Past Relevant Medical Conditions: GERD, Hyperlipemia Right or Left Handed: Right Employment: Retired Home Environment Patient Lives With: Spouse Intake Information: Prescription present Previous Treatment: Physical Therapy , Surgery , Pain meds , Ice , Immobilizer/brace , Heat Falls Interview: Fall with injury in the last year Pain: Pain Pain Level: 2 Pain Location: Shoulder - Right Description: Aching, Dull Frequency: Intermittent Post Treatment Pain Post Treatment Pain Location: Shoulder - Right Post Treatment Pain Description: Sore PROMIS Scales 08/12/2024 07/22/2024 06/30/2024 Higher is Better Phys Func - T Score 51 (within normal limits) 47 (within normal limits) 40 (mild dysfunction) Phys Func - Percentile 54 38 16 Self-Eff Symptom - T Score 54 (Average) 39 (Low) 39 (Low) Self-Eff Symptom - Percentile 66 14 14 T-scores: mean of general population = 50. 5 points is clinically meaningfully difference Percentiles provide an indication of how the patient's score ranks in rel (more content not included)... [facility] 07-07-2024 History of Present illness Narrative Images from the original note were not included. Episode Visit Count: 1 Therapist That Will Accept/Oversee The Plan Of Care: Li Fajardo Start of Care Date: 07/07/24 Onset Date: 02/07/24 Patient Identified by Name and Date of : Yes Rehab Precautions: Shoulder Precautions Precaution/Activity Restriction Comments: 6-12 weeks: sling off, pendulum, supine passive assisted exercises until ROM gets normal (Phase 1 stretching, ok to start phase 2 stretching once full ROM with phase 1), lift < 2 lb. See order for full protocol Current Surgical Procedure : R shoulder ARCR Current Surgical Procedure Date: 05/27/24 Mechanism of Injury: Fall REHABILITATION AND SPORTS THERAPY PHYSICAL THERAPY EVALUATION PLAN OF CARE: Assessment: Adam Guajardo presents with diagnosis of s/p R RCR with post-op deficits that interferes with lifting, physical activities, recreational activities, reaching behind back, reaching overhead, use hand with arm at shoulder level, dressing, grooming . The patient presents with impairments in ADL's, independence in exercise, joint mobility, overall function, range of motion, strength, and symptom management. PROMIS (Patient-Reported Outcomes Measurement Information System) scores were reviewed and identified as a rehabilitation concern. Prognosis for therapy is Good due to: current objective clinical presentation, good overall health status, acuteness of condition, within-session changes, good support system/ coping skills . She presents 6 weeks s/p RCR doing well with minimal pain but limited by ROM deficits. The patient will benefit from skilled therapy services to meet the goals established for this plan of care as noted below. Goals for Episode of Care: established 07/07/24 Patient reported outcome of physical function and self-efficacy will increase T-score by a minimum 5 points. [place] in home exercise program. Patient will decrease pain to 0/10 with functional activities to allow patient to improve ADLs. Patient will increase active ROM of R shoulder to wnl, symmetrical & painfree to allow pt to to improve postural alignment and to improve performance of ADLs. Patient will demonstrate increase in R UE/shoulder strength to 5/5 during manual muscle testing in order to improve function for basic self-care tasks, home management tasks, leisure / recreation skills, and prior functional tasks. Patient Goals: full use of R UE Time Frame for Goals and Treatment : 10/05/24 Planned Interventions, Frequency, and Duration: Current Frequency: 2x/week (1-2x/wk) Duration: 12 weeks Total Number of Visits Planned: 20 Planned Treatment Interventions: Therapeutic exercise (44527), Manual therapy (38225), Self-half-way management (06437), Therapeutic activities (99897), Patient/Family/Caregiver Education PLAN FOR NEXT VISIT: progress R shoulder PROM/AAROM. address neck ROM/tightness prn Patient demonstrates good understanding of plan of care and treatment. The above goals and plan of care were discussed and agreed upon by patient/family. SUBJECTIVE: pt reports minimal R shoulder pain s/p RCR surgery last month, feels better than it did before surgery. had significant pain & difficulty lifting her arm for several months after a fall January when she dislocated her shoulder. takes tylenol prn Patient Goals: full use of R UE Functional Limitations: lifting, physical activities, recreational activities, reaching behind back, reaching overhead, use hand with arm at shoulder level, dressing, grooming Prior Level of Function: Independent without limitations Relevant History Past Relevant Medical Conditions: GERD, Hyperlipemia Right or Left Handed: Right Employment: Retired Home Environment Patient Lives With: Spouse Intake Information: Prescription present Previous Treatment: Physical Therapy , Surgery , Pain meds , Ice , Immobilizer/brace , Heat Falls Interview: Fall with injury in the last year Pain: Pain Pain Level: 2 Pain Location: Shoulder - Right Description: Aching, Dull Frequency: Intermittent Post Treatment Pain Post Treatment Pain Location: Shoulder - Right Post Treatment Pain Description: Sore PROMIS Scales 06/30/2024 06/09/2024 02/13/2024 Higher is Better Phys Func - T Score 40 (mild dysfunction) 47 (within normal limits) 28 (severe dysfunction) Phys Func - Percentile 16 38 1 Self-Eff Symptom - T Score 39 (Low) Self-Eff Symptom - Percentile 14 T-scores: mean of general population = 50. 5 points is clinically meaningfully difference Percentiles provide an indication of how the patient's score ranks in relation to the general population. Higher percentile rankings indicate better function/quality of life. 50th percentile is the average of the general population and indicates half of respondents had a worse score. OBJECTIVE MEASURES WITH LEVEL OF FUNCTION: Posture / Alignment Posture: Forward head Shoulder Observations R Shoulder Presents with: Atrophy, Incision Incision: small arthroscopic incision sites closed & healed R Shoulder Palpation Tenderness: Trapezius (Upper) Sensation - Upper Extremity UE Light Touch Sensation: Impaired (pt reports numbness/tingling in upper arm, slowly getting better) Cervical Spine ROM Cervical ROM : Limitation AROM Cervical Flexion AROM: Normal Cervical Extension AROM: Minimal limitation Cervical Side-Bend Right AROM: Moderate limitation Cervical Side-Bend Left AROM: Moderate limitation Cervical Rotation Right AROM: Minimal limitation Cervical Rotation Left AROM: Normal UE AROM R UE AROM: R shoulder NT d/t post-op restrictions (pt reported/demonstrated active shoulder elevation to ~ 90 degrees) L UE AROM: L shoulder wnl & painfree UE PROM R UE PROM: R shoulder limitations as noted below: limited by pain, tightness/stiffness R Shoulder Flex: 120 Degrees R Shoulder External Rotation: 30 Degrees UE and Cervical Strength Strength Tested: Shoulder Functional Strength R UE Strength: R shoulder NT d/t post-op restrictions but weakness evident s/p surgery and sling immobilization L UE Strength: L shoulder grossly 5/5 Education: Education Barriers: None Learning/educational needs: Procedure / Surgery, Home exercise program, Plan of Care, Posture Education Provided: Yes, see treatment interventions for education provided Education Provided To: Patient Education Mode/Type: Demonstration, Explanation/Discussion, Performance Response to Education/Teach Back: States/Identifies, Return Demonstration, Requires Review/Additional Education TREATMENT: PT Treatment Interventions: Therapeutic Exercise Evaluation Therapeutic Exercise: 1: *standing R UE pendulums 2: *supine/seated shoulder ER PROM/AAROM with cane 10x 3: *supine shoulder FE PROM/AAROM with cane 10x 4: *standing UT stretch R/L 5: seated neck AROM all planes 6: seated neck retraction & extension Skilled Intervention: Patient was educated in proper exercise technique and purpose for exercises. Reviewed and educated patient on additions/changes for home exercise program as above (*). Skilled judgment was used in selection of appropriate interventions. Correct performance of therapeutic exercises was facilitated with verbal and visual cuing. Education in use of heat and ice and parameters for each. Educated patient on rationale for performing exercises in regards to increase ease of ADL and ROM and function. Patient education as noted. Billing * Evaluation Moderate Complexity: 1 Unit Therapeutic Exercise Treatment Minutes: 23 Skilled Treatment Time Minutes (timed and untimed codes): 36 Total Session Time (minutes): 36 Session Start Time : 1641 Session Stop Time : 1717 Kelsea Fajardo PT documented in this encounter [facility] 06-12-2024 History of Present illness Narrative [facility] NOTE Department of Orthopaedics NAME: Adam Guajardo CLINIC NO.: [id number] DATE: 06/12/2024 Surgery: Right arthroscopic rotator cuff repair Date: 05/27/2024 Interval Hx: Adam Guajardo is back for 2 weeks follow up after above mentioned procedure. she denies any fever, chills, N/V, SP or SOB or drainage from the incision. she is using prescribed meds for pain control. she is wearing her sling. PHYSICAL EXAMINATION: Incision appears well-healed. Dressing is off and we removed sutures today. There is no erythema, warmth or drainage from the incision. There is no swelling in the upper arm. Patient has passive forward elevation of 60 and passive external rotation of 0 . Upper extremity has intact sensory and motor function and has good perfusion distally. Axilary nerve distribution still decreased sensation Firing the three heads of the deltoid weakly RADIOGRAPHIC STUDIES: no new imaging ASSESSMENT: Encounter Diagnosis ICD-10-CM 1. 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 S/P right rotator cuff repair Z98.890 PLAN: I told Adam Guajardo that she is doing well for her post-operative status. We will continue hand/wrist/elbow exercises but no overhead motion or stretching at this time. I'd like to see her in 4 weeks. We will plan to start physical therapy at 6 weeks if progressing well. If any questions or concerns arise, she should not hesitate to call. 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 I educated her that this will slow her rehab and recovery but I hope the function will still come back over time. Encouraged that she does have motor function, though minimal. Regular rehab 0-6 weeks: ultrasling, elbow/wrist/ hand exercises, no passive or active use of the arm 6-12 weeks: sling off, pendulum, supine passive assisted exercises until ROM gets normal (Phase 1 stretching; okay to start phase 2 stretching once full ROM with phase 1), lift < 2lb, ok to drive after 6 weeks 3-6 months: continue stretching, resistance bands, isometric exercises (phase 1 strengthening, followed by phase 2 strengthening), lift < 10lb 6+ months: no restrictions Return to work with limited duty at 2-6 months, full duty 6 months, Contact sports >4 months Nilton Glaser MD Shoulder and Elbow Surgeon Orthopaedic Surgery Department documented in this encounter [facility] 06-12-2024 Note HNO ID: [id number] Author: NILTON GLASER MD Service: ? Author Type: Physician Type: Progress Notes Filed: 06/12/2024 13:44 Note Text: [facility] NOTE Department of Orthopaedics NAME: Adam Guajardo CLINIC NO.: [id number] DATE: 06/12/2024 Surgery: Right arthroscopic rotator cuff repair Date: 05/27/2024 Interval Hx: Adam Guajardo is back for 2 weeks follow up after above mentioned procedure. she denies any fever, chills, N/V, SP or SOB or drainage from the incision. she is using prescribed meds for pain control. she is wearing her sling. PHYSICAL EXAMINATION: Incision appears well-healed. Dressing is off and we removed sutures today. There is no erythema, warmth or drainage from the incision. There is no swelling in the upper arm. Patient has passive forward elevation of 60 ? and passive external rotation of 0 ?. Upper extremity has intact sensory and motor function and has good perfusion distally. Axilary nerve distribution still decreased sensation Firing the three heads of the deltoid weakly RADIOGRAPHIC STUDIES: no new imaging ASSESSMENT: Encounter Diagnosis ICD-10-CM 1. 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 S/P right rotator cuff repair Z98.890 PLAN: I told Adam Guajardo that she is doing well for her post-operative status. We will continue hand/wrist/elbow exercises but no overhead motion or stretching at this time. I'd like to see her in 4 weeks. We will plan to start physical therapy at 6 weeks if progressing well. If any questions or concerns arise, she should not hesitate to call. 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 I educated her that this will slow her rehab and recovery but I hope the function will still come back over time. Encouraged that she does have motor function, though minimal. Regular rehab 0-6 weeks: ultrasling, elbow/wrist/ hand exercises, no passive or active use of the arm 6-12 weeks: sling off, pendulum, supine passive assisted exercises until ROM gets normal (Phase 1 stretching; okay to start phase 2 stretching once full ROM with phase 1), lift < 2lb, ok to drive after 6 weeks 3-6 months: continue stretching, resistance bands, isometric exercises (phase 1 strengthening, followed by phase 2 strengthening), lift < 10lb 6+ months: no restrictions Return to work with limited duty at 2-6 months, full duty 6 months, Contact sports >4 months Nilton Glaser MD Shoulder and Elbow Surgeon Orthopaedic Surgery Department [facility] 05-27-2024 Note HNO ID: [id number] Author: SHANNAN BOO AA Service: ? Author Type: Manager [employer]vac Type: Anesthesia Procedure Notes Filed: 05/27/2024 08:05 Note Text: ANESTHESIOLOGY PROCEDURE NOTE Airway General Information Procedure Start Time/Medication Administration: 05/27/2024 7:39 AM Procedure End Time: 05/27/2024 7:39 AM Patient location during procedure: OR Timeout Performed Pre-procedure: timeout performed Consent Obtained: Yes Patient identity confirmed: arm band, care produce service team member and patient Staffing CAA: Shannan Boo AA Performed by: POLY Indications and Patient Condition Indications for airway management: anesthesia Preoxygenated: yes anesthesia circuit Method: asleep Cricoid Pressure: No Manual In-Line Stabilization: No Difficult Mask: No Final Airway Details Final airway type: endotracheal airway Final Endotracheal Airway: ETT Cuffed: yes Successful intubation technique: video laryngoscopy Devices used: Pandoodle Endotracheal tube insertion site: oral Blade size: #3 ETT size (mm): 7.0 Measured from: lips Measurement (cm): 22 Placement verified by: capnometry Cormack-Lehane Classification: grade IIa - partial view of glottis Number of attempts at approach: 1 Failed airway: no Unrecognized esophageal intubation: no Airway not difficult SIGNATURE: KENAN Duong PATIENT NAME: Adam Guajardo DATE: May 27, 2024 TIME: 8:04 AM CSN: [id number] [facility] 05-27-2024 Note HNO ID: [id number] Author: MARIN TORO MD Service: Anesthesiology Author Type: Anesthesiologist Type: Anesthesia Procedure Notes Filed: 05/27/2024 07:30 Note Text: ANESTHESIOLOGY PROCEDURE NOTE Peripheral Nerve Block General Information Procedure Start Time/Medication Administration: 05/27/2024 7:23 AM Procedure End time: 05/27/2024 7:29 AM Patient location during procedure: pre-op Timeout Performed Pre-procedure: timeout performed Consent Obtained: Yes Patient identity confirmed: arm band and patient Reason for block: post-op pain management/at surgeon's request Staffing Anesthesiologist: Marin Toro MD Performed by: anesthesiologist Preparation Sterility Preparation: hand hygiene performed prior to procedure, sterile gloves, drapes, and procedure tray, surgical cap used, mask used, sterile drape used during line insertion, skin prep agent completely dried prior to procedure Site Prep: Chloraprep Pre-Procedure Neuro Exam Location: RUE Sensory: intact Motor: intact Procedure Details Patient Position: supine Monitoring: Pulse OX, EKG and NIBP Block Type Upper Extremity: brachial plexus Approach: supraclavicular Laterality: right Injection Technique: single-shot Ultrasound Guided: Yes Image in Chart: yes Local Infiltration: Yes Needle Needle Type: echogenic Needle Gauge: 22 G Needle Length: 51 mm Needle Localization: ultrasound and anatomical landmarks Assessment Injection assessment: negative aspiration, no paresthesia on injection, incremental injection and local visualized surrounding nerve on ultrasound Paresthesia: none Post-Procedure Neuro Exam Expected Regional Anesthesia: Yes Medications Administered dexamethasone sodium phosphate injection (DECADRON) - peripheral nerve block 4 mg - 05/27/2024 7:23:00 AM ropivacaine (PF) 10 mg/mL (1 %) injection (NAROPIN) - INTRADERMAL 20 mL - 05/27/2024 7:23:00 AM Comments 10cc of 0.5% Lido. 20cc Vol SIGNATURE: Marin Toro MD PATIENT NAME: Adam Guajardo DATE: May 27, 2024 TIME: 7:29 AM CSN: [id number] [facility] 05-08-2024 Instructions Sri Pritchett PA-C - 05/08/2024 9:12 AM EDT Images from the original note were not included. [facility] PATIENT PREOPERATIVE INSTRUCTIONS Nilton Glaser MD has scheduled you for your procedure at this surgery center: [facility]: [phone] -- [address] [place] [address]. Please read below carefully for your personalized instructions. Arrival Time for Surgery: - The Surgery Center or hospital where you are having surgery will call the afternoon before surgery (or Sunday for Sunday surgery) with a scheduled arrival time. - If you have not heard by 4 pm, please contact the surgery center above. Please be aware that emergency situations arise, which may delay or change your surgical time. If this happens, we will notify you as soon as possible and regret any inconvenience. Dietary Restrictions: - No solid food after midnight. - You may have 12 ounces of clear liquids (water, clear juices such as apple juice or gatorade, carbonated beverages, clear tea, black coffee, jello) until 2 hours before scheduled arrival at facility. - no milk/creamer or other additives like honey - no pulp juices Medications: Pre-Surgery Med Instructions Medication Instructions albuterol HFA (PROVENTIL HFA, VENTOLIN HFA) 90 mcg/actuation inhaler Continue esomeprazole (NEXIUM) 40 mg capsule Continue cetirizine (ZYRTEC) 10 mg tablet Do not take the day of surgery If you are currently using a [id number] injectable or oral medication for diabetes or weight loss such as Dulaglutide (Trulicity), Exenatide (Byetta, Bydureon), Liraglutide (Victoza, Saxenda), Semaglutide (Ozempic, Wegovy, Rybelsus), or Tirzepatide (Mounjaro), the medicine should be stopped at least 7 days before surgery. These medicines can cause food to remain in your stomach for a very long time and increase the risks from surgery and anesthesia. Not stopping the medication for a long enough time may result in your surgery being rescheduled. If you start any new medications after today's visit, please contact the surgeon's office. Blood Thinning Medications: - Stop NSAIDS (Ibuprofen, Advil, Aleve, Motrin, Celebrex, Mobic, etc.) 7 days before surgery, as directed by your surgeon. - Stop Aspirin 7 days before surgery, as directed by your surgeon. - Stop ALL herbal and dietary supplements 7 days before surgery. - You may take Tylenol (Acetaminophen) or any of your pain medications that do not contain aspirin or NSAIDS as needed. Important Reminders: - Candy, mints, and tobacco products are NOT permitted the morning of surgery. - Hearing aids, dentures and glasses may be worn the morning of surgery. - NO jewelry, body piercings, makeup, hairpins or contacts are to be worn the day of surgery. If you develop symptoms such as a fever, cold, or flu, or have other changes to your health within TWO DAYS of scheduled surgery or the morning of surgery, please contact the surgery center above. Personal Belongings: -Please have photo ID and insurance cards. -If you do not have a copy of advance directives on file with us, please bring a copy with you on the day of surgery. - Leave ALL valuables and money at home or with family members. For Outpatient Procedures: - YOU MUST HAVE A RESPONSIBLE METAL MOLDER TAKE YOU HOME. A TRANSPORTATION AIDE OR HAND FRETTED INSTRUMENT MAKER CANNOT BE MADE A RESPONSIBLE METAL MOLDER. - We recommend that a responsible person stays with you overnight to take care of you. - You cannot stay in a hotel alone after outpatient surgery. You will not be permitted to have your surgery, if you do not have someone to take care of you. Please be aware that emergency situations arise, which may delay or change your surgical time. If this happens, we will notify you as soon as possible and regret any inconvenience. If you already have an Advance Directive, please fax a copy to [phone] or email to for it to be added to your chart. If you do not have an Advance Directive, you can find the appropriate form and more information at [email or web address]. We recommend that you complete the Advance Directive form found on the website and bring it with you the day of your surgery. It can be witnessed and scanned into your chart that day. Sri Pritchett PA-C documented in this encounter [facility] 05-08-2024 History and physical note Images from the original note were not included. [facility] Pre[facility]Anest[facility] Consultation Clinic HISTORY AND PHYSICAL EXAMINATION SERVICE DATE: 05/08/2024 SERVICE TIME: 8:44 AM PRIMARY CARE PHYSICIAN: Margarita Avila APRN.MANAGER DATA CENTER REASON FOR VISIT: Adam Guajardo is a 63 year old female who is scheduled for Right - Right arthroscopic rotator cuff repair, subacromial decompression, possible biceps tenodesis, possible graft augmentation at the request of Dr. Nilton Glaser for consultation. My final recommendation will be communicated back to the requesting physician by way of shared medical record or letter. Assessment Patient has the following medical conditions which may affect gumaro-operative course: GERD (gastroesophageal reflux disease) Assessment: symptoms controlled on esomeprazole Former smoker Assessment: 1/2 ppd x 10 years. Quit in 1989 Obesity (BMI 30-39.9) Assessment: BMI 36 I - PHYSICAL EVALUATION AIRWAY Patient intubated: No. Tracheostomy tube not present Mallampati: II. TM distance: >3 FB. Neck ROM: full ROM without neurological symptoms. Mouth opening: adequate. Short neck: no. Thick neck: no Microretrognathia/Micronagthia/Rec essed Chin: No DENTAL Dental findings: teeth intact. Additional comments: Caps/crowns. II - ANESTHESIA PLAN Anesthetic plan additional comments: *PACC/TCI - anesthesia choice. Beta Krystina Monitoring Plan Post Procedure Analgesic Plan ANESTHESIA FINDINGS: Intubation History: No history of difficult intubation Significant Anesthesia Considerations: none Airway History: No history of difficult airway Santos Activity Status Index: METS: Walk indoors, such as around the house (1.75 METs) Do light work around the house, such as dusting or washing dishes (2.70 METs) Take care of self; that is eating, dressing, bathing, using the toilet (2.75 METs) Walk a block or two on level ground (2.75 METs) Do moderate work around the house, such as vacuuming, sweeping floors, or carrying in groceries (3.50 METs) Climb a flight of stairs or walk up a hill (5.50 METs) DASI Score: 18.95 STOP-Bang Score: BMI greater than 35 kg/m^2 Patient over 50 years old Denies snoring loudly Denies feeling tired, fatigued, or sleepy during the daytime Has not been observed to stop breathing or choking/gasping during sleep Denies having high blood pressure Does not have a large neck Non-male patient STOP-Bang Score: 2 [id number] Score: Age: <65 Sex: female CHF history: No Hypertension history: No Stroke/TIA/thromboembolism history: No Vascular disease history: No Diabetes history: No [id number] Score: 1 Prepared for surgery: This patient is optimally prepared for surgery pending LABS and EKG. CONSULTS: Patient does not require consults for optimization at this time. The Following Tests/Procedures Have Been Initiated: CBC, BMP, EKG-surgeon's orders Planned Anesthetic: Per anesthesia choice Subjective CHIEF COMPLAINT: torn rotator cuff HPI: Adam is a 63 y/o female who dislocated her right shoulder when she tripped and fell on 02/06. She presented to the ED at which time the dislocation was reduced. She was recently evaluated by ortho for shoulder pain. MRI showed full thickness supraspinatus tendon tear. She is scheduled for surgery on 05/27. REVIEW OF SYSTEMS: PAIN ASSESSMENT: Pain Pain Level: 3 Pain Location: Shoulder-Right Description: Aching Duration Units: Months Frequency: Continuous General: No weight loss, malaise or fevers. Neuro: Negative for headaches, seizures, tremor or stroke Respiratory: Negative for cough, wheezing or shortness of breath. Negative for hemoptysis. Negative for sleep apnea. Cardiovascular: Negative for chest pain, orthopnea, PND, dizziness, lightheadedness or syncope. Negative for heart murmur. Negative for palpitations or arrhythmia. Negative for h/o DVT/PE. Negative for LE edema GI: Negative for abdominal pain, blood in the stool, black stools or change in bowel habits +GERD : No history of UTI in past 6 weeks. No history of renal failure. Not currently on or requiring dialysis. Negative for dysuria, hematuria, urgency, frequency or incontinence ARC TRIMMER: Negative for abnormal vaginal bleeding, abnormal vaginal discharge. : N/A, Patient's last menstrual period was 12/13/2011. Endocrine: Negative for polyuria, polydipsia, heat or cold intolerance. Negative for goiter Hematology: No history of bleeding or clotting disorder. Pt is not taking anti-coagulation or platelet medications. No history of hematological symptoms or problems. Oncology: No history of CA metastasis, chemo within 30 days, or radiotherapy within 90 days. Has not lost 10% of body wt in 6 months. No history of oncological symptoms or problems. Psych: No history of psychiatric symptoms or problems. Marijuana use: Yes: Musculoskeletal: See HPI Skin: Negative for lesions, rash and itching. Implanted Devices: No The patient has the following: ACTIVE PROBLEM LIST Fibroid Family History of Breast Cancer in Mother Gerd (Gastroesophageal Reflux Disease) Former Smoker Obesity (Bmi 30-39.9) Covid Immunization Dates Current Care Gaps Covid-19 Vaccine ( season) Never done No completion, postpone, frequency change, or communication history exists for this topic. PAST MEDICAL HISTORY Diagnosis Date Acute medial meniscus tear 08/17/2021 Arthritis Family history of breast cancer in mother sister also Uterine fibroid 2010 U/S notede multiple, largest ~3.3cm PAST SURGICAL HISTORY Procedure Laterality Date KNEE SURGERY HX Left 2021 FAMILY HISTORY Problem Relation Age of Onset Arthritis Mother Asthma Mother Breast Cancer Mother diagnosed age 52 Diabetes Mother Heart disease Mother age 83 Stroke Father Heart Father age 82 DVT Father Breast Cancer Sister 66 DVT Sister Cancer Maternal Grandfather brain Diabetes Paternal Grandfather Hypertension Daughter Cervical Cancer Maternal Aunt Colon Cancer No Family History Ovarian cancer No Family History Prostate Cancer No Family History No Family History No Family History Pancreatic CA Uterine Cancer No Family History Social History Tobacco Use Smoking status: Former Current packs/day: 0.00 Average packs/day: 0.5 packs/day for 10.0 years (5.0 ttl pk-yrs) Types: Cigarettes Start date: 10/25/1979 Quit date: 10/24/1989 Years since quittin.5 Smokeless tobacco: Never Vaping Use Vaping status: Never Used Substance Use Topics Alcohol use: Yes Comment: 1/month Drug use: No Prior to Admission medications as of 05/08/24 0905 Medication Sig Last Dose Taking collagen, bovine, 100 % pwpk Take 1 Package by mouth once daily. Puts in coffee Yes MUSHROOM Yes OTC NUTRITIONAL SUPPLEMENT Take 1 capsule by mouth once daily. Yes TURMERIC ORAL Take by mouth. Yes albuterol HFA (PROVENTIL HFA, VENTOLIN HFA) 90 mcg/actuation inhaler Yes Azelaic Acid 15 % gel Yes esomeprazole (NEXIUM) 40 mg capsule Yes metroNIDAZOLE (METROGEL) 0.75 % Topical Gel Yes MULTIVITAMIN ORAL Take by mouth. Yes KRILL OIL ORAL Take by mouth. Yes [id number] ORAL Take by mouth. Yes cetirizine (ZYRTEC) 10 mg tablet Take 1 tablet by mouth once daily. Yes No medication comments found. ALLERGIES Allergen Reactions Sulfa (Sulfonamide * Rash Objective PHYSICAL EXAM: VITALS: BP 126/60 Pulse 59 Temp (Src) 98.9 (Temporal) Resp 16 Ht 5' 5.472[shoes off[ (1.66m) Wt 219 lb 12.8 oz (99.7kg) SpO2 99% LMP 12/13/2011 BMI 36.05 kg/(m^2). General: Alert and oriented Skin: Normal color, no rash, no lesions. HEENT: EOM, pupils equal, round and reactive. Cardiovascular: Normal S1 & S2, no rubs, murmurs or gallops. No JVD. Pulse regular. Lungs: Normal breath sounds, no wheezes or crackles. Abdomen: Soft, non-tender, no rigidity. Extremities: No deformity, no edema or tenderness, no joint swelling or clubbing. Neurological: Normal cognition and motor skills. Pulses: Carotid and radial pulses normal +2. Diagnostic tests reviewed for today's visit: Lab Value Units Date High Low HB 12.8 g/dL 02/07/2024 15.5 11.5 HCT 40.7 % 02/07/2024 46.0 36.0 WBC 10.25 k/uL 02/07/2024 11.00 3.70 PLT 248 k/uL 02/07/2024 400 150 NA 139 mmol/L 02/07/2024 144 136 K 4.0 mmol/L 02/07/2024 5.1 3.7 GLUC 113 mg/dL 02/07/2024 99 74 BUN 24 mg/dL 02/07/2024 21 7 CREAT 0.71 mg/dL 02/07/2024 0.96 0.58 PTSEC No results within date range. INR No results within date range. APTT No results within date range. ALT 17 U/L 02/07/2024 38 7 AST 17 U/L 02/07/2024 35 13 TBILI 0.2 mg/dL 02/07/2024 1.3 0.2 TSH No results within date range. Lab Value Units Date High Low HCGQT No results within date range. UHCG No results within date range. HCG, BODY* No results within date range. Lab Value Units Date High Low ABORHD No results within date range. ABSCREEN No results within date range. No results found for: HBA1C PENDING Instructions Given to Patient: Instructions located in the after visit summary. Patient given verbal and written preop instructions and voices comprehension and compliance. SIGNATURE: Sri Pritchett PA-C PATIENT NAME: Adam Guajardo DATE: 05/08/2024 TIME: 9:20 AM [facility] 05-08-2024 History and physical note Images from the original note were not included. [facility] HISTORY AND PHYSICAL EXAMINATION SERVICE DATE: 05/08/2024 SERVICE TIME: 8:44 AM PRIMARY CARE PHYSICIAN: Margarita Avila APRN.[employer] REASON FOR VISIT: Adam Guajardo is a 63 year old female who is scheduled for Right - Right arthroscopic rotator cuff repair, subacromial decompression, possible biceps tenodesis, possible graft augmentation at the request of Dr. Nilton Glaser for consultation. My final recommendation will be communicated back to the requesting physician by way of shared medical record or letter. Assessment Patient has the following medical conditions which may affect gumaro-operative course: GERD (gastroesophageal reflux disease) Assessment: symptoms controlled on esomeprazole Former smoker Assessment: 1/2 ppd x 10 years. Quit in 1989 Obesity (BMI 30-39.9) Assessment: BMI 36 I - PHYSICAL EVALUATION AIRWAY Patient intubated: No. Tracheostomy tube not present Mallampati: II. TM distance: >3 FB. Neck ROM: full ROM without neurological symptoms. Mouth opening: adequate. Short neck: no. Thick neck: no Microretrognathia/Micronagthia/Rec essed Chin: No DENTAL Dental findings: teeth intact. Additional comments: Caps/crowns. II - ANESTHESIA PLAN Anesthetic plan additional comments: *PACC/TCI - anesthesia choice. Beta Krystina Monitoring Plan Post Procedure Analgesic Plan ANESTHESIA FINDINGS: Intubation History: No history of difficult intubation Significant Anesthesia Considerations: none Airway History: No history of difficult airway Santos Activity Status Index: METS: Walk indoors, such as around the house (1.75 METs) Do light work around the house, such as dusting or washing dishes (2.70 METs) Take care of self; that is eating, dressing, bathing, using the toilet (2.75 METs) Walk a block or two on level ground (2.75 METs) Do moderate work around the house, such as vacuuming, sweeping floors, or carrying in groceries (3.50 METs) Climb a flight of stairs or walk up a hill (5.50 METs) DASI Score: 18.95 STOP-Bang Score: BMI greater than 35 kg/m^2 Patient over 50 years old Denies snoring loudly Denies feeling tired, fatigued, or sleepy during the daytime Has not been observed to stop breathing or choking/gasping during sleep Denies having high blood pressure Does not have a large neck Non-male patient STOP-Bang Score: 2 [id number] Score: Age: <65 Sex: female CHF history: No Hypertension history: No Stroke/TIA/thromboembolism history: No Vascular disease history: No Diabetes history: No [id number] Score: 1 Prepared for surgery: This patient is optimally prepared for surgery pending LABS and EKG. CONSULTS: Patient does not require consults for optimization at this time. The Following Tests/Procedures Have Been Initiated: CBC, BMP, EKG-surgeon's orders Planned Anesthetic: Per anesthesia choice Subjective CHIEF COMPLAINT: torn rotator cuff HPI: Adam is a 63 y/o female who dislocated her right shoulder when she tripped and fell on 02/06. She presented to the ED at which time the dislocation was reduced. She was recently evaluated by ortho for shoulder pain. MRI showed full thickness supraspinatus tendon tear. She is scheduled for surgery on 05/27. REVIEW OF SYSTEMS: PAIN ASSESSMENT: Pain Pain Level: 3 Pain Location: Shoulder-Right Description: Aching Duration Units: Months Frequency: Continuous General: No weight loss, malaise or fevers. Neuro: Negative for headaches, seizures, tremor or stroke Respiratory: Negative for cough, wheezing or shortness of breath. Negative for hemoptysis. Negative for sleep apnea. Cardiovascular: Negative for chest pain, orthopnea, PND, dizziness, lightheadedness or syncope. Negative for heart murmur. Negative for palpitations or arrhythmia. Negative for h/o DVT/PE. Negative for LE edema GI: Negative for abdominal pain, blood in the stool, black stools or change in bowel habits +GERD : No history of UTI in past 6 weeks. No history of renal failure. Not currently on or requiring dialysis. Negative for dysuria, hematuria, urgency, frequency or incontinence ARC TRIMMER: Negative for abnormal vaginal bleeding, abnormal vaginal discharge. : N/A, Patient's last menstrual period was 12/13/2011. Endocrine: Negative for polyuria, polydipsia, heat or cold intolerance. Negative for goiter Hematology: No history of bleeding or clotting disorder. Pt is not taking anti-coagulation or platelet medications. No history of hematological symptoms or problems. Oncology: No history of CA metastasis, chemo within 30 days, or radiotherapy within 90 days. Has not lost 10% of body wt in 6 months. No history of oncological symptoms or problems. Psych: No history of psychiatric symptoms or problems. Marijuana use: Yes: Musculoskeletal: See HPI Skin: Negative for lesions, rash and itching. Implanted Devices: No The patient has the following: ACTIVE PROBLEM LIST Fibroid Family History of Breast Cancer in Mother Gerd (Gastroesophageal Reflux Disease) Former Smoker Obesity (Bmi 30-39.9) Covid Immunization Dates Current Care Gaps Covid-19 Vaccine (2023- season) Never done No completion, postpone, frequency change, or communication history exists for this topic. PAST MEDICAL HISTORY Diagnosis Date Acute medial meniscus tear 08/17/2021 Arthritis Family history of breast cancer in mother sister also Uterine fibroid 2010 U/S notede multiple, largest ~3.3cm PAST SURGICAL HISTORY Procedure Laterality Date KNEE SURGERY HX Left 2021 FAMILY HISTORY Problem Relation Age of Onset Arthritis Mother Asthma Mother Breast Cancer Mother diagnosed age 52 Diabetes Mother Heart disease Mother age 83 Stroke Father Heart Father age 82 DVT Father Breast Cancer Sister 66 DVT Sister Cancer Maternal Grandfather brain Diabetes Paternal Grandfather Hypertension Daughter Cervical Cancer Maternal Aunt Colon Cancer No Family History Ovarian cancer No Family History Prostate Cancer No Family History No Family History No Family History Pancreatic CA Uterine Cancer No Family History Social History Tobacco Use Smoking status: Former Current packs/day: 0.00 Average packs/day: 0.5 packs/day for 10.0 years (5.0 ttl pk-yrs) Types: Cigarettes Start date: 10/25/1979 Quit date: 10/24/1989 Years since quittin.5 Smokeless tobacco: Never Vaping Use Vaping status: Never Used Substance Use Topics Alcohol use: Yes Comment: 1/month Drug use: No Prior to Admission medications as of 05/08/24 0905 Medication Sig Last Dose Taking collagen, bovine, 100 % pwpk Take 1 Package by mouth once daily. Puts in coffee Yes MUSHROOM Yes OTC NUTRITIONAL SUPPLEMENT Take 1 capsule by mouth once daily. Yes TURMERIC ORAL Take by mouth. Yes albuterol HFA (PROVENTIL HFA, VENTOLIN HFA) 90 mcg/actuation inhaler Yes Azelaic Acid 15 % gel Yes esomeprazole (NEXIUM) 40 mg capsule Yes metroNIDAZOLE (METROGEL) 0.75 % Topical Gel Yes MULTIVITAMIN ORAL Take by mouth. Yes KRILL OIL ORAL Take by mouth. Yes [id number] ORAL Take by mouth. Yes cetirizine (ZYRTEC) 10 mg tablet Take 1 tablet by mouth once daily. Yes No medication comments found. ALLERGIES Allergen Reactions Sulfa (Sulfonamide * Rash Objective PHYSICAL EXAM: VITALS: BP 126/60 Pulse 59 Temp (Src) 98.9 (Temporal) Resp 16 Ht 5' 5.472[shoes off[ (1.66m) Wt 219 lb 12.8 oz (99.7kg) SpO2 99% LMP 12/13/2011 BMI 36.05 kg/(m^2). General: Alert and oriented Skin: Normal color, no rash, no lesions. HEENT: EOM, pupils equal, round and reactive. Cardiovascular: Normal S1 & S2, no rubs, murmurs or gallops. No JVD. Pulse regular. Lungs: Normal breath sounds, no wheezes or crackles. Abdomen: Soft, non-tender, no rigidity. Extremities: No deformity, no edema or tenderness, no joint swelling or clubbing. Neurological: Normal cognition and motor skills. Pulses: Carotid and radial pulses normal +2. Diagnostic tests reviewed for today's visit: Lab Value Units Date High Low HB 12.8 g/dL 02/07/2024 15.5 11.5 HCT 40.7 % 02/07/2024 46.0 36.0 WBC 10.25 k/uL 02/07/2024 11.00 3.70 PLT 248 k/uL 02/07/2024 400 150 NA 139 mmol/L 02/07/2024 144 136 K 4.0 mmol/L 02/07/2024 5.1 3.7 GLUC 113 mg/dL 02/07/2024 99 74 BUN 24 mg/dL 02/07/2024 21 7 CREAT 0.71 mg/dL 02/07/2024 0.96 0.58 PTSEC No results within date range. INR No results within date range. APTT No results within date range. ALT 17 U/L 02/07/2024 38 7 AST 17 U/L 02/07/2024 35 13 TBILI 0.2 mg/dL 02/07/2024 1.3 0.2 TSH No results within date range. Lab Value Units Date High Low HCGQT No results within date range. UHCG No results within date range. HCG, BODY* No results within date range. Lab Value Units Date High Low ABORHD No results within date range. ABSCREEN No results within date range. No results found for: HBA1C PENDING Instructions Given to Patient: Instructions located in the after visit summary. Patient given verbal and written preop instructions and voices comprehension and compliance. SIGNATURE: Sri Pritchett PA-C PATIENT NAME: Adam Guajardo DATE: 05/08/2024 TIME: 9:20 AM documented in this encounter [facility] 05-06-2024 Note HNO ID: [id number] Author: NILTON GLASER MD Service: ? Author Type: Physician Type: Progress Notes Filed: 05/06/2024 15:27 Note Text: [facility] NOTE Department of Orthopaedics NAME: Adam Guajardo [facility] NO.: [id number] DATE: 05/06/24 Last visit: February 21, 2024 Interval Hx: Adam Guajardo is back for follow up since their last visit At the last visit we discussed her acute, traumatic rotator cuff tear from injury on 02/07/24. I recommended rotator cuff repair due to the acute, traumatic nature, but she decided to try PT first. She also had an axillary nerve injury from this dislocation, evidenced by weakness and decreased sensation. Today they report she has been doing PT and noticing some improvements, but still having pain and weakness. She is now interested in proceeding with surgery. She has also been noticing improvements in her strength and her sensation in the shoulder. PHYSICAL EXAMINATION: Right Shoulder Atrophy/asymmetry Right deltoid atrophy Scapular dyskinesia No AC tenderness No ROM (Passive/Active): FE (degree) 160/90 ER (degree) 50/50 ER Lag (degree) 10 IR (degree) Sacrum Strength (1-5) ABD in plane of scapula 4/5 ER 5/5 IR 5/5 Provocative tests: Job?s test Positive Neer and Murray test Negative Belly press test Negative O?Clifton?s test Negative Speed's test Negative Hornblower's sign Negative Cross Body Adduction Negative Apprehension Negative Sulcus Negative Load and Shift Negative Nerve deficit (motor/sensory) Radial n. Negative Median n. Negative Ulnar n. Negative Axillary n. Positive, decreased sensation and motor function Firing all three heads of deltoid, but weak Vascular Distal perfusion normal RADIOGRAPHIC STUDIES: No new imaging ASSESSMENT: Encounter Diagnosis ICD-10-CM 1. Traumatic tear of right rotator cuff, subsequent encounter S46.011D 2. 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 Regarding her axillary nerve injury she is starting to get motor and sensory function back, though there is still evidence of decreased function. This improvement in function suggests a neuropraxia that is improving, consistent with that of a dislocation related injury. I offered her the opportunity for EMG so we could better evaluate the condition of the nerve, but she does not want to proceed with that at this time, as she would rather focus on the rotator cuff and keep an eye on the nerve, as she feels like her sensation and function are improving. Her motion is improved today and her deltoid is firing so she does still have motor axons getting through. Regarding her rotator cuff tear, we discussed both operative and nonoperative treatment options for this problem. Nonoperative treatment options include continued physical therapy and steroid injections to treat the pain and weakness. Surgical treatment includes rotator cuff repair with the possibility of graft augmentation. We discussed the importance of not using the shoulder for any active motion during the first 6-8weeks of recovery in order to optimize healing because of the high risk for rotator cuff tears not to heal. We discussed the risk of retearing, nonhealing of the repair, infection, neurovascular injury, possible need for revision surgery, and complications related to anesthesia. 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 The deltoid atrophy and general shoulder weakness will make her recovery more difficult and we may need to consider a nerve decompression down the road if she is not getting further improvement by the 6 month nicko. After discussion of the risks and benefits the patient would like to proceed with left shoulder arthroscopic rotator cuff repair, decompression, possible biceps tenodesis, possible graft augmentation. Consent was signed in the office today Plan: Preop labs, PACC Plan for surgery. Outpatient Followup for surgery Nilton Glaser MD Shoulder and Elbow Surgeon Orthopaedic Surgery Department [facility] 05-06-2024 History of Present illness Narrative [facility] NOTE Department of Orthopaedics NAME: Adam Guajardo CLINIC NO.: [id number] DATE: 05/06/24 Last visit: February 21, 2024 Interval Hx: Adam Guajardo is back for follow up since their last visit At the last visit we discussed her acute, traumatic rotator cuff tear from injury on 02/07/24. I recommended rotator cuff repair due to the acute, traumatic nature, but she decided to try PT first. She also had an axillary nerve injury from this dislocation, evidenced by weakness and decreased sensation. Today they report she has been doing PT and noticing some improvements, but still having pain and weakness. She is now interested in proceeding with surgery. She has also been noticing improvements in her strength and her sensation in the shoulder. PHYSICAL EXAMINATION: Right Shoulder Atrophy/asymmetry Right deltoid atrophy Scapular dyskinesia No AC tenderness No ROM (Passive/Active): FE (degree) 160/90 ER (degree) 50/50 ER Lag (degree) 10 IR (degree) Sacrum Strength (1-5) ABD in plane of scapula 4/5 ER 5/5 IR 5/5 Provocative tests: Job s test Positive Neer and Murray test Negative Belly press test Negative O Clifton s test Negative Speed's test Negative Hornblower's sign Negative Cross Body Adduction Negative Apprehension Negative Sulcus Negative Load and Shift Negative Nerve deficit (motor/sensory) Radial n. Negative Median n. Negative Ulnar n. Negative Axillary n. Positive, decreased sensation and motor function Firing all three heads of deltoid, but weak Vascular Distal perfusion normal RADIOGRAPHIC STUDIES: No new imaging ASSESSMENT: Encounter Diagnosis ICD-10-CM 1. Traumatic tear of right rotator cuff, subsequent encounter S46.011D 2. 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 Regarding her axillary nerve injury she is starting to get motor and sensory function back, though there is still evidence of decreased function. This improvement in function suggests a neuropraxia that is improving, consistent with that of a dislocation related injury. I offered her the opportunity for EMG so we could better evaluate the condition of the nerve, but she does not want to proceed with that at this time, as she would rather focus on the rotator cuff and keep an eye on the nerve, as she feels like her sensation and function are improving. Her motion is improved today and her deltoid is firing so she does still have motor axons getting through. Regarding her rotator cuff tear, we discussed both operative and nonoperative treatment options for this problem. Nonoperative treatment options include continued physical therapy and steroid injections to treat the pain and weakness. Surgical treatment includes rotator cuff repair with the possibility of graft augmentation. We discussed the importance of not using the shoulder for any active motion during the first 6-8weeks of recovery in order to optimize healing because of the high risk for rotator cuff tears not to heal. We discussed the risk of retearing, nonhealing of the repair, infection, neurovascular injury, possible need for revision surgery, and complications related to anesthesia. 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 The deltoid atrophy and general shoulder weakness will make her recovery more difficult and we may need to consider a nerve decompression down the road if she is not getting further improvement by the 6 month nicko. After discussion of the risks and benefits the patient would like to proceed with left shoulder arthroscopic rotator cuff repair, decompression, possible biceps tenodesis, possible graft augmentation. Consent was signed in the office today Plan: Preop labs, PACC Plan for surgery. Outpatient Followup for surgery Nilton Glaser MD Shoulder and Elbow Surgeon Orthopaedic Surgery Department documented in this encounter [facility] 02-21-2024 History of Present illness Narrative [facility] NOTE Department of Orthopaedics NAME: Adam Guajardo CLINIC NO.: [id number] DATE: February 21, 2024 Last visit: 02/14/2024 Interval Hx: Adam Guajardo is back for follow up since their last visit with me on 02/14/2024. At the last visit we discussed getting an MRI to better evaluate her acute cuff tear Today they report that symptoms of pain have slightly improved, though she continues to have some weakness. She reports that she is not interested in having surgery until July because she does not want to pay for surgery and her insurance goes on Medicare in July. She is also going to the [facility] until April and does not want to have surgery before then. PHYSICAL EXAMINATION: Unchanged from prior Still pseudoparalytic RADIOGRAPHIC STUDIES: MRI of the right shoulder, completed on 02/15/24 does demonstrate an acute supraspinatus rotator cuff tear. The muscle belly looks healthy with no atrophy or fatty infiltration, so this is consistent with an acute tear. ASSESSMENT: Encounter Diagnosis ICD-10-CM 1. Traumatic tear of right rotator cuff, subsequent encounter S46.011D PLAN: Adam presents back and MRI confirms an acute rotator cuff tear. I discussed at length with Adam that with an acute tear her options are nonop (PT and CSI if pain is significant) or surgery (arthroscopic rotator cuff repair). Given her age, healthy muscle quality, and acute tear my recommendation is for surgery. Adam, however, adamantly prefers to avoid surgery until July because of health insurance matters. I discussed with her that waiting until July may jeopradize ability to repair the tendon, and she may not have as good of an outcome once it has become a chronic tear. I stressed this to her multiple times. She says she understands this but will still prefer to treat this without surgery. Therefore I will order PT. Her pain is improving so she does not want a CSI at this time. I would like to see her back if she changes her mind about surgery, and certainly I will see her back hanger to July to re-evaluate her shoulder. I informed her that we may need a new MRI at that time to assess the retraction/muscle quality to see if this tear is still repairable. Nilton Glaser MD Shoulder and Elbow Surgeon Orthopaedic Surgery Department documented in this encounter [facility] 02-21-2024 Note HNO ID: [id number] Author: NILTON GLASER MD Service: ? Author Type: Physician Type: Progress Notes Filed: 02/21/2024 10:24 Note Text: [facility] NOTE Department of Orthopaedics NAME: Adam Guajardo CLINIC NO.: [id number] DATE: February 21, 2024 Last visit: 02/14/2024 Interval Hx: Aadm Guajardo is back for follow up since their last visit with me on 02/14/2024. At the last visit we discussed getting an MRI to better evaluate her acute cuff tear Today they report that symptoms of pain have slightly improved, though she continues to have some weakness. She reports that she is not interested in having surgery until July because she does not want to pay for surgery and her insurance goes on Medicare in July. She is also going to the [facility] until April and does not want to have surgery before then. PHYSICAL EXAMINATION: Unchanged from prior Still pseudoparalytic RADIOGRAPHIC STUDIES: MRI of the right shoulder, completed on 02/15/24 does demonstrate an acute supraspinatus rotator cuff tear. The muscle belly looks healthy with no atrophy or fatty infiltration, so this is consistent with an acute tear. ASSESSMENT: Encounter Diagnosis ICD-10-CM 1. Traumatic tear of right rotator cuff, subsequent encounter S46.011D PLAN: Adam presents back and MRI confirms an acute rotator cuff tear. I discussed at length with Adam that with an acute tear her options are nonop (PT and CSI if pain is significant) or surgery (arthroscopic rotator cuff repair). Given her age, healthy muscle quality, and acute tear my recommendation is for surgery. Adam, however, adamantly prefers to avoid surgery until July because of health insurance matters. I discussed with her that waiting until July may jeopradize ability to repair the tendon, and she may not have as good of an outcome once it has become a chronic tear. I stressed this to her multiple times. She says she understands this but will still prefer to treat this without surgery. Therefore I will order PT. Her pain is improving so she does not want aCSI at this time. I would like to see her back if she changes her mind about surgery, and certainly I will see her back hanger to July to re-evaluate her shoulder. I informed her that we may need a new MRI at that time to assess the retraction/muscle quality to see if this tear is still repairable. Nilton Glaser MD Shoulder and Elbow Surgeon Orthopaedic Surgery Department [facility] 02-15-2024 History of Present illness Narrative Radiology Service Progress Note PATIENT NAME: Adam Guajardo DATE OF SERVICE: February 15, 2024 TIME: 10:54 AM PATIENT IDENTITY VERIFICATION COMPLETED USING TWO (2) IDENTIFIERS: Name and Date of confirmed by patient verbally. FALL SCREENING: Has the patient had 2 falls in the last year or 1 fall with injury or currently using an Ambulatory Assistive Device (Walker, Cane, Wheelchair, Crutches, etc.)? No PATIENT GENDER DATA: Female. status: : No status: NO. PATIENT RELEVANT IMPLANT DATA REVIEWED: Yes PATIENT PRESENTS WITH AN IMPLANTABLE OR ATTACHED ROLL FORMING MACHINE SET UP OPERATOR: No RADIOLOGY DEPARTMENT: MR; Exam(s) Completed: Upper MSK: Shoulder, right PERIPHERAL IV DATA: Not applicable SIGNED BY: Yoon BLACKMAN warp spinner February 15, 2024 10:54 AM documented in this encounter [facility] 02-15-2024 Note HNO ID: [id number] Author: YOON MIXON MRI Tech Service: ? Author Type: Pharmacogeneticist Type: Progress Notes Filed: 02/15/2024 11:10 Note Text: Radiology Service Progress Note PATIENT NAME: Adam Guajardo DATE OF SERVICE: February 15, 2024 TIME: 10:54 AM PATIENT IDENTITY VERIFICATION COMPLETED USING TWO (2) IDENTIFIERS: Name and Date of confirmed by patient verbally. FALL SCREENING: Has the patient had 2 falls in the last year or 1 fall with injury or currently using an Ambulatory Assistive Device (Walker, Cane, Wheelchair, Crutches, etc.)? No PATIENT GENDER DATA: Female. status: : No status: NO. PATIENT RELEVANT IMPLANT DATA REVIEWED: Yes PATIENT PRESENTS WITH AN IMPLANTABLE OR ATTACHED ROLL FORMING MACHINE SET UP OPERATOR: No RADIOLOGY DEPARTMENT: MR; Exam(s) Completed: Upper MSK: Shoulder, right PERIPHERAL IV DATA: Not applicable SIGNED BY: Yoon MIXON RT, warp spinner February 15, 2024 10:54 AM [facility] 02-14-2024 Note HNO ID: [id number] Author: NILTON GLASER MD Service: ? Author Type: Physician Type: Progress Notes Filed: 02/14/2024 10:25 Note Text: Nilton Glaser MD Shoulder and Elbow Surgery Department of Orthopaedic Surgery, [facility] Office: . [phone] ; INITIAL ENCOUNTER FOR A NEW SHOULDER PROBLEM Chief Complaint: Right shoulder pain HPI: Adam Guajardo is seen at the request of Self for consultation regarding the above problem. Findings and recommendations will be communicated back to the referring provider via availability in the shared electronic medical record. Adam Guajardo is a 63 year old female who presents with the above complaint. Hand dominance: Right. Adam comes in for initial evaluation of her right shoulder dislocation. Her injury was on 02/07/24. She had immediate pain and inability ot use the arm. Immediately had some numbness and pain in the shoulder. She called 911 and was brought to the ED. Diagnosed with a shoulder dislocation, which was reduced and she was given a sling upon discharge. Of note, she did have some underlying right shoulder pain, clicking, and popping that bothered her before this fall, but she could still raise her arm overhead. Previous treatment: Activity modification: Yes Sling use: yes Prescription NSAIDs: No OTC NSAIDs: No Percocet: yes PT: No Corticosteroid injection: No All available outside records have been reviewed. Occupation: Retired Plan to go to [place] february REVIEW OF SYSTEMS: Constitutional: patient denies any recent fever or significant change in weight Cardiovascular: patient denies any chest pain at rest Respiratory: patient denies any shortness of breath or cough Gastrointestinal: patient denies any current abdominal discomfort Integumentary: patient denies any recent skin changes Musculoskeletal: as noted in the HPI Neurologic: as noted in the HPI Endocrine: patient denies any changes Hematologic/Lymphatic: patient denies any easily bleeding, any recent infection and denies any recent observable lymph node enlargement Psychologic: denies any recent changes FAMILY HISTORY Problem Relation Age of Onset Arthritis Mother Asthma Mother Breast Cancer Mother diagnosed age 52 Diabetes Mother Heart disease Mother age 83 Stroke Father Heart Father age 82 DVT Father Breast Cancer Sister 66 DVT Sister Cancer Maternal Grandfather brain Diabetes Paternal Grandfather Hypertension Daughter Cervical Cancer Maternal Aunt Colon Cancer No Family History Ovarian cancer No Family History Prostate Cancer No Family History No Family History No Family History Pancreatic CA Uterine Cancer No Family History PAST MEDICAL HISTORY Diagnosis Date Acute medial meniscus tear 08/17/2021 Arthritis Family history of breast cancer in mother sister also Uterine fibroid 2010 U/S notede multiple, largest ~3.3cm PAST SURGICAL HISTORY Procedure Laterality Date KNEE SURGERY HX Left 2021 ALLERGIES Allergen Reactions Sulfa (Sulfonamide * Rash Problem List: reviewed and updated. Contributory Co-morbidities: Assessed as indicated; currently managed. Social History: Boating in [place] Social History Tobacco Use Smoking status: Former Current packs/day: 0.00 Average packs/day: 0.5 packs/day for 10.0 years (5.0 ttl pk-yrs) Types: Cigarettes Start date: 10/25/1979 Quit date: 10/24/1989 Years since quittin.3 Smokeless tobacco: Never Vaping Use Vaping status: Never Used Substance Use Topics Alcohol use: Yes Comment: 1/month Drug use: No Current Outpatient Medications Medication Sig albuterol HFA (PROVENTIL HFA, VENTOLIN HFA) 90 mcg/actuation inhaler Azelaic Acid 15 % gel esomeprazole (NEXIUM) 40 mg capsule metroNIDAZOLE (METROGEL) 0.75 % Topical Gel MULTIVITAMIN ORAL Take by mouth. KRILL OIL ORAL Take by mouth. [id number] ORAL Take by mouth. cetirizine (ZYRTEC) 10 mg tablet Take 1 tablet by mouth once daily. No current facility-administered medications for this visit. Physical Exam: LMP 12/13/2011 Constitutional: Pleasant, well-appearing, no acute distress. Resp: breathing is unlabored without audible wheeze Vascular: Normal pedal and radial pulses, no cyanosis, no venous stasis changes Skin: No overlying skin change, ecchymosis, or erythema. Psychiatric: Pleasant, direct, appropriate mood and affect General Orthopaedic Examination: Neuro: Gross motor function intact Pulses: 2+ radial, ulnar; hands warm bilat, <2sec CR Compartments: soft and compressible Cervical Spine:Appropriate range of motion, negative midline and paraspinal muscle tenderness, negative stepoff, and negative Spurling's test. Focused Upper Extremity Musculoskeletal/Neurologic Exam: Right Shoulder Atrophy/asymmetry No Scapular dyskinesia No AC tenderness No ROM (Passive/Active): FE (degree (more content not included)... [facility] 02-14-2024 History of Present illness Narrative Nilton Glaser MD Shoulder and Elbow Surgery Department of Orthopaedic Surgery, [facility] Office: Ph. [phone] ; INITIAL ENCOUNTER FOR A NEW SHOULDER PROBLEM Chief Complaint: Right shoulder pain HPI: Adam Guajardo is seen at the request of Self for consultation regarding the above problem. Findings and recommendations will be communicated back to the referring provider via availability in the shared electronic medical record. Adam Guajardo is a 63 year old female who presents with the above complaint. Hand dominance: Right. Adam comes in for initial evaluation of her right shoulder dislocation. Her injury was on 02/07/24. She had immediate pain and inability ot use the arm. Immediately had some numbness and pain in the shoulder. She called 911 and was brought to the ED. Diagnosed with a shoulder dislocation, which was reduced and she was given a sling upon discharge. Of note, she did have some underlying right shoulder pain, clicking, and popping that bothered her before this fall, but she could still raise her arm overhead. Previous treatment: Activity modification: Yes Sling use: yes Prescription NSAIDs: No OTC NSAIDs: No Percocet: yes PT: No Corticosteroid injection: No All available outside records have been reviewed. Occupation: Retired Plan to go to [place] february REVIEW OF SYSTEMS: Constitutional: patient denies any recent fever or significant change in weight Cardiovascular: patient denies any chest pain at rest Respiratory: patient denies any shortness of breath or cough Gastrointestinal: patient denies any current abdominal discomfort Integumentary: patient denies any recent skin changes Musculoskeletal: as noted in the HPI Neurologic: as noted in the HPI Endocrine: patient denies any changes Hematologic/Lymphatic: patient denies any easily bleeding, any recent infection and denies any recent observable lymph node enlargement Psychologic: denies any recent changes FAMILY HISTORY Problem Relation Age of Onset Arthritis Mother Asthma Mother Breast Cancer Mother diagnosed age 52 Diabetes Mother Heart disease Mother age 83 Stroke Father Heart Father age 82 DVT Father Breast Cancer Sister 66 DVT Sister Cancer Maternal Grandfather brain Diabetes Paternal Grandfather Hypertension Daughter Cervical Cancer Maternal Aunt Colon Cancer No Family History Ovarian cancer No Family History Prostate Cancer No Family History No Family History No Family History Pancreatic CA Uterine Cancer No Family History PAST MEDICAL HISTORY Diagnosis Date Acute medial meniscus tear 08/17/2021 Arthritis Family history of breast cancer in mother sister also Uterine fibroid 2010 U/S notede multiple, largest ~3.3cm PAST SURGICAL HISTORY Procedure Laterality Date KNEE SURGERY HX Left 2021 ALLERGIES Allergen Reactions Sulfa (Sulfonamide * Rash Problem List: reviewed and updated. Contributory Co-morbidities: Assessed as indicated; currently managed. Social History: Boating in [place] Social History Tobacco Use Smoking status: Former Current packs/day: 0.00 Average packs/day: 0.5 packs/day for 10.0 years (5.0 ttl pk-yrs) Types: Cigarettes Start date: 10/25/1979 Quit date: 10/24/1989 Years since quittin.3 Smokeless tobacco: Never Vaping Use Vaping status: Never Used Substance Use Topics Alcohol use: Yes Comment: 1/month Drug use: No Current Outpatient Medications Medication Sig albuterol HFA (PROVENTIL HFA, VENTOLIN HFA) 90 mcg/actuation inhaler Azelaic Acid 15 % gel esomeprazole (NEXIUM) 40 mg capsule metroNIDAZOLE (METROGEL) 0.75 % Topical Gel MULTIVITAMIN ORAL Take by mouth. KRILL OIL ORAL Take by mouth. [id number] ORAL Take by mouth. cetirizine (ZYRTEC) 10 mg tablet Take 1 tablet by mouth once daily. No current facility-administered medications for this visit. Physical Exam: LMP 12/13/2011 Constitutional: Pleasant, well-appearing, no acute distress. Resp: breathing is unlabored without audible wheeze Vascular: Normal pedal and radial pulses, no cyanosis, no venous stasis changes Skin: No overlying skin change, ecchymosis, or erythema. Psychiatric: Pleasant, direct, appropriate mood and affect General Orthopaedic Examination: Neuro: Gross motor function intact Pulses: 2+ radial, ulnar; hands warm bilat, <2sec CR Compartments: soft and compressible Cervical Spine:Appropriate range of motion, negative midline and paraspinal muscle tenderness, negative stepoff, and negative Spurling's test. Focused Upper Extremity Musculoskeletal/Neurologic Exam: Right Shoulder Atrophy/asymmetry No Scapular dyskinesia No AC tenderness No ROM (Passive/Active): FE (degree) 160/30 ER (degree) 50/20 ER Lag (degree) 10 IR (degree) Sacrum Strength (1-5) ABD in plane of scapula 4/5 ER 4/5 IR 4/5 Provocative tests: Job s test Unable to abduct Neer and Murray test Negative Belly press test Positive O Clifton s test Positive Speed's test Negative Hornblower's sign Negative Cross Body Adduction Negative Apprehension Negative Sulcus Negative Load and Shift Negative Nerve deficit (motor/sensory) Radial n. Negative Median n. Negative Ulnar n. Negative Axillary n. Positive, decreased sensation and motor function Vascular Distal perfusion normal Contra-lateral shoulder: within normal limits Radiographic studies: Imaging of the involved shoulder were reviewed and interpreted by me: Radiographic studies: XR of the Right Shoulder was reviewed. 3 view X-rays shows no joint space narrowing with no evidence of arthritis, well maintained glenohumeral relationship in AP and axillary view, normal bony structures, no calcification within the soft tissue and no evidence of fracture, subluxation or dislocation. Risk profile: Obesity Moderate Risk High: BMI > 40 Moderate: BMI 30-40 Normal: BMI < 30 Diabetes normal High: A1C > 8 Moderate: A1C 7-8 Normal: A1C < 7 Smoking normal High: Current smoker Normal: Non smoker Anemia normal High: Hgb < 11.5 (women) N/A: Hgb >= 11.5 (women) Nutritional Status normal High: Alb<3.4, or prealb<15, or serum transferrin<200, or total lymphocyte count<1500 Normal: normal labs COPD normal High: dx of COPD Normal: no dx of COPD MRSA normal High: dx of MRSA or positive lab test Normal: no MRSA CKD normal High: eGFR<60 Moderate: eGFR 60-89 Normal: eGFR>90 Hx of DVT / PE normal High: dx of DVT / PE Normal: no dx of DVT / PE Narcotics Use normal High:NarxCare >=300 Moderate: 100-299 Normal: 0-99 FRED normal High: dx of FRED N/A: no dx of FRED Coagulation normal High:PT Sec>13, or PT INR>1.3, or APTT>32.4, or Plt ct<150k Moderate: on anticoag but none of the above Normal: none Hypertension normal High: dx of Chronic Htn Normal: no dx of Chronic Htn CHF normal High: dx of CHF Normal: no dx of CHF Obesity: weight management recommended BMI Readings from Last 3 Encounters: 02/07/24 : 35.51 kg/m 09/05/23 : 37.16 kg/m 10/10/22 : 37.92 kg/m Hg A1C: No results found for: HBA1C Hg/Hct: Hematocrit (%) Date Value 02/07/2024 40.7 Alcohol Hx: Alcohol Use: Yes (1/month) DMARDS: no DMARD medications Assessment/Primary Diagnosis: (S46.011A) Traumatic complete tear of right rotator cuff, initial encounter (primary encounter diagnosis) Plan/Medical Decision Making: The nature of the problem and all indicated treatment options available were discussed in detail with the patient. Adam presents with an acute rotator cuff tear in the setting of her recent shoulder dislocation. I would like to get an MRI to evaluate the degree and chronicity of her rotator cuff tear. This is time sensitive as this is a new acute injury, and if this is an acute rotator cuff tear with repairable tendon then she would benefit from consideration of rotator cuff repair. If this is a chronic tear or irreparable, then we could consider nonoperative treatment with PT/CSI. She may recover some function from this, but if not then we would consider her for RSA. 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 I would not proceed with a reverse until the axillary nerve function has returned. Test(s)/Imaging/Referral(s): MRI 2. Intervention: Continue conservative treatment 3. Follow-up: after MRI All of Adam Guajardo questions were answered today. She expressed a clear understanding of our discussion and is in agreement with the outlined treatment plan. Nilton Glaser MD CC:Self documented in this encounter [facility] 09-05-2023 History of Present illness Narrative Adam is a 63 year old who presents for an annual gynecologic exam without complaints. Postmenopausal: Yes since age 51 HRT use: No. Last Pap: 08/19/2020 normal HPV: 08/20/2020 negative History of abnormal pap: No Last mammogram: 2023 normal History of abnormal mammogram: Yes - s/p biopsy Sexually active: No OB History T2 L2 SAB0 IAB0 Ectopic0 Multiple0 Live Births2 Scrap Shear Operator History LMP: 12/13/2011, Postmenopausal Age at Menarche: Age at First : Age at Menopause: Scrap Shear Operator History Comments: Sexual Activity: Not Currently; Male; not interested in sex with currently Contraception: Vasectomy PAST MEDICAL HISTORY Diagnosis Date Acute medial meniscus tear 08/17/2021 Arthritis Family history of breast cancer in mother sister also Uterine fibroid 2010 U/S notede multiple, largest ~3.3cm PAST SURGICAL HISTORY Procedure Laterality Date KNEE SURGERY HX Left 2021 FAMILY HISTORY Problem Relation Age of Onset Arthritis Mother Asthma Mother Breast Cancer Mother diagnosed age 52 Diabetes Mother Heart disease Mother age 83 Stroke Father Heart Father age 82 DVT Father Breast Cancer Sister 66 DVT Sister Cancer Maternal Grandfather brain Diabetes Paternal Grandfather Hypertension Daughter Cervical Cancer Maternal Aunt Colon Cancer No Family History Ovarian cancer No Family History Prostate Cancer No Family History No Family History No Family History Pancreatic CA Uterine Cancer No Family History SOCIAL HISTORY Social History Tobacco Use Smoking status: Former Packs/day: 0.50 Years: 10.00 Additional pack years: 0.00 Total pack years: 5.00 Types: Cigarettes Quit date: 10/24/1989 Years since quittin.8 Smokeless tobacco: Never Vaping Use Vaping Use: Never used Substance Use Topics Alcohol use: Yes Comment: 1/month Drug use: No REVIEW OF SYSTEMS Abdomen: No abdominal pain, nausea, vomiting, diarrhea, or constipation. No bloating, early satiety, indigestion, or increased flatulence. Bladder: No dysuria, gross hematuria, urinary frequency, urinary urgency, or incontinence Breast: No breast lumps, nipple d/c, overlying skin changes, redness or skin retraction Allergies and current medication updated:Yes EXAM: BP 112/75 Wt 223 lb 5.2 oz (101.3kg) LMP 12/13/2011 Warehouse Lead offered: Patient declines. GENERAL: pleasant, female in no apparent distress HEENT: Normocephalic, atraumatic, mucus membranes moist, and no lesions NECK: Supple, full range of motion, no adenopathy, and thyroid normal DERMATOLOGY: Normal, without lesions, non-icteric, and non-hirsute BREAST: soft, non-tender, symmetric, no dominant mass, normal nipple-areolar complex, no lymphadenopathy, and no nipple discharge CHEST: Normal inspiratory effort ABDOMEN: soft, non-tender, and no masses PELVIC: external genitalia normal, normal Bartholin's glands, urethra, [place]'s glands, no vulvar lesions, no cervical lesions, good vaginal support, physiologic discharge present, normal appearing perineal body and perianal region BIMANUAL: uterus normal size, shape and consistency, no adnexal masses, and non-tender RECTOVAGINAL: deferred. NEURO: alert and oriented x3,exam grossly non-focal EXTREMITIES: normal ASSESSMENT/PLAN: 1) Health maintenance: Pap up to date - will do one just prior to turning 64 and then likely will discontinue pap screening Mammogram ordered with romeo - last done 06/2023 Colon cancer screening: up to date with screening - last July, had polyps - FU in 3-5yrs 2) Follow up one year or sooner as needed Gi Miranda MD documented in this encounter [facility] 07-11-2023 Note Formatting of this n ote might be different from the original. July 11, 2023 PID: [id number] Adam Guajardo [address] [place] [address] Dear Ms. Guajardo, We are pleased to inform you that the results of your recent breast imaging exam on 07/11/2023 are normal. Your mammogram demonstrates that you have dense breast tissue, which could hide abnormalities. Dense breast tissue, in and of itself, is a relatively common condition. Therefore, this information is not provided to cause undue concern; rather, it is to raise your awareness and promote discussion with your health care provider regarding the presence of dense breast tissue in addition to other risk factors. Early detection of cancer is very important. We also understand recommendations regarding breast cancer screening are controversial. Please discuss with your primary care provider which strategy is best for you and whether a mammogram is right for you. Your imaging studies and report will be kept on file at [facility] as part of your permanent medical record and are available for your continuing care. Thank you for allowing us to help in meeting your health care needs. Sincerely, Dr. Norman Interpreting Radiologist [facility] (Normal over 40) [facility] 07-11-2023 Miscellaneous Notes July 11, 2023 PID: [id number] Adam Guajardo [address] [place] [address] Dear Ariane Casandra, We are pleased to inform you that the results of your recent breast imaging exam on 07/11/2023 are normal. Your mammogram demonstrates that you have dense breast tissue, which could hide abnormalities. Dense breast tissue, in and of itself, is a relatively common condition. Therefore, this information is not provided to cause undue concern; rather, it is to raise your awareness and promote discussion with your health care provider regarding the presence of dense breast tissue in addition to other risk factors. Early detection of cancer is very important. We also understand recommendations regarding breast cancer screening are controversial. Please discuss with your primary care provider which strategy is best for you and whether a mammogram is right for you. Your imaging studies and report will be kept on file at [facility] as part of your permanent medical record and are available for your continuing care. Thank you for allowing us to help in meeting your health care needs. Sincerely, Dr. Norman Interpreting Radiologist [facility] (Normal over 40) documented in this encounter [facility] 07-11-2023 History of Present illness Narrative Radiology Service Progress Note PATIENT NAME: Adam Guajardo DATE OF SERVICE: July 11, 2023 TIME: 9:09 AM PATIENT IDENTITY VERIFICATION COMPLETED USING TWO (2) IDENTIFIERS: Name and Date of confirmed by patient verbally. FALL SCREENING: Has the patient had 2 falls in the last year or 1 fall with injury or currently using an Ambulatory Assistive Device (Walker, Cane, Wheelchair, Crutches, etc.)? No PATIENT GENDER DATA: Female. status: : No status: NO. PATIENT RELEVANT IMPLANT DATA REVIEWED: Not Applicable PATIENT PRESENTS WITH AN IMPLANTABLE OR ATTACHED ROLL FORMING MACHINE SET UP OPERATOR: No RADIOLOGY DEPARTMENT: Mammography PERIPHERAL IV DATA: Not applicable SIGNED BY: Мария Swift July 11, 2023 9:09 AM documented in this encounter [facility] 01-31-2023 Note Patient: Adam almazan Procedure Summary Date: 01/31/23 Room / Location: [facility] OR 1 / [facility] OR Anesthesia Start: 1320 Anesthesia Stop: 1400 Procedure: PHACOEMULSIFICATION WITH INTRAOCULAR LENS INSERTION - CRYSTALENS (Left: Eye) Diagnosis: Nuclear sclerotic cataract of left eye (CATARACT LEFT EYE) Surgeons: Nick Martinez MD Responsible Provider: No Anesthesiologist - Kaylene/MD [place] Anesthesia Type: MAC ASA Status: 2 Anesthesia Type: MAC Vitals Value Taken Time BP 137/75 01/31/23 1400 Temp 36.5 ?C (97.7 ?F) 01/31/23 1400 Pulse 61 01/31/23 1400 Resp 20 01/31/23 1400 SpO2 100 % 01/31/23 1400 Vitals shown include unfiled device data. Anesthesia Post Evaluation Patient location during evaluation: PACU Patient participation: complete - patient participated Level of consciousness: awake and alert Pain management: satisfactory to patient Airway patency: patent Dental Injury: no Cardiovascular status: acceptable, blood pressure returned to baseline and hemodynamically stable Respiratory status: acceptable and spontaneous ventilation Hydration status: euvolemic Nausea/Vomiting: controlled No notable events documented. Patient can be discharged once all PACU criteria has been met. [facility] 01-31-2023 Note Patient: Adam almazan Procedure Summary Date: 01/31/23 Room / Location: [facility] OR 1 / [facility] OR Anesthesia Start: 1321 Anesthesia Stop: 1400 Procedure: PHACOEMULSIFICATION WITH INTRAOCULAR LENS INSERTION - CRYSTALENS (Left: Eye) Diagnosis: Nuclear sclerotic cataract of left eye (CATARACT LEFT EYE) Surgeons: Nick Martinez MD Responsible Provider: No Anesthesiologist - Sb/MD [place] Anesthesia Type: MAC ASA Status: 2 Anesthesia Type: MAC Vitals Value Taken Time BP 137/75 01/31/23 1400 Temp 36.5 ?C (97.7 ?F) 01/31/23 1400 Pulse 64 01/31/23 1400 Resp 20 01/31/23 1400 SpO2 99 % 01/31/23 1400 Anesthesia Post Evaluation Patient location during evaluation: PACU Patient participation: complete - patient participated Level of consciousness: awake and alert Pain management: satisfactory to patient Multimodal analgesia pain management approach Airway patency: patent Two or more strategies used to mitigate risk of obstructive sleep apnea Cardiovascular status: acceptable and hemodynamically stable Respiratory status: acceptable Hydration status: acceptable No notable events documented. MIPS #430 PONV Patient did not receive an inhalational anesthetic (XX430) MIPS # 424 Perioperative Temperature Management Anesthesia time was less than 60 minutes (4256F) MIPS #477 Multimodal Pain Management Not emergent case Patient was not administered multimodal pain management (G2149) Patient reports no pain in PACU (G2149) MIPS #404 Anesthesiology Smoking Abstinence The patient is not a current smoker (e.g. cigarette, cigar, pipe, e-cigarette/vaping/marijuana) If no stop here (G9644) I completed my handoff to the receiving clinician during which we: 1. Identified the patient 2. Identified the responsible provider 3. Reviewed the pertinent medical history 4. Discussed the surgical course 5. Reviewed intra-op anesthesia management and issues during anesthesia 6. Set expectations for post-procedure period 7. Allowed opportunity for questions and acknowledgement of understanding. [facility] 01-31-2023 Note Patient: Adam almazan Procedure Information Date/Time: 01/31/23 1245 Procedure: PHACOEMULSIFICATION WITH INTRAOCULAR LENS INSERTION - CRYSTALENS (Left: Eye) Location: [place] OR / [facility] OR Surgeons: Nick Martinez MD Relevant Problems No relevant active problems Past Medical History: No past medical history on file. Past Surgical History: No past surgical history on file. Social History: TOBACCO: reports that she has never smoked. She has never used smokeless tobacco. ETOH: reports current alcohol use. Social History Substance and Sexual Activity Drug Use Never Family History: No family history on file. Screening: Postmenopausal Clinical information reviewed: Tobacco Allergies Meds Med Hx Surg Hx OB Status Fam Hx Soc Hx Physical Exam Airway Mallampati: II TM distance: >3 FB Neck ROM: full Mouth Open: normalendotracheal tube not in place Cardiovascular Dental dentition normal Pulmonary Abdominal Anesthesia Plan patient is NPO appropriate Any family history or previous problems with anesthesia no ASA 2 MAC Any family history or previous problems with anesthesia no The patient is not a current smoker. Anesthetic plan and risks discussed with patient. FRED Screening Labs: No results found for: WBC, HGB, HCT, MCV, PLT No results found for: NA, K, CL, CO2, BUN, CREATININE, GLUCOSE, CALCIUM, PROT, BILIRUBINFL, ALKPHOS, AST, ALT, EGFR, GLOB No echocardiogram results found for the past 14 days No results found for this or any previous visit. [facility] 01-31-2023 Note History Of Present I sergey Guajardo is a 62 y.o. female presenting with NSC left Past Medical History She has no past medical history on file. Surgical History She has no past surgical history on file. Social History She reports that she has never smoked. She has never used smokeless tobacco. She reports current alcohol use. She reports that she does not use drugs. Allergies Sulfa antibiotics Medications (Not in a hospital admission) Review of Systems Physical Exam Last Recorded Vitals There were no vitals taken for this visit. Assessment/Plan Active Problems: There are no active Hospital Problems. Nick Martinez MD [facility] 01-31-2023 Note [facility] - Patient Pre-procedure Instructions [address] [place] [address] [address] May shower/brush teeth. Leave valuables/jewelry at home. No makeup, lotion, powder, deodorant or body sprays. No contact lenses No piercings or dark nail japanese Sleep Apnea: If yes, please bring CPAP machine No solid food after midnight before procedure. Clear liquids only - up to 2 hours prior to your arrival time (water, clear juice, Gatorade, coffee/tea with no milk/sugar, no mints gum or candy) Medications to take the morning of surgery Take the following medications: Pepcid Do not take the following medications: Vitamins/supplements No Motrin, ibuprofen or Advil in 24 hours prior to surgery, longer if directed by your surgeon No Aleve or Naprosyn for 3 days prior to surgery or longer if instructed by your surgeon. If you take blood thinners or aspirin, follow instructions given to you by your surgeon You may take your prescription pain medication, you may take Tylenol for pain. Do not use/smoke THC or drink alcohol in the 24 hours prior to your arrival time. Please Bring your Principal System Software Engineer's license/photo ID, insurance card, eye drops/sunglasses, inhalers if applicable If you have a Medical Power of Specialties Operator, living will, or an advanced directive, please bring a copy with you. We are required to resuscitate and transfer you to the hospital along with your directive. If you need a work excuse, please reach out to your surgeon's office. You must have a tier truck driver arranged. Uber, Lyft, taxi, public transit is not sufficient unless you have someone accompanying you. [facility] 01-31-2023 Hospital Discharge instructions Ashely Sharp RN - 01/31/2023 1:56 PM EST Anesthesia and Activity: For the first [address], operate heavy or dangerous machinery Do not drink any alcohol or take sleeping pills. Do not make major decisions or sign important papers. You may not be able to think clearly. You are at a higher risk of falling for at least 24 hours. Take extra care when you get up. Do not change positions quickly. Ask for help if you feel unsteady when you try to walk. Start with a light diet when you are fully awake. This includes things that are easy to swallow like soups, pudding, jello, toast and eggs. Slowly progress to your normal diet. Call the doctor if you Have trouble breathing Upset stomach or vomiting more than 3 times in the next [address] [facility] [phone] What can I expect after the Surgery? You may take the shield off and start taking eye drops 4 hours after leaving the surgery center. Taking drops will accelerate the healing process, Wait 5 minutes between eye drops, The order of drops does not matter, After taking your drops, replace the plastic shield over the operative eye with a single piece of tape. Your vision will be blurry. TAKE DROPS AT: Prednisolone 1 drop to the surgical eye EVERY HOUR while awake Shake well - drop should be milky Ofloxacin 1 drop to the surgical eye 3 addition times today Ketoralac 1 drop to the surgical eye 3 additional times today Acetazolamide (Diamox) take 1 capsule at bedtime and 1 capsule the following morning How should I care for myself after the surgery? Your appointment is tomorrow at the [facility] at Bring your cheney bag including ALL of your eye medication. Please continue your other medications unless otherwise noted. Rest today. Be careful around stairs and steps. You do not have normal depth perception with one eye shielded. Double vision is typical. Leave eye shield on overnight. You may take the shield off in the morning or, if you prefer, have it removed at the office. DO NOT RUB OR PUSH ON THE EYE. If you think this may occur by accident, wear your shield. You should wear your shield while sleeping during the first week after surgery. You may bend forward, slowly. Try to keep your head above your shoulders. You may lift under 10-15 pounds during the first week. You may shower but avoid getting water on your face the first 24 hours after surgery. Thereafter, avoid getting soap and water in the eye. Expect a dull ache and a scratchy, gritty feeling for the first few days. This is your wound healing. If you are able, take 1-2 Extra Strength Tylenol for any mild discomfort. When would I need to call my doctor? Call your physician if you have doubts about anything. Call Dr Martinez at the numbers above if you have any of the following signs and symptoms: Any significant eye pain, Sudden change in vision, Nausea or vomiting If you are experiencing an emergency and you cannot reach your doctor, go to the nearest emergency room or call 911 documented in this encounter [facility] 01-31-2023 Note 1357 Discharged to [facility] . Accompanied by . AVS and education reviewed with patient and , both verbalized understanding. Mode of transportation private vehicle Belongings sent. [facility] 01-31-2023 Note Discharge Summary Adam Guajardo : 1960 ADMIT DATE: 01/31/2023 DISCHARGE DATE: 01/31/2023 PRIMARY CARE PHYSICIAN: Nick Martinez VISIT STATUS: Observation CODE STATUS: Full Code DISCHARGE DIAGNOSES: Active Problems: There are no active Hospital Problems. HOSPITAL COURSE: Stable SIGNIFICANT DIAGNOSTIC STUDIES: none CONSULTANTS: none RECOMMENDED NEXT STEPS: Discharge to home DISCHARGE MEDICATIONS: Medication List CONTINUE taking these medications famotidine 20 MG tablet Commonly known as: Pepcid DIET: NPO diet ACTIVITY: No heavy lifting. COMPLEXITY OF FOLLOW UP: [] Moderate Complexity: follow up within 7-14 calendar days (69088) [] Severe Complexity: follow up within 7 calendar days (75261) FOLLOW UP TESTING, PENDING RESULTS OR REFERRALS AT TRANSITIONAL CARE VISIT: [] Yes [] No PENDING STUDIES: none DISPOSITION: Home FACILITY/HOME CARE AGENCY NAME: none Follow up with No follow-up provider specified. on INSTRUCTIONS TO MA/SW: Please call patient on day after discharge (must document patient contacted within 2 business days of discharge). FOLLOW UP QUESTIONS FOR MA/SW: 1. Did you get medications filled and taking them as instructed from discharge? 2. Are you following your discharge instructions from your hospital stay? 3. Please confirm patient is scheduled for a follow up appointment within the above time frame. DISCHARGE TIME: > 30 minutes SIGNED: Nick Martinez MD 01/31/2023, 1:56 PM [facility] 01-31-2023 Miscellaneous Notes Date: 01/31/2023 Location: [facility] OR Name: Adam Guajardo, : 1960, Diagnosis Pre-op Diagnosis * Nuclear sclerotic cataract of left eye [H25.12] Post-op Diagnosis * Nuclear sclerotic cataract of left eye [H25.12] Procedures PHACOEMULSIFICATION WITH INTRAOCULAR LENS INSERTION - CRYSTALArborMetrix 94085 - GA XCAPSL CTRC RMVL INSJ IO LENS PROSTH W/O ECP Surgeons * Nick Martinez - Primary Procedure Summary Anesthesia: * No anesthesia type entered * ASA: II Estimated Blood Loss: None Drains: * None in log * Implants Type Name Action Serial No. Lens trulign toric Implanted [id number] Staff: Courseware Developer: Valentina Morse RN Relief Courseware Developer: Diana Marsh RN Scrub Person: Otis Engel PREOPERATIVE DIAGNOSIS:NSC, PSC,left eye POSTOPERATIVE DIAGNOSIS:NSC, PSC,left eye PROCEDURE PERFORMED:Cataract surgery of the left eye SURGEON:Nick Martinez MD PROCEDURE: Risks, benefits and alternatives had been discussed with patient. Patient understood and wished to proceed with procedure. Patient was seen in the preoperative holding area. Operative eye was verified by both the patient, as well as prior clinic chart note. Patient was brought back to the operative suite with the help of Anesthesiology and the eye was prepped and draped in the usual sterile ophthalmic fashion. A paracentesis site was then created at approximately the 1 o'clock position. This was followed by instillation of preservative-free lidocaine and Viscoat. A temporal corneal wound was then created using a 2.7 microkeratome blade and this was followed by creation of a continuous curvilinear capsulorrhexis using a cystotome needle and Utrata forceps. Careful hydrodissection was then performed using sterile BSS and phacoemulsification was then used to remove the cataract. Upon completion irrigation and aspiration was used to remove the remaining cortex and Trulign toric BL1UT 1900, cylinder power 1.25 diopters in the axis of 61 degrees was then injected into the bag. This was rotated into position and careful removal of the Healon was then performed. The temporal corneal wound and paracentesis site were then rehydrated using sterile BSS. The eye was checked and noted to be Joelle negative. A single drop of Pred Forte, siloxane, Nevanac and Timolol were given to the patient's eye and a surgical shield was placed over the eye. Patient was brought back to the preoperative holding area in stable condition. There were no complications, no blood, no specimens. Nick Matrinez MD Date: 01/31/2023 Location: [facility] OR Name: Adam Guajardo, : 1960, Diagnosis Pre-op Diagnosis * Nuclear sclerotic cataract of left eye [H25.12] Post-op Diagnosis * Nuclear sclerotic cataract of left eye [H25.12] Procedures PHACOEMULSIFICATION WITH INTRAOCULAR LENS INSERTION - CRYSTAL 56760 - GA XCAPSL CTRC RMVL INSJ IO LENS PROSTH W/O ECP Surgeons * Nick Martinez - Primary Procedure Summary Anesthesia: * No anesthesia type entered * ASA: II Estimated Blood Loss: None Drains: * None in log * Implants Type Name Action Serial No. Lens trulign toric Implanted [id number] Staff: Courseware Developer: Valentina Morse RN Relief Courseware Developer: Diana Marsh RN Scrub Person: Otis Engel Findings: none Complications: None; patient tolerated the procedure well. Specimens Collected: No specimens collected during this procedure. Wound Class: Class I: Clean Blood Products: None Prophylactic Antibiotics: Procedure appropriate prophylactic antibiotic(s) given within 1 hour of surgical incision (two hours if receiving Vancomycin or flouroquinolone) [facility] - Patient Pre-procedure Instructions [address] [place] [address] [address] May shower/brush teeth. Leave valuables/jewelry at home. No makeup, lotion, powder, deodorant or body sprays. No contact lenses No piercings or dark nail japanese Sleep Apnea: If yes, please bring CPAP machine No solid food after midnight before procedure. Clear liquids only - up to 2 hours prior to your arrival time (water, clear juice, Gatorade, coffee/tea with no milk/sugar, no mints gum or candy) Medications to take the morning of surgery Take the following medications: Pepcid Do not take the following medications: Vitamins/supplements No Motrin, ibuprofen or Advil in 24 hours prior to surgery, longer if directed by your surgeon No Aleve or Naprosyn for 3 days prior to surgery or longer if instructed by your surgeon. If you take blood thinners or aspirin, follow instructions given to you by your surgeon You may take your prescription pain medication, you may take Tylenol for pain. Do not use/smoke THC or drink alcohol in the 24 hours prior to your arrival time. Please Bring your Principal System Software Engineer's license/photo ID, insurance card, eye drops/sunglasses, inhalers if applicable If you have a Medical Power of Specialties Operator, living will, or an advanced directive, please bring a copy with you. We are required to resuscitate and transfer you to the hospital along with your directive. If you need a work excuse, please reach out to your surgeon's office. You must have a tier truck driver arranged. Uber, Lyft, taxi, public transit is not sufficient unless you have someone accompanying you. 1357 Discharged to home . Accompanied by . AVS and education reviewed with patient and , both verbalized understanding. Mode of transportation private vehicle Belongings sent. documented in this encounter [facility] 01-31-2023 Note Formatting of this n ote is different from the original. Date: 01/31/2023 Location: [facility] OR Name: Adam Guajardo, : 1960, Diagnosis Pre-op Diagnosis * Nuclear sclerotic cataract of left eye [H25.12] Post-op Diagnosis * Nuclear sclerotic cataract of left eye [H25.12] Procedures PHACOEMULSIFICATION WITH INTRAOCULAR LENS INSERTION - CRYSTAL 95003 - GA XCAPSL CTRC RMVL INSJ IO LENS PROSTH W/O ECP Surgeons * Nick Martinez - Primary Procedure Summary Anesthesia: * No anesthesia type entered * ASA: II Estimated Blood Loss: None Drains: * None in log * Implants Type Name Action Serial No. Lens trulign toric Implanted [id number] Staff: Courseware Developer: Valentina Morse RN Relief Courseware Developer: Diana Marsh, RN Scrub Person: Otis Engel PREOPERATIVE DIAGNOSIS:NSC, PSC,left eye POSTOPERATIVE DIAGNOSIS:NSC, PSC,left eye PROCEDURE PERFORMED:Cataract surgery of the left eye SURGEON:Nick Martinez MD PROCEDURE: Risks, benefits and alternatives had been discussed with patient. Patient understood and wished to proceed with procedure. Patient was seen in the preoperative holding area. Operative eye was verified by both the patient, as well as prior clinic chart note. Patient was brought back to the operative suite with the help of Anesthesiology and the eye was prepped and draped in the usual sterile ophthalmic fashion. A paracentesis site was then created at approximately the 1 o'clock position. This was followed by instillation of preservative-free lidocaine and Viscoat. A temporal corneal wound was then created using a 2.7 microkeratome blade and this was followed by creation of a continuous curvilinear capsulorrhexis using a cystotome needle and Utrata forceps. Careful hydrodissection was then performed using sterile BSS and phacoemulsification was then used to remove the cataract. Upon completion irrigation and aspiration was used to remove the remaining cortex and Trulign toric BL1UT 1900, cylinder power 1.25 diopters in the axis of 61 degrees was then injected into the bag. This was rotated into position and careful removal of the Healon was then performed. The temporal corneal wound and paracentesis site were then rehydrated using sterile BSS. The eye was checked and noted to be Joelle negative. A single drop of Pred Forte, siloxane, Nevanac and Timolol were given to the patient's eye and a surgical shield was placed over the eye. Patient was brought back to the preoperative holding area in stable condition. There were no complications, no blood, no specimens. Nick Martinez MD [facility] 01-31-2023 Note Formatting of this n ote is different from the original. Date: 01/31/2023 Location: [facility] OR Name: Adam Guajardo, : 1960, Diagnosis Pre-op Diagnosis * Nuclear sclerotic cataract of left eye [H25.12] Post-op Diagnosis * Nuclear sclerotic cataract of left eye [H25.12] Procedures PHACOEMULSIFICATION WITH INTRAOCULAR LENS INSERTION - CRYSTAL 22685 - GA XCAPSL CTRC RMVL INSJ IO LENS PROSTH W/O ECP Surgeons * Nick Martinez - Primary Procedure Summary Anesthesia: * No anesthesia type entered * ASA: II Estimated Blood Loss: None Drains: * None in log * Implants Type Name Action Serial No. Lens trulign toric Implanted [id number] Staff: Courseware Developer: Valentina Morse RN Relief Courseware Developer: Diana Marsh RN Scrub Person: Otis Engel Findings: none Complications: None; patient tolerated the procedure well. Specimens Collected: No specimens collected during this procedure. Wound Class: Class I: Clean Blood Products: None Prophylactic Antibiotics: Procedure appropriate prophylactic antibiotic(s) given within 1 hour of surgical incision (two hours if receiving Vancomycin or flouroquinolone) [facility] 01-31-2023 History and physical note History Of Present Illness Adam Guajardo is a 62 y.o. female presenting with NSC left Past Medical History She has no past medical history on file. Surgical History She has no past surgical history on file. Social History She reports that she has never smoked. She has never used smokeless tobacco. She reports current alcohol use. She reports that she does not use drugs. Allergies Sulfa antibiotics Medications (Not in a hospital admission) Review of Systems Physical Exam Last Recorded Vitals There were no vitals taken for this visit. Assessment/Plan Active Problems: There are no active Hospital Problems. Nick Martinez MD [facility] 01-31-2023 History and physical note History Of Present Illness Adam Guajardo is a 62 y.o. female presenting with NSC left Past Medical History She has no past medical history on file. Surgical History She has no past surgical history on file. Social History She reports that she has never smoked. She has never used smokeless tobacco. She reports current alcohol use. She reports that she does not use drugs. Allergies Sulfa antibiotics Medications (Not in a hospital admission) Review of Systems Physical Exam Last Recorded Vitals There were no vitals taken for this visit. Assessment/Plan Active Problems: There are no active Hospital Problems. Nick Martinez MD documented in this encounter [facility] 01-31-2023 Note Formatting of this n ote might be different from the original. [facility] - Patient Pre-procedure Instructions [address] [place] [address] [address] May shower/brush teeth. Leave valuables/jewelry at home. No makeup, lotion, powder, deodorant or body sprays. No contact lenses No piercings or dark nail japanese Sleep Apnea: If yes, please bring CPAP machine No solid food after midnight before procedure. Clear liquids only - up to 2 hours prior to your arrival time (water, clear juice, Gatorade, coffee/tea with no milk/sugar, no mints gum or candy) Medications to take the morning of surgery Take the following medications: Pepcid Do not take the following medications: Vitamins/supplements No Motrin, ibuprofen or Advil in 24 hours prior to surgery, longer if directed by your surgeon No Aleve or Naprosyn for 3 days prior to surgery or longer if instructed by your surgeon. If you take blood thinners or aspirin, follow instructions given to you by your surgeon You may take your prescription pain medication, you may take Tylenol for pain. Do not use/smoke THC or drink alcohol in the 24 hours prior to your arrival time. Please Bring your Principal System Software Engineer's license/photo ID, insurance card, eye drops/sunglasses, inhalers if applicable If you have a Medical Power of Specialties Operator, living will, or an advanced directive, please bring a copy with you. We are required to resuscitate and transfer you to the hospital along with your directive. If you need a work excuse, please reach out to your surgeon's office. You must have a tier truck driver arranged. Uber, Lyft, taxi, public transit is not sufficient unless you have someone accompanying you. [facility] 01-31-2023 Hospital course Narrative Discharge Summary Adam Guajardo : 1960 ADMIT DATE: 01/31/2023 DISCHARGE DATE: 01/31/2023 PRIMARY CARE PHYSICIAN: Nick Martinez VISIT STATUS: Observation CODE STATUS: Full Code DISCHARGE DIAGNOSES: Active Problems: There are no active Hospital Problems. HOSPITAL COURSE: Stable SIGNIFICANT DIAGNOSTIC STUDIES: none CONSULTANTS: none RECOMMENDED NEXT STEPS: Discharge to home DISCHARGE MEDICATIONS: Medication List CONTINUE taking these medications famotidine 20 MG tablet Commonly known as: Pepcid DIET: NPO diet ACTIVITY: No heavy lifting. COMPLEXITY OF FOLLOW UP: [] Moderate Complexity: follow up within 7-14 calendar days (94996) [] Severe Complexity: follow up within 7 calendar days (89240) FOLLOW UP TESTING, PENDING RESULTS OR REFERRALS AT TRANSITIONAL CARE VISIT: [] Yes [] No PENDING STUDIES: none DISPOSITION: Home FACILITY/HOME CARE AGENCY NAME: none Follow up with No follow-up provider specified. on tomrr INSTRUCTIONS TO MA/SW: Please call patient on day after discharge (must document patient contacted within 2 business days of discharge). FOLLOW UP QUESTIONS FOR MA/SW: 1. Did you get medications filled and taking them as instructed from discharge? 2. Are you following your discharge instructions from your hospital stay? 3. Please confirm patient is scheduled for a follow up appointment within the above time frame. DISCHARGE TIME: > 30 minutes SIGNED: Nick Martinez MD 01/31/2023, 1:56 PM documented in this encounter [facility] 01-31-2023 Note Formatting of this n ote might be different from the original. 1357 Discharged to home . Accompanied by . AVS and education reviewed with patient and , both verbalized understanding. Mode of transportation private vehicle Belongings sent. [facility] 01-10-2023 Note Addendum created 1641 by Cristian Bay APRN - MANAGER ANDROID Review and Sign - Ready for Procedure [facility] 01-10-2023 Note Patient: Adam almazan Procedure Summary Date: 01/10/23 Room / Location: [facility] 1 / [facility] OR Anesthesia Start: 1435 Anesthesia Stop: 1513 Procedure: PHACOEMULSIFICATION WITH INTRAOCULAR LENS INSERTION (Right: Eye) Diagnosis: Age-related nuclear cataract, right eye (Age-related nuclear cataract, right eye [H25.11]) Surgeons: Nick Martinez MD Responsible Provider: No Anesthesiologist - Kaylene/MD [place] Anesthesia Type: MAC ASA Status: 2 Anesthesia Type: MAC Vitals Value Taken Time BP 117/70 01/10/23 1529 Temp 36.4 ?C (97.6 ?F) 01/10/23 1517 Pulse 49 01/10/23 1531 Resp 18 01/10/23 1517 SpO2 100 % 01/10/23 1521 Vitals shown include unfiled device data. Anesthesia Post Evaluation Patient location during evaluation: PACU Patient participation: complete - patient participated Level of consciousness: awake and alert Pain management: satisfactory to patient Airway patency: patent Dental Injury: no Cardiovascular status: acceptable, blood pressure returned to baseline and hemodynamically stable Respiratory status: acceptable and spontaneous ventilation Hydration status: euvolemic Nausea/Vomiting: controlled No notable events documented. Patient can be discharged once all PACU criteria has been met. [facility] 01-10-2023 Note Patient: Adam almazan Procedure Summary Date: 01/10/23 Room / Location: [facility] OR 1 / [facility] OR Anesthesia Start: 1435 Anesthesia Stop: 1513 Procedure: PHACOEMULSIFICATION WITH INTRAOCULAR LENS INSERTION (Right: Eye) Diagnosis: Age-related nuclear cataract, right eye (Age-related nuclear cataract, right eye [H25.11]) Surgeons: Nick Martinez MD Responsible Provider: No Anesthesiologist - Kaylene/MD [place] Anesthesia Type: MAC ASA Status: 2 Anesthesia Type: MAC Vitals Value Taken Time BP 117/70 01/10/23 1529 Temp 36.4 ?C (97.6 ?F) 01/10/23 1517 Pulse 52 01/10/23 1530 Resp 18 01/10/23 1517 SpO2 100 % 01/10/23 1521 Vitals shown include unfiled device data. Anesthesia Post Evaluation Patient location during evaluation: PACU Patient participation: complete - patient participated Level of consciousness: awake and alert Pain management: satisfactory to patient Multimodal analgesia pain management approach Airway patency: patent Two or more strategies used to mitigate risk of obstructive sleep apnea Cardiovascular status: acceptable and hemodynamically stable Respiratory status: acceptable Hydration status: acceptable No notable events documented. MIPS #430 PONV Patient did not receive an inhalational anesthetic (XX430) MIPS # 424 Perioperative Temperature Management Anesthesia time was less than 60 minutes (4256F) MIPS #477 Multimodal Pain Management Not emergent case Patient was not administered multimodal pain management (G2149) Patient reports no pain in PACU (G2149) MIPS #404 Anesthesiology Smoking Abstinence The patient is not a current smoker (e.g. cigarette, cigar, pipe, e-cigarette/vaping/marijuana) If no stop here (G9644) I completed my handoff to the receiving clinician during which we: 1. Identified the patient 2. Identified the responsible provider 3. Reviewed the pertinent medical history 4. Discussed the surgical course 5. Reviewed intra-op anesthesia management and issues during anesthesia 6. Set expectations for post-procedure period 7. Allowed opportunity for questions and acknowledgement of understanding. [facility] 01-10-2023 Note Formatting of this n ote is different from the original. Addendum created 01/10/231640 by ABEL Nolan CRNA Review and Sign - Ready for Procedure [facility] 01-10-2023 Miscellaneous Notes Addendum created 01/10/231640 by ABEL Nolan CRNA Review and Sign - Ready for Procedure Patient: Adam Casandra Procedure Summary Date: 01/10/23 Room / Location: [facility] / [facility] OR Anesthesia Start: 1435 Anesthesia Stop: 151 Procedure: PHACOEMULSIFICATION WITH INTRAOCULAR LENS INSERTION (Right: Eye) Diagnosis: Age-related nuclear cataract, right eye (Age-related nuclear cataract, right eye [H25.11]) Surgeons: Nick Martinez MD Responsible Provider: No Anesthesiologist - MD Anton Anesthesia Type: MAC ASA Status: 2 Anesthesia Type: MAC Vitals Value Taken Time BP 117/70 01/10/23 1529 Temp 36.4 C (97.6 F) 01/10/23 1517 Pulse 49 01/10/23 1531 Resp 18 01/10/23 1517 SpO2 100 % 01/10/23 1521 Vitals shown include unfiled device data. Anesthesia Post Evaluation Patient location during evaluation: PACU Patient participation: complete - patient participated Level of consciousness: awake and alert Pain management: satisfactory to patient Airway patency: patent Dental Injury: no Cardiovascular status: acceptable, blood pressure returned to baseline and hemodynamically stable Respiratory status: acceptable and spontaneous ventilation Hydration status: euvolemic Nausea/Vomiting: controlled No notable events documented. Patient can be discharged once all PACU criteria has been met. documented in this encounter [facility] 01-10-2023 Procedure anesthe ashtyn Narrative Procedure Name Responsible Anesthesiologist Anesthesia Start Time Anesthesia Stop Time PHACOEMULSIFICATION WITH INTRAOCULAR LENS INSERTION (Right: Eye) No Anesthesiologist - MD Anton 01/10/23 1436 01/10/23 1514 Events Date Time Event Comment 01/10/2023 1435 1436 An Start 1436 An Start Data 1436 In Room 1438 An Induction The patient was reevaluated immediately before moderate or deep sedation use and before anesthesia induction. 1438 Anesthesia Ready 1445 Proc Start 1509 Proc Fin 1510 an stop data 1511 Out of Room 1514 An Stop Meds Name Total midazolam (Versed) injection 2 mg/2 mL 4 mg HYDROmorphone (Dilaudid) injection 2 mg/ mL 0.5 mg propofol (Diprivan) injection 10 mg/mL 3 0 mg * Agents Name N2O Air * Blood No blood administrations on file. Lines, Drains, and Airways Type Details Placement Removal Wound/Incision 01/10/23; N; Surgica l; Right; cataract extraction w/ IOL implant 01/10/23 0000 by Valentina Morse RN Peripheral IV Placement Date: 12/27 07/18; Placement Time: 1312; Catheter Size: 22 G; Orientation: Left; Location: Antecubital; Site Prep: Alcohol; Inserted by: tam rn; Insertion Attempts: 1; Difficult Venous Access? No; Patient Tolerance: Tolerated well; Removal Date: 01/10/23; Removal Time: 1546; Removal Reason: Patient discharged 01/10/23 1312 by Theresa Hooper RN 01/10/23 1546 by Rafaela Sheets RN documented in this encounter [id number]* Anesthesia Discharge Note - ABEL Mahoney Jr., CRNA - 01/10/2023 3:31 PM EST Patient: Adam Guajardo Procedure Summary Date: 01/10/23 Room / Location: [place] [address] / [facility] Anesthesia Start: 1435 Anesthesia Stop: 1513 Procedure: PHACOEMULSIFICATION WITH INTRAOCULAR LENS INSERTION (Right: Eye) Diagnosis: Age-related nuclear cataract, right eye (Age-related nuclear cataract, right eye [H25.11]) Surgeons: Nick Martinez MD Responsible Provider: No Anesthesiologist - raghav/MD [place] Anesthesia Type: MAC ASA Status: 2 Anesthesia Type: MAC Vitals Value Taken Time BP 117/70 01/10/23 1529 Temp 36.4 C (97.6 F) 01/10/23 1517 Pulse 49 01/10/23 1531 Resp 18 01/10/23 1517 SpO2 100 % 01/10/23 1521 Vitals shown include unfiled device data. Anesthesia Post Evaluation Patient location during evaluation: PACU Patient participation: complete - patient participated Level of consciousness: awake and alert Pain management: satisfactory to patient Airway patency: patent Dental Injury: no Cardiovascular status: acceptable, blood pressure returned to baseline and hemodynamically stable Respiratory status: acceptable and spontaneous ventilation Hydration status: euvolemic Nausea/Vomiting: controlled No notable events documented. Patient can be discharged once all PACU criteria has been met. [id number] Anesthesiology Postoperative evaluation and management note* Anesthesia Postprocedure Evaluation - Corby Davila JrAriane, INSTRUCTIONAL SUPPORT ASSISTANT - MANAGER ANDROID - 01/10/2023 3:31 PM EST Patient: Adam Guajardo Procedure Summary Date: 01/10/23 Room / Location: [facility] [facility] / [facility] Anesthesia Start: 1436 Anesthesia Stop: 1514 Procedure: PHACOEMULSIFICATION WITH INTRAOCULAR LENS INSERTION (Right: Eye) Diagnosis: Age-related nuclear cataract, right eye (Age-related nuclear cataract, right eye [H25.11]) Surgeons: Nick Martinez MD Responsible Provider: Shyann Anesthesiologist - Kaylene/MD [place] Anesthesia Type: MAC ASA Status: 2 Anesthesia Type: MAC Vitals Value Taken Time BP 117/70 01/10/23 1529 Temp 36.4 C (97.6 F) 01/10/23 1517 Pulse 52 01/10/23 1530 Resp 18 01/10/23 1517 SpO2 100 % 01/10/23 1521 Vitals shown include unfiled device data. Anesthesia Post Evaluation Patient location during evaluation: PACU Patient participation: complete - patient participated Level of consciousness: awake and alert Pain management: satisfactory to patient Multimodal analgesia pain management approach Airway patency: patent Two or more strategies used to mitigate risk of obstructive sleep apnea Cardiovascular status: acceptable and hemodynamically stable Respiratory status: acceptable Hydration status: acceptable No notable events documented. MIPS #430 PONV Patient did not receive an inhalational anesthetic (XX430) MIPS # 424 Perioperative Temperature Management Anesthesia time was less than 60 minutes (4256F) MIPS #477 Multimodal Pain Management Not emergent case Patient was not administered multimodal pain management (G2149) Patient reports no pain in PACU (G2149) MIPS #404 Anesthesiology Smoking Abstinence The patient is not a current smoker (e.g. cigarette, cigar, pipe, e- cigarette/vaping/marijuana) If no stop here (G9644) I completed my handoff to the receiving clinician during which we: 1. Identified the patient 2. Identified the responsible provider 3. Reviewed the pertinent medical history 4. Discussed the surgical course 5. Reviewed intra-op anesthesia management and issues during anesthesia 6. Set expectations for post-procedure period 7. Allowed opportunity for questions and acknowledgement of understanding. [employer] Work Phone: [phone]) 465-473711-15-2023 Surgical operation note* Anesthesia Postprocedure Evaluation - ABEL Mahoney Jr., CRNA - 01/10/2023 3:31 PM EST Patient: Adam Guajardo Procedure Summary Date: 01/10/23 Room / Location: [facility] [facility] / [facility] OR Anesthesia Start: 1436 Anesthesia Stop: 1514 Procedure: PHACOEMULSIFICATION WITH INTRAOCULAR LENS INSERTION (Right: Eye) Diagnosis: Age-related nuclear cataract, right eye (Age-related nuclear cataract, right eye [H25.11]) Surgeons: Nick Martinez MD Responsible Provider: Shyann Anesthesiologist - Kaylene/MD [place] Anesthesia Type: MAC ASA Status: 2 Anesthesia Type: MAC Vitals Value Taken Time BP 117/70 01/10/23 1529 Temp 36.4 C (97.6 F) 01/10/23 1517 Pulse 52 01/10/23 1530 Resp 18 01/10/23 1517 SpO2 100 % 01/10/23 1521 Vitals shown include unfiled device data. Anesthesia Post Evaluation Patient location during evaluation: PACU Patient participation: complete - patient participated Level of consciousness: awake and alert Pain management: satisfactory to patient Multimodal analgesia pain management approach Airway patency: patent Two or more strategies used to mitigate risk of obstructive sleep apnea Cardiovascular status: acceptable and hemodynamically stable Respiratory status: acceptable Hydration status: acceptable No notable events documented. MIPS #430 PONV Patient did not receive an inhalational anesthetic (XX430) MIPS # 424 Perioperative Temperature Management Anesthesia time was less than 60 minutes (4256F) MIPS #477 Multimodal Pain Management Not emergent case Patient was not administered multimodal pain management (G2149) Patient reports no pain in PACU (G2149) MIPS #404 Anesthesiology Smoking Abstinence The patient is not a current smoker (e.g. cigarette, cigar, pipe, e- cigarette/vaping/marijuana) If no stop here (G9644) I completed my handoff to the receiving clinician during which we: 1. Identified the patient 2. Identified the responsible provider 3. Reviewed the pertinent medical history 4. Discussed the surgical course 5. Reviewed intra-op anesthesia management and issues during anesthesia 6. Set expectations for post-procedure period 7. Allowed opportunity for questions and acknowledgement of understanding. * Anesthesia Preprocedure Evaluation - ABEL Nolan CRNA - 01/10/2023 11:00 AM EST Patient: Adam Guajardo Procedure Information Date/Time: 01/10/23 1330 Procedure: PHACOEMULSIFICATION WITH INTRAOCULAR LENS INSERTION (Right: Eye) Location: [facility] OR 1 / [facility] OR Surgeons: Nick Martinez MD Relevant Problems No relevant active problems Past Medical History: No past medical history on file. Past Surgical History: No past surgical history on file. Social History: TOBACCO: has no history on file for tobacco use. ETOH: has no history on file for alcohol use. Social History Substance and Sexual Activity Drug Use Not on file Family History: No family history on file. Screening: unknown Clinical information reviewed: Physical Exam Airway Mallampati: II Cardiovascular Rhythm: regular Dental Comments: intact Pulmonary Abdominal (+) obese Anesthesia Plan patient is NPO appropriate Any family history or previous problems with anesthesia no ASA 2 MAC Any family history or previous problems with anesthesia no The patient is not a current smoker. Anesthetic plan and risks discussed with patient. FRED Screening Labs: No results found for: WBC, HGB, HCT, MCV, PLT No results found for: NA, K, CL, CO2, BUN, CREATININE, GLUCOSE, CALCIUM, PROT, BILIRUBINFL, ALKPHOS, AST, ALT, EGFR, GLOB No echocardiogram results found for the past 14 days No results found for this or any previous visit. documented in this [facility]11-15-2023 NoteHistory Of Present Illness Adam Guajardo is a 62 y.o. female presenting with NSC right Past Medical History She has no past medical history on file. Surgical History She has no past surgical history on file. Social History She has no history on file for tobacco use, alcohol use, and drug use. Allergies Patient has no allergy information on record. Medications (Not in a hospital admission) Review of Systems Physical Exam Last Recorded Vitals There were no vitals taken for this visit. Assessment/Plan Active Problems: There are no active Hospital Problems. Nick Martinez [facility]11-15-2023 Hospital Discharge instructions* Discharge Instructions* Rafaela Sheets, RN - 01/10/2023 3:[address] Martinez Office [phone] What can I expect after the Surgery? You may take the shield off and start taking eye drops 4 hours after leaving the surgery center. Taking drops will accelerate the healing process, Wait 5 minutes between eye drops, The order of drops does not matter, After taking your drops, replace the plastic shield over the operative eye with a single piece of tape. Your vision will be blurry. TAKE DROPS AT: 600pm Prednisolone 1 drop to the surgical eye EVERY HOUR while awake Shake well - drop should be milky Ofloxacin 1 drop to the surgical eye 3 addition times today Ketoralac 1 drop to the surgical eye 3 additional times today How should I care for myself after the surgery? Your appointment is tomorrow at the [facility] at 01/11/2023 1pm Bring your cheney bag including ALL of your eye medication. Please continue your other medications unless otherwise noted. Rest today. Be careful around stairs and steps. You do not have normal depth perception with one eye shielded. Double vision is typical. Leave eye shield on overnight. You may take the shield off in the morning or, if you prefer, have it removed at the office. DO NOT RUB OR PUSH ON THE EYE. If you think this may occur by accident, wear your shield. You should wear your shield while sleeping during the first week after surgery. You may bend forward, slowly. Try to keep your head above your shoulders. You may lift under 10-15 pounds during the first week. You may shower but avoid getting water on your face the first 24 hours after surgery. Thereafter, avoid getting soap and water in the eye. Expect a dull ache and a scratchy, gritty feeling for the first few days. This is your wound healing. If you are able, take 1-2 Extra Strength Tylenol for any mild discomfort. When would I need to call my doctor? Call your physician if you have doubts about anything. Call Dr Martinez at the numbers above if youhave any of the following signs and symptoms: Any significant eye pain, Sudden change in vision, Nausea or vomiting If you are experiencing an emergency and you cannot reach your doctor, go to the nearest emergency room or call 911 documented in this [facility]11-15-2023 Note* Op Note - Nick Martinez MD - 01/10/2023 2:36 PM EST Date: 01/10/2023 Location: [facility] OR Name: Adam Guajardo, : 1960, Diagnosis Pre-op Diagnosis * Age-related nuclear cataract, right eye [H25.11] Post-op Diagnosis * Age-related nuclear cataract, right eye [H25.11] Procedures PHACOEMULSIFICATION WITH INTRAOCULAR LENS INSERTION 01560 - GA XCAPSL CTRC RMVL INSJ IO LENS PROSTH W/O ECP Surgeons * Nick Martinez - Primary Procedure Summary Anesthesia: Monitor Anesthesia Care ASA: II Estimated Blood Loss: None Drains: * None in log * Implants Type Name Action Serial No. Lens Trulign Toric posterior chamber IOL Implanted [id number] Staff: Courseware Developer: Valentina Morse RN Scrub Person: Otis Engel NOTE PREOPERATIVE DIAGNOSIS:NSC, PSC, right eye POSTOPERATIVE DIAGNOSIS:NSC, PSC, right eye PROCEDURE PERFORMED:Cataract surgery of the right eye SURGEON:Nick Martinez MD PROCEDURE: Risks, benefits and alternatives had been discussed with patient. Patient understood andwished to proceed with procedure. Patient was seen in the preoperative holding area. Operative eye was verified by both the patient, as well as prior clinic chart note. Patient was brought back to the operative suite with the help of Anesthesiology and the eye was prepped and draped in the usual sterile ophthalmic fashion. A paracentesis site was then created at approximately the 1 o'clock position. This was followed by instillation of preservative-free lidocaine and Viscoat. A temporal cornealwound was then created using a 2.7 microkeratome blade and this was followed by creation of a continuous curvilinear capsulorrhexis using a cystotome needle and Utrata forceps. Careful hydrodissection was then performed using sterile BSS and phacoemulsification was then used to remove the cataract.Upon completion irrigation and aspiration was used to remove the remaining cortex and trulign [id number] 1.25 axis 130 -diopter lens, was then injected into the bag. This was rotated into position and careful removal of the Healon was then performed. The temporal corneal wound and paracentesis site were then rehydrated using sterile BSS. The eye was checked and noted to be Joelle negative. A single drop of Pred Forte, siloxane, Nevanac and Timolol were given to the patient's eye and a surgical shield was placed over the eye. Patient was brought back to the preoperative holding area in stable condition. There were no complications, no blood, no specimens. Nick Martinez MD [facility]11-15-2023 Note* Brief Op Note - Nick Martinez MD - 01/10/2023 2:36 PM EST Date: 01/10/2023 Location: [facility] OR Name: Adam Guajardo, : 1960, Diagnosis Pre-op Diagnosis * Age-related nuclear cataract, right eye [H25.11] Post-op Diagnosis * Age-related nuclear cataract, right eye [H25.11] Procedures PHACOEMULSIFICATION WITH INTRAOCULAR LENS INSERTION 55698 - GA XCAPSL CTRC RMVL INSJ IO LENS PROSTH W/O ECP Surgeons * Nick Martinez - Primary Procedure Summary Anesthesia: Monitor Anesthesia Care ASA: II Estimated Blood Loss: None Drains: * None in log * Implants Type Name Action Serial No. Lens Trulign Toric posterior chamber IOL Implanted [id number] Staff: Courseware Developer: Valentina Morse RN Scrub Person: Otis Engel Findings: none Complications: None; patient tolerated the procedure well. Specimens Collected: No specimens collected during this procedure. Wound Class: Class I: Clean Blood Products: None Prophylactic Antibiotics: Procedure appropriate prophylactic antibiotic(s) given within 1 hour of surgical incision (two hours if receiving Vancomycin or flouroquinolone) [facility]11-15-2023 Note* Op Note - Nick Martinez MD - 01/10/2023 2:36 PM EST Date: 01/10/2023 Location: [facility] OR Name: Adam Guajardo, : 1960, Diagnosis Pre-op Diagnosis * Age-related nuclear cataract, right eye [H25.11] Post-op Diagnosis * Age-related nuclear cataract, right eye [H25.11] Procedures PHACOEMULSIFICATION WITH INTRAOCULAR LENS INSERTION 29853 - GA XCAPSL CTRC RMVL INSJ IO LENS PROSTH W/O ECP Surgeons * Nick Martinez - Primary Procedure Summary Anesthesia: Monitor Anesthesia Care ASA: II Estimated Blood Loss: None Drains: * None in log * Implants Type Name Action Serial No. Lens Trulign Toric posterior chamber IOL Implanted [id number] Staff: Courseware Developer: Valentina Morse RN Scrub Person: Otis Engel NOTE PREOPERATIVE DIAGNOSIS:NSC, PSC, right eye POSTOPERATIVE DIAGNOSIS:NSC, PSC, right eye PROCEDURE PERFORMED:Cataract surgery of the right eye SURGEON:Nick Martinez MD PROCEDURE: Risks, benefits and alternatives had been discussed with patient. Patient understood andwished to proceed with procedure. Patient was seen in the preoperative holding area. Operative eye was verified by both the patient, as well as prior clinic chart note. Patient was brought back to the operative suite with the help of Anesthesiology and the eye was prepped and draped in the usual sterile ophthalmic fashion. A paracentesis site was then created at approximately the 1 o'clock position. This was followed by instillation of preservative-free lidocaine and Viscoat. A temporal cornealwound was then created using a 2.7 microkeratome blade and this was followed by creation of a continuous curvilinear capsulorrhexis using a cystotome needle and Utrata forceps. Careful hydrodissection was then performed using sterile BSS and phacoemulsification was then used to remove the cataract.Upon completion irrigation and aspiration was used to remove the remaining cortex and trulign [id number] 1.25 axis 130 -diopter lens, was then injected into the bag. This was rotated into position and careful removal of the Healon was then performed. The temporal corneal wound and paracentesis site were then rehydrated using sterile BSS. The eye was checked and noted to be Joelle negative. A single drop of Pred Forte, siloxane, Nevanac and Timolol were given to the patient's eye and a surgical shield was placed over the eye. Patient was brought back to the preoperative holding area in stable condition. There were no complications, no blood, no specimens. Nick Martinez MD [facility]11-15-2023 Note* Brief Op Note - Nick Martinez MD - 01/10/2023 2:36 PM EST Date: 01/10/2023 Location: [facility] OR Name: Adam Guajardo, : 1960, Diagnosis Pre-op Diagnosis * Age-related nuclear cataract, right eye [H25.11] Post-op Diagnosis * Age-related nuclear cataract, right eye [H25.11] Procedures PHACOEMULSIFICATION WITH INTRAOCULAR LENS INSERTION 80755 - GA XCAPSL CTRC RMVL INSJ IO LENS PROSTH W/O ECP Surgeons * Nick Martinez - Primary Procedure Summary Anesthesia: Monitor Anesthesia Care ASA: II Estimated Blood Loss: None Drains: * None in log * Implants Type Name Action Serial No. Lens Trulign Toric posterior chamber IOL Implanted [id number] Staff: Courseware Developer: Valentina Morse RN Scrub Person: Otis Engel Findings: none Complications: None; patient tolerated the procedure well. Specimens Collected: No specimens collected during this procedure. Wound Class: Class I: Clean Blood Products: None Prophylactic Antibiotics: Procedure appropriate prophylactic antibiotic(s) given within 1 hour of surgical incision (two hours if receiving Vancomycin or flouroquinolone) [id number] Miscellaneous Notes* Op Note - Nick Martinez MD - 01/10/2023 2:36 PM EST Date: 01/10/2023 Location: [facility] OR Name: Adam Guajardo, : 1960, Diagnosis Pre-op Diagnosis * Age-related nuclear cataract, right eye [H25.11] Post-op Diagnosis * Age-related nuclear cataract, right eye [H25.11] Procedures PHACOEMULSIFICATION WITH INTRAOCULAR LENS INSERTION 57540 - GA XCAPSL CTRC RMVL INSJ IO LENS PROSTH W/O ECP Surgeons * Nick Martinez - Primary Procedure Summary Anesthesia: Monitor Anesthesia Care ASA: II Estimated Blood Loss: None Drains: * None in log * Implants Type Name Action Serial No. Lens Trulign Toric posterior chamber IOL Implanted [id number] Staff: Courseware Developer: Valentina Morse RN Scrub Person: Otis Engel NOTE PREOPERATIVE DIAGNOSIS:NSC, PSC, right eye POSTOPERATIVE DIAGNOSIS:NSC, PSC, right eye PROCEDURE PERFORMED:Cataract surgery of the right eye SURGEON:Nick Martinez MD PROCEDURE: Risks, benefits and alternatives had been discussed with patient. Patient understood andwished to proceed with procedure. Patient was seen in the preoperative holding area. Operative eye was verified by both the patient, as well as prior clinic chart note. Patient was brought back to the operative suite with the help of Anesthesiology and the eye was prepped and draped in the usual sterile ophthalmic fashion. A paracentesis site was then created at approximately the 1 o'clock position. This was followed by instillation of preservative-free lidocaine and Viscoat. A temporal cornealwound was then created using a 2.7 microkeratome blade and this was followed by creation of a continuous curvilinear capsulorrhexis using a cystotome needle and Utrata forceps. Careful hydrodissection was then performed using sterile BSS and phacoemulsification was then used to remove the cataract.Upon completion irrigation and aspiration was used to remove the remaining cortex and trulign [id number] 1.25 axis 130 -diopter lens, was then injected into the bag. This was rotated into position and careful removal of the Healon was then performed. The temporal corneal wound and paracentesis site were then rehydrated using sterile BSS. The eye was checked and noted to be Joelle negative. A single drop of Pred Forte, siloxane, Nevanac and Timolol were given to the patient's eye and a surgical shield was placed over the eye. Patient was brought back to the preoperative holding area in stable condition. There were no complications, no blood, no specimens. Nick Martinez MD * Brief Op Note - Nick Martinez MD - 01/10/2023 2:36 PM EST Date: 01/10/2023 Location: [facility] OR Name: Adam Guajardo, : 1960, Diagnosis Pre-op Diagnosis * Age-related nuclear cataract, right eye [H25.11] Post-op Diagnosis * Age-related nuclear cataract, right eye [H25.11] Procedures PHACOEMULSIFICATION WITH INTRAOCULAR LENS INSERTION 24678 - GA XCAPSL CTRC RMVL INSJ IO LENS PROSTH W/O ECP Surgeons * Nick Martinez - Primary Procedure Summary Anesthesia: Monitor Anesthesia Care ASA: II Estimated Blood Loss: None Drains: * None in log * Implants Type Name Action Serial No. Lens Trulign Toric posterior chamber IOL Implanted [id number] Staff: Courseware Developer: Valentina Morse RN Scrub Person: Otis Engel Findings: none Complications: None; patient tolerated the procedure well. Specimens Collected: No specimens collected during this procedure. Wound Class: Class I: Clean Blood Products: None Prophylactic Antibiotics: Procedure appropriate prophylactic antibiotic(s) given within 1 hour of surgical incision (two hours if receiving Vancomycin or flouroquinolone) documented in this [facility]11-15-2023 NoteDischarge Summary Adam Guajardo : 1960 ADMIT DATE: 01/10/2023 DISCHARGE DATE: 01/10/2023 PRIMARY CARE PHYSICIAN: Nikc Martinez VISIT STATUS: Observation CODE STATUS: Full Code DISCHARGE DIAGNOSES: Active Problems: There are no active Hospital Problems. HOSPITAL COURSE: stable SIGNIFICANT DIAGNOSTIC STUDIES: none CONSULTANTS: none RECOMMENDED NEXT STEPS: Discharge to home DISCHARGE MEDICATIONS: Medication List CONTINUE taking these medications famotidine 20 MG tablet Commonly known as: Pepcid DIET: NPO diet NPO diet ACTIVITY: No heavy lifting. COMPLEXITY OF FOLLOW UP: [] Moderate Complexity: follow up within 7-14 calendar days (58362) [] Severe Complexity: follow up within 7 calendar days (37468) FOLLOW UP TESTING, PENDING RESULTS OR REFERRALS AT TRANSITIONAL CARE VISIT: [] Yes [] No PENDING STUDIES: noecrow DISPOSITION: Home FACILITY/HOME CARE AGENCY NAME: none Follow up with No follow-up provider specified. on tomorrow INSTRUCTIONS TO MA/SW: Please call patient on day after discharge (must document patient contacted within 2 business days of discharge). FOLLOW UP QUESTIONS FOR MA/SW: 1. Did you get medications filled and taking them as instructed from discharge? 2. Are you following your discharge instructions from your hospital stay? 3. Please confirm patient is scheduled for a follow up appointment within the above time frame. DISCHARGE TIME: > 30 minutes SIGNED: Nick Martinez MD 01/10/2023, 3:12 [facility]11-15-2023 History and physical note* Nick Martinez MD - 01/10/2023 1:30 PM EST History Of Present Illness Adam Guajardo is a 62 y.o. female presenting with NSC right Past Medical History She has no past medical history on file. Surgical History She has no past surgical history on file. Social History She has no history on file for tobacco use, alcohol use, and drug use. Allergies Patient has no allergy information on record. Medications (Not in a hospital admission) Review of Systems Physical Exam Last Recorded Vitals There were no vitals taken for this visit. Assessment/Plan Active Problems: There are no active Hospital Problems. Nick Martinez MD [facility] [id number] History and physical note* Nick Martinez MD - 01/10/2023 1:30 PM EST History Of Present Illness Adam Guajardo is a 62 y.o. female presenting with NSC right Past Medical History She has no past medical history on file. Surgical History She has no past surgical history on file. Social History She has no history on file for tobacco use, alcohol use, and drug use. Allergies Patient has no allergy information on record. Medications (Not in a hospital admission) Review of Systems Physical Exam Last Recorded Vitals There were no vitals taken for this visit. Assessment/Plan Active Problems: There are no active Hospital Problems. Nick Martinez MD documented in this [facility]11-15-2023 NotePatient: Adam Guajardo Procedure Information Date/Time: 01/10/23 1330 Procedure: PHACOEMULSIFICATION WITH INTRAOCULAR LENS INSERTION (Right: Eye) Location: [facility] OR 1 / [facility] OR Surgeons: Nick Martinez MD Relevant Problems No relevant active problems Past Medical History: No past medical history on file. Past Surgical History: No past surgical history on file. Social History: TOBACCO: has no history on file for tobacco use. ETOH: has no history on file for alcohol use. Social History Substance and Sexual Activity Drug Use Not on file Family History: No family history on file. Screening: unknown Clinical information reviewed: Physical Exam Airway Mallampati: II Cardiovascular Rhythm: regular Dental Comments: intact Pulmonary Abdominal (+) obese Anesthesia Plan patient is NPO appropriate Any family history or previous problems with anesthesia no ASA 2 MAC Any family history or previous problems with anesthesia no The patient is not a current smoker. Anesthetic plan and risks discussed with patient. FRED Screening Labs: No results found for: WBC, HGB, HCT, MCV, PLT No results found for: NA, K, CL, CO2, BUN, CREATININE, GLUCOSE, CALCIUM, PROT, BILIRUBINFL, ALKPHOS, AST, ALT, EGFR, GLOB No echocardiogram results found for the past 14 days No results found for this or any previous visit.[facility] 01-10-2023 Hospital course Narrative* Nick Martinez MD - 01/10/2023 12:22 PM EST Discharge Summary Adam Guajardo : 1960 ADMIT DATE: 01/10/2023 DISCHARGE DATE: 01/10/2023 PRIMARY CARE PHYSICIAN: Nick Martinez VISIT STATUS: Observation CODE STATUS: Full Code DISCHARGE DIAGNOSES: Active Problems: There are no active Hospital Problems. HOSPITAL COURSE: stable SIGNIFICANT DIAGNOSTIC STUDIES: none CONSULTANTS: none RECOMMENDED NEXT STEPS: Discharge to home DISCHARGE MEDICATIONS: Medication List CONTINUE taking these medications famotidine 20 MG tablet Commonly known as: Pepcid DIET: NPO diet NPO diet ACTIVITY: No heavy lifting. COMPLEXITY OF FOLLOW UP: [] Moderate Complexity: follow up within 7-14 calendar days (65219) [] Severe Complexity: follow up within 7 calendar days (87902) FOLLOW UP TESTING, PENDING RESULTS OR REFERRALS AT TRANSITIONAL CARE VISIT: [] Yes [] No PENDING STUDIES: noen DISPOSITION: Home FACILITY/HOME CARE AGENCY NAME: none Follow up with No follow-up provider specified. on tomorrow INSTRUCTIONS TO MA/SW: Please call patient on day after discharge (must document patient contacted within 2 business days of discharge). FOLLOW UP QUESTIONS FOR MA/SW: 1. Did you get medications filled and taking them as instructed from discharge? 2. Are you following your discharge instructions from your hospital stay? 3. Please confirm patient is scheduled for a follow up appointment within the above time frame. DISCHARGE TIME: > 30 minutes SIGNED: Nick Martinez MD 01/10/2023, 3:12 PM documented in this [facility]11-15-2023 Anesthesiology Preoperative evaluation and management note* Anesthesia Preprocedure Evaluation - ABEL Nolan CRNA - 01/10/2023 11:00 AM EST Patient: Adam Guajardo Procedure Information Date/Time: 01/10/23 1330 Procedure: PHACOEMULSIFICATION WITH INTRAOCULAR LENS INSERTION (Right: Eye) Location: [facility] OR 1 / [facility] OR Surgeons: Nick Martinez MD Relevant Problems No relevant active problems Past Medical History: No past medical history on file. Past Surgical History: No past surgical history on file. Social History: TOBACCO: has no history on file for tobacco use. ETOH: has no history on file for alcohol use. Social History Substance and Sexual Activity Drug Use Not on file Family History: No family history on file. Screening: unknown Clinical information reviewed: Physical Exam Airway Mallampati: II Cardiovascular Rhythm: regular Dental Comments: intact Pulmonary Abdominal (+) obese Anesthesia Plan patient is NPO appropriate Any family history or previous problems with anesthesia no ASA 2 MAC Any family history or previous problems with anesthesia no The patient is not a current smoker. Anesthetic plan and risks discussed with patient. FRED Screening Labs: No results found for: WBC, HGB, HCT, MCV, PLT No results found for: NA, K, CL, CO2, BUN, CREATININE, GLUCOSE, CALCIUM, PROT, BILIRUBINFL, ALKPHOS, AST, ALT, EGFR, GLOB No echocardiogram results found for the past 14 days No results found for this or any previous visit. [employer] Work Phone: [phone] 847-791609-19-2023 History of Present illness Narrative* Emil Cooper, RT(R) - 11/14/2022 1:00 PM EDT Radiology Service Progress Note PATIENT NAME: Adam Guajardo DATE OF SERVICE: November 14, 2022 TIME: 12:32 PM PATIENT IDENTITY VERIFICATION COMPLETED USING TWO (2) IDENTIFIERS: Name and Date of confirmedby patient verbally. FALL SCREENING: Has the patient had 2 falls in the last year or 1 fall with injury or currently using an Ambulatory Assistive Device (Walker, Cane, Wheelchair, Crutches, etc.)? No PATIENT GENDER DATA: Female. status: : No status: NO. PATIENT RELEVANT IMPLANT DATA REVIEWED: Not Applicable RADIOLOGY DEPARTMENT: Mammography PERIPHERAL IV DATA: Not applicable SIGNED BY: RT Earline(R) November 14, 2022 12:32 PM documented in this [facility]Prom[facility] History of Present illness Narrative* Corazon Miles MD - 10/31/2022 1:01 PM EDT Request to review outside films from [facility]. Left stereotactic guided core biopsy of suspicious calcifications is requested. Agree with recommended biopsy. The patient will be contacted by the [facility] breast center to schedule the procedure. documented in this encounterPromedica [facility]09-01-2023 Nurse Note* Nasrin Mott, LULU - 10/27/2022 4:27 PM EDT REVIEW OF SYSTEMS: General: The patient NOTES fatigue, denies weight loss, denies weight gain, NOTES feeling hot, and denies feelings of cold. Eyes: The patient denies glaucoma, denies eye injury/surgery, wears glasses or contacts. Ear/Nose/Throat: The patient NOTES allergies, denies hayfever, denies ear infections, and denies bloody noses. Cardiovascular: The patient denies chest pain, denies heart disease, denies high blood pressure,denies cardiac stent, denies prior heart attack, denies irregular heart beat, denies high cholesterol, denies poor circulation, denies heart failure, other cardiac issues, denies claudication, denies cold feet, denies peripheral arterial stent. Respiratory: The patient denies tuberculosis, denies pneumonia, denies frequent cough, denies pulmonary embolism, NOTES shortness of breath, and denies coughing up blood. Gastrointestinal: The patient denies difficulty swallowing, NOTES acid reflux, denies ulcers, denies vomiting, denies jaundice/hepatitis, denies gallbladder problems, denies black or tarry stools, denies hemorrhoids, denies bleeding from rectum, denies diverticulitis, denies constipation, denies diarrhea, denies loss of stool control, and denies hernias. Kidney/Bladder: The patient denies kidney stones, denies urine infections, and denies bloody urine. Skin: The patient denies a history of skin cancer, denies bleeding/changing moles, and denies a history of skin rash. Neurologic: The patient denies a history of epilepsy/convulsions, denies headaches, denies head/spinal injuries, and denies stroke/TIA. Psychiatric: The patient denies psychiatric medications, denies depression, and denies voices, denies substance abuse. Endocrine: The patient denies thyroid disorders, denies diabetes, and denies hormonal problems. Hematologic: The patient denies a history of bruising, denies bleeding, and denies anemia, denies blood clots. Infections: The patient denies a history of measles and mumps, denies rheumatic fever, and denies sexually transmitted diseases. Musculoskeletal: The patient denies back pain/injury, denies back problems, denies sciatica, deniesknee/foot trouble, NOTES arthritis, or denies gout. When was patient's last Mammogram screening? 10/10/22 and 10/25/22 diagnostic Last Colonoscopy: 08/12/22 Nasrin Mott RN documented in this encounterPromedica [facility]09-01-2023 History of Present illness Narrative* Katherine Pop MD - 10/27/2022 4:25 PM EDT Adam Guajardo 1960 REFERRING PHYSICIAN: No ref. provider found CHIEF COMPLAINT: Breast Nodule HPI: The patient is a 62 year old female presents with abnormal calcifications of left breast. She denies palpable masses. She denies nipple discharge. She denies previous breast biopsies or breast surgeries. Her mother and sister both had breast cancer, no ovarian cancer known in the family. Her gynecological history is the following: menarche onset at age 13, , BCP use initially age 17 for 10 y, breast feeding none, menopause at age 51 10/25/2022 Left breast mammograms IMPRESSION: SUSPICIOUS FINDING - BIOPSY SHOULD BE CONSIDERED - Thegrouped amorphous calcifications in the left breast are suspicious of malignancy. A stereotactic biopsy is recommended. PAST MEDICAL HISTORY Diagnosis Date Acute medial meniscus tear 08/17/2021 Arthritis Family history of breast cancer in mother sister also Uterine fibroid 2010 U/S notede multiple, largest ~3.3cm PAST SURGICAL HISTORY Procedure Laterality Date KNEE SURGERY HX Left 2021 Current Outpatient Medications Medication Sig cetirizine (ZYRTEC) 10 mg tablet Take 1 tablet by mouth once daily. albuterol HFA (PROVENTIL HFA, VENTOLIN HFA) 90 mcg/actuation inhaler Azelaic Acid 15 % gel esomeprazole (NEXIUM) 40 mg capsule metroNIDAZOLE (METROGEL) 0.75 % Topical Gel MULTIVITAMIN ORAL Take by mouth. KRILL OIL ORAL Take by mouth. [id number] ORAL Take by mouth. No current facility-administered medications for this visit. ALLERGIES: Sulfa (Sulfonamide Antibiotics) PERSONAL HISTORY: Social History Tobacco Use Smoking status: Former Packs/day: 0.50 Years: 10.00 Additional pack years: 0.00 Total pack years: 5.00 Types: Cigarettes Quit date: 10/24/1989 Years since quittin.0 Smokeless tobacco: Never Vaping Use Vaping Use: Never used Substance Use Topics Alcohol use: Yes Comment: 1/month Drug use: No FAMILY HISTORY Problem Relation Age of Onset Arthritis Mother Asthma Mother Breast Cancer Mother diagnosed age 52 Diabetes Mother Heart disease Mother age 83 Stroke Father Heart Father age 82 DVT Father Breast Cancer Sister 66 DVT Sister Cancer Maternal Grandfather brain Diabetes Paternal Grandfather Hypertension Daughter Cervical Cancer Maternal Aunt Colon Cancer No Family History Ovarian cancer No Family History Prostate Cancer No Family History No Family History No Family History Pancreatic CA Uterine Cancer No Family History The review of systems data was entered by the nurse and reviewed by sc Nursing Notes: Nasrin Mott RN 10/27/2022 4:28 PM Signed REVIEW OF SYSTEMS: General: The patient NOTES fatigue, denies weight loss, denies weight gain, NOTES feeling hot, and denies feelings of cold. Eyes: The patient denies glaucoma, denies eye injury/surgery, wears glasses or contacts. Ear/Nose/Throat: The patient NOTES allergies, denies hayfever, denies ear infections, and denies bloody noses. Cardiovascular: The patient denies chest pain, denies heart disease, denies high blood pressure,denies cardiac stent, denies prior heart attack, denies irregular heart beat, denies high cholesterol, denies poor circulation, denies heart failure, other cardiac issues, denies claudication, denies cold feet, denies peripheral arterial stent. Respiratory: The patient denies tuberculosis, denies pneumonia, denies frequent cough, denies pulmonary embolism, NOTES shortness of breath, and denies coughing up blood. Gastrointestinal: The patient denies difficulty swallowing, NOTES acid reflux, denies ulcers, denies vomiting, denies jaundice/hepatitis, denies gallbladder problems, denies black or tarry stools, denies hemorrhoids, denies bleeding from rectum, denies diverticulitis, denies constipation, denies diarrhea, denies loss of stool control, and denies hernias. Kidney/Bladder: The patient denies kidney stones, denies urine infections, and denies bloody urine. Skin: The patient denies a history of skin cancer, denies bleeding/changing moles, and denies a history of skin rash. Neurologic: The patient denies a history of epilepsy/convulsions, denies headaches, denies head/spinal injuries, and denies stroke/TIA. Psychiatric: The patient denies psychiatric medications, denies depression, and denies voices, denies substance abuse. Endocrine: The patient denies thyroid disorders, denies diabetes, and denies hormonal problems. Hematologic: The patient denies a history of bruising, denies bleeding, and denies anemia, denies blood clots. Infections: The patient denies a history of measles and mumps, denies rheumatic fever, and denies sexually transmitted diseases. Musculoskeletal: The patient denies back pain/injury, denies back problems, denies sciatica, deniesknee/foot trouble, NOTES arthritis, or denies gout. When was patient's last Mammogram screening? 10/10/22 and 10/25/22 diagnostic Last Colonoscopy: 08/12/22 Nasrin Mott RN PHYSICAL EXAMINATION: General: The patient is 62 year old female, well nourished, well hydrated in no acute distress. Thepatient is oriented to time, place, and person. VITALS: Blood pressure 122/84, Wt: 227# Head - Normocephalic. EOM intact with sclera clear and no icterus noted. Wearing glasses. Mouth with mucus membranes moist. Neck - supple with no jugular venous distention noted. Trachea is midline. No thyroid enlargement or thyroid nodules detected. No masses noted. Chest/breast - no asymmetry of breasts noted, no suspicious skin lesions noted, no nipple dischargeand both nipples everted, no breast masses noted Lungs - clear to auscultation. Normal breath sounds. No rales/rhonchi/wheezing noted. No labored breathing noted, such as retractions. No cough heard. Heart - normal S1 and S2 auscultated. No rubs/clicks/murmurs noted. Regular rate. Abdomen - soft and benign. Difficult to determine if any masses or organomegaly due to body habitus. Extremities - no calf tenderness noted. No pitting edema noted. Skin - normal skin integrity. Lymph - no cervical adenopathy detected, no supraclavicular adenopathy detected, no axillary adenopathy detected Neurological - gait normal, no focal deficits noted Psych - calm and appropriate Assessment IMPRESSION: abnormal left breast cancer, family history of breast cancer PLAN: I have discussed the above with the patient. I have recommended left stereotactic breast biopsy. I have explained the procedure to the patient. I have offered procedure at [facility] or [facility] breast imaging center, she chooses the latter. I will call patient with results. The patient acknowledges the above. I have answered all questions to the patient s satisfaction and the patient has no further questions. I have confirmed and edited as necessary, the PFSH and ROS obtained by others. Diagnoses: (R92.1) Calcification of left breast on mammography (primary encounter diagnosis) (Z80.3) Family history of breast cancer Medical Decision Making: Problems: Moderate: New problem with uncertain prognosis Data: Unique test result(s) reviewed: 1 Risk: Low: Low risk from testing/treatment Medical Decision Making Level: 3 - Low Katherine Pop MD documented in this encounterPromedica [facility]08-16-2023 Miscellaneous Notes* Letter - Coordinator, Mammography - 10/11/2022 8:33 AM EDT October 11, 2022 PID: [id number] Adam Guajardo [address] [place] [address] Dear Ariane Casandra, Your recent breast imaging exam on 10/10/2022 showed a possible finding that requires additional imaging studies for a complete evaluation. Most such findings are probably benign (not cancer). Your mammogram demonstrates that you have dense breast tissue, which could hide abnormalities. Dense breast tissue, in and of itself, is a relatively common condition. Therefore, this information is not provided to cause undue concern; rather, it is to raise your awareness and promote discussion with your health care provider regarding the presence of dense breast tissue in addition to other riskfactors. If you have a healthcare provider who ordered/prescribed your screening mammogram: Please call to schedule an appointment for your additional imaging (if you have not already done so).Additional Imaging cannot be self scheduled in Side[facility]. If you DO NOT have a healthcare provider (ie you did not have an order/prescription for your screening mammogram): Please call to schedule an appointment for your additional imaging (if you have not already done so). Additonal Imaging cannot be self scheduled in [facility]. This exam cannot be self scheduled in [facility]. You must have an order/prescription from your physician when calling to schedule your appointment. If your order/prescription is not electronic, you must bring the hard copy with you on the day of your exam Your imaging studies and reports are kept on [facility] as part of your permanent medical record, and are available for your continuing care. Thank you for allowing us to help in meeting your health care needs. Sincerely, Dr. Flanagan Interpreting Radiologist [facility] (Additional imaging) documented in this encounterProm[facility] History of Present illness Narrative* Brooke Rodriguez CT - 10/10/2022 10:00 AM EDT Radiology Service Progress Note PATIENT NAME: Adam Guajardo DATE OF SERVICE: October 10, 2022 TIME: 11:16 AM PATIENT IDENTITY VERIFICATION COMPLETED USING TWO (2) IDENTIFIERS: Name and Date of confirmedby patient verbally. FALL SCREENING: Has the patient had 2 falls in the last year or 1 fall with injury or currently using an Ambulatory Assistive Device (Walker, Cane, Wheelchair, Crutches, etc.)? No PATIENT GENDER DATA: Female. status: : No status: NO. PATIENT RELEVANT IMPLANT DATA REVIEWED: Not Applicable RADIOLOGY DEPARTMENT: Mammography PERIPHERAL IV DATA: Not applicable SIGNED BY: JUNE Machado October 10, 2022 11:16 AM documented in this encounterPromedica [facility]08-15-2023 History of Present illness Narrative* Gi Miranda MD - 10/10/2022 7:58 AM EDT Adma is a 62 year old who presents for an annual gynecologic exam without complaints. Postmenopausal: Yes since age 51 HRT use: No. 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 History LMP: 12/13/2011, Postmenopausal Age at Menarche: Age at First : Age at Menopause: Scrap Shear Operator History Comments: Sexual Activity: Not Currently; Male; not interested in sex with currently Contraception: Vasectomy PAST MEDICAL HISTORY Diagnosis Date Acute medial meniscus tear 08/17/2021 Arthritis Family history of breast cancer in mother sister also Uterine fibroid 2010 U/S notede multiple, largest ~3.3cm PAST SURGICAL HISTORY Procedure Laterality Date KNEE SURGERY HX Left 2021 FAMILY HISTORY Problem Relation Age of Onset Arthritis Mother Asthma Mother Breast Cancer Mother diagnosed age 52 Diabetes Mother Heart disease Mother age 83 Stroke Father Heart Father age 82 DVT Father Breast Cancer Sister 66 DVT Sister Cancer Maternal Grandfather brain Diabetes Paternal Grandfather Hypertension Daughter Cervical Cancer Maternal Aunt Colon Cancer No Family History Ovarian cancer No Family History Prostate Cancer No Family History No Family History No Family History Pancreatic CA Uterine Cancer No Family History SOCIAL HISTORY Social History Tobacco Use Smoking status: Former Packs/day: 0.50 Years: 10.00 Additional pack years: 0.00 Total pack years: 5.00 Types: Cigarettes Quit date: 10/24/1989 Years since quittin.9 Smokeless tobacco: Never Vaping Use Vaping Use: Never used Substance Use Topics Alcohol use: Yes Comment: 1/month Drug use: No REVIEW OF SYSTEMS Abdomen: No abdominal pain, nausea, vomiting, diarrhea, or constipation. No bloating, early satiety, indigestion, or increased flatulence. Bladder: No dysuria, gross hematuria, urinary frequency, urinary urgency, or incontinence Breast: No breast lumps, nipple d/c, overlying skin changes, redness or skin retraction Allergies and current medication updated:Yes EXAM: BP 121/76 Pulse 67 Ht 5' 5 (1.65m) Wt 227 lb 14.4 oz (103.4kg) LMP 12/13/2011 BMI 37.92 kg/(m^2). Warehouse Lead offered: Patient declines. GENERAL: pleasant, female in no apparent distress HEENT: Normocephalic, atraumatic, mucus membranes moist, and no lesions NECK: Supple, full range of motion, no adenopathy, and thyroid normal DERMATOLOGY: Normal, without lesions, non-icteric, and non-hirsute BREAST: soft, non-tender, symmetric, no dominant mass, normal nipple-areolar complex, no lymphadenopathy, and no nipple discharge CHEST: Normal inspiratory effort ABDOMEN: soft, non-tender, and no masses PELVIC: external genitalia normal, normal Bartholin's glands, urethra, [place]'s glands, no vulvar lesions, no cervical lesions, good vaginal support, physiologic discharge present, normal appearing perineal body and perianal region BIMANUAL: uterus normal size, shape and consistency, no adnexal masses, non- tender, and limited exam due to body habitus RECTOVAGINAL: deferred. NEURO: alert and oriented x3,exam grossly non-focal EXTREMITIES: normal ASSESSMENT/PLAN: 1) Health maintenance: Pap/HPV up to date. Mammogram ordered Colon cancer screening: up to date with screening - several polyps, last colonoscopy 07/2022 - next in 5 yrs 2) genetic screening secondary to family history - mom and sister 3) Follow up one year or sooner as needed Gi Miranda MD documented in this encounterPromed[facility]07-28-2022 Miscellaneous Notes* Letter - Mammography Coordinator - 09/22/2021 1:36 PM EDT September 22, 2021 PID: [id number] Adam Guajardo [address] [place] [address] Dear Ariane Casandra, We are pleased to inform you that the results of your recent breast imaging exam on 09/22/2021 are normal. Your mammogram demonstrates that you have dense breast tissue, which could hide abnormalities. Dense breast tissue, in and of itself, is a relatively common condition. Therefore, this information is not provided to cause undue concern; rather, it is to raise your awareness and promote discussion with your health care provider regarding the presence of dense breast tissue in addition to other riskfactors. Early detection of cancer is very important. We also understand recommendations regarding breast cancer screening are controversial. Please discuss with your primary care provider which strategy is best for you and whether a mammogram is right for you. Your imaging studies and report will be kept on file at [facility] as part of your permanent medical record and are available for your continuing care. Thank you for allowing us to help in meeting your health care needs. Sincerely, Dr. Amezcua Interpreting Radiologist [facility] (Normal over 40) documented in this encounterPromedica [facility]07-28-2022 History of Present illness Narrative* Gi Miranda MD - 09/22/2021 11:23 AM EDT Adam is a 61 year old who presents for an annual gynecologic exam without complaints. Postmenopausal: Yes since age 52 HRT use: No. 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 LMP: 12/13/2011, Postmenopausal Age at Menarche: Age at First : Age at Menopause: Scrap Shear Operator History Comments: Sexual Activity: Not Currently; Male; not interested in sex with currently Contraception: Vasectomy PAST MEDICAL HISTORY Diagnosis Date Acute medial meniscus tear 08/17/2021 Arthritis Family history of breast cancer in mother sister also Uterine fibroid 2010 U/S notede multiple, largest ~3.3cm PAST SURGICAL HISTORY Procedure Laterality Date KNEE SURGERY HX Left 2021 FAMILY HISTORY Problem Relation Age of Onset Arthritis Mother Asthma Mother Breast Cancer Mother diagnosed age 52 Diabetes Mother Heart disease Mother age 83 Stroke Father Heart Father age 82 DVT Father Breast Cancer Sister 66 DVT Sister Cancer Maternal Grandfather brain Diabetes Paternal Grandfather Hypertension Daughter Cervical Cancer Maternal Aunt Colon Cancer No Family History Ovarian cancer No Family History Prostate Cancer No Family History No Family History No Family History Pancreatic CA Uterine Cancer No Family History SOCIAL HISTORY Social History Tobacco Use Smoking status: Former Smoker Packs/day: 0.50 Years: 10.00 Pack years: 5.00 Types: Cigarettes Quit date: 10/24/1989 Years since quittin.9 Smokeless tobacco: Never Used Vaping Use Vaping Use: Never used Substance Use Topics Alcohol use: Yes Comment: 1/month Drug use: No REVIEW OF SYSTEMS Abdomen: No abdominal pain, nausea, vomiting, diarrhea, or constipation. No bloating, early satiety, indigestion, or increased flatulence. Bladder: No dysuria, gross hematuria, urinary frequency, urinary urgency, or incontinence Breast: No breast lumps, nipple d/c, overlying skin changes, redness or skin retraction Allergies and current medication updated:Yes EXAM: BP 116/70 Wt 228 lb 4.8 oz (103.6kg) LMP 12/13/2011 GENERAL: pleasant, female in no apparent distress HEENT: Normocephalic, atraumatic, mucus membranes moist and no lesions NECK: Supple, full range of motion, no adenopathy and thyroid normal DERMATOLOGY: Normal, without lesions, non-icteric and non-hirsute BREAST: soft, non-tender, symmetric, no dominant mass, normal nipple-areolar complex, no lymphadenopathy and no nipple discharge CHEST: Normal inspiratory effort ABDOMEN: soft, non-tender and no masses PELVIC: external genitalia normal, multiple inclusion cysts, normal Bartholin's glands, urethra, [place]'s glands, no vulvar lesions, no cervical lesions, good vaginal support, physiologic discharge present, normal appearing perineal body and perianal region BIMANUAL: uterus normal size, shape and consistency, no adnexal masses and non-tender RECTOVAGINAL: deferred. NEURO: alert and oriented x3,exam grossly non-focal EXTREMITIES: normal ASSESSMENT/PLAN: 1) Health maintenance: Pap/HPV up to date. Mammogram up to date 2) Follow up one year or sooner as needed Gi Miranda MD documented in this encounterPromedica [facility]06-01-2022 Miscellaneous Notes* Telephone Encounter - Obdulia Robertson - 07/27/2021 11:[address] order for mammogram. [facility] schedule. [facility]* Diagnosis Breast screening- Primary Breast screening, unspecified [facility] Diagnosis Women's annual routine gynecological examination documented [facility] this encounter [facility]* Diagnosis Breast screening Breast screening, unspecified [facility]* Diagnosis Onset Date Resolution Status Wellness examination [facility] Work Phone: Evaluation note* Diagnosis Family history of breast cancer- Primary Family history of malignant neoplasm of breast Women's annual routine gynecological examination [Z01.419] documented in this encounter [facility]* Diagnosis Women's annual routine gynecological examination documented [facility] this encounter [facility]* Diagnosis Calcification of left breast on mammography- Primary Family history of breast cancer Family history of malignant neoplasm of breast documented [facility]* Diagnosis Calcification of left breast on mammography documented [facility]* Diagnosis Encounter for screening mammogram for malignant neoplasm of breast Other screening mammogram documented in this encounter [facility]* Diagnosis Breast screening- Primary Breast screening, unspecified documented in this encounter [facility]* Diagnosis Traumatic complete tear of right rotator cuff, initial encounter- Primary documented in this encounter [facility]* Diagnosis Traumatic complete tear of right rotator cuff, initial encounter documented in this encounter [facility] note* Diagnosis Traumatic tear of right rotator cuff, subsequent encounter- Primary documented in this encounter [facility] note* Diagnosis Traumatic tear of right rotator cuff, subsequent encounter- Primary Injury of right axillary nerve, subsequent encounter Traumatic tear of right rotator cuff, subsequent encounter documented in this encounter [facility] note* Diagnosis Preoperative examination- Primary Preoperative examination, unspecified Gastroesophageal reflux disease, unspecified whether esophagitis present Former smoker Personal history of tobacco use, presenting hazards to health Obesity (BMI 30-39.9) Obesity, unspecified Hyperlipidemia, unspecified hyperlipidemia type Pre-op testing Preoperative examination, unspecified Traumatic tear of right rotator cuff, subsequent encounter * Assessment & Plan Note - Sri Pritchett PA-C - 05/08/2024 9:17 AM EDT Associated Problem(s): HLD (hyperlipidemia) Assessment: managed with diet * Assessment & Plan Note - Sri Pritchett PA-C - 05/08/2024 9:10 AM EDT Associated Problem(s): Obesity (BMI 30-39.9) Assessment: BMI 36 * Assessment & Plan Note - Sri Pritchett PA-C - 05/08/2024 9:06 AM EDT Associated Problem(s): Former smoker Assessment: 1/2 ppd x 10 years. Quit in 1989 * Assessment & Plan Note - Sri Pritchett PA-C - 05/08/2024 8:46 AM EDT Associated Problem(s): GERD (gastroesophageal reflux disease) Assessment: symptoms controlled on pepcid. Occasionally takes nexium documented in this encounter [facility]* Diagnosis Preoperative examination- Primary Preoperative examination, unspecified Gastroesophageal reflux disease, unspecified whether esophagitis present Former smoker Personal history of tobacco use, presenting hazards to health Obesity (BMI 30-39.9) Obesity, unspecified Hyperlipidemia, unspecified hyperlipidemia type Injury of right axillary nerve, subsequent encounter- Primary S/P right rotator cuff repair documented [facility] this encounter [facility]* Diagnosis Preoperative examination- Primary Preoperative examination, unspecified Gastroesophageal reflux disease, unspecified whether esophagitis present Former smoker Personal history of tobacco use, presenting hazards to health Obesity (BMI 30-39.9) Obesity, unspecified Hyperlipidemia, unspecified hyperlipidemia type Decreased range of motion of right shoulder- Primary Other symptoms referable to shoulder joint S/P right rotator cuff repair documented in this encounter [facility] note* Diagnosis Preoperative examination- Primary Preoperative examination, unspecified Gastroesophageal reflux disease, unspecified whether esophagitis present Former smoker Personal history of tobacco use, presenting hazards to health Obesity (BMI 30-39.9) Obesity, unspecified Hyperlipidemia, unspecified hyperlipidemia type S/P right rotator cuff repair- Primary Decreased range of motion of right shoulder Other symptoms referable to shoulder joint documented [facility] this encounter [facility]* Diagnosis Preoperative examination- Primary Preoperative examination, unspecified Gastroesophageal reflux disease, unspecified whether esophagitis present Former smoker Personal history of tobacco use, presenting hazards to health Obesity (BMI 30-39.9) Obesity, unspecified Hyperlipidemia, unspecified hyperlipidemia type S/P right rotator cuff repair- Primary Injury of right axillary nerve, subsequent encounter documented [facility] this encounter [facility]* Diagnosis Preoperative examination- Primary Preoperative examination, unspecified Gastroesophageal reflux disease, unspecified whether esophagitis present Former smoker Personal history of tobacco use, presenting hazards to health Obesity (BMI 30-39.9) Obesity, unspecified Hyperlipidemia, unspecified hyperlipidemia type S/P right rotator cuff repair- Primary [facility] Preoperative examination- Primary Preoperative examination, unspecified Gastroesophageal reflux disease, unspecified whether esophagitis present Former smoker Personal history of tobacco use, presenting hazards to health Obesity (BMI 30-39.9) Obesity, unspecified Hyperlipidemia, unspecified hyperlipidemia type S/P right rotator cuff repair- Primary Decreased range of motion of right shoulder Other symptoms referable to shoulder joint documented in this encounter [facility] note* Diagnosis Preoperative examination- Primary Preoperative examination, unspecified Gastroesophageal reflux disease, unspecified whether esophagitis present Former smoker Personal history of tobacco use, presenting hazards to health Obesity (BMI 30-39.9) Obesity, unspecified Hyperlipidemia, unspecified hyperlipidemia type S/P right rotator cuff repair- Primary Decreased range of motion of right shoulder Other symptoms referable to shoulder joint Weakness of right shoulder documented in this encounter [facility] note* Diagnosis Preoperative examination- Primary Preoperative examination, unspecified Gastroesophageal reflux disease, unspecified whether esophagitis present Former smoker Personal history of tobacco use, presenting hazards to health Obesity (BMI 30-39.9) Obesity, unspecified Hyperlipidemia, unspecified hyperlipidemia type S/P right rotator cuff repair- Primary documented in this encounter [facility] note* Diagnosis Preoperative examination- Primary Preoperative examination, unspecified Gastroesophageal reflux disease, unspecified whether esophagitis present Former smoker Personal history of tobacco use, presenting hazards to health Obesity (BMI 30-39.9) Obesity, unspecified Hyperlipidemia, unspecified hyperlipidemia type S/P right rotator cuff repair- Primary documented in this encounter [facility] note* Diagnosis Preoperative examination- Primary Preoperative examination, unspecified Gastroesophageal reflux disease, unspecified whether esophagitis present Former smoker Personal history of tobacco use, presenting hazards to health Obesity (BMI 30-39.9) Obesity, unspecified Hyperlipidemia, unspecified hyperlipidemia type S/P right rotator cuff repair- Primary Decreased range of motion of right shoulder Other symptoms referable to shoulder joint Weakness of right shoulder documented in this encounter [facility] note* Diagnosis Preoperative examination- Primary Preoperative examination, unspecified Gastroesophageal reflux disease, unspecified whether esophagitis present Former smoker Personal history of tobacco use, presenting hazards to health Obesity (BMI 30-39.9) Obesity, unspecified Hyperlipidemia, unspecified hyperlipidemia type S/P right rotator cuff repair- Primary documented in this encounter [facility] note* Diagnosis Preoperative examination- Primary Preoperative examination, unspecified Gastroesophageal reflux disease, unspecified whether esophagitis present Former smoker Personal history of tobacco use, presenting hazards to health Obesity (BMI 30-39.9) Obesity, unspecified Hyperlipidemia, unspecified hyperlipidemia type S/P right rotator cuff repair- Primary documented in this encounter [facility] note* Diagnosis Preoperative examination- Primary Preoperative examination, unspecified Gastroesophageal reflux disease, unspecified whether esophagitis present Former smoker Personal history of tobacco use, presenting hazards to health Obesity (BMI 30-39.9) Obesity, unspecified Hyperlipidemia, unspecified hyperlipidemia type S/P right rotator cuff repair- Primary documented in this encounter [facility] note* Diagnosis Preoperative examination- Primary Preoperative examination, unspecified Gastroesophageal reflux disease, unspecified whether esophagitis present Former smoker Personal history of tobacco use, presenting hazards to health Obesity (BMI 30-39.9) Obesity, unspecified Hyperlipidemia, unspecified hyperlipidemia type Injury of right axillary nerve, subsequent encounter- Primary S/P right rotator cuff repair documented in this encounter [facility] note* Diagnosis Preoperative examination- Primary Preoperative examination, unspecified Gastroesophageal reflux disease, unspecified whether esophagitis present Former smoker Personal history of tobacco use, presenting hazards to health Obesity (BMI 30-39.9) Obesity, unspecified Hyperlipidemia, unspecified hyperlipidemia type S/P right rotator cuff repair- Primary Decreased range of motion of right shoulder Other symptoms referable to shoulder joint Weakness of right shoulder documented in this encounter [facility] note* Diagnosis Preoperative examination- Primary Preoperative examination, unspecified Gastroesophageal reflux disease, unspecified whether esophagitis present Former smoker Personal history of tobacco use, presenting hazards to health Obesity (BMI 30-39.9) Obesity, unspecified Hyperlipidemia, unspecified hyperlipidemia type S/P right rotator cuff repair- Primary documented in this encounter [facility] note* Diagnosis Preoperative examination- Primary Preoperative examination, unspecified Gastroesophageal reflux disease, unspecified whether esophagitis present Former smoker Personal history of tobacco use, presenting hazards to health Obesity (BMI 30-39.9) Obesity, unspecified Hyperlipidemia, unspecified hyperlipidemia type S/P right rotator cuff repair- Primary documented in this encounter [facility] note* Diagnosis Preoperative examination- Primary Preoperative examination, unspecified Gastroesophageal reflux disease, unspecified whether esophagitis present Former smoker Personal history of tobacco use, presenting hazards to health Obesity (BMI 30-39.9) Obesity, unspecified Hyperlipidemia, unspecified hyperlipidemia type S/P right rotator cuff repair- Primary Decreased range of motion of right shoulder Other symptoms referable to shoulder joint Weakness of right shoulder [facility] Diagnosis Preoperative examination- Primary Preoperative examination, unspecified Gastroesophageal reflux disease, unspecified whether esophagitis present Former smoker Personal history of tobacco use, presenting hazards to health Obesity (BMI 30-39.9) Obesity, unspecified Hyperlipidemia, unspecified hyperlipidemia type S/P right rotator cuff repair- Primary Decreased range of motion of right shoulder Other symptoms referable to shoulder joint Weakness of right shoulder [facility] Diagnostic Procedure Only (Routine) - Authorized Specialty Diagnoses / [facility] Diagnoses Breast screening Procedures ЮЛИЯ SCREENING SCREENING MAMMOGRAPHY BI 2-VIEW BREAST INC Gi Kapoor MD [address] [place] [address] [facility] [address] [place] [address] Referral ID Status Reason Start Date Expiration Date Visits Requested Visits Authorized [id number] Authorized Auto-Generat ed Referral 07/27/2021 08/26/2022 1 1 [facility] ([facility] Diagnostic Procedure Only (Routine) - Closed Specialty Diagnoses / Procedures [facility] Diagnoses Breast screening Procedures ЮЛИЯ SCREENING SCREENING MAMMOGRAPHY BI 2-VIEW BREAST INC Gi Kapoor MD [address] [place] [address] [facility] [address] [place] [address] Referral ID Status Reason Start Date Expiration Date V isits Requested Visits Authorized [id number] Closed Auto-Generate d Referral 07/27/2021 08/26/2022 1 1 [facility] ([facility] Diagnostic Procedure Only (Routine) - Pending Review Specialty Diagnoses / Procedures [facility] To [facility] Diagnoses Calcification of left breast on mammography Procedures ЮЛИЯ STEREO BX BREAST LEFT BX BREAST W/DEVICE 1ST LESION Katherine Astudillo MD [address] [place] [address] [facility] [address] [place] [address] Referral ID Status Reason Start Date Expiration Date Visits Requested Visits Authorized [id number] Pending Review Auto-Generat ed Referral 10/27/2022 11/26/2023 1 1 [facility] ([facility] Diagnostic Procedure Only (Routine) - Closed Specialty Diagnoses / Procedures Referred By [facility] Referred To Contact [facility] Diagnoses Calcification of left breast on mammography Procedures ЮИЛЯ STEREO BX BREAST LEFT BX BREAST W/DEVICE 1ST LESION Katherine Astudillo MD [address] [place] [address] [facility] [address] [place] [address] Referral ID Status Reason Start Date Expiration Date V isits Requested Visits Authorized [id number] Closed Auto-Generate d Referral 10/27/2022 11/26/2023 [facility] Diagnostic Procedure Only (Routine) - Closed Specialty Diagnoses / Procedures Referred By Contac t Referred To Contact [facility] Diagnoses Encounter for screening mammogram for malignant neoplasm of breast Procedures ЮЛИЯ SCREENING W ROMEO SCREENING DIGITAL BREAST TOMOSYNTHESIS BI SCREENING MAMMOGRAPHY BI 2-VIEW BREAST INC Chel Henry MD [address] [address] [facility] [address] [place] [address] Referral ID Status Reason Start Date Expiration Date V isits Requested Visits Authorized [id number] Closed Auto-Generate d Referral 07/14/2022 08/13/2023 1 [facility] Diagnostic Procedure Only (Routine) - Pending Review Specialty Diagnoses / Procedures Referred By Rabia cobrett Referred To Contact [facility] Diagnoses Breast screening Procedures ЮЛИЯ SCREENING W ROMEO SCREENING DIGITAL BREAST TOMOSYNTHESIS BI SCREENING MAMMOGRAPHY BI 2-VIEW BREAST INC Gi Kapoor MD [address] [id number] [facility] [address] [place] [address] Referral ID Status Reason Start Date Expiration Date Visits Requested Visits Authorized [id number] Pending Review Auto-Generat ed Referral 09/05/2023 10/04/2024 1 [facility] Diagnostic Procedure Only (Routine) - Closed Specialty Diagnoses / Procedures Referred By Rabia corbett Referred To Contact [facility] Diagnoses Breast screening Procedures ЮЛИЯ SCREENING SCREENING MAMMOGRAPHY BI 2-VIEW BREAST INC Gi Kapoor MD [address] [id number] [facility] [address] [place] [address] Referral ID Status Reason Start Date Expiration Date V isits Requested Visits Authorized [id number] Closed Auto-Generate d Referral 07/27/2021 08/26/2022 1 [facility] Diagnostic Procedure Only (Routine) - Closed Specialty Diagnoses / Procedures Referred By Rabia corbett Referred To Contact [facility] Diagnoses Women's annual routine gynecological examination Procedures ЮЛИЯ SCREENING W ROMEO SCREENING DIGITAL BREAST TOMOSYNTHESIS BI SCREENING MAMMOGRAPHY BI 2-VIEW BREAST INC Gi Kapoor MD [address] [address] [facility] [address] [place] [address] Referral ID Status Reason Start Date Expiration Date V isits Requested Visits Authorized [id number] Closed Auto-Generate d Referral 07/14/2022 08/13/2023 1 [facility] Diagnostic Procedure Only (Routine) - Closed Specialty Diagnoses / Procedures Referred By Contac t Referred To Contact [facility] Diagnoses Calcification of left breast on mammography Procedures ЮЛИЯ STEREO BX BREAST LEFT BX BREAST W/DEVICE 1ST LESION STEREOTACTIC GUID Katherine Pop MD [address] [facility] [place] [address] [facility] [address] [place] [address] Referral ID Status Reason Start Date Expiration Date V isits Requested Visits Authorized [id number] Closed Auto-Generate d Referral 10/27/2022 11/26/2023 1 [facility] Diagnostic Procedure Only (Routine) - Closed Specialty Diagnoses / Procedures Referred By Rabia corbett Referred To Contact [facility] Diagnoses Encounter for screening mammogram for malignant neoplasm of breast Procedures ЮЛИЯ SCREENING W ROMEO SCREENING DIGITAL BREAST TOMOSYNTHESIS BI SCREENING MAMMOGRAPHY BI 2-VIEW BREAST INC CAD Chel Mari MD [address] [address] [facility] [address] [place] [address] Referral ID Status Reason Start Date Expiration Date V isits Requested Visits Authorized [id number] Closed Auto-Generate d Referral 07/14/2022 08/13/2023 1 1 [facility] Summary Purpose Family History Relationship Condition Age at Onset Recorded Date/T shanell Not Specified Diabetes mellitus Unknown High blood cholesterol Unknown Cerebrovascular accident (CVA) Unknown father Cardiac disease Unknown mother Aortic valve disorder Unknown Malignant neoplasm of breast Unknown Myocardial infarction Unknown sister Malignant neoplasm of breast Unknown Sudden cardiac Unknown Advance Directives Latest Code Status on File Code Status Date Activated Date Inactivated Comments Full Code 01/10/2023 12:43 PM 01/10/2023 5:52 PM Latest Code Status on File Code Status Date Activated Date Inactivated Comments Full Code 01/31/2023 12:12 PM 02/01/2023 2:51 AM Code Status History Code Status Date Activated Date Inactivated Comments Full Code 01/10/2023 12:43 PM 01/10/2023 5:52 PM Chief Complaint and Reason for Visit Chief Complaint Annual wellness exam PE Reason for Visit Wellness examination Reason for Referral Specialty Diagnoses / Procedures Referred By Rabia corbett Referred To Contact Diagnoses Family history of breast cancer Procedures CONSULT TO MEDICAL GENETICS - CANCER MEDICAL GENETICS COUNSELING EACH 30 MINUTES Gi Miranda MD [address] [address] [address] [place] [id number] [place] [address] Referral ID Status Reason Start Date Expiration Date Visits Requested Visits Authorized [id number] Authorized PCP Requested Referral Auto-Generate d Referral 10/10/2022 10/10/2023 1 1 Specialty Diagnoses / Procedures Referred By Rabia corbett Referred To Contact [facility] Diagnoses Traumatic complete tear of right rotator cuff, initial encounter Procedures MRI SHOULDER WO IVCON RIGHT MRI ANY JT UPPER EXTREMITY W/O CONTRAST MATRL Nilton Glaser MD [address] [place] [address] [facility] [address] [address] Referral ID Status Reason Start Date Expiration Date Visits Requested Visits Authorized [id number] Authorized Auto-Generat ed Referral 4 03/15/2025 1 1 Referral ID Status Reason Start Date Expiration Date V isits Requested Visits Authorized [id number] Closed Auto-Generate d Referral 02/14/2024 03/15/2025 1 1 Specialty Diagnoses / Procedures Referred By Rabia corbett Referred To Contact [facility] Diagnoses Traumatic tear of right rotator cuff, subsequent encounter Procedures CONSULT TO PHYSICAL THERAPY PHYSICAL THERAPY EVALUATION HIGH COMPLEX 45 MINS Nilton Glaser MD [address] [place] [address] [facility] [place] [address] Referral ID Status Reason Start Date Expiration Date Visits Requested Visits Authorized [id number] Pending Review Auto-Generat ed Referral 4 02/20/2025 1 1 Medications Administered Section Inactive Administered Medications - up to 3 most recent administrations Medication Order MAR Action Action Date Dose Rate Site lidocaine 10 mg/mL (1 %) injection (XYLOCAINE) OTHER, NEEDED, Starting on Sun11/14/22 at 1316, Until Sun11/14/22 at 1316, Intraprocedure Given 11/14/2022 1:16 PM EDT 200 mg Breast, Left Additional Source Comments INFORMATION SOURCE (unrecogn ized section and content) DATE CREATED AUTHOR 01/13/2019 [employer] DATE CREATED AUTHOR AUTHOR'S ORGANIZ ATION [facility] DATE CREATED AUTHOR AUTHOR'S ORGANIZ ATION 10/22/2021 [facility] DATE CREATED AUTHOR AUTHOR'S ORGANIZ ATION 02/02/2023 [facility] DATE CREATED AUTHOR AUTHOR'S ORGANIZ ATION [facility]20[facility] DATE CREATED AUTHOR AUTHOR'S ORGANIZ ATION 05/28/2024 [facility] DATE CREATED AUTHOR AUTHOR'S ORGANIZ ATION 07/23/2024 [facility] DATE CREATED AUTHOR AUTHOR'S ORGANIZ ATION 09/08/2024 [facility] DATE CREATED AUTHOR AUTHOR'S ORGANIZ ATION 10/22/2024 [facility] Source Comments (unrecognize d section and content) In the event this informatio n is protected by the Federal Confidentiality of Alcohol and Drug Abuse Patient Records regulations: The Federal rules restrict any use of the information to criminally investigate or prosecute any alcohol or drug abuse patient.[facility] the event this information is protected by the Federal Confidentiality of Alcohol and Drug Abuse Patient Records regulations: The Federal rules restrict any use of the information to criminally investigate or prosecute any alcohol or drug abuse patient.[facility] the event this information is protected by the Federal Confidentiality of Alcohol and Drug Abuse Patient Records regulations: The Federal rules restrict any use of the information to criminally investigate or prosecute any alcohol or drug abuse patient.[facility] the event this information is protected by the Federal Confidentiality of Alcohol and Drug Abuse Patient Records regulations: The Federal rules restrict any use of the information to criminally investigate or prosecute any alcohol or drug abuse patient.[facility] the event this information is protected by the Federal Confidentiality of Alcohol and Drug Abuse Patient Records regulations: The Federal rules restrict any use of the information to criminally investigate or prosecute any alcohol or drug abuse patient.[facility] the event this information is protected by the Federal Confidentiality of Alcohol and Drug Abuse Patient Records regulations: The Federal rules restrict any use of the information to criminally investigate or prosecute any alcohol or drug abuse patient.[facility] the event this information is protected by the Federal Confidentiality of Alcohol and Drug Abuse Patient Records regulations: The Federal rules restrict any use of the information to criminally investigate or prosecute any alcohol or drug abuse patient.[facility] the event this information is protected by the Federal Confidentiality of Alcohol and Drug Abuse Patient Records regulations: The Federal rules restrict any use of the information to criminally investigate or prosecute any alcohol or drug abuse patient.[facility] the event this information is protected by the Federal Confidentiality of Alcohol and Drug Abuse Patient Records regulations: The Federal rules restrict any use of the information to criminally investigate or prosecute any alcohol or drug abuse patient.[facility] the event this information is protected by the Federal Confidentiality of Alcohol and Drug Abuse Patient Records regulations: The Federal rules restrict any use of the information to criminally investigate or prosecute any alcohol or drug abuse patient.[facility] the event this information is protected by the Federal Confidentiality of Alcohol and Drug Abuse Patient Records regulations: The Federal rules restrict any use of the information to criminally investigate or prosecute any alcohol or drug abuse patient.[facility] the event this information is protected by the Federal Confidentiality of Alcohol and Drug Abuse Patient Records regulations: The Federal rules restrict any use of the information to criminally investigate or prosecute any alcohol or drug abuse patient.[facility] the event this information is protected by the Federal Confidentiality of Alcohol and Drug Abuse Patient Records regulations: The Federal rules restrict any use of the information to criminally investigate or prosecute any alcohol or drug abuse patient.[facility]In the event this information is protected by the Federal Confidentiality of Alcohol and Drug Abuse Patient Records regulations: The Federal rules restrict any use of the information to criminally investigate or prosecute any alcohol or drug abuse patient.[facility]In the event this information is protected by the Federal Confidentiality of Alcohol and Drug Abuse Patient Records regulations: The Federal rules restrict any use of the information to criminally investigate or prosecute any alcohol or drug abuse patient.[facility] the event this information is protected by the Federal Confidentiality of Alcohol and Drug Abuse Patient Records regulations: The Federal rules restrict any use of the information to criminally investigate or prosecute any alcohol or drug abuse patient.[facility]In the event this information is protected by the Federal Confidentiality of Alcohol and Drug Abuse Patient Records regulations: The Federal rules restrict any use of the information to criminally investigate or prosecute any alcohol or drug abuse patient.[facility] HospitalIn the event this information is protected by the Federal Confidentiality of Alcohol and Drug Abuse Patient Records regulations: The Federal rules restrict any use of the information to criminally investigate or prosecute any alcohol or drug abuse patient.[facility]In the event this information is protected by the Federal Confidentiality of Alcohol and Drug Abuse Patient Records regulations: The Federal rules restrict any use of the information to criminally investigate or prosecute any alcohol or drug abuse patient.[facility] HospitalIn the event this information is protected by the Federal Confidentiality of Alcohol and Drug Abuse Patient Records regulations: The Federal rules restrict any use of the information to criminally investigate or prosecute any alcohol or drug abuse patient.[facility] HospitalIn the event this information is protected by the Federal Confidentiality of Alcohol and Drug Abuse Patient Records regulations: The Federal rules restrict any use of the information to criminally investigate or prosecute any alcohol or drug abuse patient.[facility] HospitalIn the event this information is protected by the Federal Confidentiality of Alcohol and Drug Abuse Patient Records regulations: The Federal rules restrict any use of the information to criminally investigate or prosecute any alcohol or drug abuse patient.[facility] HospitalIn the event this information is protected by the Federal Confidentiality of Alcohol and Drug Abuse Patient Records regulations: The Federal rules restrict any use of the information to criminally investigate or prosecute any alcohol or drug abuse patient.[facility]In the event this information is protected by the Federal Confidentiality of Alcohol and Drug Abuse Patient Records regulations: The Federal rules restrict any use of the information to criminally investigate or prosecute any alcohol or drug abuse patient.[facility]In the event this information is protected by the Federal Confidentiality of Alcohol and Drug Abuse Patient Records regulations: The Federal rules restrict any use of the information to criminally investigate or prosecute any alcohol or drug abuse patient.[facility]In the event this information is protected by the Federal Confidentiality of Alcohol and Drug Abuse Patient Records regulations: The Federal rules restrict any use of the information to criminally investigate or prosecute any alcohol or drug abuse patient.[facility]In the event this information is protected by the Federal Confidentiality of Alcohol and Drug Abuse Patient Records regulations: The Federal rules restrict any use of the information to criminally investigate or prosecute any alcohol or drug abuse patient.[facility]In the event this information is protected by the Federal Confidentiality of Alcohol and Drug Abuse Patient Records regulations: The Federal rules restrict any use of the information to criminally investigate or prosecute any alcohol or drug abuse patient.[facility]In the event this information is protected by the Federal Confidentiality of Alcohol and Drug Abuse Patient Records regulations: The Federal rules restrict any use of the information to criminally investigate or prosecute any alcohol or drug abuse patient.[facility]In the event this information is protected by the Federal Confidentiality of Alcohol and Drug Abuse Patient Records regulations: The Federal rules restrict any use of the information to criminally investigate or prosecute any alcohol or drug abuse patient.[facility]In the event this information is protected by the Federal Confidentiality of Alcohol and Drug Abuse Patient Records regulations: The Federal rules restrict any use of the information to criminally investigate or prosecute any alcohol or drug abuse patient.[facility]In the event this information is protected by the Federal Confidentiality of Alcohol and Drug Abuse Patient Records regulations: The Federal rules restrict any use of the information to criminally investigate or prosecute any alcohol or drug abuse patient.[facility]In the event this information is protected by the Federal Confidentiality of Alcohol and Drug Abuse Patient Records regulations: The Federal rules restrict any use of the information to criminally investigate or prosecute any alcohol or drug abuse patient.[facility]In the event this information is protected by the Federal Confidentiality of Alcohol and Drug Abuse Patient Records regulations: The Federal rules restrict any use of the information to criminally investigate or prosecute any alcohol or drug abuse patient.[facility] HospitalIn the event this information is protected by the Federal Confidentiality of Alcohol and Drug Abuse Patient Records regulations: The Federal rules restrict any use of the information to criminally investigate or prosecute any alcohol or drug abuse patient.[facility] HospitalIn the event this information is protected by the Federal Confidentiality of Alcohol and Drug Abuse Patient Records regulations: The Federal rules restrict any use of the information to criminally investigate or prosecute any alcohol or drug abuse patient.[facility] HospitalIn the event this information is protected by the Federal Confidentiality of Alcohol and Drug Abuse Patient Records regulations: The Federal rules restrict any use of the information to criminally investigate or prosecute any alcohol or drug abuse patient.[facility]In the event this information is protected by the Federal Confidentiality of Alcohol and Drug Abuse Patient Records regulations: The Federal rules restrict any use of the information to criminally investigate or prosecute any alcohol or drug abuse patient.[facility] HospitalIn the event this information is protected by the Federal Confidentiality of Alcohol and Drug Abuse Patient Records regulations: The Federal rules restrict any use of the information to criminally investigate or prosecute any alcohol or drug abuse patient.[facility] HospitalIn the event this information is protected by the Federal Confidentiality of Alcohol and Drug Abuse Patient Records regulations: The Federal rules restrict any use of the information to criminally investigate or prosecute any alcohol or drug abuse patient.[facility] HospitalIn the event this information is protected by the Federal Confidentiality of Alcohol and Drug Abuse Patient Records regulations: The Federal rules restrict any use of the information to criminally investigate or prosecute any alcohol or drug abuse patient.[facility] HospitalIn the event this information is protected by the Federal Confidentiality of Alcohol and Drug Abuse Patient Records regulations: The Federal rules restrict any use of the information to criminally investigate or prosecute any alcohol or drug abuse patient.[facility] HospitalIn the event this information is protected by the Federal Confidentiality of Alcohol and Drug Abuse Patient Records regulations: The Federal rules restrict any use of the information to criminally investigate or prosecute any alcohol or drug abuse patient.[facility] HospitalIn the event this information is protected by the Federal Confidentiality of Alcohol and Drug Abuse Patient Records regulations: The Federal rules restrict any use of the information to criminally investigate or prosecute any alcohol or drug abuse patient.[facility] HospitalIn the event this information is protected by the Federal Confidentiality of Alcohol and Drug Abuse Patient Records regulations: The Federal rules restrict any use of the information to criminally investigate or prosecute any alcohol or drug abuse patient.[facility] HospitalIn the event this information is protected by the Federal Confidentiality of Alcohol and Drug Abuse Patient Records regulations: The Federal rules restrict any use of the information to criminally investigate or prosecute any alcohol or drug abuse patient.[facility] HospitalIn the event this information is protected by the Federal Confidentiality of Alcohol and Drug Abuse Patient Records regulations: The Federal rules restrict any use of the information to criminally investigate or prosecute any alcohol or drug abuse patient.[facility] Reason for Visit (unrecogniz ed section and content) Reason Comments PT Progress Note Specialty Diagnoses / Procedures Referred By Contac t Referred To Contact PHYSICAL THERAPY Diagnoses Injury of right axillary nerve, subsequent encounter S/P right rotator cuff repair Procedures PHYSICAL THERAPY EVALUATION HIGH COMPLEX 45 MINS Nilton Glaser MD [address] [place] [address] Phone: tel: fax: Kelsea Fajardo [address] [place] [address] Phone: tel: Referral ID Status Reason Start Date Expiration Date Visits Requested Visits Authorized [id number] Authorized Auto-Generat ed Referral 07/27/2024 02/25/2025 99 99 Reason Comments Physical Therapy Specialty Diagnoses / Procedures Referred By Rabia t Referred To Contact PHYSICAL THERAPY Diagnoses Injury of right axillary nerve, subsequent encounter S/P right rotator cuff repair Procedures CONSULT TO PHYSICAL THERAPY PHYSICAL THERAPY EVALUATION HIGH COMPLEX 45 MINS Nilton Glaser MD [address] [place] [address] Phone: tel: fax: Kelsea Fajardo [address] [place] [address] Phone: tel: Referral ID Status Reason Start Date Expiration Date Visits Requested Visits Authorized [id number] Authorized Auto-Generat ed Referral 06/12/2024 02/25/2025 99 99 Reason Comments Orders Reason Comments Well Woman Reason Comments Well Woman Reason Comments Mammogram Result Call Back Reason Comments Breast Nodule Reason Comments Radiology Mammogram Reason Comments New Reason Comments Radiology MRI Specialty Diagnoses / Procedures Referred By Rabia t Referred To Contact [facility] Diagnoses Traumatic complete tear of right rotator cuff, initial encounter Procedures MRI SHOULDER WO IVCON RIGHT MRI ANY JT UPPER EXTREMITY W/O CONTRAST MATRL Nilton Glaser MD [address] [place] [address] [facility] [address] [address] Referral ID Status Reason Start Date Expiration Date V isits Requested Visits Authorized [id number] Closed Auto-Generate d Referral 02/14/2024 03/15/2025 1 1 Reason Comments Established Patient Reason Comments Established Patient Reason Comments Anesthesia Consult Reason Comments Post Op Reason Comments PT Eval Reason Comments Post Op Reason Comments Follow Up Care Teams (unrecognized sec tion and content) Catheter Builder Relationship Specialty Start Date End Date Margarita Avila, INSTRUCTIONAL SUPPORT ASSISTANT.[employer] [address] [place], [place] [phone] PCP - General Family Practice 08/10/15 Catheter Builder Relationship Specialty Start Date End Date Margarita Avila, INSTRUCTIONAL SUPPORT ASSISTANT.[employer] [facility] [address] [place], [place] [phone] PCP - General Family Practice 08/10/15 Catheter Builder Relationship Specialty Start Date End Date Margarita Avila, INSTRUCTIONAL SUPPORT ASSISTANT.[employer] [facility] [address] [place], [place] [phone] PCP - General Family Practice 08/10/15 Catheter Builder Relationship Specialty Start Date End Date Margarita Avila, INSTRUCTIONAL SUPPORT ASSISTANT.[employer] [facility] [address] [place], [place] [phone] PCP - General Family Practice 08/10/15 Team Status: Active Member Role Status Dates Margarita Avila GIMP TACKER, GIMP TACKER-C Primary Care Provider Active Team Status: Inactive Member Role Status Dates Margarita Avila GIMP TACKER, GIMP TACKER-C Primary Care Pr ovider, Attending Provider, Referring Provider Active Team Status: Inactive Member Role Status Dates Margarita Avila GIMP TACKER, GIMP TACKER-C Primary Care Provider, Attend ing Provider Active Catheter Builder Relationship Specialty Start Date End Date Margarita Avila, INSTRUCTIONAL SUPPORT ASSISTANT.[employer] [employer] [facility] [address] [place], [place] [id number] PCP - General Family Medicine 08/10/15 Catheter Builder Relationship Specialty Start Date End Date Margarita Avila, INSTRUCTIONAL SUPPORT ASSISTANT.[employer] [employer] [facility] [address] [place] [address] PCP - General Family Medicine 08/10/15 Catheter Builder Relationship Specialty Start Date End Date Margarita Avila, INSTRUCTIONAL SUPPORT ASSISTANT.[employer] [facility] [address] [place] [address] PCP - General Family Medicine 08/10/15 Catheter Builder Relationship Specialty Start Date End Date Margarita Avila, INSTRUCTIONAL SUPPORT ASSISTANT.[employer] [employer] [facility] [address] [place], [place] [phone] PCP - General Family Medicine 08/10/15 Catheter Builder Relationship Specialty Start Date End Date Margarita Avila, INSTRUCTIONAL SUPPORT ASSISTANT.[employer] [employer] [facility] [address] [place] [address] PCP - General Family Medicine 08/10/15 Catheter Builder Relationship Specialty Start Date End Date Margarita Avila, INSTRUCTIONAL SUPPORT ASSISTANT.[employer] [employer] [facility] [address] [place] [address] PCP - General Family Medicine 08/10/15 Catheter Builder Relationship Specialty Start Date End Date Margarita Avila, INSTRUCTIONAL SUPPORT ASSISTANT.[employer] [employer] [facility] [address] [place], [place] [phone] PCP - General Family Medicine 08/10/15 Catheter Builder Relationship Specialty Start Date End Date Margarita Avila, INSTRUCTIONAL SUPPORT ASSISTANT.[employer] [employer] [facility] [address] [place] [address] PCP - General Family Medicine 08/10/15 Catheter Builder Relationship Specialty Start Date End Date Nick Martinez MD [address] [place] [address] PCP - General Ophthalmology 01/10/23 Catheter Builder Relationship Specialty Start Date End Date Nick Martinez MD [address] [place] [address] PCP - General Ophthalmology 01/10/23 Catheter Builder Relationship Specialty Start Date End Date Nick Martinez MD [address] [place] [address] PCP - General Ophthalmology 01/10/23 Catheter Builder Relationship Specialty Start Date End Date Margarita Avila, INSTRUCTIONAL SUPPORT ASSISTANT.[facility] [employer] [facility] [address] [place] [address] PCP - General Family Medicine 08/10/15 Catheter Builder Relationship Specialty Start Date End Date Margarita Avila, INSTRUCTIONAL SUPPORT ASSISTANT.[employer] [employer] [facility] [address] [place] [address] PCP - General Family Medicine 08/10/15 Catheter Builder Relationship Specialty Start Date End Date Margarita Avila, INSTRUCTIONAL SUPPORT ASSISTANT.[employer] [employer] [facility] [address] [place], [place] [id number] [phone] PCP - General Family Medicine 08/10/15 Catheter Builder Relationship Specialty Start Date End Date Margarita Avila, INSTRUCTIONAL SUPPORT ASSISTANT.[facility] [address] [place], [place] [phone] PCP - General Family Medicine 08/10/15 Catheter Builder Relationship Specialty Start Date End Date Margarita Avila, INSTRUCTIONAL SUPPORT ASSISTANT.[facility] [employer] [facility] [address] [place], [place] [id number] [phone] PCP - General Family Medicine 08/10/15 Catheter Builder Relationship Specialty Start Date End Date Margarita Avila, INSTRUCTIONAL SUPPORT ASSISTANT.[employer] [employer] [facility] [address] [facility] [place] [address] PCP - General Family Medicine 08/10/15 Catheter Builder Relationship Specialty Start Date End Date Margarita Avila, INSTRUCTIONAL SUPPORT ASSISTANT.[employer] [employer] [facility] [address] [place] [address] PCP - General Family Medicine 08/10/15 Catheter Builder Relationship Specialty Start Date End Date Margarita Avila, INSTRUCTIONAL SUPPORT ASSISTANT.[employer] [employer] [facility] [address] [place] [address] PCP - General Family Medicine 08/10/15 Catheter Builder Relationship Specialty Start Date End Date Margarita Avila, INSTRUCTIONAL SUPPORT ASSISTANT.[employer] [employer] [facility] [address] [place] [address] PCP - General Family Medicine 08/10/15 Catheter Builder Relationship Specialty Start Date End Date Margarita Avila, INSTRUCTIONAL SUPPORT ASSISTANT.[employer] [employer] [facility] [address] [place] [address] PCP - General Family Medicine 08/10/15 Catheter Builder Relationship Specialty Start Date End Date Margarita Avila, INSTRUCTIONAL SUPPORT ASSISTANT.[employer] [employer] [facility] [address] [place] [address] PCP - General Family Medicine 08/10/15 Catheter Builder Relationship Specialty Start Date End Date Margarita Avila, INSTRUCTIONAL SUPPORT ASSISTANT.[employer] [employer] [facility] [address] [facility] [place] [address] PCP - General Family Medicine 08/10/15 Catheter Builder Relationship Specialty Start Date End Date Margarita Avila, INSTRUCTIONAL SUPPORT ASSISTANT.[employer] [employer] [facility] [address] [place] [address] PCP - General Family Medicine 08/10/15 Catheter Builder Relationship Specialty Start Date End Date Margarita Avila, INSTRUCTIONAL SUPPORT ASSISTANT.[employer] [employer] [facility] [address] [place] [address] PCP - General Family Medicine 08/10/15 Catheter Builder Relationship Specialty Start Date End Date Margarita Avila, INSTRUCTIONAL SUPPORT ASSISTANT.[employer] [employer] [facility] [address] [place] [address] PCP - General Family Medicine 08/10/15 Catheter Builder Relationship Specialty Start Date End Date Margarita Avila, INSTRUCTIONAL SUPPORT ASSISTANT.[employer] [employer] [facility] [address] [place] [address] PCP - General Family Medicine 08/10/15 Catheter Builder Relationship Specialty Start Date End Date Margarita Avila, INSTRUCTIONAL SUPPORT ASSISTANT.[employer] [employer] [facility] [address] [place] [address] PCP - General Family Medicine 08/10/15 Catheter Builder Relationship Specialty Start Date End Date Margarita Avila, INSTRUCTIONAL SUPPORT ASSISTANT.[employer] [employer] [facility] [address] [place] [address] PCP - General Family Medicine 08/10/15 Catheter Builder Relationship Specialty Start Date End Date Margarita Avila, INSTRUCTIONAL SUPPORT ASSISTANT.[employer] [employer] [facility] [address] [place] [address] PCP - General Family Medicine 08/10/15 Catheter Builder Relationship Specialty Start Date End Date Margarita Avila, INSTRUCTIONAL SUPPORT ASSISTANT.[employer] [employer] [facility] [address] [place], [place] [phone] PCP - General Family Medicine 08/10/15 Catheter Builder Relationship Specialty Start Date End Date Margarita Avila, INSTRUCTIONAL SUPPORT ASSISTANT.[employer] [employer] [facility] [address] [place] [address] PCP - General Family Medicine 08/10/15 Goals (unrecognized section and content) Goals may be documented in a n alternate section FOR RECORDS PERTAINING TO PATIENTS WHO ARE OR HAVE BEEN ENROLLED IN A CHEMICAL DEPENDENCY/SUBSTANCEABUSE PROGRAM, SOME INFORMATION MAY BE OMITTED. This clinical summary was aggregated from multiple sources. Caution should be exercised in using it in the provision of clinical care. This summary normalizes information from multiple sources, and as a consequence, information in this document may materially change the coding, format and clinical context of patient data. In addition, data may be omitted in some cases. CLINICAL DECISIONS SHOULD BE BASED ON THE PRIMARY CLINICAL RECORDS. [facility]. provides no warranty or guarantee of the accuracy or completeness of information in this document.
[2024-10-30 22:52] LABS: Hematocrit 40.0 % (37-47); Hemoglobin 13.1 g/dL (12.0-15.0); Immature Granulocytes Count 0.010 X10^3/uL (0.0-0.0); Mean Corp Hgb Conc 32.8 g/dL (32-36); Mean Corpuscular Volume 93.0 fL (81-99); Mean Platelet Vol. 11.1 fl (6.2-12.0); NRBC Flagged by Analyzer 0 % (0-5); Platelet Count 265 K/mm3 (150-450); RBC Distribution Width CV 12.9 % (11.6-14.6); RBC Distribution Width SD 44.2 fl (35.1-43.9); Red Blood Count 4.30 M/mm3 (4.2-5.4); White Blood Count 7.2 K/mm3 (4.4-11.0)
[2024-10-30 23:17] LABS: AST(SGOT) 21 U/L (<=31); Alanine Aminotransfer ALT/SGPT 19 U/L (<=34); Albumin, Serum 4.5 g/dL (3.4-4.8); Alkaline Phosphatase 69 U/L (35-104); Anion Gap 14 (5-15); BUN 14 mg/dL (4-19); BUN/Creat Ratio 19.5 RATIO (10-20); Calcium,Total 9.8 mg/dL (7.6-11.0); Carbon Dioxide 20.2 mmol/L (21.0-32.0); Chloride 103 mmol/L (98-108); Cholesterol 236 mg/dL (<=200); Globulin 3.4 g/dL (2.2-4.2); Glucose 94 mg/dL (70-99); Low Density Lipoprotein Calc. 141 mg/dL; Potassium 4.1 mmol/L (3.3-5.1); Triglycerides 105 mg/dL; Very Low Density Lipoprotein 21 mg/dL (5-40); cholesterol:hdl ratio screen 3.19
== END | disposition home or self-care (01) ==
PROVIDERS: PCP Nurse Practitioner; Referring Provider Nurse Practitioner; Visit Provider Nurse Practitioner
DX: Z00.00 Encounter for general adult medical examination without abnormal findings (principal); E78.5 Hyperlipidemia, unspecified
CPT/HCPCS: 80053; 80061; 85025

== ENCOUNTER → 2024-12-19 | Outpatient (CLI) | payer MEDICARE, SELFPAY | END | disposition home or self-care (01) | LOC: PSN 06:42 | PROVIDERS: PCP Nurse Practitioner; Referring Provider Internal Medicine Cardiovascular Disease; Visit Provider Internal Medicine Cardiovascular Disease | DX: R00.2 Palpitations (principal) | CPT/HCPCS: 93225; 93226 ==

== ENCOUNTER → 2024-12-22 | Outpatient (CLI) | payer MEDICARE, SELFPAY | END | disposition home or self-care (01) | LOC: CVS 09:49 | PROVIDERS: PCP Nurse Practitioner; Referring Provider Internal Medicine Cardiovascular Disease; Visit Provider Internal Medicine Cardiovascular Disease | DX: R07.89 Other chest pain (principal) | CPT/HCPCS: 93017 ==